=== PATIENT | female | born 1950 | race Caucasian/White ===

== ENCOUNTER 2020-09-15 07:58 | Outpatient (NON) | payer OTHER, SELFPAY ==
[2020-09-15 20:40] LABS: SARS-CoV-2 RNA PCR Negative
== END 2020-09-15 07:59 ==
PROVIDERS: PCP Student in an Organized Health Care Education/Training Program; Visit Provider Student in an Organized Health Care Education/Training Program
DX: R05 Cough (principal); R06.2 Wheezing; Z20.828 Contact with and (suspected) exposure to other viral communicable diseases
CPT/HCPCS: 87635; C9803; U0003

== ENCOUNTER 2020-09-20 06:49 | Emergency (ER) | payer OTHER, SELFPAY ==
[2020-09-20] VITALS (40 sets, daily range): BP systolic 128–215; BP diastolic 66–127; PULSE 71–95; RESP 12–25; TEMP 35.7–36.7; O2SAT 95–100
--- NOTE | ~2020-09-20 | XR_ITS ---
EXAMINATION: XR chest 2V DATE: 09/20/2020 07:37 INDICATION: Chest pain and nausea TECHNIQUE: Frontal and lateral views of the chest are obtained COMPARISON: 05/16/2017 FINDINGS: The lungs are free of acute opacities. There is no pleural effusion or pneumothorax. The he art size is normal. There is mild thoracic spondylosis. Median sternotomy wires and mediastinal surgi francesca clips are seen, likely from prior coronary artery bypass grafting. Cholecystectomy clips are note d in the right upper quadrant. IMPRESSION: 1. No acute cardiopulmonary abnormality. Reviewed, dictated and finalized at location A. ARCH RN SPEC
--- NOTE | 2020-09-20 07:09 | ECG_ITS ---
Measurements Intervals [place] Rate: 80 P: 83 [place]: 161 QRS: -9 QRSD: 86 T: 91 QT: 381 QTc: 441 Interpretive Statements SINUS RHYTHM POSSIBLE LEFT ATRIAL ENLARGEMENT CANNOT RULE OUT SEPTAL INFARCT, AGE INDETERMINATE BORDERLINE ST-T WAVE ABNORMALITY- ANT/HIGH LAT LEADS BASELINE ARTIFACT- I, II, AVR, AVL, V4-V6 ABNORMAL ECG Electronically Signed On 09-20-2020 8:36:34 NICK SETTER by Tommy Felder D.O.
--- NOTE | 2020-09-20 07:13 | ED.CHESTPAIN ---
HPI - Chest Pain General Chief Complaint: Chest Pain <Doris Maria MD - Last Filed: 09/20/20 18:29> Stated Complaint: dr sent me here, thinks i am having a heart attack <Doris Maria MD - Last Filed: 09/20/20 18:29> Time Seen by Provider: 09/20/20 07:06 <Doris Maria MD - Last Filed: 09/20/20 18:29> Source: patient and family <Doris Maria MD - Last Filed: 09/20/20 18:29> Mode of arrival: ambulatory <Doris Maria MD - Last Filed: 09/20/20 18:29> Limitations: no limitations <Doris Maria MD - Last Filed: 09/20/20 18:29> History of Present Illness HPI narrative: Patient is a 70-year-old female with a history of hypertension, coronary artery disease, triple-vessel CABG who presents for evaluation of chest pain. Patient states chest pain began 1 hour prior to arrival. Described as a pressure as well as acid indigestion over the central chest and upper abdomen. Patient denies any radiation to the shoulders, neck or jaw. She reports associated nausea and mild diaphoresis. No associated shortness of breath. Patient states symptoms are mild currently. She did take a daily full dose aspirin this morning, denies taking any of her other blood pressure medications. She otherwise takes carvedilol and losartan. She follows with Dr. Burleson at [facility] who prompted her to come to the nearest emergency department. Patient has been compliant with her other medications. <Doris Maria MD - Last Filed: 09/20/20 18:29> Related Data Home Medications: Home Medications Medication Instructions Recorded Confirmed Ca cmb [id number] tablet PO 09/20/20 [Vitamin D-3 with Aloe] aspirin [Aspirin For Children] 81 mg PO DAILY 09/20/20 atorvastatin 09/20/20 carvedilol 09/20/20 furosemide 09/20/20 losartan 09/20/20 omeprazole 09/20/20 potassium chloride meq PO 09/20/20 thiamine HCl (vitamin B1) 100 mg PO DAILY 09/20/20 vilazodone [Viibryd] mg 09/20/20 <Doris Maria MD - Last Filed: 09/20/20 18:29> Allergies/Adverse Reactions: Allergies Allergy/AdvReac Type Severity Reaction Status Date / Time codeine Allergy Unknown Itching Verified 09/20/20 07:18 propoxyphene Allergy Unknown Itching Verified 09/20/20 07:18 Sulfa (Sulfonamide Allergy Unknown Itching Verified 09/20/20 07:18 Antibiotics) tramadol Allergy Itching Verified 09/20/20 07:18 <Doris Maria MD - Last Filed: 09/20/20 18:29> Review of Systems Review of Systems: Narrative: CONSTITUTIONAL: Denies fever, chills, or sweats. EYES: Denies visual changes, redness, or discharge. ENT: Denies rhinorrhea, congestion, sore throat, or otalgia. CARDIOVASCULAR: Reports central chest pain without palpitations or edema RESPIRATORY: Denies cough or dyspnea. GASTROINTESTINAL: Denies abdominal pain, reports nausea without vomiting GENITOURINARY: Denies dysuria or hematuria. SKIN: Denies rash or itching. MUSCULOSKELETAL: Denies back pain, joint pain, or myalgia. NEUROLOGIC: Denies headache, numbness, or weakness. <Doris Maria MD - Last Filed: 09/20/20 18:29> [facility] Past Medical History Medical History: Medical History (Updated 09/21/20 @ 14:32 by Ying Sullivan MD) Coronary artery disease Hyperlipidemia Hypertension <Doris Maria MD - Last Filed: 09/20/20 18:29> Surgical History Surgical History: Surgical History (Updated 09/20/20 @ 08:00 by Doris Maria MD) S/P CABG x 3 <Doris Maria MD - Last Filed: 09/20/20 18:29> Social History Social History: Social History (Updated 09/20/20 @ 08:00 by Doris Maria MD) Smoking status: Never smoker Alcohol intake: never Substance use: never Living arrangements: with family Gender identity (if verbalized by the patient): Female Sexual Orientation (if Verbalized by the Patient): Straight or Heterosexual <Doris Maria MD - Last Filed: 09/20/20 18:
[2020-09-20 07:30] LABS: Basophils Percent Auto 0.4 % (0.2-1.2); Eosinophils Absolute Auto 0.1 K/mm3 (0-0.3); Eosinophils Percent Auto 1.2 % (0-4.4); Hematocrit 39.8 % (37.0-47.0); Hemoglobin 13.6 g/dL (12.0-15.0); Immature Granulocyte Absolute 0.07 K/mm3 (0.00-0.031); Immature Granulocyte Percent A 0.7 % (0-0.5); Lymphocytes Absolute Auto 2.48 K/mm3 (0.9-3.2); Lymphocytes Percent Auto 26.1 % (18.3-44.2); Mean Corpuscular HGB Conc 34.2 g/dl (32-36); Mean Corpuscular Hemoglobin 28.3 pg (26-34); Mean Corpuscular Volume 82.9 fl (80-100); Mean Platelet Volume 9.1 fl (7.4-10.4); Monocytes Absolute Auto 0.9 K/mm3 (0.1-0.6); Monocytes Percent Auto 9.3 % (2.6-8.5); Neutrophils Absolute Auto 5.9 K/mm3 (1.3-6.7); Neutrophils Percent Auto 62.3 % (45.5-73.1); Platelet Count Result 229 k/mm3 (150-375); Red Cell Distribution Width 13.2 % (11.5-14.5); White Blood Count 9.5 K/mm3 (4.5-10.0)
[2020-09-20 07:42] LABS: Anion Gap 6 mmol/L (8-16); Blood Urea Nitrogen 27 mg/dL (7-17); Calcium 9.4 mg/dL (8.4-10.2); Carbon Dioxide 31 mmol/L (22-30); Chloride 102 mmol/L (98-107); Estimated CRCL calculation 45 ml/min; Estimated Glomerular Filt Rate > 60; Glucose 145 mg/dL (65-105); Potassium 3.5 mmol/L (3.4-5.0); Sodium 139 mmol/L (137-145)
[2020-09-20 07:43] LABS: Prothrombin Time 13.6 Seconds (11.1-14.7)
[2020-09-20 07:44] LABS: Partial Thromboplastin Time 24.3 SECONDS (22.3-36.8)
[2020-09-20 07:51] LABS: Troponin I < 0.012 ng/mL (0.000-0.034)
[2020-09-20] MEDS: ONDANSETRON INJ 4 MG/2 ML VIAL IV PUSH (09:09)
[2020-09-20] MEDS: MORPHINE SULFATE (*CRX) 4 MG/ML INJ IV PUSH (09:09)
[2020-09-20] MEDS: SODIUM CHLORIDE 0.9% IV 500 ML 999 ML IV CONT (09:10)
--- NOTE | 2020-09-20 10:55 | ECG_ITS ---
Measurements Intervals [place] Rate: 66 P: 70 MD: 160 QRS: -11 QRSD: 88 T: 68 QT: 409 QTc: 431 Interpretive Statements SINUS RHYTHM VENTRICULAR PREMATURE COMPLEX INCOMPLETE RIGHT BUNDLE BRANCH BLOCK DELAYED PRECORDIAL R/S TRANSITION BORDERLINE ST-T WAVE ABNORMALITY- ANT/HIGH LAT LEADS BORDERLINE ECG Electronically Signed On 09-20-2020 12:39:46 WEB DEVELOPMENT MANAGER by Tommy Felder D.O.
[2020-09-20 11:07] LABS: Troponin I < 0.012 ng/mL (0.000-0.034)
[2020-09-20 15:42] LABS: Troponin I < 0.012 ng/mL (0.000-0.034)
--- NOTE | 2020-09-20 19:52 | PC.NURSE ---
Waiting for bed assignment at [facility]
[2020-09-21] VITALS (25 sets, daily range): BP systolic 138–175; BP diastolic 73–75; PULSE 69–91; RESP 12–22; TEMP 36.6; O2SAT 96–100
--- NOTE | 2020-09-21 14:24 | PC.NURSE ---
Dr Sullivan speaking with population health coach at [facility] about pt and possible disposition.
== END 2020-09-21 15:00 | disposition home or self-care (01) ==
PROVIDERS: Emergency Medicine; Emergency Provider General Practice; PCP Student in an Organized Health Care Education/Training Program
DX: I16.9 Hypertensive crisis, unspecified (principal); R07.9 Chest pain, unspecified; I10 Essential (primary) hypertension; I25.10 Atherosclerotic heart disease of native coronary artery without angina pectoris; Z95.1 Presence of aortocoronary bypass graft; E78.5 Hyperlipidemia, unspecified; R94.31 Abnormal electrocardiogram [ECG] [EKG]; I49.3 Ventricular premature depolarization; I45.10 Unspecified right bundle-branch block
CPT/HCPCS: 36415; 71046; 80048; 84484; 85025; 85610; 85730; 93005; 96361; 96374; 96375; 99284; J2270; J2405; J7040

== ENCOUNTER 2021-01-12 11:16 | Outpatient (CLI) | payer OTHER, MEDICARE, SELFPAY | END 2021-01-12 11:17 | disposition home or self-care (01) | LOC: ANHCOVIDVC 11:16 | PROVIDERS: PCP Student in an Organized Health Care Education/Training Program | DX: Z23 Encounter for immunization (principal) | CPT/HCPCS: 0001A; 91300 ==

== ENCOUNTER 2021-02-02 11:13 | Outpatient (CLI) | payer OTHER, MEDICARE, SELFPAY | END 2021-02-02 11:14 | disposition home or self-care (01) | LOC: ANHCOVIDVC 11:13 | PROVIDERS: PCP Student in an Organized Health Care Education/Training Program | DX: Z23 Encounter for immunization (principal) | CPT/HCPCS: 0002A; 91300 ==

== ENCOUNTER 2021-04-21 13:04 | Outpatient (CLI) | payer OTHER, SELFPAY ==
--- NOTE | ~2021-04-21 | US_ITS ---
EXAMINATION: US venous doppler LE RT EXAM DATE: 04/21/2021 13:29 INDICATION: Right leg pain. TECHNIQUE: Multiple grayscale, color flow and Doppler images of the right lower extremity deep venous system were obtained and reviewed. There is no prior study for comparison. FINDINGS: The right common femoral, femoral and profunda veins demonstrate normal color flow, respira tory variation, augmentation and compressibility. Compressibility, color flow confirmed within the r ight popliteal, posterior tibial, peroneal, and greater saphenous veins. IMPRESSION: 1. No right lower extremity deep venous thrombosis. Reviewed, dictated and finalized at location B.
== END 2021-04-21 13:05 | disposition home or self-care (01) ==
PROVIDERS: PCP Student in an Organized Health Care Education/Training Program; Visit Provider Student in an Organized Health Care Education/Training Program
DX: R60.0 Localized edema (principal); M79.604 Pain in right leg
CPT/HCPCS: 93971

== ENCOUNTER 2021-06-01 07:21 | Outpatient (CLI) | payer OTHER, SELFPAY ==
--- NOTE | ~2021-06-01 | DEXA_ITS ---
Bone Density Report Name: Cassi Ramsey Age: 71 Sex: Female Ethnicity: White Date of : 1950 Indication: postmenopausal; height loss; hysterectomy; Referring Provider: Artie, Nelson Study: Bone densitometry was performed. Exam Date: June 01, 2021 Accession number: [id number] Bone Density: Region BMD T-score Z-score Classification AP Spine (L1, L2, L3) 0.843 -1.6 0.5 Osteopenia Femoral Neck (Left) 0.653 -1.8 0.1 Osteopenia Total Hip (Left) 0.789 -1.3 0.3 Osteopenia Total Hip Bilateral Avg 0.797 -1.2 0.4 Osteopenia Femoral Neck (Right) 0.673 -1.6 0.3 Osteopenia Total Hip (Right) 0.804 -1.1 0.4 Osteopenia World Health Organization criteria for BMD impression classify patients as: Normal (T-score at or above -1.0), Osteopenia (T-score between -1.0 and -2.5), or Osteoporosis (T-score at or below -2.5). 10-year Fracture Risk(1): Major Osteoporotic Fracture 11% Hip Fracture 1.9% Reported Risk Factors: [place] (), Neck BMD=0.653, BMI=24.7 (1) FRAX(R) Version 3.08. Fracture probability calculated for an untreated patient. Fracture probability may be lower if the patient has received treatment. Clinical Information Provided by Patient: Has used the following medications: Vitamin D, Calcium Has the following medical conditions: Hysterectomy Patient maximum height was 63 Menopause Age: 52 No regular weight bearing exercise Drinks caffeinated beverages Onset of menses at age 13 Number of children 2 Impression: The patient has low bone mass, based on the Left Femoral Neck T-score. The patient has an estimated ten-year risk of hip fracture of 1.9% and an estimated ten-year risk of major fracture of 11%, based on the WHO FRAX algorithm. Discussion: BONE DENSITY IS LOW AT ONE OR MORE SKELETAL SITES. This patient's lowest T-score is low at one or more skeletal sites. It meets the World Health Organization's (WHO) criteria for ?low bone mass? (T-score between -1.0 and -2.5). The patient's 10-year risk of fracture as calculated by FRAX is less than the threshold where pharmacological therapy is recommended by the National Osteoporosis Foundation (NOF). However, all treatment decisions require clinical judgment and consideration of individual patient factors, including patient preferences, comorbidities, previous drug use, risk factors not captured in the FRAX model (e.g., frailty, falls, vitamin D deficiency, increased bone turnover, interval significant decline in bone density) and possible under or overestimation of fracture risk by FRAX. The patient should follow a healthful lifestyle (good nutrition with adequate calcium and vitamin D, and appropriate weight-bearing exercise). Follow-Up: Consider repeating this study in 2 to 3 years to reassess this patient's status, or sooner if there is
--- NOTE | ~2021-06-01 | MM_ITS ---
EXAMINATION: MM screening zoraida BI w raina HISTORY: Screening mammogram TECHNIQUE: Craniocaudal and mediolateral oblique 3-D tomosynthesis images were obtained and synthetic 2-D images were generated. CAD analysis was submitted and interpreted. COMPARISON: 09/05/2014, 09/20/2012 bilateral digital screening mammogram examinations BREAST PARENCHYMAL COMPOSITION: The breasts are heterogeneously dense, which may obscure small masses . FINDINGS: There is no evidence of suspicious mass, calcification, or architectural distortion to sugg est malignancy in either breast. There has been no suspicious interval change. IMPRESSION: 1. No mammographic evidence of malignancy. 2. Recommend routine screening mammography in one year. BI-RADS Category 1: Negative Reviewed, dictated and finalized at location A.
== END 2021-06-01 07:22 | disposition home or self-care (01) ==
LOC: ANHIMG 07:22
PROVIDERS: PCP Student in an Organized Health Care Education/Training Program; Visit Provider Student in an Organized Health Care Education/Training Program
DX: Z12.31 Encounter for screening mammogram for malignant neoplasm of breast (principal); Z78.0 Asymptomatic menopausal state; M85.89 Other specified disorders of bone density and structure, multiple sites
CPT/HCPCS: 77063; 77067; 77080

== ENCOUNTER 2021-08-10 11:48 | Emergency (ER) | payer OTHER, SELFPAY ==
[2021-08-10 11:56] VITALS: BP 136/80; PULSE 77; RESP 18; TEMP 36.2; O2SAT 100
--- NOTE | 2021-08-10 12:39 | ED.EAR ---
HPI - Ear Problem General Chief complaint: Ear Stated complaint: Ear Pain Time Seen by Provider: 08/10/21 12:12 Source: patient and RN notes reviewed Mode of arrival: ambulatory Limitations: no limitations History of Present Illness HPI Narrative: Patient presents today with a 5-day history of feeling like there is fluid behind her eardrums, causing some dizziness at home. Associated symptoms include postnasal drainage. Denies any other additional symptoms. She has been taking some [id number] generic allergy medication without relief. She is a non-smoker. States her doctor could not get her in for the next several days and wanted to come in for evaluation. Related Data Home Medications Medication Instructions Recorded Confirmed carvedilol 12.5 mg DAILY 09/20/20 08/10/21 furosemide 20 mg PO DAILY 09/20/20 08/10/21 potassium chloride 10 meq PO DAILY 09/20/20 08/10/21 Allergies Allergy/AdvReac Type Severity Reaction Status Date / Time Penicillins Allergy Intermediate Rash Verified 08/10/21 12:14 codeine Allergy Unknown Itching Verified 08/10/21 12:14 propoxyphene Allergy Unknown Itching Verified 08/10/21 12:14 Sulfa (Sulfonamide Allergy Unknown Itching Verified 08/10/21 12:14 Antibiotics) tramadol Allergy Itching Verified 08/10/21 12:14 Review of Systems Review of Systems: CONSTITUTIONAL: Denies body aches, fever, chills, or sweats. EYES: Denies visual changes, redness, or discharge. ENT: Denies rhinorrhea, congestion, sore throat, or otalgia.+ Fluid in her ears CARDIOVASCULAR: Denies chest pain, palpitations, or edema. RESPIRATORY: Denies cough or dyspnea. GASTROINTESTINAL: Denies abdominal pain, nausea, vomiting, or diarrhea. GENITOURINARY: Denies dysuria or hematuria. SKIN: Denies rash, itching, or wounds. MUSCULOSKELETAL: Denies back pain, joint pain, or myalgia. NEUROLOGIC: Denies headache, numbness, tingling, or weakness. PSYCH: Denies depression or anxiety. [facility] Past Medical History Medical History Coronary artery disease Hyperlipidemia Hypertension Surgical History Surgical History S/P CABG x 3 Social History Social History Smoking status: Never smoker Alcohol intake: never Substance use: never Gender identity (if verbalized by the patient): Female Sexual Orientation (if Verbalized by the Patient): Straight or Heterosexual Comments At time of signature, I have reviewed and agree with nursing past medical, surgical, social and family history unless otherwise noted. Please see nursing chart for further information. There is no relevant family history pertinent to the presenting complaint Exam Narrative: GENERAL: Well-appearing, well-nourished, and in no acute distress. HEAD: Normocephalic, atraumatic. EYES: EOMI. No redness or drainage. Conjunctivae normal. ENT: Mucous membranes pink and moist. Nares clear. No rhinorrhea. Bilateral mild middle ear effusions, without signs of bacterial infection. Throat normal. Uvula midline. NECK: Normal AROM. Supple. No lymphadenopathy. CHEST: No respiratory distress. EXTREMITIES: Normal range of motion. No edema. SKIN: Warm, dry, no rash. Capillary refill normal. Normal skin turgor. NEURO: No focal deficits. Alert and oriented x3. Gait steady. PSYCH: Normal affect. No signs of depression or anxiety. Course Vital Signs Vital signs: Vital Signs Temperature 97.1 F L 08/10/21 11:56 Pulse Rate 77 08/10/21 11:56 Respiratory Rate 18 08/10/21 11:56 Blood Pressure 136/80 08/10/21 11:56 Pulse Oximetry 100 08/10/21 11:56 Temperature 97.1 F L 08/10/21 11:56 Pulse Rate 77 08/10/21 11:56 Respiratory Rate 18 08/10/21 11:56 Blood Pressure 136/80 08/10/21 11:56 Pulse Oximetry 100 08/10/21 11:56 Reviewed. Pt has been instr
== END 2021-08-10 12:53 | disposition home or self-care (01) ==
PROVIDERS: Emergency Provider Nurse Practitioner; PCP Student in an Organized Health Care Education/Training Program
DX: H65.03 Acute serous otitis media, bilateral (principal); I25.10 Atherosclerotic heart disease of native coronary artery without angina pectoris; E78.5 Hyperlipidemia, unspecified; I10 Essential (primary) hypertension; Z95.1 Presence of aortocoronary bypass graft
CPT/HCPCS: 99211; G0463

== ENCOUNTER 2022-07-06 11:34 | Outpatient (CLI) | payer OTHER, SELFPAY ==
[2022-07-06 12:03] LABS: Hemoglobin 12.5 g/dL (12.0-15.0); Mean Corpuscular HGB Conc 34.7 g/dl (32-36); Mean Corpuscular Hemoglobin 30.9 pg (26-34); Mean Corpuscular Volume 89.1 fl (80-100); Mean Platelet Volume 9.6 fl (7.4-10.4); Platelet Count Result 220 k/mm3 (150-375); Red Blood Count 4.04 M/mm3 (4.2-5.4); White Blood Count 8.1 K/mm3 (4.5-10.0)
[2022-07-06 12:13] LABS: Alanine Aminotransferase 13 U/L (6-35); Albumin Level 4.3 g/dL (3.5-5.1); Alkaline Phosphatase 42 U/L (38-126); Anion Gap 4 mmol/L (8-16); Aspartate Amino Transferase 23 U/L (14-36); Bilirubin,Total 0.6 mg/dL (0.2-1.3); Blood Urea Nitrogen 20 mg/dL (7-17); Calcium 8.8 mg/dL (8.4-10.2); Carbon Dioxide 29 mmol/L (22-30); Chloride 103 mmol/L (98-107); Estimated Glomerular Filt Rate 55; Glucose 122 mg/dL (65-110); Sodium 136 mmol/L (137-145)
== END 2022-07-06 11:35 | disposition home or self-care (01) ==
PROVIDERS: PCP Student in an Organized Health Care Education/Training Program; Visit Provider Nurse Practitioner
DX: R10.32 Left lower quadrant pain (principal)
CPT/HCPCS: 36415; 80053; 85027

== ENCOUNTER 2022-07-09 14:18 | Outpatient (CLI) | payer OTHER, SELFPAY ==
--- NOTE | ~2022-07-09 | CT_ITS ---
EXAMINATION: CT abdomen pelvis w con DATE: 07/09/2022 15:09 INDICATION: Left lower quadrant abdominal pain. TECHNIQUE: Computed tomography (CT) of the abdomen and pelvis was performed with 100 mL Omnipaque-350 intravenous contrast. Automated exposure control and iterative reconstruction technique were employe d. The dose-length product was 288.86 mGy-cm. COMPARISON: 04/18/2016 FINDINGS: Lung bases are clear. Heart size is normal. No pericardial or pleural effusion. Atherosclerotic coron fuad artery calcification. Small sliding-type hiatal hernia. Cholecystectomy clips the gallbladder fos sa. Liver, spleen, pancreas, bilateral adrenal glands and kidneys are normal. Bladder is normal. The uterus is not identified and has likely been surgically resected. There is moderate colonic diverticu losis with a sigmoid predominance without adjacent inflammatory change to suggest diverticulitis. The re is mild inflammatory stranding along the anterior margin of the junction of the descending and sig moid colon surrounding ovoid region of fat consistent with epiploic appendagitis. Scattered atheroscl erotic plaque along the abdominal aorta. There is at least moderate, >50%, but potentially severe, >7 0% stenosis at the origin of the celiac axis and right renal artery. No significant stenosis of the s uperior mesenteric artery and contrast is also seen within the inferior mesenteric artery. No free in traperitoneal gas or fluid. No pathologically enlarged abdominal or pelvic lymphadenopathy. Moderate lower lumbar spondylosis. IMPRESSION: 1. Epiploic appendagitis at the junction of the descending and sigmoid colon. 2. Small sliding-type hiatal hernia. 3. Moderate diverticulosis. 4. At least moderate and potentially severe stenosis at the origins of the celiac axis and right bridger l artery. Reviewed, dictated and finalized at location A. IMPRESSION: 1. Epiploic appendagitis at the junction of the descending and sigmoid colon. 2. Small sliding-type hiatal hernia. 3. Moderate diverticulosis. 4. At least moderate and potentially severe stenosis at the origins of the joreg ac axis and right renal artery.
== END 2022-07-09 14:19 | disposition home or self-care (01) ==
LOC: ANHIMG 14:22
PROVIDERS: PCP Student in an Organized Health Care Education/Training Program; Visit Provider Nurse Practitioner
DX: R10.32 Left lower quadrant pain (principal); K63.89 Other specified diseases of intestine; K44.9 Diaphragmatic hernia without obstruction or gangrene; K57.90 Diverticulosis of intestine, part unspecified, without perforation or abscess without bleeding; I77.4 Celiac artery compression syndrome; I70.1 Atherosclerosis of renal artery
CPT/HCPCS: 74177; Q9967

== ENCOUNTER 2023-04-15 09:46 | Outpatient (CLI) | payer OTHER, SELFPAY ==
--- NOTE | ~2023-04-15 | XR_ITS ---
EXAMINATION: XR abdomen/kub 1V DATE: 04/15/2023 10:09 INDICATION: Right lower quadrant abdominal tenderness. TECHNIQUE: A supine view of the abdomen on 2 radiographs was obtained. COMPARISON: CT abdomen and pelvis 07/09/2022 FINDINGS: There are no dilated loops of bowel. There is a moderate volume of stool in the colon. Ther e are phleboliths in the pelvis and right ovarian vein. Surgical clips in the right upper quadrant ar e likely from cholecystectomy. IMPRESSION: 1. Normal bowel gas pattern. Reviewed, dictated and finalized at location A.
[2023-04-15 10:57] LABS: Hemoglobin 12.9 g/dL (12.0-15.0); Mean Corpuscular HGB Conc 34.9 g/dl (32-36); Mean Corpuscular Hemoglobin 30.9 pg (26-34); Mean Corpuscular Volume 88.5 fl (80-100); Mean Platelet Volume 9.3 fl (7.4-10.4); Platelet Count Result 238 k/mm3 (150-375); Red Blood Count 4.18 M/mm3 (4.2-5.4); Red Cell Distribution Width 12.6 % (11.5-14.5); White Blood Count 6.4 K/mm3 (4.5-10.0)
[2023-04-15 11:19] LABS: Alanine Aminotransferase 18 U/L (6-35); Albumin Level 4.2 g/dL (3.5-5.1); Alkaline Phosphatase 37 U/L (38-126); Anion Gap 6 mmol/L (8-16); Aspartate Amino Transferase 25 U/L (14-36); Bilirubin,Total 0.5 mg/dL (0.2-1.3); Blood Urea Nitrogen 16 mg/dL (7-17); CRP 0.7 mg/dL (<1.0); Calcium 8.8 mg/dL (8.4-10.2); Carbon Dioxide 32 mmol/L (22-30); Chloride 103 mmol/L (98-107); Estimated Glomerular Filt Rate > 60; Glucose 137 mg/dL (65-110); Lipase 98 U/L (23-300); Potassium 3.7 mmol/L (3.4-5.0); Sodium 141 mmol/L (137-145)
[2023-04-15 11:53] LABS: Erythrocyte Sedimentation Rate 20 mm/hr (0-20)
[2023-04-16 16:33] LABS: Toxigenic C. Diff NEGATIVE (NEGATIVE)
[2023-04-21 17:16] LABS: H pylori Ag Stool Not Detected (Not Detected)
[2023-04-26 20:52] LABS: Calprotectin, Stool 65 mcg/g
== END 2023-04-15 09:47 | disposition home or self-care (01) ==
PROVIDERS: PCP Student in an Organized Health Care Education/Training Program; Visit Provider Nurse Practitioner
DX: K21.9 Gastro-esophageal reflux disease without esophagitis (principal); K50.00 Crohn's disease of small intestine without complications; R10.32 Left lower quadrant pain; R10.813 Right lower quadrant abdominal tenderness; R11.2 Nausea with vomiting, unspecified; R14.0 Abdominal distension (gaseous)
CPT/HCPCS: 36415; 74018; 80053; 83690; 83993; 85027; 85652; 86140; 87045; 87269; 87338; 87427; 87493

== ENCOUNTER 2023-04-26 08:22 | Outpatient (CLI) | payer OTHER, SELFPAY ==
--- NOTE | ~2023-04-26 | CT_ITS ---
EXAMINATION: CTA abdomen pelvis DATE: 04/27/2023 10:15 CDT INDICATION: Terminal ileitis. Significant vascular disease. TECHNIQUE: Computed tomographic angiography (CTA) of the abdomen and pelvis was performed without and with 100 mL Omnipaque-350 intravenous contrast. The dose-length product was 290.59 mGy-cm. Maximum i ntensity projection 3D-reconstructions of the aorta and other arteries were constructed by the techno logist on a separate workstation. COMPARISON: CT dated 07/09/2022. FINDINGS: There is moderate stenosis at the origin of the celiac axis no significant stenosis of the SMA. There is moderate stenosis of the right renal artery at the origin. No significant stenosis of t he left renal artery. The MICHEL is widely patent. There is atherosclerosis of the aorta without evidenc e for aneurysm. There is a small hiatal hernia. No significant pleural or pericardial effusion. There is dependent atelectasis. Fatty infiltration of the liver. Status post cholecystectomy. The spleen, pancreas, adrenal glands and kidneys are unremarkable. No hydronephrosis. Colonic diverticulosis with out evidence for acute diverticulitis. Nonobstructive bowel pattern. The appendix is not positively v isualized. There is no pericecal inflammatory change to suggest appendicitis. No lymphadenopathy. Mo derate lumbar spondylosis. IMPRESSION: 1. Diffuse atherosclerosis with moderate stenosis at the origin of the celiac axis and right renal ar christelle. No aneurysm or dissection. Reviewed, dictated and finalized at location [] IMPRESSION: 1. Diffuse atherosclerosis with moderate stenosis at the origin of the celiac a xis and right renal artery. No aneurysm or dissection.
== END 2023-04-26 08:23 | disposition home or self-care (01) ==
PROVIDERS: PCP Student in an Organized Health Care Education/Training Program; Visit Provider Nurse Practitioner
DX: K50.00 Crohn's disease of small intestine without complications (principal); I77.4 Celiac artery compression syndrome; I70.1 Atherosclerosis of renal artery; R10.813 Right lower quadrant abdominal tenderness; R11.2 Nausea with vomiting, unspecified; R14.0 Abdominal distension (gaseous)
CPT/HCPCS: 74174; Q9967

== ENCOUNTER 2023-05-05 00:16 | Day surgery (SDC) | payer OTHER, SELFPAY ==
[2023-04-28 13:56] VITALS: BMI 25.7
--- NOTE | 2023-05-04 16:21 | PM.HPGS ---
History of Present Illness History of Present Illness Consent: Risks, benefits, and alternatives have been discussed and questions answered. Patient agrees to proceed with procedure. Chief complaint: GERD,Epigastric pain, Nausea, vomiting, crohn's Narrative: Cassi Ramsey is a 72 year old female Was referred for investigation of several symptoms. She has epigastric pain which is somewhat better after starting Prevacid twice a day and Carafate. She also has loose stools having 6-7 bowel movements per day. She had had pain in the left lower quadrant last year that resolved with Cipro and Flagyl. A CT scan done recently shows nonspecific ileitis her last EGD was 8 years ago. A colonoscopy was done at that time with a polyp removed. her weight is stable when he went to the emergency room on April 10 she was having severe pain in the right upper quadrant. At times she also has pain in the left lower quadrant. this pain is not affected by bowel movements. She has had no fever Review of Systems Review of Systems: All systems reviewed & are unremarkable except as noted in HPI and below PMFSH Past Medical History Medical History Abdominal distension Anticoagulant long-term use Appetite loss Chronic diarrhea Coronary artery disease Diverticulosis Epigastric pain Family hx of colon cancer GERD (gastroesophageal reflux disease) Hiatal hernia History of Helicobacter pylori infection Hyperlipidemia Hypertension LLQ abdominal pain Nausea and vomiting RLQ abdominal tenderness Terminal ileitis of small intestine TIA (transient ischemic attack) Umbilical hernia Vascular abnormality Surgical History Surgical History H/O heart artery stent H/O: hysterectomy Hx of cholecystectomy S/P CABG x 3 Social History Social History Smoking status: Never smoker Alcohol intake: never Substance use: never Living arrangements: with family Gender identity (if verbalized by the patient): Female Sexual Orientation (if Verbalized by the Patient): Straight or Heterosexual Spiritual care concerns: No Meds Home Medications and Allergies Home Medications Medication Instructions Recorded Confirmed Type carvedilol 12.5 mg tablet 12.5 mg PO BID 09/20/20 05/05/23 History furosemide 20 mg tablet 20 mg PO DAILY 09/20/20 04/28/23 History potassium chloride 10 mEq 10 meq PO DAILY 09/20/20 04/28/23 History tablet,extended release aspirin 81 mg tablet,delayed 81 mg PO DAILY 07/06/22 04/28/23 History release (Adult Aspirin Regimen) clopidogrel 75 mg tablet 75 mg PO DAILY 07/06/22 04/28/23 History cetirizine 10 mg tablet 10 mg PO DAILY 04/28/23 04/28/23 History ferrous sulfate 325 mg (65 mg 325 mg PO DAILY 04/28/23 04/28/23 History iron) tablet lansoprazole 30 mg capsule,delayed 30 mg PO BID 04/28/23 04/28/23 History release losartan 100 mg tablet 50 mg PO DAILY 04/28/23 04/28/23 History mecobalamin (vitamin B12) 500 mcg 500 mcg PO DAILY 04/28/23 04/28/23 History chewable tablet vilazodone 20 mg tablet 20 mg PO DAILY 04/28/23 04/28/23 History Allergies Allergy/AdvReac Type Severity Reaction Status Date / Time Penicillins Allergy Severe Itching Verified 05/05/23 10:56 Sulfa (Sulfonamide Allergy Severe Itching Verified 05/05/23 10:56 Antibiotics) tramadol Allergy Intermediate Nausea Verified 05/05/23 10:56 codeine AdvReac Intermediate Nausea Verified 05/05/23 10:56 propoxyphene AdvReac Intermediate Nausea Verified 05/05/23 10:56 Exam Const: General: alert Orientation/consciousness: patient oriented x3 Resp: Auscultation: clear to auscultation bilaterally Cardio: Rhythm: regular rhythm GI: GI Palp: Yes Soft to palpation and No Tenderness to palpation present (GI) Neuro: General: patient oriented x3 Assessment and Plan Assessment
[2023-05-05 10:57] VITALS: BP 144/108; PULSE 72; RESP 18; TEMP 36.2; O2SAT 99
[2023-05-05] MEDS: LACTATED RINGERS 1,000 ML 150 ML IV CONT (11:16)
--- NOTE | 2023-05-05 12:32 | WPDANESEPPF ---
Anes - Initial Pre Proc Eval Procedure: Operation Date: 05/05/23 12:30 Proposed Procedures p Esophagogastroduodenoscopy & Colonoscopy - Deangelo Morejon MD Date/Time: 05/05/23 12:32 Surgeon: Deangelo Morejon MD Pre Op Diagnosis: GERD,Epigastric pain, Nausea, vomiting, crohn's Patient Data Age: 72 Gender: F Height: 1.59 m Weight: 64.9 kg Last Vital Signs Temp 97.2 F L 05/05/23 10:57 Pulse 72 05/05/23 10:57 Resp 18 05/05/23 10:57 BP 144/108 H 05/05/23 10:57 Pulse Ox 99 05/05/23 10:57 O2 Del Method Room Air 05/05/23 10:57 Allergies Allergy/AdvReac Type Severity Reaction Status Date / Time Penicillins Allergy Severe Itching Verified 05/05/23 10:56 Sulfa (Sulfonamide Allergy Severe Itching Verified 05/05/23 10:56 Antibiotics) tramadol Allergy Intermediate Nausea Verified 05/05/23 10:56 codeine AdvReac Intermediate Nausea Verified 05/05/23 10:56 propoxyphene AdvReac Intermediate Nausea Verified 05/05/23 10:56 Home Medications Medication Instructions Recorded Confirmed Type carvedilol 12.5 mg tablet 12.5 mg PO BID 09/20/20 05/05/23 History furosemide 20 mg tablet 20 mg PO DAILY 09/20/20 04/28/23 History potassium chloride 10 mEq 10 meq PO DAILY 09/20/20 04/28/23 History tablet,extended release aspirin 81 mg tablet,delayed 81 mg PO DAILY 07/06/22 04/28/23 History release (Adult Aspirin Regimen) clopidogrel 75 mg tablet 75 mg PO DAILY 07/06/22 04/28/23 History cetirizine 10 mg tablet 10 mg PO DAILY 04/28/23 04/28/23 History ferrous sulfate 325 mg (65 mg 325 mg PO DAILY 04/28/23 04/28/23 History iron) tablet lansoprazole 30 mg capsule,delayed 30 mg PO BID 04/28/23 04/28/23 History release losartan 100 mg tablet 50 mg PO DAILY 04/28/23 04/28/23 History mecobalamin (vitamin B12) 500 mcg 500 mcg PO DAILY 04/28/23 04/28/23 History chewable tablet vilazodone 20 mg tablet 20 mg PO DAILY 04/28/23 04/28/23 History Patient hx anesthesia problems: none Family hx anesthesia problems: none Results Review: All pre-operative results and documents have been reviewed as part of the pre-operative evaluation. [facility] Past Medical History Medical History Abdominal distension Anticoagulant long-term use Appetite loss Chronic diarrhea Coronary artery disease Diverticulosis Epigastric pain Family hx of colon cancer GERD (gastroesophageal reflux disease) Hiatal hernia History of Helicobacter pylori infection Hyperlipidemia Hypertension LLQ abdominal pain Nausea and vomiting RLQ abdominal tenderness Terminal ileitis of small intestine TIA (transient ischemic attack) Umbilical hernia Vascular abnormality Surgical History Surgical History H/O heart artery stent H/O: hysterectomy Hx of cholecystectomy S/P CABG x 3 Social History Social History Smoking status: Never smoker Alcohol intake: never Substance use: never Living arrangements: with family Gender identity (if verbalized by the patient): Female Sexual Orientation (if Verbalized by the Patient): Straight or Heterosexual Spiritual care concerns: No Anes - Eval Final PreProcedure Day of Procedure 05/05/23 12:32 Patient weight: normal Heart: regular rate and rhythm Lungs: clear to auscultation Airway: Mallampati scale class II Neurological: alert and oriented Last oral intake: >/= 8 hours ASA classification: III Emergent: no Anesthetic plan: proceed Anesthesia type and monitoring: general GIVS and standard monitoring Results Review: All pre-operative results and documents have been reviewed as part of the pre-operative evaluation. Informed Consent: The patient's anesthetic plan and its attendant risks and benefits were discussed with the patient/family/POA. Questions were solicited and answers provided to the satisfaction of the patie
--- NOTE | 2023-05-05 12:54 | SUR.OPER ---
EGD began at 1239 and ended at 1244. Colonoscopy began at 1251.
[2023-05-05 13:07] VITALS: BP 101/45; PULSE 70; RESP 20; O2SAT 98
[2023-05-05 13:17] VITALS: BP 118/62; PULSE 67; RESP 14; O2SAT 100
[2023-05-05 13:27] VITALS: BP 139/65; PULSE 65; RESP 17; O2SAT 98
== END 2023-05-05 13:35 | disposition home or self-care (01) ==
PROVIDERS: PCP Student in an Organized Health Care Education/Training Program; Visit Provider Internal Medicine Gastroenterology
PROC: 0DJ08ZZ Inspection of Upper Intestinal Tract, Via Natural or Artificial Opening Endoscopic (ICD-10-PCS; CPT 43235; principal; 2023-05-05 12:30)
DX: Z12.11 Encounter for screening for malignant neoplasm of colon (principal); R19.7 Diarrhea, unspecified; K57.30 Diverticulosis of large intestine without perforation or abscess without bleeding; K21.00 Gastro-esophageal reflux disease with esophagitis, without bleeding; K22.2 Esophageal obstruction; K44.9 Diaphragmatic hernia without obstruction or gangrene; Z86.010 Personal history of colon polyps; I10 Essential (primary) hypertension; E78.5 Hyperlipidemia, unspecified; I25.10 Atherosclerotic heart disease of native coronary artery without angina pectoris; Z80.0 Family history of malignant neoplasm of digestive organs; Z86.73 Personal history of transient ischemic attack (TIA), and cerebral infarction without residual deficits; Z95.1 Presence of aortocoronary bypass graft; Z95.5 Presence of coronary angioplasty implant and graft; Z79.02 Long term (current) use of antithrombotics/antiplatelets; Z79.82 Long term (current) use of aspirin
CPT/HCPCS: 45380; 43239; 87081; 88305; J2704; J7120

== ENCOUNTER 2023-10-19 16:16 | Emergency (ER) | payer OTHER, SELFPAY ==
--- NOTE | ~2023-10-19 | CT_ITS ---
EXAMINATION: CT abdomen pelvis wo con DATE: 10/19/2023 19:33 INDICATION: raymundo flank pain, worse on R, UTI, hx kidney stones TECHNIQUE: Computed tomography (CT) of the abdomen and pelvis was performed without intravenous contr ast. Automated exposure control and iterative reconstruction technique were employed. The dose-length product was 190.50 mGy-cm. COMPARISON: 04/26/2023. FINDINGS: Lower thorax: Moderate coronary artery calcifications. Moderate hiatal hernia. Liver: Normal. Biliary/Gallbladder: Gallbladder is absent. No bile duct dilation. Pancreas: No mass or duct dilation. Spleen: Normal. Adrenals:No mass. Kidneys: No suspicious mass, obstructing stone, or hydronephrosis. GI tract: No small or large bowel dilation. Appendix not confidently visualized. Diverticulosis witho ut diverticulitis. Mesentery/Peritoneum: No ascites, mass, or free air. Retroperitoneum: No mass. Atherosclerotic abdominal aortic and/or arterial calcifications. Stable sma ll infrarenal saccular aortic aneurysm. Pelvis: Normal urinary bladder. Absent uterus. Stable bone and fat density 1.5 cm right lower abdomin al/upper pelvic mass, likely dermoid. Soft Tissues: Soft tissues and body wall unremarkable. Bones: No acute osseous finding. IMPRESSION: No acute abdominopelvic process detected. Reviewed, dictated and finalized at location K. FIT AUTHORIZER
[2023-10-19 16:28] VITALS: BP 187/88; PULSE 90; RESP 16; TEMP 36.6; O2SAT 100
[2023-10-19 19:00] LABS: Basophils Absolute Auto 0.1 K/mm3 (0.0-0.1); Basophils Percent Auto 0.7 % (0.2-1.2); Eosinophils Absolute Auto 0.2 K/mm3 (0-0.3); Eosinophils Percent Auto 2.6 % (0-4.4); Hematocrit 38.4 % (37.0-47.0); Hemoglobin 13.3 g/dL (12.0-15.0); Immature Granulocyte Absolute 0.02 K/mm3 (0.00-0.031); Immature Granulocyte Percent A 0.3 % (0-0.5); Lymphocytes Absolute Auto 2.35 K/mm3 (0.9-3.2); Lymphocytes Percent Auto 34.4 % (18.3-44.2); Mean Corpuscular HGB Conc 34.6 g/dl (32-36); Mean Corpuscular Hemoglobin 30.4 pg (26-34); Mean Corpuscular Volume 87.9 fl (80-100); Mean Platelet Volume 9.2 fl (7.4-10.4); Monocytes Absolute Auto 0.5 K/mm3 (0.1-0.6); Monocytes Percent Auto 7.8 % (2.6-8.5); Neutrophils Absolute Auto 3.7 K/mm3 (1.3-6.7); Neutrophils Percent Auto 54.2 % (45.5-73.1); Platelet Count Result 204 k/mm3 (150-375); Red Blood Count 4.37 M/mm3 (4.2-5.4); Red Cell Distribution Width 11.9 % (11.5-14.5); White Blood Count 6.8 K/mm3 (4.5-10.0)
[2023-10-19 19:04] LABS: Appearance Urine Clear (Clear); Bacteria Urine None Seen /hpf; Bilirubin Urine Negative (Negative); Blood Urine Trace (Negative); Color Urine Yellow (Yellow); Glucose Urine UA Negative (Negative); Ketones Urine Negative (Negative); Leukocyte Esterase Ur 2+ LEU/UL (Negative); Nitrate Urine Negative (Negative); Non Pathogenic Casts 0-2; Protein Urine Negative (Negative); RBC Urine 0-2 /hpf (0-2); Specific Grav Ur 1.011 (1.001-1.035); Squamous Epithelial Cell Urine Few /hpf (Few); Urobilinogen Urine 0.2 mg/dL (<2.0)
[2023-10-19 19:07] LABS: Add Urine Microscopic? YES
[2023-10-19 19:11] LABS: Alanine Aminotransferase 16 U/L (6-35); Albumin Level 4.1 g/dL (3.5-5.1); Alkaline Phosphatase 49 U/L (38-126); Anion Gap 7 mmol/L (8-16); Aspartate Amino Transferase 29 U/L (14-36); Bilirubin,Total 0.5 mg/dL (0.2-1.3); Blood Urea Nitrogen 18 mg/dL (7-17); Calcium 8.9 mg/dL (8.4-10.2); Carbon Dioxide 29 mmol/L (22-30); Chloride 103 mmol/L (98-107); Estimated CRCL calculation 49 ml/min; Estimated Glomerular Filt Rate > 60; Glucose 130 mg/dL (65-110); Potassium 3.9 mmol/L (3.4-5.0); Sodium 139 mmol/L (137-145)
[2023-10-19] MEDS: MORPHINE SULFATE (*CRX) 4 MG/ML INJ IV PUSH (19:45)
[2023-10-19] MEDS: SODIUM CHLORIDE 0.9% IV 1,000 ML 999 ML IV CONT (19:46)
[2023-10-19] MEDS: ONDANSETRON INJ 4 MG/2 ML VIAL IV PUSH (19:46)
[2023-10-19 19:47] VITALS: BP 180/76; PULSE 65; RESP 18; O2SAT 100
[2023-10-19 20:01] VITALS: BP 175/67; PULSE 68; RESP 17; O2SAT 99
--- NOTE | 2023-10-19 20:08 | ED.BACK ---
HPI - Back Pain/Injury General Chief Complaint: Back Pain/Injury Stated Complaint: flank pain bilateral Time Seen by Provider: 10/19/23 18:30 Source: patient Mode of arrival: ambulatory Limitations: no limitations History of Present Illness HPI Narrative: Patient is a 73-year-old female who presents to the ED with report of bilateral flank pain. Patient reports the pain began yesterday around 4:00 p.m. after taking a walk. Denies strenuous activity. She states pain has persisted into today, fairly constant. She has not tried anything for the pain. Denies pain radiating to abdomen. She reports history of kidney stones and kidney infections and states pain feels somewhat similar to this. She does report cloudiness to urine, malodor to urine, denies significant dysuria or hematuria. Denies nausea, vomiting, fevers. Denies chest pain or shortness breath. Related Data Home Medications Medication Instructions Recorded Confirmed carvedilol 12.5 mg tablet 12.5 mg PO BID 09/20/20 05/05/23 furosemide 20 mg tablet 20 mg PO DAILY 09/20/20 04/28/23 potassium chloride 10 mEq 10 meq PO DAILY 09/20/20 04/28/23 tablet,extended release aspirin 81 mg tablet,delayed 81 mg PO DAILY 07/06/22 04/28/23 release (Adult Aspirin Regimen) clopidogrel 75 mg tablet 75 mg PO DAILY 07/06/22 04/28/23 cetirizine 10 mg tablet 10 mg PO DAILY 04/28/23 04/28/23 ferrous sulfate 325 mg (65 mg 325 mg PO DAILY 04/28/23 04/28/23 iron) tablet losartan 100 mg tablet 50 mg PO DAILY 04/28/23 04/28/23 mecobalamin (vitamin B12) 500 mcg 500 mcg PO DAILY 04/28/23 04/28/23 chewable tablet vilazodone 20 mg tablet 20 mg PO DAILY 04/28/23 04/28/23 Allergies Allergy/AdvReac Type Severity Reaction Status Date / Time Penicillins Allergy Severe Itching Verified 05/05/23 10:56 Sulfa (Sulfonamide Allergy Severe Itching Verified 05/05/23 10:56 Antibiotics) tramadol Allergy Intermediate Nausea Verified 05/05/23 10:56 codeine AdvReac Intermediate Nausea Verified 05/05/23 10:56 propoxyphene AdvReac Intermediate Nausea Verified 05/05/23 10:56 Review of Systems Review of Systems: CONSTITUTIONAL: Denies fever, chills, or sweats. CARDIOVASCULAR: Denies chest pain. RESPIRATORY: Denies dyspnea. GASTROINTESTINAL: Denies abdominal pain, nausea, vomiting, or diarrhea. GENITOURINARY: See HPI. MUSCULOSKELETAL: See HPI. NEUROLOGIC: Denies headache, dizziness, numbness, or weakness. All systems reviewed & are unremarkable except as noted in HPI and below PMFSH Past Medical History Medical History Abdominal distension Anticoagulant long-term use Appetite loss Chronic diarrhea Coronary artery disease Diverticulosis Epigastric pain Family hx of colon cancer GERD (gastroesophageal reflux disease) Hiatal hernia History of Helicobacter pylori infection Hyperlipidemia Hypertension LLQ abdominal pain Nausea and vomiting RLQ abdominal tenderness Terminal ileitis of small intestine TIA (transient ischemic attack) Umbilical hernia Vascular abnormality Surgical History Surgical History H/O heart artery stent H/O: hysterectomy Hx of cholecystectomy S/P CABG x 3 Social History Social History Smoking status: Never smoker Alcohol intake: never Substance use: never Living arrangements: with family Gender identity (if verbalized by the patient): Female Sexual Orientation (if Verbalized by the Patient): Straight or Heterosexual Spiritual care concerns: No Exam Narrative: GENERAL: Elderly, well-nourished, non-toxic, in no acute distress. HEAD: Normocephalic, atraumatic. RESPIRATORY: Airway patent, respirations nonlabored. Clear to auscultation bilaterally, no rales, rhonchi, wheezing. CARDIOVASCULAR: Regular rate and rhythm without murmurs, rubs, or gallops. ABDOMINAL: Soft
[2023-10-19 20:16] VITALS: BP 169/70; PULSE 75; RESP 16; O2SAT 100
[2023-10-19 20:31] VITALS: BP 181/89; PULSE 71; RESP 18; O2SAT 100
== END 2023-10-19 21:00 | disposition home or self-care (01) ==
PROVIDERS: Emergency Provider Physician Assistant; PCP Student in an Organized Health Care Education/Training Program
DX: N39.0 Urinary tract infection, site not specified (principal); I25.10 Atherosclerotic heart disease of native coronary artery without angina pectoris; K21.9 Gastro-esophageal reflux disease without esophagitis; K44.9 Diaphragmatic hernia without obstruction or gangrene; E78.5 Hyperlipidemia, unspecified; I10 Essential (primary) hypertension; Z95.5 Presence of coronary angioplasty implant and graft; Z95.1 Presence of aortocoronary bypass graft; Z86.73 Personal history of transient ischemic attack (TIA), and cerebral infarction without residual deficits; Z90.710 Acquired absence of both cervix and uterus; Z90.49 Acquired absence of other specified parts of digestive tract; Z79.82 Long term (current) use of aspirin
CPT/HCPCS: 36415; 74176; 80053; 81001; 85025; 87086; 87088; 96361; 96374; 96375; 99284; J2270; J2405; J7030

== ENCOUNTER 2024-12-18 15:53 | Outpatient (CLI) | payer OTHER, SELFPAY ==
--- NOTE | ~2024-12-18 | XR_ITS ---
HISTORY: rt foot pain COMPARISON: None TECHNIQUE: 3 views of the right foot were performed FINDINGS: No acute fracture or dislocation is appreciated. No significant degenerative disease is noted. The base of the fifth metatarsal is intact. Moderate calcaneal spur is noted. No significant soft tissue swelling is present. IMPRESSION: Moderate calcaneal spur without acute fracture or dislocation Reviewed, dictated and finalized at location A. [facility]
--- OUTSIDE RECORDS SUMMARY | 2024-12-18 16:23 | XMS_ITS | CONTINUITY OF CARE DOCUMENT ---
Author Name rocco valiente Address Unknown Organization [facility] Address [address] [place] [address] Phone [phone] Care Team Providers Care Automatic Spinning Lathe Operator Name Role Phone Demetrius MORA, Matilde Unavailable [phone] DALLIN MORA, RUDY Unavailable [phone] INSURANCE PROVIDERS Payer name Policy type / Coverage type [place] red libertarian [place] MEDICAID (2) Medicaid [id number]
--- OUTSIDE RECORDS SUMMARY | 2024-12-18 16:23 | XMS_ITS | Encounter Summary ---
Author Organization [facility] Address [address] [place] [address] Care Team Providers Care Mock Up Maker Name Role Phone Unavailable Primary Care Provider Unavailabl e Encounter Details Date Type Department Care Team (Late st Contact Info) Description 06/21/2001 Outpatient Historical [facility] [address] [id number] Yury Smith Social History Tobacco Use Types Packs/Day Years Used Date Smoking Tobacco: Never Assessed Comments Unknown Sex and Gender Information Value Date Recorded Sex Assigned at Not on file 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
--- OUTSIDE RECORDS SUMMARY | 2024-12-18 16:23 | XMS_ITS | Referral Summary ---
Author Organization [facility] Address [address] [place] [address] Care Team Providers Care Gelatin Maker Utility Name Role Phone Nelson Alva DO Primary Care Provide r Sebastián Patterson MD Unavailable [phone] Encounters Date Type Department Care Team Description 12/18/2024 Telephone [facility] Patient Access [address] [place] [address] Nelson Alva DO from Last 3 Months Allergies Active Allergy Reactions Criticality Noted Date Comments Amlodipine Itching Low 08/18/2022 Codeine Itching Low 09/20/2020 Erythromycin Nausea & Vomiting Low 10/29/2020 Isosorbide Dinitrate Itching Low 08/29/2020 Levothyroxine Itching Medium 10/22/2015 Other reaction(s): Skin Reactions Metoprolol Itching Low 10/13/2017 Nitroglycerin Other (See comments) Low 09/23/2020 bottom out Penicillins Vomiting Low 07/04/2016 Propoxyphene Vomiting Low 07/04/2016 Sulfa (Sulfonamide Antibiotics) Itching Medium 10/22/2015 Tramadol Itching Low 09/23/2020 Medications furosemide (LASIX) 20 mg tablet Take 1 tablet (20 mg total) by mouth daily Active aspirin 81 mg tablet Take 1 tablet (81 mg total) by mouth daily Currently on hold due to surgery 08/23/22 Active niacin (NIASPAN) 500 mg tablet Take 1 tablet (500 mg total) by mouth daily with breakfast Active vilazodone (VIIBRYD) 20 mg tabletIndicatio ns:major depressive disorder Take 1 tablet (20 mg total) by mouth daily Active thiamine (VITAMIN B-1) 100 mg tablet Take 1 tablet (100 mg total) by mouth daily Active losartan (COZAAR) 100 mg tablet Take 0.5 tablets (50 mg total) by mouth daily /2 9 Active carvedilol (COREG) 12.5 mg tablet Take 1 tablet (12.5 mg total) by mouth 2 (two) times a day with meals 9 Active ascorbic acid (VITAMIN C) 500 mg tablet,chewable Take 1 tablet/chew tab (500 mg total) by mouth daily Active cholecalciferol (VITAMIN D-3) 5,000 unit capsule Take 1 capsule (5,000 Units total) by mouth daily Active ferrous sulfate 325 mg (65 mg of elemental iron) tablet Take 1 tablet (325 mg total) by mouth daily Active potassium chloride ER 10 mEq CR tablet Take 1 tablet/capsule (10 mEq total) by mouth daily 2 Active lansoprazole (PREVACID) 30 mg capsule Take 1 capsule (30 mg total) by mouth daily Active FISH OIL-DHA-EPA ORAL Take 1 tablet by mouth daily Active docusate sodium (DOK) 100 mg tabletIndicatio ns:constipation Take 1 tablet (100 mg total) by mouth daily Pt unsure of name, OTC stool softener Active cetirizine 10 mg capsule Take 1 tablet by mouth daily Active Active Problems Problem Noted Date Diagnosed Date Closed fracture of nasal bones 06/18/2024 Assessment & Plan (06/18/2024 2:46 PM CDT): I do not find his significant deformity. She may have had a hairline fracture. I do not feel that she needs any intervention and she was reassured by that. I did think that she should probably discontinue the Vicks spray however. Chronic eczematous otitis externa of both ears 0 06/18/2024 Assessment & Plan (06/18/2024 2:46 PM CDT): Her ears look pretty normal. She does have some mild eczema and I talked with her about that. She could try using [id number] hydrocortisone cream twice a day as needed for this. She understands. At this point she will follow up with me as needed. Hypertrophy of nasal turbinates 07/23/2022 Overview (07/23/2022): Added automatically from request for surgery [id number] Chronic maxillary sinusitis 07/23/2022 Overview (07/23/2022): Added automatically from request for surgery [id number] Nasal obstruction 06/28/2022 Assessment & Plan (06/28/2022 4:16 PM CDT): Likely due to sinusitis. Deviated septum also probably causing some of this. Further evaluate with sinus CT scan. Deviated nasal septum 06/28/2022 Chronic pansinusitis 06/28/2022 Assessment & Plan (08/31/2022 7:39 PM CDT): She is healing up well. The maxillary sinuses remain open. Her nasal airway looks good. At this point she can rinse her nose as needed with saline. She can also blow her nose and resume normal activity. No need to follow-up unless she has problems. She understands. She has no questions. Assessment & Plan (08/26/2022 8:40 PM CDT): She is healing well without significant bleeding. Nasal airway is good. I did suction a lot of debris from the middle meatus on either side as well as the nasal cavity. She noted that she could breathe very well. I recommended using saline spray once or twice a day. I would like to have her follow up in about 1 week. Assessment & Plan (06/28/2022 4:18 PM CDT): She has had a persistent cough along with sinus symptoms. Her last antibiotic was 3 weeks ago. He really did not help in either of other prior courses. I am going to treat presumptively with another course of steroids and antibiotics. Re-evaluate afterwards. I am recommending further evaluation with sinus CT scan. She would like to go ahead and pursue that. Greater trochanteric bursitis of left hip 2018 Assessment & Plan (04/27/2019 12:56 PM CDT): We discussed the risks, benefits and alternatives. The steroid shot that we gave her May 08, 2018 lasted almost a year. Cannot do nonsteroidal anti-inflammatories because of history of cardiac disease. The steroid injection is given. The we discussed foam rolling exercises and formal physical therapy. Follow up as needed. Hx of CABG 10/24/2017 Hyperlipidemia 10/24/2017 Hypertension 10/24/2017 Low back pain 10/24/2017 Overview (04/26/2019): controlled Gastroesophageal reflux disease without esophagi tis 10/06/2017 Overview (04/26/2019): controlled Coronary artery disease of n ative artery of [place] heart with stable angina pectoris 05/30/2017 Assessment & Plan (04/27/2019 12:56 PM CDT): Therefore unable to use nonsteroidal anti-inflammatories. Essential hypertension, benign 05/30/2017 Pure hypercholesterolemia 05/30/2017 Immunizations Name Administration Dates Next Due Pfizer SARS-CoV-2 Monovalent Vaccination (12+ Yrs) PURPLE 02/02/2021,01/12/2021 Social History Tobacco Use Types Packs/Day Years Used Date Smoking Tobacco: Never Smokeless Tobacco: Never Tobacco Cessation:Counseling Given: Not Answered Alcohol Use Standard Drinks/Week Comments No 0 (1 standard drink = 0.6 oz pur e alcohol) AUDIT-C Answer Date Recorded Q1: How often do you have a drink containing alc ohol? Never 08/23/2022 Average Number of Drinks Not on file 022 Q3: How often do you have si x or more drinks on one occasion? 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 Gender Identity Not on file Sexual Orientation Not on file Occupation Industry Job Start Date Job End Date retired Not on file Not on file Not on file Last Filed Vital Signs Vital Sign Reading Time Taken Comments Blood Pressure 155/72 08/23/2022 1:55 PM CDT Pulse 99 08/23/2022 1:55 PM CDT Temperature 36.2 C (97.2 F) 08/23/2022 1:25 PM CDT Respiratory Rate 20 06/15/2024 10:05 AM CDT Oxygen Saturation 93% 08/23/2022 1:55 PM CDT Inhaled Oxygen Concentration - - Weight 61.7 kg (136 lb) 06/15/2024 10:05 AM CDT Height 158.8 cm (5' 2.5 ) 06/15/2024 10:05 AM CD T Body Mass Index 24.48 06/15/2024 10:05 AM CDT Plan of Treatment Not on file Medical Devices Implanted Type Area Chairman Emeritus Device Identifier Shelf Expiration Date Model / Serial / Lot Stent Stent [employer] [facility] Care Teams Gelatin Maker Utility Relationship Specialty Start Date End Date Nelson Alva DO PCP - General Family Medicine 04/26/19 Sebastián [place] [address] Consulting Physician Otolaryngology 08/23/22
--- OUTSIDE RECORDS SUMMARY | 2024-12-18 16:23 | XMS_ITS | Encounter Summary ---
Author Organization [facility] Care Team Providers Care Hides Inspector Name Role Phone Roscoe Maharaj MD Primary Care Provider [phone] Nelson Alva DO Primary Care Provide r Sebastián Patterson MD Unavailable [phone] Encounter Details Date Type Department Care Team (Latest Contact Info) Description 07/13/2018 Orders Only [facility] ProviderGuillermo MD [address] [place], [place] [id number] Social History Tobacco Use Types Packs/Day Years Used Date Smoking Tobacco: Never Smokeless Tobacco: Never Alcohol Use Standard Drinks/Week Comments No 0 (1 standard drink = 0.6 oz pur e alcohol) Comments Unknown Sex and Gender Information Value Date Recorded Sex Assigned at Not on file 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 Historical Provider [facility] ZAHE[facility]SEY Final Result documented in this encounter Visit Diagnoses Not on filedocumented in this encounter Care Teams Hides Inspector Relationship Specialty Start Date End Date Roscoe Maharaj MD [address] [place] [address] PCP - General Family Medicine 05/25/17 04/25/19 Nelson Alva DO [address] [place] [address] PCP - General Family Medicine 04/26/19 Sebastián [place] [place] [address] Consulting Physician Otolaryngology 08/23/22 documented as of this encounter
--- OUTSIDE RECORDS SUMMARY | 2024-12-18 16:23 | XMS_ITS | Continuity of Care Document ---
Author Organization [facility] Address [address] [place] [address] [place] [address] Phone Care Team Providers Care Embroidery Operator Name Role Phone Naveen Jonas MD Unavailable Unavailable Procedures Procedure Date Eye Exam & Treatment Advance Directives Directive Yes / No Effective Date File Name No Information Encounters Encounter Description Practice Location Reason(s) For Visit Diagnoses Date Provider Providers Copied on Encounter [facility], [address] [place], [place], [id number], [place] tel:[phone] [facility] [place] No Information [phone] Pritesh Hodge. [address], [place], [place], [id number], [place]. tel:[phone] Family History Family Member Type Diagnosis Age At Onset No Information Payers Payer name Insurance type Covered libertarian ID Authoriza tion(s) No Information Social History Type Description Quantity Date Captured Comments Sex Female Smoking Status No Information Chief Complaint And Reason For Visit No Information Reason For Referral Reason For Referral No Information History Of Present Illness Encounter Date Complaint History Of Prese nt Illness No Information Functional Status Date Functional Assessmen t No Information Instructions Date Instruction Additional Infor mation No Information Assessments Type Assessment Date No Information Patient Care Teams Name Effective Dates (start - stop) Status Members No Information
--- OUTSIDE RECORDS SUMMARY | 2024-12-18 16:23 | XMS_ITS | Continuity of Care Document ---
Author Organization [facility] Address [address] [place] [address] Phone Care Team Providers Care Bioinformatics Software Engineer Name Role Phone Roark Maryuri Unavailable Unavailable Advance Directives Directive Yes / No Effective Date File Name No Information Encounters Encounter Description Practice Location Reason(s) For Visit Diagnoses Date Provider Providers Copied on Encounter [facility], [address], [place], [place], [id number], [place] tel:[phone] Internal Medicine No Information Marybel Wahl. [address] [place], [place], [id number], [place]. tel:[phone] Family History Family Member Type Diagnosis Age At Onset No Information Payers Payer name Insurance type Covered alliance party ID Authoriza tion(s) No Information Social History [...]
--- OUTSIDE RECORDS SUMMARY | 2024-12-18 16:23 | XMS_ITS | Clinical Summary ---
Author Organization [facility] D Address [address] [place] [id number] Care Team Providers Care Pallet Stone Inserter Name Role Phone Nelson Alva Primary Care Provide r Sebastián Patterson MD Unavailable [phone] Allergies Active Allergy Reactions Criticality Noted Date [...] tablets (50 mg total) by mouth daily 1/2 9 Active carvedilol (COREG) 12.5 mg tablet [...] her about that. She could try using [id number] hydrocortisone cream twice a day as needed for this. She understands. At this point she will follow up with me as needed. Hypertrophy of nasal turbinates 07/23/2022 Overview (07/23/2022): Added automatically from request for surgery [id number] Chronic maxillary sinusitis 07/23/2022 Overview (07/23/2022): Added automatically from request for surgery [id number] Nasal obstruction 06/28/2022 Assessment & Plan (06/28/2022 [...] artery disease of n ative artery of [place] heart with stable angina pectoris 05/30/2017 Assessment & Plan (04/27/2019 12:56 PM CDT): Therefore unable to use nonsteroidal anti-inflammatories. Essential hypertension, benign 05/30/2017 Pure hypercholesterolemia 05/30/2017 Encounters Date Type Department Care Team Description 12/18/2024 Telephone [facility] Patient Access [address] [facility] [address] [place] [phone] Nelson Alva DO from Last 3 Months Immunizations Name Administration Dates Next Due Pfizer SARS-CoV-2 Monovalent Vaccination (12+ Yrs) PURPLE 02/02/2021,01/12/2021 Surgical History Surgery Date Site/Laterality Comments MEDIAN STERNOTOMY NECK SURGERY 11/07/1997 - 11/06/1998 disc surgery TONSILLECTOMY ADENOIDECTOMY GALLBLADDER SURGERY HYSTERECTOMY 11/07/2001 - 11/06/2002 CORONARY ARTERY BYPASS GRAFT 11/07/2015 - 11/06/2016 triple APPENDECTOMY CARDIAC CATHETERIZATION 11/07/2018 - 11/06/2019 stent x1 SINUS SURGERY bilateral maxiallary antrostomies 08/23/22 NASAL SEPTOPLASTY W/ TURBINOPLASTY 08/23/2022 NASAL STEPHANIE BULLOSA RESECTION 08/23/2022 Bilateral Medical History Medical History Date Comments Hypertension Hypercholesteremia CAD (coronary artery disease) Kidney stone Stroke (HCC) x8 since age 36, last was 12/2021. only residual is a droop to left eye Anemia oral iron Depression Allergic rhinitis GERD (gastroesophageal reflux disease) Sinusitis Tinnitus Dizziness Nasal drainage Nasal congestion Fracture of nasal bones h/o PONV (postoperative nausea and vomiting) after neck surgery ONLY Motion sickness backseat of car History of COVID-19 08/04/2022 + with home test, no hospitalization, no residual, took home test 11 days after and tested negative Hearing loss 2012 right ear d/t fa ll, needs hearing aid Teeth missing Family History Medical History Relation Name Comments Alcohol abuse Father Cancer Father Pancreatic cancer Father Diabetes Maternal Grandmother Heart attack Mother Heart disease Mother Hyperlipidemia Mother Stroke Mother Cancer Other Gout Other Heart disease Other Hypertension Other Kidney disease Other Relation Name Status Comments Father Maternal Grandmother Mother Other sibling, prosta te and breast cancer Social History Tobacco Use Types Packs/Day Years [...] on file 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 Gender Identity Not on file Sexual Orientation Not on file Occupation Industry Job Start Date Job End Date retired Not on file Not on file Not on file Obstetrics History Last Filed Vital Signs Vital Sign Reading [...] 06/15/2024 10:05 AM CDT Plan of Treatment Health Maintenance Due Date Last Done Comments Breast Cancer Screening-Mammogram 1950 Colon Cancer Screening-Colonoscopy 1950 Depression Screening 1950 Hepatitis C Screening 1950 Osteoporosis Screening-Bone Density Scan 1950 Hepatitis B Screening 1968 Zoster Vaccine (1 of 2) 2000 Well Visit 65+ 2015 Pneumococcal vaccine 65+ (2 of 2 - PCV) 09/14/2015 09/14/2014 Fall Risk Assessment 08/23/2023 08/23/2022 Covid-19 Vaccine (5 - 2023-2 5 season) 2024 05/11/2022, 08/29/2021, 02/02/2021, Additional history exists Influenza Vaccine (#1) 2024 , 10/21/2022, 08/19/2021, Additional history exists DTaP/Tdap/Td Vaccine (2 - Td or Tdap) 05/29/2030 05/29/2020 Medical Devices Implanted Type Area Hse Advisor Device Identifier Shelf Expiration Date Model / Serial / Lot Stent Stent [employer] [facility] Care Teams Pallet Stone Inserter Relationship Specialty Start Date End Date Nelson Alva DO PCP - General Family Medicine 04/26/19 Sebastián Patterson MD [address] [address] Consulting Physician Otolaryngology 08/23/22
--- OUTSIDE RECORDS SUMMARY | 2024-12-18 16:23 | XMS_ITS | Encounter Summary ---
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 Gender Identity Not on file Sexual Orientation Not on file Occupation Industry Job Start Date Job End Date retired Not on file Not on file Not on file documented as of this encounter Miscellaneous Notes * Telephone Encounter - Kathleen Farley - 12/18/2024 10:31 AM CST error NE GUIDE documented in this encounter Plan of Treatment Not on file documented as of this encounter Visit Diagnoses Not on filedocumented in this encounter Care Teams Slab Conditioner Supervisor Relationship Specialty Start Date End Date Nelson Alva DO PCP - General Family Medicine 04/26/19 Sebastián Patterson MD [address] [place] [address] Consulting Physician Otolaryngology 08/23/22 documented as of this encounter
--- OUTSIDE RECORDS SUMMARY | 2024-12-18 16:23 | XMS_ITS | Encounter Summary ---
Author Organization [facility] Address [address] [place] [address] Care Team Providers Care Instructional Design Technologist Name Role Phone Unavailable Primary Care Provider Unavailabl e Encounter Details Date Type Department Care Team (Late st Contact Info) Description 12/05/2001 Outpatient Historical [facility] Brian [address] [facility] 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
--- OUTSIDE RECORDS SUMMARY | 2024-12-18 16:23 | XMS_ITS | Encounter Summary ---
Author Organization [facility] Facility Care Team Providers Care Nanny/Household Manager Name Role Phone Roscoe Maharaj MD Primary Care Provider [phone] Nelson Alva DO Primary Care Provide r Sebastián Patterson MD Unavailable [phone] Encounter Details Date Type Department Care Team (Latest Contact Info) Description 08/07/2018 Orders Only [facility] ProviderGuillermo MD [address] [place], [place] [id number] Social History Tobacco Use Types Packs/Day Years Used Date Smoking Tobacco: Never Smokeless Tobacco: Never Alcohol Use Standard Drinks/Week Comments No 0 (1 standard drink = 0.6 oz pur e alcohol) Comments Unknown Sex and Gender Information Value Date Recorded Sex Assigned at Not on file 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 us Historical Provider Final Res ult documented in this encounter Visit Diagnoses Not on filedocumented in this encounter Care Teams Nanny/Household Manager Relationship Specialty Start Date End Date Roscoe Maharaj MD [address] [place] [address] PCP - General Family Medicine 05/25/17 04/25/19 Nelson Alva DO [address] [place] [address] PCP - General Family Medicine 04/26/19 Sebastián [place] [address] Consulting Physician Otolaryngology 08/23/22 documented as of this encounter
--- OUTSIDE RECORDS SUMMARY | 2024-12-18 16:23 | XMS_ITS | Clinical Summary ---
Author Organization [facility] Address [address] [place] [address] Dr. 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
--- OUTSIDE RECORDS SUMMARY | 2024-12-18 16:23 | XMS_ITS | Encounter Summary ---
Author Organization [facility] Address [address] [place] [address] Care Team Providers Care Electronic Imaging System Operator Name Role Phone Unavailable Primary Care Provider Unavailabl e Encounter Details Date Type Department Care Team (Late st Contact Info) Description 10/04/2001 Outpatient Historical [facility] [address] [facility] [address] [phone] Yury Smith Social History Tobacco Use Types Packs/Day Years Used Date Smoking Tobacco: Never Assessed Comments Unknown Sex and Gender Information Value Date Recorded Sex Assigned at Not on file 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
== END 2024-12-18 15:54 | disposition home or self-care (01) ==
PROVIDERS: PCP Student in an Organized Health Care Education/Training Program
DX: M77.31 Calcaneal spur, right foot (principal)
CPT/HCPCS: 73630

== ENCOUNTER 2025-01-17 16:45 | Emergency (ER) | payer OTHER, SELFPAY ==
--- NOTE | ~2025-01-17 | CT_ITS ---
History: Headache with weakness and paresthesias in the left upper extremity PROCEDURE: CT head without contrast. COMPARISON: 05/15/2013 TECHNIQUE: Axial imaging of the head performed from the skull base to the vertex without IV contrast. Sagittal a nd coronal reformations obtained. DLP: 605 mGy-cm FINDINGS: The ventricles are normal in size, shape and position. There is no mass, mass effect or midline shift. Interval development of basal ganglia calcifications. There is no abnormal extra-axial fluid collection or intracranial hemorrhage. Visualized paranasal sinuses are clear. The mastoid air cells are well aerated. No acute displaced fractures within the overlying cranium. Impression: No acute intracranial hemorrhage or suspicious mass effect. Reviewed, dictated and finalized at location A. Impression: No acute intracranial hemorrhage or suspicious mass effect.
--- NOTE | ~2025-01-17 | XR_ITS ---
CHEST RADIOGRAPH, PA AND LATERAL CLINICAL HISTORY: AMS . COMPARISON: 09/20/2020 TECHNIQUE: PA and lateral views of the chest. FINDINGS Sternal wires and mediastinal clips are identified, the wires are midline and intact. The remainder of the cardiomediastinal silhouette is otherwise unremarkable. Multiple calcified granu blair detected bilaterally, unchanged from prior. The lungs are otherwise clear. IMPRESSION: No focal infiltrate or effusion. Reviewed, dictated and finalized at location A.
[2025-01-17 16:50] VITALS: BP 145/98; PULSE 113; RESP 18; TEMP 36.6; O2SAT 97
--- NOTE | 2025-01-17 16:58 | ECG_ITS ---
Test Date: 2025-01-17 20:03:43 Measurements Intervals [place] Rate: 109 P: 72 MD: 149 QRS: -24 QRSD: 101 T: 61 QT: 352 QTc: 475 Interpretive Statements SINUS TACHYCARDIA BORDERLINE LEFT AXIS DEVIATION [QRS AXIS < -20] No previous ECG available for comparison Electronically Signed On 01-18-2025 16:50:29 CDT by Emelyn Jain M.D.
--- NOTE | 2025-01-17 16:59 | ED_ITS ---
HPI - Nausea/Vomiting/Diarrhea General Chief complaint: Altered Mental Status <Mlia Swanson PA-C - Last Filed: 01/17/25 17:02> Stated complaint: Vomiting, not eating for 3 weeks <Mila Swanson PA-C - Last Filed: 01/17/25 17:02> Time Seen by Provider: 01/17/25 18:59 <Mila Swanson PA-C - Last Filed: 01/17/25 17:02> Focused HPI: 74-year-old female history of hypertension, hyperlipidemia, CAD, TIA presents with at bedside for 3 weeks of nausea, vomiting and confusion. Patient states every time she tries to eat or drink something she vomits for the past 3 weeks. She tells me that her [id number] brought her to the emergency department, however during our conversation her walked into the triage Snyder and states that he was the 1 who brought her into the emergency department. He does state the patient has been more confused recently. When asked what year it is she said 2013. The patient's states that the patient has been lying around for the past several weeks and has not been taking any of her medications or current for herself. He denies history of dementia. The patient is reporting cough and congestion. She denies chest pain shortness of breath, abdominal pain, diarrhea dysuria or hematuria. Of note patient had which appears to be bilateral blepharoplasty performed on Tuesday a [facility]. GENERAL: Well-appearing, well-nourished, and in no acute distress. HEAD: Normocephalic, atraumatic. ENT: Well-healed surgical incisions to bilateral eyelids with no surrounding erythema or warmth CHEST: Crackles in right lower lung walker, no respiratory distress HEART: Regular rate and rhythm.? NEURO: ?Alert and oriented x2-knows name, location but states the year is 2013 Patient screened in triage and initial orders placed.? ?Additional care and disposition to be based upon?diagnostic testing and treatment. <Mila Swanson PA-C - Last Filed: 01/17/25 17:02> Related Data Home medications: Home Medications ?Medication ?Instructions ?Recorded ?Confirmed ?Last Taken ?Type carvedilol 12.5 mg tablet 12.5 mg PO BID 1105/05/23 05/05/23 08:00 History furosemide 20 mg tablet 20 mg PO DAILY 09/20/20 04/28/23 05/04/23 History potassium chloride 10 mEq 10 meq PO DAILY 09/20/20 04/28/23 05/04/23 History tablet,extended release aspirin 81 mg tablet,delayed 81 mg PO DAILY 07/06/22 04/28/23 05/04/23 History release (Adult Aspirin Regimen) clopidogrel 75 mg tablet 75 mg PO DAILY 07/06/22 04/28/23 Unknown History cetirizine 10 mg tablet 10 mg PO DAILY 04/28/23 04/28/23 05/04/23 History ferrous sulfate 325 mg (65 mg 325 mg PO DAILY 04/28/23 04/28/23 05/04/23 History iron) tablet losartan 100 mg tablet 50 mg PO DAILY 04/28/23 04/28/23 05/04/23 History mecobalamin (vitamin B12) 500 mcg 500 mcg PO DAILY 04/28/23 04/28/23 05/04/23 History chewable tablet vilazodone 20 mg tablet 20 mg PO DAILY 04/28/23 04/28/23 05/04/23 History <Mila Swanson PA-C - Last Filed: 01/17/25 17:02> Allergies/Adverse reactions: Allergies Allergy/AdvReac Type Severity Reaction Status Date / Time Penicillins Allergy Severe Itching Verified 01/17/25 16:47 Sulfa (Sulfonamide Allergy Severe Itching Verified 01/17/25 16:47 Antibiotics) tramadol Allergy Intermediate Nausea Verified 01/17/25 16:47 codeine AdvReac Intermediate Nausea Verified 01/17/25 16:47 propoxyphene AdvReac Intermediate Nausea Verified 01/17/25 16:47 <Mila Swanson PA-C - Last Filed: 01/17/25 17:02> [facility] Past Medical History Medical History: Medical History Abdominal distension Anticoagulant long-term use Appetite loss Chronic diarrhea Coronary artery disease Diverticulosis Epigastric pain Family hx of colon cancer GERD (gastroesophageal reflux disease) Hiatal hernia History of Helicobacter pylori infection Hyperlipidemia Hypertension LLQ abdominal pain Nausea and vomiting RLQ abdominal tenderness Terminal ileitis of small intestine TIA (transient ischemic attack) Umbilical hernia Vascular abnormality <Mila Swanson PA-C - Last Filed: 01/17/25 17:02> Surgical History Surgical History: Surgical History H/O heart artery stent H/O: hysterectomy Hx of cholecystectomy S/P CABG x 3 <Mila Swanson PA-C - Last Filed: 01/17/25 17:02> Social History Social History: Social History Smoking status: Never smoker Alcohol intake: never Substance use: never Living arrangements: with family Gender identity (if verbalized by the patient): Female Sexual Orientation (if Verbalized by the Patient): Straight or Heterosexual Spiritual care concerns: No <Mila Swanson PA-C - Last Filed: 01/17/25 17:02> Exam 2 Narrative: APPEARANCE: No apparent distress. A&O x3 Head: atraumatic. EYES: EOMI, NOSE: Atraumatic NECK: Trachea midline RESPIRATORY: No increased rate of breathing CTAB CARDIOVASCULAR: RRR, no peripheral edema ABDOMINAL: Non-distended soft nontender no guarding rebound no CVA tenderness MUSCULOSKELETAl: No obvious deformities NEURO: Alert. Moving 4/4 extremities SKIN:: Warm, dry. Normal color PSYCHIATRIC: Normal affect <Neel Rasheed MD - Last Filed: 01/17/25 22:51> Course Vital Signs Vital signs: Vital Signs Temperature 97.8 F 01/17/25 16:50 Pulse Rate 113 H 01/17/25 16:50 Respiratory Rate 18 01/17/25 16:50 Blood Pressure 145/98 H 01/17/25 16:50 Pulse Oximetry 97 01/17/25 16:50 Oxygen Delivery Room Air 01/17/25 16:50 Temperature 97.8 F 01/17/25 16:50 Pulse Rate 113 H 01/17/25 16:50 Respiratory Rate 18 01/17/25 16:50 Blood Pressure 145/98 H 01/17/25 16:50 Pulse Oximetry 97 01/17/25 16:50 Oxygen Delivery Room Air 01/17/25 16:50 <Mila Swanson PA-C - Last Filed: 01/17/25 17:02> Vital Signs Temperature 97.8 F 01/17/25 16:50 Pulse Rate 113 H 01/17/25 16:50 Respiratory Rate 18 01/17/25 16:50 Blood Pressure 145/98 H 01/17/25 16:50 Pulse Oximetry 97 01/17/25 16:50 Oxygen Delivery Room Air 01/17/25 16:50 Temperature 97.8 F 01/17/25 16:50 Pulse Rate 113 H 01/17/25 16:50 Respiratory Rate 18 01/17/25 16:50 Blood Pressure 145/98 H 01/17/25 16:50 Pulse Oximetry 97 01/17/25 16:50 Oxygen Delivery Room Air 01/17/25 16:50 <Neel Rasheed MD - Last Filed: 01/17/25 22:51> MDM - Nausea/Vomiting/Diarrhea MDM Narrative Medical decision making narrative: -Course: 74-year-old female presenting nausea and vomiting and generally feeling unwell. Workup significant for urinary tract infection. Patient given a dose of IV ceftriaxone in the emergency department. tachycardic on arrival and was given IV fluids and Zofran. Vital signs improved. She has been drinking water without vomiting. Discussed admission versus discharge with the patient. She does not want be admitted hospital. She is comfortable going home on oral antibiotics and return if her condition is to worsen. Patient discharged w/ return precautions. -DDX includes but is not limited to: Sepsis, UTI pneumonia dehydration intracranial hemorrhage, delirium, dementia <Neel Rasheed MD - Last Filed: 01/17/25 22:51> Lab Data Result diagrams: 01/17/25 20:21 01/17/25 20:21 <Mila Swanson PA-C - Last Filed: 01/17/25 17:02> Labs: Lab Results 01/17/25 01/17/25 Range/Units 19:09 20:21 WBC 10.5 H (4.5-10.0) K/mm3 RBC 4.88 (4.2-5.4) M/mm3 Hgb 15.3 H (12.0-15.0) g/dL Hct 42.3 (37.0-47.0) % MCV 86.7 (80-100) fl MCH 31.4 (26-34) pg MCHC 36.2 H (32-36) g/dl RDW 11.8 (11.5-14.5) % Plt Count 261 (150-375) k/mm3 MPV 9.4 (7.4-10.4) fl Immature Gran % (Auto) 0.6 H (0-0.5) % Neut % (Auto) 74.3 H (45.5-73.1) % Lymph % (Auto) 16.6 L (18.3-44.2) % [place] % (Auto) 7.8 (2.6-8.5) % Eos % (Auto) 0.4 (0-4.4) % Baso % (Auto) 0.3 (0.2-1.2) % Lymph # (Auto) 1.74 (0.9-3.2) K/mm3 [place] # (Auto) 0.8 H (0.1-0.6) K/mm3 Eos # (Auto) 0.0 (0-0.3) K/mm3 Baso # (Auto) 0.0 (0.0-0.1) K/mm3 Abs Immat Gran (auto) 0.06 H (0.00-0.031) K/mm3 Absolute Neuts (auto) 7.8 H (1.3-6.7) K/mm3 Absolute Nucleated RBC 0.000 (0.0-0.012) K/mm3 Nucleated RBC % 0.0 (0.0-0.2) % PT 13.5 (11.1-14.7) Seconds INR 1.0 APTT 24.2 (22.3-36.8) Seconds Sodium 139 (137-145) mmol/L Potassium 3.5 (3.4-5.0) mmol/L Chloride 98 (98-107) mmol/L Carbon Dioxide 28 (22-30) mmol/L Anion Gap 13 H (4-12) mmol/L BUN 32 H D (7-17) mg/dL Creatinine 0.85 (0.7-1.0) mg/dL Estim Creat Clear Calc 40 ml/min Estimated GFR > 60 (59 - ) Glucose 147 H (65-110) mg/dL Calcium 10.0 (8.4-10.2) mg/dL Total Bilirubin 0.7 (0.2-1.3) mg/dL AST 28 (14-36) U/L ALT 32 (6-35) U/L Alkaline Phosphatase 73 (38-126) U/L Total Creatine Kinase 40 (30-135) U/L Total Protein 8.0 (6.3-8.2) g/dL Albumin 4.4 (3.5-5.1) g/dL TSH 3.560 (0.465-4.680) uIU/mL Urine Color Dark yellow (Yellow) Urine Appearance Turbid H (Clear) Urine pH 5.0 (5.0-9.0) Ur Specific [place] 1.029 (1.001-1.035) Urine Protein 2+ H (Negative) mg/dL Urine Glucose (UA) 1+ H (Negative) mg/dL Urine Ketones Trace H (Negative) mg/dL Ur Blood (Man) Trace (Negative) Urine Nitrate Negative (Negative) Urine Bilirubin Negative (Negative) Urine Urobilinogen 1.0 (<2.0) mg/dL Add Ur Microanalysis Reviewed Leukocyte Esterase Rfl 2+ H (Negative) TADEO/UL Urine RBC 0-2 (0-2) /hpf Urine WBC >100 H (0-3) /hpf Ur Squamous Epith Cells Many H (Few) /hpf Urine Bacteria 4+ H /hpf Urine Casts 3-5 Hyaline Casts Present (None) /lpf Urine Mucus Present /lpf Urine Opiates Screen Negative (Negative) Urine Methadone Screen Negative (Negative) Ur Barbiturates Screen Negative (Negative) Ur Phencyclidine Scrn Negative (Negative) Ur Amphetamine Screen Negative (Negative) U Benzodiazepines Scrn Negative (Negative) Urine Cocaine Screen Negative (Negative) U Cannabinoids Screen Negative (Negative) Influenza A (RT-PCR) Negative (Negative) Influenza B (RT-PCR) Negative (Negative) RSV (RT-PCR) Negative (Negative) SARS-CoV-2 RNA (RT-PCR) Negative (Negative) <Mila Swanson PA-C - Last Filed: 01/17/25 17:02> Lab Results 01/17/25 01/17/25 Range/Units 19:09 20:21 WBC 10.5 H (4.5-10.0) K/mm3 RBC 4.88 (4.2-5.4) M/mm3 Hgb 15.3 H (12.0-15.0) g/dL Hct 42.3 (37.0-47.0) % MCV 86.7 (80-100) fl MCH 31.4 (26-34) pg MCHC 36.2 H (32-36) g/dl RDW 11.8 (11.5-14.5) % Plt Count 261 (150-375) k/mm3 MPV 9.4 (7.4-10.4) fl Immature Gran % (Auto) 0.6 H (0-0.5) % Neut % (Auto) 74.3 H (45.5-73.1) % Lymph % (Auto) 16.6 L (18.3-44.2) % [place] % (Auto) 7.8 (2.6-8.5) % Eos % (Auto) 0.4 (0-4.4) % Baso % (Auto) 0.3 (0.2-1.2) % Lymph # (Auto) 1.74 (0.9-3.2) K/mm3 [place] # (Auto) 0.8 H (0.1-0.6) K/mm3 Eos # (Auto) 0.0 (0-0.3) K/mm3 Baso # (Auto) 0.0 (0.0-0.1) K/mm3 Abs Immat Gran (auto) 0.06 H (0.00-0.031) K/mm3 Absolute Neuts (auto) 7.8 H (1.3-6.7) K/mm3 Absolute Nucleated RBC 0.000 (0.0-0.012) K/mm3 Nucleated RBC % 0.0 (0.0-0.2) % PT 13.5 (11.1-14.7) Seconds INR 1.0 APTT 24.2 (22.3-36.8) Seconds Sodium 139 (137-145) mmol/L Potassium 3.5 (3.4-5.0) mmol/L Chloride 98 (98-107) mmol/L Carbon Dioxide 28 (22-30) mmol/L Anion Gap 13 H (4-12) mmol/L BUN 32 H D (7-17) mg/dL Creatinine 0.85 (0.7-1.0) mg/dL Estim Creat Clear Calc 40 ml/min Estimated GFR > 60 (59 - ) Glucose 147 H (65-110) mg/dL Calcium 10.0 (8.4-10.2) mg/dL Total Bilirubin 0.7 (0.2-1.3) mg/dL AST 28 (14-36) U/L ALT 32 (6-35) U/L Alkaline Phosphatase 73 (38-126) U/L Total Creatine Kinase 40 (30-135) U/L Total Protein 8.0 (6.3-8.2) g/dL Albumin 4.4 (3.5-5.1) g/dL TSH 3.560 (0.465-4.680) uIU/mL Urine Color Dark yellow (Yellow) Urine Appearance Turbid H (Clear) Urine pH 5.0 (5.0-9.0) Ur Specific [place] 1.029 (1.001-1.035) Urine Protein 2+ H (Negative) mg/dL Urine Glucose (UA) 1+ H (Negative) mg/dL Urine Ketones Trace H (Negative) mg/dL Ur Blood (Man) Trace (Negative) Urine Nitrate Negative (Negative) Urine Bilirubin Negative (Negative) Urine Urobilinogen 1.0 (<2.0) mg/dL Add Ur Microanalysis Reviewed Leukocyte Esterase Rfl 2+ H (Negative) TADEO/UL Urine RBC 0-2 (0-2) /hpf Urine WBC >100 H (0-3) /hpf Ur Squamous Epith Cells Many H (Few) /hpf Urine Bacteria 4+ H /hpf Urine Casts 3-5 Hyaline Casts Present (None) /lpf Urine Mucus Present /lpf Urine Opiates Screen Negative (Negative) Urine Methadone Screen Negative (Negative) Ur Barbiturates Screen Negative (Negative) Ur Phencyclidine Scrn Negative (Negative) Ur Amphetamine Screen Negative (Negative) U Benzodiazepines Scrn Negative (Negative) Urine Cocaine Screen Negative (Negative) U Cannabinoids Screen Negative (Negative) Influenza A (RT-PCR) Negative (Negative) Influenza B (RT-PCR) Negative (Negative) RSV (RT-PCR) Negative (Negative) SARS-CoV-2 RNA (RT-PCR) Negative (Negative) <Neel Rasheed MD - Last Filed: 01/17/25 22:51> Discharge Plan Discharge Clinical Impression: Acute UTI, Nausea & vomiting <CASEY Perdomo Filed: 01/17/25 17:02> Patient Disposition: Home, Self-Care <CASEY Perdomo Last Filed: 01/17/25 17:02> Condition: Stable <CASEY Perodmo Last Filed: 01/17/25 17:02> Instructions: Antibiotic Form, Urinary Tract Infection in Women (DC) <CASEY Perdomo Last Filed: 01/17/25 17:02> Additional Instructions: You were seen in the emergency department for not feeling well. You have a urinary tract infection. Please complete a course of cefdinir. Take zofran for nausea. Return if you develop fevers, flank pain or if your condition is getting worse. <CASEY Perdomo Last Filed: 01/17/25 17:02> Patient Language: [place] <CASEY Perdomo Filed: 01/17/25 17:02> Prescriptions: New cefdinir 300 mg capsule 300 mg PO Q12H Qty: 14 0RF ondansetron 4 mg tablet,disintegrating 4 mg PO Q8H PRN (Reason: nausea and vomiting) Qty: 30 0RF No Action clopidogrel 75 mg tablet 75 mg PO DAILY Patient Comments: PT STATES SHE HAS BEEN HOLDING DUE TO HAVING PROCEDURES SINCE 2022 aspirin [Adult Aspirin Regimen] 81 mg tablet,delayed release (DR/EC) 81 mg PO DAILY cetirizine 10 mg Tablet 10 mg PO DAILY ferrous sulfate 325 mg (65 mg iron) Tablet 325 mg PO DAILY Patient Comments: HOLDING FOR PROCEDURE losartan 100 mg tablet 50 mg PO DAILY vilazodone 20 mg tablet 20 mg PO DAILY mecobalamin (vitamin B12) 500 mcg Tablet,Chewable 500 mcg PO DAILY ciprofloxacin HCl 500 mg tablet 500 mg PO Q12H 7 Days Qty: 14 0RF carvedilol 12.5 mg tablet 12.5 mg PO BID potassium chloride 10 mEq tablet extended release 10 meq PO DAILY furosemide 20 mg tablet 20 mg PO DAILY lansoprazole 30 mg capsule,delayed release(DR/EC) 30 mg PO DAILY 90 Days Qty: 90 3RF <CASEY Perdomo Filed: 01/17/25 17:02> Follow-up/Referrals: Artie,DO Nelson [Primary Care Provider] - <Mila Swanson PA-C - Last Filed: 01/17/25 17:02>
--- OUTSIDE RECORDS SUMMARY | 2025-01-17 17:37 | XMS_ITS | Encounter Summary ---
Author Organization [facility] Address [address] [place] [id number] Care Team Providers Care Emergency Operator Name Role Phone Isrrael Burleson MD Unavailable [phone] Nelson Alva DO Primary Care Provider + Emerald King RN Unavailable [phone] Encounter Details Date Type Department Care Team (Late st Contact Info) Description 09/13/2024 [facility] Message Enc [facility] Family Medicine [address], [address] [place] [address] Marah, [facility] Provider Breast Cancer Screening Social History Tobacco Use Types Packs/Day Years Used Date Smoking Tobacco: Never Passive Smoke Exposure: Never Smokeless Tobacco: Never Comments:Never smoker Alcohol Use Standard Drinks/Week Comments No 0 (1 standard drink = 0.6 oz pur e alcohol) PHQ-2 Answer Date Recorded Patient Health Questionnaire-2 Score 0 05/21/2024 Comments No Sex and Gender Information Value Date Recorded Sex Assigned at Female 10/25/2024 10:07 AM BLOCK PILER Legal Sex Female 2:31 AM CDT Gender Identity Female 01/05/2022 11:28 AM BLOCK PILER Sexual Orientation Straight 01/05/2022 11 :28 AM BLOCK PILER Occupation Industry Job Start Date Job End Date Not on file Not on file Not on file Not on file documented as of this encounter Functional Status * RETIRED Are you deaf or do you have serious difficulty hearing Answer Date of Assessment Author Status No 12/18/2021 4:43 PM BLOCK PILER Activ e * RETIRED Are you blind or do you have serious difficulty seeing, even when wearing glasses? Answer Date of Assessment Author Status No 12/18/2021 4:43 PM BLOCK PILER Activ e * Do you have serious difficulty walking or climbing stairs? Answer Date of Assessment Author Status No 12/18/2021 4:43 PM Silvia Tate RN Active * Do you have difficulty dressing or bathing? Answer Date of Assessment Author Status No 12/18/2021 4:43 PM Silvia Ttae RN Active * Because of a physical, mental, or emotional condition, do you have difficulty doing errands alone such as visiting a doctor's office or shopping? Answer Date of Assessment Author Status No 12/18/2021 4:43 PM Silvia Tate RN Active documented as of this encounter Mental Status * Because of a physical, mental, or emotional condition, do you have serious difficulty concentrating, remembering, or making decisions? Answer Entry Date Author Status No 12/18/2021 4:43 PM Silvia Tate RN Active documented in this encounter Plan of Treatment Upcoming Encounters Date Type Department Care Team (Latest Contact Info) Description 5 2:00 PM CDT Appointment [place] [address] Oleksandr Vera, [address] [place] [phone] 5 10:27 AM CDT Hospital Encounter [facility] [place] [address] Oleksandr Vera, [address] [place] [address] [phone] 5 10:27 AM CDT - 5 1:30 PM CDT [place] [address] Oleksandr Vera, DO [address] [place] [address], [place] [id number] ROBOTIC XI ASSISTED LAPAROSCOPIC HIATAL HERNIA REPAIR WITH TOUPET FUNDOPLICATION, POSSIBLE MESH, POSSIBLE OPEN, WITH ESOPHAGOGASTRODUODENOSCOPY 5 1:00 PM CDT Office Visit [facility] [place] [facility], [address] [place], [place] [id number] Carol Tinsley FNP [address] [facility] [address] [place], [place] [address] Scheduled Procedures Name Priority Associated Diagnoses Date/Ti nj ROBOTIC XI HERNIA HIATAL HIATAL HERNIA K44.9 01/28/2025 10:27 AM CDT documented as of this encounter Goals Goal Patient Goal Type Associated Problems Recent Progress Patient-Stated? Author Reduce Sodium Intake Diet No change(2021 8:23 AM BLOCK PILER) No Emerald King, BRAVO Establish Plan for Symptom Monitoring General On track( 12:06 PM BLOCK PILER) No Emerald King RN Consistently take medications as Prescribed General On track( 8:23 AM BLOCK PILER) No Emerald King, BRAVO Note: 12/24 on track with exception of iron tablet 01/01-still needs iron documented as of this encounter Visit Diagnoses Not on filedocumented in this encounter Additional Health Concerns Assessment Noted Time PHQ-9 Depression Total Score: 0 05/21/20 24 1:18 PM CDT documented as of this encounter Care Teams Emergency Operator Relationship Specialty Start Date End Date Nelson Alva DO [address] [place] [id number] PCP - General FAMILY PRACTICE 02/05/19 01/03/25 Isrrael Burleson MD Three [facility]. [address] [place], [place] [address] [employer] CARDIOVASCULAR DISEASE 04/07/16 Emerald King, RN [address] [facility] [address] [place] [address] Fitness Specialist (Ambulatory) REGISTERED NURSE 12/15/21 documented as of this encounter
--- OUTSIDE RECORDS SUMMARY | 2025-01-17 17:37 | XMS_ITS ---
Care Plan - [facility] Created on: January 17, 2025 ROSALIE THOMASON : 1950 Sex: Female Author Organization [facility] Address [address] [place] [address] Phone Care Team Providers Care Director Insurance Name Role Phone Unavailable Unavailable Unavailable
--- OUTSIDE RECORDS SUMMARY | 2025-01-17 17:37 | XMS_ITS | Clinical Summary ---
Author Organization [facility] Address [address] [place] [address] Care Team Providers Care Talend Developer Name Role Phone Isrrael Burleson MD Unavailable [phone] Emerald King RN Unavailable [phone] Allergies Active Allergy Reactions Criticality Noted Date Comments Amlodipine Itching Low 08/18/2022 Codeine Itching 09/20/2020 Doxycycline Vomiting 01/07/2023 Erythromycin Nausea and Vomiting 10/29/2020 Isosorbide Nitrate Itching 08/29/2020 Levothyroxine Itching Medium 10/22/2015 Other reaction(s): Skin Reactions Metoprolol Itching 10/13/2017 Nitroglycerin Other (see comment) 09/23/2020 bottom out Penicillins Rash,Vomiting Low 07/04/2016 Propoxyphene Itching,Vomiting 11/17/2012 Note: Imported from external source. Ranolazine Itching 08/11/2022 Evolocumab Other (see comment) 01/05/2022 CVA Dextromethorphan-Guaifen esin Itching 09/11/2020 Statins Myalgias 12/23/2021 Sulfa Antibiotics Itching,Hives Medium 04/05/2014 Other reaction(s): Skin Reactions Tramadol Itching 09/23/2020 Medications Aspirin (ASPIR-81 OR) Take 81 mg by mouth daily. 10/16/20 14 Active ferrous sulfate, 65 mg elemental, 325 (65 FE) MG tablet Take 1 tablet (325 mg total) by mouth daily with breakfast. Active cetirizine (ZYRTEC) 10 MG tablet Take 1 tablet (10 mg total) by mouth daily. Active Thiamine HCl (VITAMIN B-1) 250 MG Tab Active carvedilol (COREG) 12.5 MG tablet Take 1 tablet (12.5 mg total) by mouth 2 (two) times daily. 180 tablet 1 10/24/20 24 Active furosemide (LASIX) 20 MG tablet Take 1 tablet (20 mg total) by mouth every morning. 90 tablet 1 10/24/20 24 Active losartan (COZAAR) 50 MG tablet Take 1 tablet (50 mg total) by mouth daily. 90 tablet 1 10/24/20 24 Active potassium chloride CR (K-TAB) 10 MEQ Tab CR tablet Take 1 tablet (10 mEq total) by mouth daily. 90 tablet 1 10/24/20 24 Active omeprazole (PRILOSEC) 40 MG capsule Take 1 capsule (40 mg total) by mouth daily. 90 capsule 1 10/24/20 24 Active metFORMIN ER (GLUCOPHAGE-XR) 500 MG 24 hr tabletIndicatio ns:Type 2 diabetes mellitus with other circulatory complication, without long-term current use of insulin ([facility]) TAKE 1 TABLET BY MOUTH EVERY DAY WITH BREAKFAST 90 tablet 10/25/20 24 Active fluticasone propionate (FLONASE) 50 MCG/ACT nasal spray 1 spray by Each Nostril route daily as needed for Rhinitis. Active predniSONE (DELTASONE) 20 MG tabletIndicatio ns:Acute gout involving toe of right foot, unspecified cause Take 3 tablets for three days, then take 2 tablets for three days, then take 1 tablet for three days 18 tablet 12/24/19 25 Active vilazodone (VIIBRYD) 20 MG tabletIndicatio ns:Recurrent major depressive disorder, in partial remission TAKE 1 TABLET (20 MG TOTAL) BY MOUTH DAILY WITH BREAKFAST. NEEDS APPOINTMENT FOR FUTURE REFILLS. 90 tablet 01/08/20 25 Active vilazodone (VIIBRYD) 20 MG tabletIndicatio ns:Recurrent major depressive disorder, in partial remission TAKE 1 TABLET (20 MG TOTAL) BY MOUTH DAILY WITH BREAKFAST. NEEDS APPOINTMENT FOR FUTURE REFILLS. 90 tablet 10/08/20 24 025 Discontinued cefdinir (OMNICEF) 300 MG Cap capsuleIndicati ons:Acute non-recurrent maxillary sinusitis Take 1 capsule (300 mg total) by mouth 2 (two) times daily. 20 capsule 12/11/19 25 025 Discontinued benzonatate (TESSALON) 100 MG capsuleIndicati ons:Acute cough Take 1-2 capsules (100-200 mg total) by mouth 3 (three) times daily as needed for Cough. 40 capsule 01/03/20 25 025 Hospital, Clinic, or Other Facility Administered Medication Ordered Dose Route Frequency Start Date End Date Status BUpivacaine 0.5 % (MARCAINE) 0.5 % injection 4 mLIndications:Trochanteric bursitis, right hip 4 mL IX Once 12/31/2024 12/31/2024 Ended triamcinolone acetonide (KENALOG-40) injection 80 mgIndications:Trochanteric bursitis, right hip 80 mg IX Once 12/31/2024 12/31/2024 Ended Active Problems Problem Noted Date Diagnosed Date Trochanteric bursitis, right hip 12/31/2024 Chronic eczematous otitis externa of both ears 0 06/18/2024 Aortic atherosclerosis 09/01/2023 Hypertrophy of nasal turbinates 07/23/2022 Overview (08/11/2022): Added automatically from request for surgery [id number] Deviated nasal septum 06/28/2022 Greater trochanteric bursitis of left hip 2018 Overview (05/16/2020): Last Assessment & Plan: We discussed the risks, benefits and alternatives. The steroid shot that we gave her May 08, 2018 lasted almost a year. Cannot do nonsteroidal anti-inflammatories because of history of cardiac disease. The steroid injection is given. The we discussed foam rolling exercises and formal physical therapy. Follow up as needed. Greater trochanteric bursitis of left hip 2018 Overview (04/21/2021): Last Assessment & Plan: We discussed the risks, benefits and alternatives. The steroid shot that we gave her May 08, 2018 lasted almost a year. Cannot do nonsteroidal anti-inflammatories because of history of cardiac disease. The steroid injection is given. The we discussed foam rolling exercises and formal physical therapy. Follow up as needed. Chronic back pain 02/06/2019 Bilateral carotid artery stenosis 11/14/2018 Type 2 diabetes mellitus wit h hyperglycemia, without long-term current use of insulin ([facility]) 11/06/2018 Assessment & Plan (11/06/2018 10:33 AM FARM MANAGER): Unknown chronicity, new diagnosis Patient has had consistently high glucose on CMPs HgbA1c was ordered, resulted as 6.7 - will not start new medications in this acute setting - patient notified and stated she would want to try lifestyle modifications first - will need follow-up Gastroesophageal reflux disease without esophagi tis 10/06/2017 Overview (05/16/2020): Overview: controlled BMI 27.0-27.9,adult 06/15/2017 Iron deficiency anemia 12/15/2016 S/P CABG x 3 07/07/2016 Inflamed seborrheic keratosis 10/23/2015 Neoplasm of uncertain behavior of skin 5 Other melanin hyperpigmentation 10/23/2015 Actinic keratosis 10/23/2015 Xerosis cutis 10/23/2015 Hypothyroidism 10/01/2015 Heart block 11/12/2014 Overview (09/01/2023): Note: 40% CVA (cerebrovascular accident) ([facility]) 09/17/2014 Moderate episode of recurrent major depressive d isorder 04/05/2014 Hyperlipidemia associated wi th type 2 diabetes mellitus ([facility]) Hypertension associated with type 2 diabetes mellitus ([facility]) Assessment & Plan (11/06/2018 10:26 AM FARM MANAGER): HTN: BP of 133/76 mmHg @ 1150 on 11/05/18 - Continue Home medications (isosorbid, Lasix 20 mg, Losartan and Coreg) - Increased Losartan to 50 mg daily on 11/04 - Add Amlodipine 5 mg, as she has been on this in the past (10 mg) Atherosclerotic heart diseas e of [place] coronary artery without angina pectoris Resolved Problems Problem Noted Date Diagnosed Date Resolved Date Closed fracture of nasal bones 06/18/2024 10/25/2024 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 Hypertensive crisis 10/03/2020 11/27/19 25 Hypokalemia 11/04/2018 12/25/2024 Overview (11/04/2018): Assessment & Plan (11/06/2018 10:27 AM FARM MANAGER): Hypokalemia: resolved, 4.1 this am after KCl 60 mg PO - Consider increasing home dose from 10 mg daily to 20 mg daily on discharge Influenza vaccine needed 09/25/201509/2020 Changing skin lesion 03/14/2015 025 Chronic sinusitis 03/14/2015 12/25/2024 Encounters Date Type Department Care Team Description 01/03/2025 Telephone [facility] [address] Carol Tinsley, TORQUE TESTER Concerns 01/02/2025 Telephone [facility] Family & Internal [address] [phone] Nelson Alva, DO Referral 01/02/2025 Telephone [facility] [address] [phone] Nelson Alva, DO Medication Request 12/31/2024 1:40 PM FARM MANAGER [facility] [address] [place] [address] Dinh Pop NP Hip Pain (Right Hip Pain) 12/31/2024 Scan [facility] My Car INFO SRVCS Scanned, Doc Med Group 12/31/2024 Travel 12/28/2024 Orders Only [facility] [address] [place] [address] Dinh Pop NP 12/26/2024 Telephone [facility] Internal [address] [phone] Nelson Alva, DO Referral 12/24/2024 3:40 PM FARM MANAGER Office Visit [facility] Internal [address] [phone] Nelson Alva, DO ER F/U (Right foot pain. The patient went to urgent care [place]. She states she had XR at [facility]. The patient states she was dx with bone spur, heel spur, gout. ) 12/24/2024 Scan [facility] INFO SRVCS Scanned, Doc Med Group 12/24/2024 Travel 12/24/2024 Telephone [facility] [address] [address] Isrrael Burleson MD Surgical Clearance 12/18/2024 Scan [facility] INFO SRVCS Scanned, Doc Med Group Image (SCAN) 12/18/[address] [phone] Nelson Alva, DO Referral 12/17/2024 Scan [facility] INFO SRVCS Scanned, Doc Med Group 12/17/[address] [phone] Nelson Alva, DO Referral 12/13/2024 Telephone [facility] [address] [address] Isrrael Burleson MD Surgical Clearance 12/12/2024 Scan [facility] INFO SRVCS Scanned, Doc Med Group 12/11/[address] [phone] Nelson Alva, DO Advice 12/04/2024 Telephone [facility] Internal [address] [phone] Nelson Alva, DO Referral 11/27/2024 7:00 AM FARM MANAGER Telemedicine [facility] & Internal [address] [phone] Nelson Alva, DO URI (Bilateral ear pain and pressure, Cough, and green congestion x4 days. Covid test was negative ) 11/27/2024 Travel 11/26/[address] [phone] Nelson Alva, DO Advice 11/08/2024 Scan HEALTH INFO SRVCS Scanned, Doc Med Group 10/25/2024 10:20 AM FARM MANAGER Office Visit [address] [phone] Nelson Alva, DO Diabetes (3 month follow up. ) 10/24/2024 2:15 PM FARM MANAGER Office Visit [facility] [address] Carol Tinsley, TORQUE TESTER Coronary Artery Disease (8 month); Hypertension; Lipids; Cva 10/24/2024 Travel from Last 3 Months Immunizations Name Administration Dates Next Due Fluzone High Dose (IIV, triv alent, 0.5mL) 10/25/2024 Fluzone High Dose - >Age 65 (Prefilled Syringe) 08/19/2021,08/06/2020 Influenza (Generic) 09/16/2017,09/14/2014 Influenza Adult (Generic) 08/06/2023,,08/07/2018,2015,09/25/2015 PFIZER COVID-19 (BIRD CAP), MRNA, LNP-S, PF, 30 MCG/0.3 ML LUCRETIA-SUCROSE, IM 05/11/2022 PFIZER COVID-19 (ORIGINAL FORMULATION, PURPLE CAP) mRNA, LNP-S, PF, 30 MCG/0.3 ML DOSE 08/29/2021,02/02/2021,01/12/2021 PFIZER COVID-19 BIVALENT (12 +) mRNA, LNP-S, PF, 30 MCG/0.3 ML DOSE 02/26/2023 Pneumococcal (Pneumovax 23) 09/14/2014 Tdap (Historical Only-select from magnify glass) 05/29/2020 Family History Medical History Relation Comments Kidney Stones Brother 1 Stroke Brother 1 stomach problems Brother 1 Alcohol Abuse Brother 2 Cancer Brother 2 Prostate Dementia Brother 2 Prostate Cancer Brother 2 tia Brother 2 Alcohol Abuse Father Colon Cancer Father Depression Father Diabetes Maternal Grandfather [place] Maternal Grandfather Diabetes Maternal Grandmother [place] Maternal Grandmother Hypertension Mother WA Mother Rheumatic Fever Mother tia Mother Alcohol Abuse Paternal Grandfather Depression Paternal Grandfather Stroke Paternal Grandfather tia Paternal Grandfather Diabetes Paternal Grandmother Alcohol Abuse Sister 1 Breast Cancer Sister 1 Glaucoma Sister 1 Breast Cancer Sister 2 Diabetes Sister 2 Kidney Stones Sister 2 tia Sister 2 Depression Sister 3 Anemia Sister 4 tia Sister 4 Relation Status Comments Brother 1 Brother 2 Father (Age 66) Maternal Grandfather (Age 60) Maternal Grandmother Mother (Age 72) Paternal Grandfather (Age 71) Paternal Grandmother Sister 1 Sister 2 Sister 3 Sister 4 Social History Tobacco Use Types Packs/Day Years Used Date Smoking Tobacco: Never Passive Smoke Exposure: Never Smokeless Tobacco: Never Tobacco Cessation:Counseling Given: No Comments:Never smoker Alcohol Use Standard Drinks/Week Comments No 0 (1 standard drink = 0.6 oz pur e alcohol) PHQ-2 Answer Date Recorded Patient Health Questionnaire-2 Score 0 11/27/2024 Comments No Sex and Gender Information Value Date Recorded Sex Assigned at Female 10/25/2024 10:07 AM FARM MANAGER Legal Sex Female 2:31 AM CDT Gender Identity Female 01/05/2022 11:28 AM FARM MANAGER Sexual Orientation Straight 01/05/2022 11 :28 AM FARM MANAGER Occupation Industry Job Start Date Job End Date Not on file Not on file Not on file Not on file Last Filed Vital Signs Vital Sign Reading Time Taken Comments Blood Pressure 137/71 12/31/2024 1:29 PM FARM MANAGER Pulse 77 12/31/2024 1:29 PM FARM MANAGER Temperature 37.2 C (98.9 F) 12/31/2024 1:29 PM FARM MANAGER Respiratory Rate 16 12/24/2024 3:54 PM FARM MANAGER Oxygen Saturation 97% 12/31/2024 1:29 PM FARM MANAGER Inhaled Oxygen Concentration - - Weight 67 kg (147 lb 12.8 oz) 12/31/2024 1:29 PM FARM MANAGER Height 158.8 cm (5' 2.5 ) 12/31/2024 1:29 PM FARM MANAGER Body Mass Index 26.6 12/31/2024 1:29 PM FARM MANAGER Plan of Treatment Upcoming Encounters Date Type Department Care Team (Latest Contact Info) Description 5 2:[address] [facility] [place] [address] Oleksandr Vera, DO [address] [place] [address] [place] [phone] 5 10:27 AM CDT Hospital Encounter [facility] [place] [address] Oleksandr Vera, DO [address] [place] [address] [place] [address] 5 10:27 AM CDT - 5 1:[address] [place] [address] Oleksandr Vera, DO [address] [place] [address] [place] [address] ROBOTIC XI ASSISTED LAPAROSCOPIC HIATAL HERNIA REPAIR WITH TOUPET FUNDOPLICATION, POSSIBLE MESH, POSSIBLE OPEN, WITH ESOPHAGOGASTRODUODENOSCOPY 5 1:00 PM CDT Office Visit [facility] [place] [facility] [address] [place] [address] Carol Tinsley FNP 3 [facility] [address] [place] [address] Scheduled Procedures Name Priority Associated Diagnoses Date/Ti me ROBOTIC XI HERNIA HIATAL HIATAL HERNIA K44.9 01/28/2025 10:27 AM CDT Health Maintenance Due Date Last Done Comments Diabetes: Retinopathy Eye Exam 1968 Annual Medicare Wellness Visit 2015 Mammogram Screening 06/01/2022 06/01/2021, 09/20/2012, 08/19/2010, Additional history exists COVID-19 Vaccine ( season) 2024 08/06/2023, 02/26/2023, 05/11/2022, Additional history exists Hemoglobin A1C 04/25/2025 10/25/2024, 05/07, 09/01/2023, Additional history exists Kidney Health Evaluation 05/21/2025 05/21/2024 Lipid Panel 05/21/2025 05/21/2024, 02/05, 05/11/2022, Additional history exists Zoster Vaccines (1 of 2) 05/21/2025 Pos tponed from 2000 (Patient Refused) RSV Immunization or 60+ Years (1 - Risk 60-74 years 1-dose series) 10/25/2025 Postponed fro m 2010 (Going to Outside Clinic) Colorectal Cancer Screening Colonoscopy (10 Years) 05/05/2028 05/05/2023, DTaP, Tdap and Td Vaccines (2 - Td or Tdap) 05/29/2030 05/29/2020 Pneumococcal Vaccine: 65+ Years (2 of 2 - PCV) 05/21/2034 09/14/2014 Postponed from 09/14/2015 (Allergy) Hepatitis C Completed 12/15/2016, 12/15/2016 Dexa Scan (General) Completed 06/01/2021, 6 Influenza Adult Completed 10/25/2024, 07/10, 10/21/2022, Additional history exists PHQ-2 (Physician [place]) Completed 11/27/2024 Meningococcal B Vaccine Aged Out No l onger eligible based on patient's age to complete this topic Meningococcal Vaccine Aged Out No anna igor eligible based on patient's age to complete this topic RSV Immunizations Under 20 Months Aged Out No longer eligible based on patient's age to complete this topic Goals Goal Patient Goal Type Associated Problems Recent Progress Patient-Stated? Author Reduce Sodium Intake Diet No change(2021 8:23 AM FARM MANAGER) No Emerald King RN Establish Plan for Symptom Monitoring General On track( 12:06 PM FARM MANAGER) No Emerald King RN Consistently take medications as Prescribed General On track( 8:23 AM FARM MANAGER) No Emerald King RN Note: 12/24 on track with exception of iron tablet 01/01-still needs iron Procedures Procedure Name Priority Date/Time Associated Diagnosis Comments XR HIP RT 2V Routine 12/31/2024 1:30 PM FARM MANAGER Chronic right hip pain IMAGE GENERIC 12/18/2024 COLLECT.CAPILLARY (FNGR,HEEL,EAR) Routine 10/25/2024 9:44 AM FARM MANAGER Type 2 diabetes mellitus with other circulatory complication, without long-term current use of insulin HEMOGLOBIN, GLYCOSYLATED Routine 10/25/2024 Type 2 diabetes mellitus with other circulatory complication, without long-term current use of insulin ([facility]CC) LIPID PANEL Routine 05/21/2024 4:23 PM CDT Type 2 diabetes mellitus with other circulatory complication, without long-term current use of insulin Hyperlipidemia associated with type 2 diabetes mellitus Hypertension associated with type 2 diabetes mellitus COLONOSCOPY GENERIC (SCAN ORDER) 05/05/2023 BONE DENSITY GENERIC (SCAN ORDER) 06/01/2021 MAMMOGRAM GENERIC (SCAN ORDER) 06/01/2021 HEPATITIS C ANTIBODY Routine 12/15/2016 11:07 AM FARM MANAGER from Last 3 Months or Most Recently Relevant to Health Maintenance Results * XR HIP RT 2V (12/31/2024 1:30 PM FARM MANAGER) Anatomical Region Laterality Modality Hip Radiographic Jahaira ging 12/31/2024 2:17 PM FARM MANAGER Impressions 12/31/2024 2:19 PM FARM MANAGER IMPRESSION: No acute bony abnormality. Ordered By: DINH POP Interpreted By: Rob Hoang MD, 12/31/2024 2:17 PM Narrative 12/31/2024 2:19 PM FARM MANAGER Exam description: Right hip-2 views Exam time: 1329 hours Comparison: No previous available. Exam History: Hip pain. No known injury. Findings: AP and lateral views of the hip obtained. No fractures or other acute bony abnormalities. Hip joint space well maintained with no significant arthritic changes. No destructive bony changes. Enthesopathic changes noted arising off the anterior superior iliac spine. Procedure Note Rob Hoang MD - 12/31/2024 Exam description: Right hip-2 views Exam time: 1329 hours Comparison: No previous available. Exam History: Hip pain. No known injury. Findings: AP and lateral views of the hip obtained. No fractures or other acute bonyabnormalities. Hip joint space well maintained with no significantarthritic changes. No destructive bony changes. Enthesopathic changesnoted arising off the anterior superior iliac spine. IMPRESSION: No acute bony abnormality. Ordered By: DINH POP Interpreted By: Rob Hoang MD, 12/31/2024 2:17 PM Dinh Pop MALT HOUSE KILN OPERATOR GENERAL IMAGING Final Re sult * IMAGE GENERIC (12/18/2024) Anatomical Region Laterality Modality Other 12/18/2024 us Doc Med Group Scanned SCANNING Final Resu lt * HEMOGLOBIN, GLYCOSYLATED (10/25/2024) HGB A1C 7.4 % [facility] 10/25/2024 Nelson Alva DO LABORATORY Final Re sult [place] [address] [place] [address], * (ABNORMAL) LIPID PANEL (05/21/2024 4:23 PM CDT) CHOLESTEROL 171 <200 MG/DL 05/21/2024 8:57 PM CDT [facility] TRIGLYCERIDES 189(H) <150 MG/DL 05/21/2024 8:57 PM CDT [facility] HDL 41 >40 MG/DL 05/21/2024 8:57 PM CDT [facility] LDL-C 92 <100 MG/DL 05/21/2024 8:57 PM CDT [facility] VLDL CALCULATION 38(H) 5 - 28 MG/DL 05/21/2024 8:57 PM CDT [facility] CHOL/HDL RATIO 4.2(H) 0.0 - 4.0 05/21/2024 8:57 PM CDT [facility] LDL/HDL 2.2(H) 0.41 - 2.13 05/21/2024 8:57 PM CDT [facility] NON HDL CHOLESTEROL 130 <140 MG/DL 05/21/2024 8:57 PM CDT [facility] 05/21/2024 4:23 PM CDT Nelson Alva DO LABORATORY Final Re sult [facility] [employer] [address] [place] [address], [place] [phone] * COLONOSCOPY GENERIC (05/05/2023) 05/05/2023 us Doc Med Group Scanned SCANNING Final Resu lt * BONE DENSITY GENERIC (06/01/2021) Anatomical Region Laterality Modality Other 06/01/2021 Narrative 06/01/2021 Ordered by an unspecified provider. us Documents Scanned SCANNING Final Result * MAMMOGRAM GENERIC (06/01/2021) Anatomical Region Laterality Modality Other 06/01/2021 Narrative 06/01/2021 Ordered by an unspecified provider. us Documents Scanned SCANNING Final Result * HEPATITIS C ANTIBODY (12/15/2016 11:07 AM FARM MANAGER) HEPATITIS C AB NON-REACTI VE NON-REACTI VE 12/16/2016 6:50 PM FARM MANAGER [facility] Comment: TEST[place] [id number] SERUM OR PLASMA SPECIMEN / Unknown 12/15/2016 11:07 AM FARM MANAGER 12/15/2016 9:47 PM FARM MANAGER us Generic Conversion Md [facility] Final R esult [facility] [address] [place] [id number], from Last 3 Months or Most Recently Relevant to Health Maintenance Insurance [employer]ENCE ESSENCE Member Subscriber Plan / Payer (Ef fective 2021-Present) Name:Cassi Ramsey Relation to Subscriber:Self Name:Cassi Ramsey Payer ID:Not on file Type:Not on file Address: [address] Advance Directives Documents on File Type Date Recorded Patient Clarifying Plant Operator Expl anation Advance Directives and Living Will 11/06/2018 8:39 AM POA 06/29/16 Advance Directives and Living Will 06/27/2016 POWER OF VP PROJECT * Full Code (Latest Code Status on File) Date Activated Date Inactivated Comments 12/21/2021 2:18 PM 12/23/2021 6:29 PM * Full Code Date Activated Date Inactivated Comments 12/21/2021 8:23 AM 12/21/2021 2:18 PM * Full Code Date Activated Date Inactivated Comments 12/14/2021 6:46 PM 12/15/2021 5:33 PM * Full Code Date Activated Date Inactivated Comments 12/26/2018 3:18 PM 12/26/2018 8:39 PM * Full Code Date Activated Date Inactivated Comments 11/28/2018 2:53 PM 11/28/2018 8:35 PM Care Teams Talend Developer Relationship Specialty Start Date End Date Isrrael Burleson MD Three [facility]. [address] [address] [employer] Straightener CARDIOVASCULAR DISEASE 04/07/16 Emerald King, RN [address] [facility] [address] [place] [address] Utility Gelatin Maker (Ambulatory) REGISTERED NURSE 2/8/22
--- OUTSIDE RECORDS SUMMARY | 2025-01-17 17:37 | XMS_ITS | Encounter Summary ---
Author Organization [facility] Facility Care Team Providers Care Administrative Representative Name Role Phone Roscoe Maharaj MD Primary Care Provider [phone] Nelson Alva DO Primary Care Provide r Sebastián Patterson MD Unavailable [phone] Encounter Details Date Type Department Care Team (Latest Contact Info) Description 07/13/2018 Orders Only [facility] CLINCONV ProviderGuillermo MD [address] [place], [place] [id number] Social History Tobacco Use Types Packs/Day Years Used Date Smoking Tobacco: Never Smokeless Tobacco: Never Alcohol Use Standard Drinks/Week Comments No 0 (1 standard drink = 0.6 oz pur e alcohol) Comments Unknown Sex and Gender Information Value Date Recorded Sex Assigned at Not on file Legal Sex Female 4:50 PM RAW STOCK MACHINE LOADER Gender Identity Not on file Sexual Orientation Not on file documented as of this encounter Plan of Treatment Not on file documented as of this encounter Procedures Procedure Name Priority Date/Time Associated Diagnosis Comments CARDIOLOGY REPORT 11/28/2018 12: 00 AM RAW STOCK MACHINE LOADER documented in this encounter Results * CARDIOLOGY REPORT (11/28/2018 12:00 AM RAW STOCK MACHINE LOADER) Anatomical Region Laterality Modality Other Narrative 11/28/2018 12:00 AM RAW STOCK MACHINE LOADER Ordered by an unspecified provider. Historical Provider [facility] ZAHEER MASSEY Final Result documented in this encounter Visit Diagnoses Not on filedocumented in this encounter Care Teams Administrative Representative Relationship Specialty Start Date End Date Roscoe Maharaj MD [address] [place] [address] PCP - General Family Medicine 05/25/17 04/25/19 Nelson Alva DO [address] [place] [address] PCP - General Family Medicine 04/26/19 Sebastián Patterson [place] [address] Consulting Physician Otolaryngology 08/23/22 documented as of this encounter
--- OUTSIDE RECORDS SUMMARY | 2025-01-17 17:37 | XMS_ITS | Clinical Summary ---
Author Organization [facility] Address [address] [place] [address] Phone Care Team Providers Care Briquette Molder Name Role Phone Unavailable Unavailable Unavailable Reason for Visit and Chief Complaint [Patient Encounter] Problems Includes: Problems addressed during this encounter and other active Problems All Visits Onset Date Resolved Date Provider Condition S tatus Persistent Insomnia 01/08/2015 Activ e Last Documented On 3 5:47PM ; [facility] Heart Block 11/12/2014 Active Last Documented On 03/05/2023 5:47PM ; [facility] Note: 40% Major Depression, Recurrent 12/21/2012 Active Last Documented On 3 5:44PM ; [facility] Generalized Anxiety Disorder 11/17/2012 Active Last Documented On 3 5:43PM ; [facility] Gerd 11/17/2012 Active Last Documented On 3 5:43PM ; [facility] Hypertension Systemic 11/17/2012 Act jack Last Documented On 3 5:43PM ; [facility] Hypokalemia 11/17/2012 Active Last Documented On 3 5:43PM ; [facility] Intervertebral Disc Degeneration 11/17/2012 Active Last Documented On 3 5:43PM ; [facility] Plan of Treatment No Plan of Treatment Recorded Assessments Includes: Assessments from this encounter No Assessments Recorded Medical Equipment - Implanted Devices Includes: Current Devices No Medical Equipment Recorded Medications Includes: Medications discussed during this encounter and other current Medications Current Medications (continue as prescribed) Viibryd 20 MG OR TABS 02/03/2016 Provider: MATI RM MD Diagnosis: Major depressive disorder, recurrent, unspecified food - 1 tablet every mornin g with food -- per pharmacist pt already pd $65 on 02/02/16 and was given 30 tablets for 30 days so no samples can be given at this time Last Documented On 03/05/2023 5:34PM By Liz Rm MD ; [facility] Levothyroxine Sodium 50 MCG OR TABS 10/09/2015 Provi jennifer: Diagnosis: Take 1 tablet by mouth every day Last Documented On 03/05/2023 5:34PM By YOAV MCCARTNEY LPN ; [facility] Lasix 20 MG OR TABS 01/08/2015 Provider: Diagnosis: Dr. Burleson -- Landscaping Crew Leader in [place] Last Documented On 03/05/2023 5:34PM By Liz Rm MD ; [facility] Potassium Chloride ER 20 MEQ OR TBCR 01/08/2015 Prov ider: Diagnosis: Last Documented On 03/05/2023 5:34PM By Liz Rm MD ; [facility] Aspirin 81 MG OR TABS 12/25/2012 Provider: Diagnosis: Last Documented On 03/05/2023 5:34PM By GRACE ESPINO ; [facility] TH Vitamin B1 100 MG OR TABS 12/25/2012 Provider: Diagnosis: Last Documented On 03/05/2023 5:34PM By GRACE ESPINO ; [facility] Carvedilol 25 MG OR TABS 12/25/2012 Provider: Diagnosis: Last Documented On 03/05/2023 5:34PM By GRACE ESPINO ; [facility] Medications Administered Includes: Administered Medications from this encounter No Administered Medications Recorded Vital Signs Includes: Vital Signs from this encounter Vital Name 06/20/2013 01:24P Blood Pressure Sitting (mmHg) 126/62 BP Cuff Size Regular Pulse Rate-Sitting (bpm) 66 Height (in) 62.5 Weight (lb) 133 Body Mass Index (kg/m2) 23.9 Body Surface Area (m2) 1.6 Last Documented: On 03/05/2023 6:08PM ; [facility] Results Includes: Results discussed during this encounter No Results Recorded For Specified Dates History of Present Illness Includes: History of Present Illness from this encounter No History of Present Illness Recorded Social History No Social History Recorded - Smoking Status Unknown Medical History Includes: Medical History addressed during this encounter No Medical History Recorded Family History Includes: Family History addressed during this encounter No Family History Recorded Review of Systems Includes: Review of Systems from this encounter No Review of Systems Recorded Mental Status Includes: Mental Status from this encounter No Mental Status Recorded Functional Status Includes: Functional Status from this encounter No Functional Status Recorded Physical Exam Includes: Physical Exam from this encounter No Physical Exam Recorded Allergies Includes: Active Allergies Substance Type Reaction Onset Date Resolved Date Statu s Julian Allergy 11/17/2012 Active Last Documented On 03/05/2023 5:40PM ; [facility] Note: Imported from external source. Encounters Encounter Provider Location Date Check-In Time Check-Out Time Diagnosis [Patient Encounter] 06/20/2013 12:00AM 11:59PM Clinical Notes Includes: Clinical Notes from this encounter No Clinical Notes Recorded
--- OUTSIDE RECORDS SUMMARY | 2025-01-17 17:37 | XMS_ITS | Referral Summary ---
Author Organization [facility] D Address [address] [place] [address] Care Team Providers Care Pulley Worker Name Role Phone Nelson Alva DO Primary Care Provide r Sebastián Patterson MD Unavailable [phone] Encounters Date Type Department Care Team Description 01/08/2025 11:00 AM NURSE AIDE EVALUATOR Office Visit [facility] Otolaryngology [address] [place] [address] Maci Carreon NP Chronic pansinusitis (Primary Dx); Pressure sensation in both ears; Nasal congestion; Acute cough 12/18/2024 Telephone [facility] Patient Access [address] [place] [address] Nelson Alva DO from Last 3 Months [...] with breakfast Active vilazodone (VIIBRYD) 20 mg tabletIndicati ons:major depressive disorder Take 1 tablet (20 mg [...] Active ascorbic acid (VITAMIN C) 500 mg tablet,chewabl e Take 1 tablet/chew tab (500 mg total) by mouth daily Active cholecalcifero l (VITAMIN D-3) 5,000 unit capsule Take 1 [...] (30 mg total) by mouth daily Active docusate sodium (DOK) 100 mg tabletIndicati ons:constipati on Take 1 tablet (100 mg total) by mouth daily Pt unsure of name, OTC stool softener Active cetirizine 10 mg capsule Take 1 tablet by mouth daily Active fluticasone propionate (FLONASE) 50 mcg/actuation nasal spray Administer 1 spray into affected nostril(s) daily as needed Active cefuroxime (CEFTIN) 500 mg tabletIndicati ons:Upper Respiratory/HE ENT Infection Take 1 tablet (500 mg total) by mouth 2 (two) times a day for 10 days 20 tablet 5 01/19/20 25 Active FISH OIL-DHA-EPA ORAL Take 1 tablet by mouth daily 01/09/20 25 Discontinu ed(Therapy completed) benzonatate (TESSALON) 100 mg capsule Take 1-2 capsules (100-200 mg total) by mouth 3 (three) times a day as needed 5 01/09/20 25 Discontinu ed(Reorder ) benzonatate (TESSALON) 100 mg capsuleIndicat ions:Acute cough Take 1-2 capsules (100-200 mg total) by mouth 3 (three) times a day as needed for cough for up to 7 days 20 capsule 5 01/16/20 25 Active Problems Problem Noted Date Diagnosed Date [...] her about that. She could try using uxti-fvy-nffbzik hydrocortisone cream twice a day as needed for this. She understands. At this point she will follow up with me as needed. Hypertrophy of nasal turbinates 07/23/2022 Overview (07/23/2022): Added automatically from request for surgery [id number] Chronic maxillary sinusitis 07/23/2022 Overview (07/23/2022): Added automatically from request for surgery [id number] Nasal obstruction 06/28/2022 Assessment & Plan (06/28/2022 [...] artery disease of n ative artery of [place] heart with stable angina pectoris 05/30/2017 Assessment & Plan (04/27/2019 12:56 PM CDT): Therefore unable to use nonsteroidal anti-inflammatories. Essential hypertension, benign 05/30/2017 Pure hypercholesterolemia 05/30/2017 Immunizations Immunization Administration Dates Next Due Pfizer SARS-CoV-2 Monovalent [...] on file Legal Sex Female 4:50 PM NURSE AIDE EVALUATOR Gender Identity Not on file Sexual Orientation Not on file Occupation Industry Job Start Date Job End Date retired Not on file Not on file Not on file Last Filed Vital Signs Vital Sign Reading Time Taken Comments Blood Pressure 155/72 08/23/2022 1:55 PM CDT Pulse 99 08/23/2022 1:55 PM CDT Temperature 36.2 C (97.2 F) 01/08/2025 10:41 AM NURSE AIDE EVALUATOR Respiratory Rate 20 06/15/2024 10:05 AM CDT Oxygen Saturation 93% 08/23/2022 1:55 PM CDT Inhaled Oxygen Concentration - - Weight 61.2 kg (135 lb) 01/08/2025 10:41 AM NURSE AIDE EVALUATOR Height 157.5 cm (5' 2 ) 01/08/2025 10:41 AM NURSE AIDE EVALUATOR Body Mass Index 24.69 01/08/2025 10:41 AM NURSE AIDE EVALUATOR Plan of Treatment Not on file Medical Devices Implanted Type Area Heliarc Welder Device Identifier Shelf Expiration Date Model / Serial / Lot Stent Stent [employer] Insurance [facility] Member Subscriber Plan / Payer (Ef fective 2016-Present) Name:Cassi Ramsey Relation to Subscriber:Self Name:Cassi Ramsey Payer ID:[id number] (NAIC) Type:MEDICARE RISK OTHER Address: [address] [place] [id number] [facility]ARE HEALTHCARE Care Teams Pulley Worker Relationship Specialty Start Date End Date Nelson Alva DO PCP - General Family Medicine 04/26/19 Sebastián Patterson [place] [address] Consulting Physician Otolaryngology 08/23/22
--- OUTSIDE RECORDS SUMMARY | 2025-01-17 17:37 | XMS_ITS | Clinical Summary ---
Author Organization [facility] D Address [address] [place] [address] Care Team Providers Care Contact Worker Lithography Name Role Phone Nelson Alva Primary Care Provide r Sebastián Patterson MD Unavailable [phone] Allergies Active Allergy Reactions Criticality Noted Date [...] her about that. She could try using hzwb-jzo-hiolyze hydrocortisone cream twice a day as needed for this. She understands. At this point she will follow up with me as needed. Hypertrophy of nasal turbinates 07/23/2022 Overview (07/23/2022): Added automatically from request for surgery [id number] Chronic maxillary sinusitis 07/23/2022 Overview (07/23/2022): Added automatically from request for surgery [id number] Nasal obstruction 06/28/2022 Assessment & Plan (06/28/2022 [...] artery disease of n ative artery of [place] heart with stable angina pectoris 05/30/2017 Assessment & Plan (04/27/2019 12:56 PM CDT): Therefore unable to use nonsteroidal anti-inflammatories. Essential hypertension, benign 05/30/2017 Pure hypercholesterolemia 05/30/2017 Encounters Date Type Department Care Team Description 01/08/2025 11:00 AM ANIMAL TRAINER SUPERVISOR Office Visit [facility] Otolaryngology [address] [place] [address] [facility]Mci Carreon, NITA Chronic pansinusitis (Primary Dx); Pressure sensation in both ears; Nasal congestion; Acute cough 12/18/2024 Telephone [facility] Patient Access [address] [place] [address] Nelson Alva DO from Last 3 Months Immunizations Immunization Administration Dates Next Due Pfizer [...] on file Legal Sex Female 4:50 PM ANIMAL TRAINER SUPERVISOR Gender Identity Not on file Sexual Orientation Not on file Occupation Industry Job Start Date Job End Date retired Not on file Not on file Not on file Obstetrics History Last Filed Vital Signs Vital Sign Reading Time Taken Comments Blood Pressure 155/72 08/23/2022 1:55 PM CDT Pulse 99 08/23/2022 1:55 PM CDT Temperature 36.2 C (97.2 F) 01/08/2025 10:41 AM ANIMAL TRAINER SUPERVISOR Respiratory Rate 20 06/15/2024 10:05 AM CDT Oxygen Saturation 93% 08/23/2022 1:55 PM CDT Inhaled Oxygen Concentration - - Weight 61.2 kg (135 lb) 01/08/2025 10:41 AM ANIMAL TRAINER SUPERVISOR Height 157.5 cm (5' 2 ) 01/08/2025 10:41 AM ANIMAL TRAINER SUPERVISOR Body Mass Index 24.69 01/08/2025 10:41 AM ANIMAL TRAINER SUPERVISOR Plan of Treatment Health Maintenance Due Date [...] 2024 05/11/2022, 08/29/2021, 02/02/2021, Additional history exists DTaP/Tdap/Td Vaccine (2 - Td or Tdap) 05/29/2030 05/29/2020 Influenza Vaccine Completed 10/25/2024, , 10/21/2022, Additional history exists Medical Devices Implanted Type Area Harvest Worker Device Identifier Shelf Expiration Date Model / Serial / Lot Stent Stent [employer] Insurance [facility] HEALTHCARE [facility] HEALTHCARE [address] [place] [address] HEALTHCARE Care Teams Contact Worker Lithography Relationship Specialty Start Date End Date Nelson Alva DO PCP - General Family Medicine 04/26/19 Sebastián Patterson [place] [address] Consulting Physician Otolaryngology 08/23/22
--- OUTSIDE RECORDS SUMMARY | 2025-01-17 17:37 | XMS_ITS | Encounter Summary ---
Author Organization [facility] Address [facility] [place] [address] Care Team Providers Care Acetone Recovery Worker Name Role Phone Isrrael Burleson MD Unavailable [phone] Nelson Alva DO Primary Care Provider + Emerald King RN Unavailable [phone] Encounter Details Date Type Department Care Team (Late st Contact Info) Description 06/04/2024 CurrencyFair Message Enc [facility] Priority Care - [address] [place] [address] [facility] Provider Diabetic Eye Exam Social History Tobacco Use Types Packs/Day Years Used Date Smoking Tobacco: Never Passive Smoke Exposure: Never Smokeless Tobacco: Never Comments:Never smoker Alcohol Use Standard Drinks/Week Comments No 0 (1 standard drink = 0.6 oz pur e alcohol) PHQ-2 Answer Date Recorded Patient Health Questionnaire-2 Score 0 05/21/2024 Comments No Sex and Gender Information Value Date Recorded Sex Assigned at Female 10/25/2024 10:07 AM MANAGER MARKET INTELLIGENCE Legal Sex Female 2:31 AM CDT Gender Identity Female 01/05/2022 11:28 AM MANAGER MARKET INTELLIGENCE Sexual Orientation Straight 01/05/2022 11 :28 AM MANAGER MARKET INTELLIGENCE Occupation Industry Job Start Date Job End Date Not on file Not on file Not on file Not on file documented as of this encounter Functional Status * RETIRED Are you deaf or do you have serious difficulty hearing Answer Date of Assessment Author Status No 12/18/2021 4:43 PM MANAGER MARKET INTELLIGENCE Activ e * RETIRED Are you blind or do you have serious difficulty seeing, even when wearing glasses? Answer Date of Assessment Author Status No 12/18/2021 4:43 PM MANAGER MARKET INTELLIGENCE Activ e * Do you have serious difficulty walking or climbing stairs? Answer Date of Assessment Author Status No 12/18/2021 4:43 PM Silvia Tate RN Active * Do you have difficulty dressing or bathing? Answer Date of Assessment Author Status No 12/18/2021 4:43 PM Silvia Tate RN Active * Because of a physical, [...] Info) Description 5 2:00 PM CDT Appointment [facility] [place] [address] Oleksandr Vera, DO [address] [place] [phone] 5 10:27 AM CDT Hospital Encounter [facility] [place] [address] Oleksandr Vera, DO [address] [place] [phone] 10:27 AM CDT - 5 1:30 PM CDT [place] [address] Oleksandr Vera, DO [address] [place] [id number] ROBOTIC XI ASSISTED LAPAROSCOPIC HIATAL HERNIA REPAIR WITH TOUPET FUNDOPLICATION, POSSIBLE MESH, POSSIBLE OPEN, WITH ESOPHAGOGASTRODUODENOSCOPY 5 1:00 PM CDT Office Visit [facility] [address] [facility], [address] [place], [place] [address] Carol Tinsley FNP [address] [facility] [address] [place], [place] [address] Scheduled Procedures Name Priority Associated Diagnoses Date/Ti oh ROBOTIC XI HERNIA HIATAL HIATAL HERNIA K44.9 01/28/2025 10:27 AM CDT documented as of this encounter Goals Goal Patient Goal Type Associated Problems Recent Progress Patient-Stated? Author Reduce Sodium Intake Diet No change(2021 8:23 AM MANAGER MARKET INTELLIGENCE) No Emerald King, BRAVO Establish Plan for Symptom Monitoring General On track( 12:06 PM MANAGER MARKET INTELLIGENCE) No Emerald King RN Consistently take medications as Prescribed General On track( 8:23 AM MANAGER MARKET INTELLIGENCE) No Emerald King, BRAVO Note: 12/24 on track with exception of iron tablet 01/01-still needs iron documented as of this encounter Visit Diagnoses Not on filedocumented in this encounter Additional Health Concerns Assessment Noted Time PHQ-9 Depression Total Score: 0 05/21/20 24 1:18 PM CDT documented as of this encounter Care Teams Acetone Recovery Worker Relationship Specialty Start Date End Date Nelson Alva DO [address] [place] [address] PCP - General FAMILY PRACTICE 02/05/19 01/03/25 Isrrael Burleson MD [address] [facility]. [address] [place], [place] [address] Davian Creative Consultant CARDIOVASCULAR DISEASE 04/07/16 Emerald King, RN [address] [facility] [address] [place] [address] Binder Sorter (Ambulatory) REGISTERED NURSE 12/15/21 documented as of this encounter
--- OUTSIDE RECORDS SUMMARY | 2025-01-17 17:37 | XMS_ITS | Continuity of Care Document ---
Author Organization [facility] Address [address] [place] [address] Phone Care Team Providers Care Fur Mixer Name Role Phone [place] Maryuri Unavailable Unavailable Advance Directives Directive Yes / No Effective Date File Name No Information Encounters Encounter Description Practice Location Reason(s) For Visit Diagnoses Date Provider Providers Copied on Encounter [facility], [address], [place], [place], [id number], [place] tel:[phone] [facility] Internal Medicine No Information Marybel Wahl. [address] [place], [place], [id number], [place]. tel:[phone] Family History Family Member Type Diagnosis Age At Onset No Information Payers Payer name Insurance type Covered constitution party ID Authoriza tion(s) No Information Social [...]
--- OUTSIDE RECORDS SUMMARY | 2025-01-17 17:37 | XMS_ITS | Encounter Summary ---
Author Organization [facility] Care Team Providers Care Critical Care Technician Name Role Phone Roscoe Maharaj MD Primary Care Provider [phone] Nelson Alva DO Primary Care Provide r Sebastián Patterson MD Unavailable [phone] Encounter Details Date Type Department Care Team (Latest Contact Info) Description 08/07/2018 Orders Only [facility] CLINCONV ProviderGuillermo MD [address] [place], [place] [id number] Social History Tobacco Use Types Packs/Day Years Used Date Smoking Tobacco: Never Smokeless Tobacco: Never Alcohol Use Standard Drinks/Week Comments No 0 (1 standard drink = 0.6 oz pur e alcohol) Comments Unknown Sex and Gender Information Value Date Recorded Sex Assigned at Not on file Legal Sex Female 4:50 PM SEPARATIONS SCIENTIST Gender Identity Not on file Sexual Orientation [...] on filedocumented in this encounter Care Teams Critical Care Technician Relationship Specialty Start Date End Date Roscoe Maharaj MD [address] [place] [address] PCP - General Family Medicine 05/25/17 04/25/19 Nelson Alva DO [address] [place] [address] PCP - General Family Medicine 04/26/19 Sebastián [place] [address] Consulting Physician Otolaryngology 08/23/22 documented as of this encounter
--- OUTSIDE RECORDS SUMMARY | 2025-01-17 17:37 | XMS_ITS | Encounter Summary ---
Author Organization [facility] Healthcare Address [address] [place] [address] Care Team Providers Care Supervisor Backfilling Name Role Phone Nelson Alva DO Primary Care Provide r Sebastián Patterson MD Unavailable [phone] Encounter Details Date Type Department Care Team (Late st Contact Info) Description 12/18/2024 Telephone [facility] Patient Access [address] [facility] [address] [place] [address] Nelson Alva DO [address] [place] [address] Social History Tobacco Use Types [...] on file Legal Sex Female 4:50 PM VISITING HOUSEKEEPER Gender Identity Not on file Sexual Orientation Not on file Occupation Industry Job Start Date Job End Date retired Not on file Not on file Not on file documented as of this encounter Miscellaneous Notes * Telephone Encounter - Kathleen Farley - 12/18/2024 10:31 AM CST error TING HOUSEKEEPER documented in this encounter Plan of Treatment Not on file documented as of this encounter Visit Diagnoses Not on filedocumented in this encounter Care Teams Supervisor Backfilling Relationship Specialty Start Date End Date Nelson Alva DO PCP - General Family Medicine 04/26/19 Sebastián Patterson MD [address] [place] [address] Consulting Physician Otolaryngology 08/23/22 documented as of this encounter
--- OUTSIDE RECORDS SUMMARY | 2025-01-17 17:38 | XMS_ITS | Encounter Summary ---
Author Organization [facility] Address [address] [place] [address] Care Team Providers Care Cement Production Plant Operator Name Role Phone Isrrael Burleson MD Unavailable [phone] Sally Srivastava MD Primary Care Provider [phone] Nelson Alva DO Primary Care Provider + Pricilla Dao MD Primary Care Provider [phone] Emerald King RN Unavailable [phone] Encounter Details Date Type Department Care Team (Late st Contact Info) Description 11/23/2018 Prep for Procedure [facility] at [facility], [facility] [address] [place] [address] Sergo Márquez MD [facility]. [facility] [address] [place] [address] Social History Tobacco Use Types Packs/Day Years Used Date Smoking Tobacco: Never Smokeless Tobacco: Never Alcohol Use Standard Drinks/Week Comments No 0 (1 standard drink = 0.6 oz pur e alcohol) Comments No Sex and Gender Information Value Date Recorded Sex Assigned at Female 10/25/2024 10:07 AM PODIATRIC MEDICINE PROFESSOR Legal Sex Female 2:31 AM CDT Gender Identity Female 01/05/2022 11:28 AM PODIATRIC MEDICINE PROFESSOR Sexual Orientation Straight 01/05/2022 11 :28 AM PODIATRIC MEDICINE PROFESSOR Occupation Industry Job Start Date Job End Date Not on file Not on file Not on file Not on file documented as of this encounter Functional Status * RETIRED Are you deaf or do you have serious difficulty hearing Answer Date of Assessment Author Status No 11/06/2018 1:30 PM PODIATRIC MEDICINE PROFESSOR Activ e * RETIRED Are you blind or do you have serious difficulty seeing, even when wearing glasses? Answer Date of Assessment Author Status No 11/06/2018 1:30 PM PODIATRIC MEDICINE PROFESSOR Activ e * Do you have serious difficulty walking or climbing stairs? Answer Date of Assessment Author Status No 11/06/2018 1:30 PM PODIATRIC MEDICINE PROFESSOR Amina Martel R N Active * Do you have difficulty dressing or bathing? Answer Date of Assessment Author Status No 11/06/2018 1:30 PM PODIATRIC MEDICINE PROFESSOR Amina Martel R N Active * Because of a physical, mental, or emotional condition, do you have difficulty doing errands alone such as visiting a doctor's office or shopping? Answer Date of Assessment Author Status No 11/06/2018 1:30 PM Amina Humphries R N Active documented as of this encounter Mental Status * Because of a physical, mental, or emotional condition, do you have serious difficulty concentrating, remembering, or making decisions? Answer Entry Date Author Status No 11/06/2018 1:30 PM Amina Humphries R N Active documented in this encounter Plan of Treatment Upcoming Encounters Date Type Department Care Team (Latest Contact Info) Description 5 2:[address] [place] [address] Oleksandr Vera, [address] [place] [phone] 5 10:27 AM CDT Hospital Encounter [facility] [address] Oleksandr Vera, DO [address] [place] [address] 5 10:27 AM CDT - 5 1:30 PM CDT Surgery [place] [address] Oleksandr Vera, [address] [facility] [address] [place] [address] ROBOTIC XI ASSISTED LAPAROSCOPIC HIATAL HERNIA REPAIR WITH TOUPET FUNDOPLICATION, POSSIBLE MESH, POSSIBLE OPEN, WITH ESOPHAGOGASTRODUODENOSCOPY 1:00 PM CDT Office Visit [facility] [place] THREE [facility], [place] [address] [place] [address] Carol Tinsley FNP 3 [facility] [address] [place] [address] Scheduled Procedures Name Priority Associated Diagnoses Date/Ti wi ROBOTIC XI HERNIA HIATAL HIATAL HERNIA K44.9 01/28/2025 10:27 AM CDT documented as of this encounter Visit Diagnoses Not on filedocumented in this encounter Additional Health Concerns Infection Onset Date Last Indicated Resolved Time COVID-19 Rule Out 09/22/2020 09/15/2020 09/22/2020 11:29 AM PODIATRIC MEDICINE PROFESSOR COVID-19 Rule Out 09/23/2020 09/23/2020 11/22/2020 12:33 AM PODIATRIC MEDICINE PROFESSOR COVID-19 Rule Out 06/01/2022 06/01/2022 06/02/2022 2:07 PM CDT COVID-19 Rule Out 12/28/2022 12/28/2022 12/29/2022 1:28 PM PODIATRIC MEDICINE PROFESSOR COVID-19 Rule Out 02/16/2023 02/16/2023 02/16/2023 11:21 AM CDT COVID-19 Rule Out 02/16/2023 02/16/2023 02/17/2023 1:03 PM CDT COVID-19 Rule Out 09/13/2023 09/13/2023 09/13/2023 1:56 PM PODIATRIC MEDICINE PROFESSOR COVID-19 Rule Out 09/13/2023 09/13/2023 09/14/2023 3:52 PM PODIATRIC MEDICINE PROFESSOR documented as of this encounter Care Teams Cement Production Plant Operator Relationship Specialty Start Date End Date Sally Srivastava MD [facility] Internal Medicine [address] [place] [id number] PCP - General INTERNAL MEDICINE 11/04/18 01/04/19 Nelson Alva DO [address] [place] [address] PCP - General FAMILY PRACTICE 02/05/19 01/03/25 Pricilla Dao MD [address] [place] [address] PCP - General FAMILY PRACTICE 01/05/19 02/04/19 Isrrael Burleson MD [facility]. [facility] [address] [place] [address] [place] [employer] Laminator CARDIOVASCULAR DISEASE 04/07/16 Emerald King, RN [address] [facility] [address] [place] [address] Supervisor Feed Mill (Ambulatory) REGISTERED NURSE 12/15/21 documented as of this encounter
--- OUTSIDE RECORDS SUMMARY | 2025-01-17 17:38 | XMS_ITS | Encounter Summary ---
Author Organization [facility] Address [address] [place] [address] Care Team Providers Care Supervisor Shipfitters Name Role Phone Isrrael Burleson MD Unavailable [phone] Nelson Alva DO Primary Care Provider + Emerald King RN Unavailable [phone] Encounter Details Date Type Department Care Team (Late st Contact Info) Description 03/11/2023 Prep for Procedure [facility], [facility] [address] [place], [place] [id number] Rodríguez Bob MD Three [facility]. [facility] [address] [place] [address] Social History Tobacco Use Types Packs/Day Years Used Date Smoking Tobacco: Never Passive Smoke Exposure: Never Smokeless Tobacco: Never Alcohol Use Standard Drinks/Week Comments No 0 (1 standard drink = 0.6 oz pur e alcohol) PHQ-2 Answer Date Recorded Patient Health Questionnaire-2 Score 0 12/28/2022 Comments No Sex and Gender Information Value Date Recorded Sex Assigned at Female 10/25/2024 10:07 AM SOLE SPLITTER Legal Sex Female 2:31 AM CDT Gender Identity Female 01/05/2022 11:28 AM SOLE SPLITTER Sexual Orientation Straight 01/05/2022 11 :28 AM SOLE SPLITTER Occupation Industry Job Start Date Job End Date Not on file Not on file Not on file Not on file COVID-19 Exposure Response Date Recorded In the last 10 days, have yo u been in contact with someone who was confirmed or suspected to have Coronavirus/COVID-19? No / Unsure 03/10/2023 11:03 AM CDT documented as of this encounter Functional Status * RETIRED Are you deaf or do you have serious difficulty hearing Answer Date of Assessment Author Status No 12/18/2021 4:43 PM SOLE SPLITTER Activ e * RETIRED Are you blind or do you have serious difficulty seeing, even when wearing glasses? Answer Date of Assessment Author Status No 12/18/2021 4:43 PM SOLE SPLITTER Activ e * Do you have serious [...] Info) Description 5 2:00 PM CDT Appointment [facility] [address] Oleksandr Vera, DO [address] [place] [address] [id number] 5 10:27 AM CDT Hospital Encounter [facility] [place] [address] Oleksandr Vera, DO [address] [place] [address] [phone] 10:27 AM CDT - 1:30 PM CDT Surgery [facility] [place] [address] Oleksandr Vera, DO [address] [facility] [address] [place] [address] ROBOTIC XI ASSISTED LAPAROSCOPIC HIATAL HERNIA REPAIR WITH TOUPET FUNDOPLICATION, POSSIBLE MESH, POSSIBLE OPEN, WITH ESOPHAGOGASTRODUODENOSCOPY 5 1:00 PM CDT Office Visit [facility] [place] [address] [facility], [place] [address] [place], [place] [address] Carol Tinlsey, SAILOR [address] [facility] [address] [place], [place] [address] Scheduled Procedures Name Priority Associated Diagnoses Date/Ti nj ROBOTIC XI HERNIA HIATAL HIATAL HERNIA K44.9 01/28/2025 10:27 AM CDT documented as of this encounter Goals Goal Patient Goal Type Associated Problems Recent Progress Patient-Stated? Author Reduce Sodium Intake Diet No change(2021 8:23 AM SOLE SPLITTER) No Emerald King RN Establish Plan for Symptom Monitoring General On track( 12:06 PM SOLE SPLITTER) No Emerald King RN Consistently take medications as Prescribed General On track( 8:23 AM SOLE SPLITTER) No Emerald King, BRAVO Note: 12/24 on track with exception of iron tablet 01/01-still needs iron documented as of this encounter Visit Diagnoses Not on filedocumented in this encounter Additional Health Concerns Infection Onset Date Last Indicated Resolved Time COVID-19 Rule Out 09/13/2023 09/13/2023 09/13/2023 1:56 PM SOLE SPLITTER COVID-19 Rule Out 09/13/2023 09/13/2023 09/14/2023 3:52 PM SOLE SPLITTER Assessment Noted Time PHQ-9 Depression Total Score: 0 12/28/19 23 4:16 PM SOLE SPLITTER documented as of this encounter Care Teams Supervisor Shipfitters Relationship Specialty Start Date End Date Nelson Avla DO [address] [place] [address] PCP - General FAMILY PRACTICE 02/05/19 01/03/25 Isrrael Burleson MD [facility]. [address] [address] [place] Vice President Of Consulting Services CARDIOVASCULAR DISEASE 04/07/16 Emerald King, RN [address] [facility] [address] [place] [address] Cloth Mercerizer Operator (Ambulatory) REGISTERED NURSE 12/15/21 documented as of this encounter
--- OUTSIDE RECORDS SUMMARY | 2025-01-17 17:38 | XMS_ITS | Clinical Summary ---
Author Organization [facility] Address [address] [place] [address] Phone Care Team Providers Care Reliner Name Role Phone Unavailable Unavailable Unavailable Reason for Visit and Chief Complaint [Patient Encounter] Problems Includes: Problems addressed during this encounter and other active Problems All Visits Onset Date Resolved Date Provider Condition S tatus Persistent Insomnia 01/08/2015 Activ e Last Documented On 3 5:47PM ; [facility] Heart Block 11/12/2014 Active Last Documented On 03/05/2023 5:47PM ; [facility] Note: 40% Major Depression, Recurrent 12/21/2012 Active Last Documented On 3 5:44PM ; [facility] Generalized Anxiety Disorder 11/17/2012 Active Last Documented On 3 5:43PM ; [facility] Gerd 11/17/2012 Active Last Documented On 3 5:43PM ; [facility] Hypertension Systemic 11/17/2012 Act jack Last Documented On 3 5:43PM ; [facility] Hypokalemia 11/17/2012 Active Last Documented On 3 5:43PM ; [facility] Intervertebral Disc Degeneration 11/17/2012 Active Last Documented On 3 5:43PM ; [facility] Plan of Treatment No Plan of [...] 03/05/2023 5:34PM By Liz Rm MD ; [facility] Levothyroxine Sodium 50 MCG OR TABS 10/09/2015 Provi jennifer: Diagnosis: Take 1 tablet by mouth every day Last Documented On 03/05/2023 5:34PM By YOAV MCCARTNEY LPN ; [facility] Lasix 20 MG OR TABS 01/08/2015 Provider: Diagnosis: Dr. Burleson -- Distance Education Director in [place] Last Documented On 03/05/2023 5:34PM By Liz Rm MD ; [facility] Potassium Chloride ER 20 MEQ OR TBCR 01/08/2015 Prov ider: Diagnosis: Last Documented On 03/05/2023 5:34PM By Liz Rm MD ; [facility] Aspirin 81 MG OR TABS 12/25/2012 Provider: Diagnosis: Last Documented On 03/05/2023 5:34PM By GRACE ESPINO ; [facility] TH Vitamin B1 100 MG OR TABS 12/25/2012 Provider: Diagnosis: Last Documented On 03/05/2023 5:34PM By GRACE ESPINO ; [facility] Carvedilol 25 MG OR TABS 12/25/2012 Provider: Diagnosis: Last Documented On 03/05/2023 5:34PM By GRACE ESPINO ; [facility] Medications Administered Includes: Administered Medications from this encounter No Administered Medications Recorded Vital Signs Includes: Vital Signs from this encounter Vital Name 10/09/2015 02:47P Blood Pressure Sitting (mmHg) 130/84 BP Cuff Size Regular Pulse Rate-Sitting (bpm) 80 Pulse Rhythm Regular Height (in) 62.5 Weight (lb) 144 Body Mass Index (kg/m2) 25.9 Body Surface Area (m2) 1.7 Last Documented: On 03/05/2023 6:08PM ; [facility] Results Includes: Results discussed during this encounter [...] Reaction Onset Date Resolved Date Statu s Ashley Allergy 11/17/2012 Active Last Documented On 03/05/2023 5:40PM ; [facility] Note: Imported from external source. Encounters Encounter Provider Location Date Check-In Time Check-Out Time Diagnosis [Patient Encounter] 10/09/2015 12:00AM 11:59PM Clinical Notes Includes: Clinical Notes from this encounter No Clinical Notes Recorded
--- OUTSIDE RECORDS SUMMARY | 2025-01-17 17:38 | XMS_ITS | CONTINUITY OF CARE DOCUMENT ---
Author Name rocco valiente Address Unknown Organization [facility] Address [address] [facility] [address] [place] [address] Phone [phone] Care Team Providers Care Cloth Checker Name Role Phone Demetrius MORA, Matilde Unavailable [phone] DALLIN MORA, RUDY Unavailable [phone] INSURANCE PROVIDERS Payer name Policy type / Coverage type [place] MED[place] (2) Medicaid [id number]
--- OUTSIDE RECORDS SUMMARY | 2025-01-17 17:38 | XMS_ITS | Encounter Summary ---
Author Organization [facility] Address [address] [place] [address] Care Team Providers Care Log Buncher Name Role Phone Isrrael Burleson MD Unavailable [phone] Sally Srivastava MD Primary Care Provider [phone] Nelson Alva DO Primary Care Provider + Pricilla Dao MD Primary Care Provider [phone] Emerald King RN Unavailable [phone] Encounter Details Date Type Department Care Team (Late st Contact Info) Description 12/25/2018 Hospital Orders Only [facility] at [facility], [facility] [address] [place] [address] Sergo Márquez MD [facility]. [facility] [address] [place] [address] Social History Tobacco Use Types Packs/Day Years Used Date Smoking Tobacco: Never Smokeless Tobacco: Never Alcohol Use Standard Drinks/Week Comments No 0 (1 standard drink = 0.6 oz pur e alcohol) Comments No Sex and Gender Information Value Date Recorded Sex Assigned at Female 10/25/2024 10:07 AM SEPARATOR OPERATOR Legal Sex Female 2:31 AM CDT Gender Identity Female 01/05/2022 11:28 AM SEPARATOR OPERATOR Sexual Orientation Straight 01/05/2022 11 :28 AM SEPARATOR OPERATOR Occupation Industry Job Start Date Job End Date Not on file Not on file Not on file Not on file documented as of this encounter Functional Status * RETIRED Are you deaf or do you have serious difficulty hearing Answer Date of Assessment Author Status No 11/06/2018 1:30 PM SEPARATOR OPERATOR Activ e * RETIRED Are you blind or do you have serious difficulty seeing, even when wearing glasses? Answer Date of Assessment Author Status No 11/06/2018 1:30 PM SEPARATOR OPERATOR Activ e * Do you have serious difficulty walking or climbing stairs? Answer Date of Assessment Author Status No 11/06/2018 1:30 PM SEPARATOR OPERATOR Amina Martel R N Active * Do you have difficulty dressing or bathing? Answer Date of Assessment Author Status No 11/06/2018 1:30 PM SEPARATOR OPERATOR Amina Martel R N Active * Because [...] PM CDT Appointment [facility] [place] [address] Oleksandr Vera, [address] [place] [address] 5 10:27 AM CDT Hospital Encounter [facility] [place] [address] Oleksandr Vera, DO [address] [place] [address] 5 10:27 AM CDT - 5 1:30 PM CDT Surgery [place] [address] Oleksandr Vera, [address] [facility] [address] [place] [address] ROBOTIC XI ASSISTED LAPAROSCOPIC HIATAL HERNIA REPAIR WITH TOUPET FUNDOPLICATION, POSSIBLE MESH, POSSIBLE OPEN, WITH ESOPHAGOGASTRODUODENOSCOPY 1:00 PM CDT Office Visit [facility] [place] THREE [facility], [place] [address] [place] [address] Carol Tinsley FNP 3 [facility] [address] [place] [address] Scheduled Procedures Name Priority Associated Diagnoses Date/Ti wa ROBOTIC XI HERNIA HIATAL HIATAL HERNIA K44.9 01/28/2025 10:27 AM CDT documented as of this encounter Visit Diagnoses Not on filedocumented in this encounter Additional Health Concerns Infection Onset Date Last Indicated Resolved Time COVID-19 Rule Out 09/22/2020 09/15/2020 09/22/2020 11:29 AM SEPARATOR OPERATOR COVID-19 Rule Out 09/23/2020 09/23/2020 11/22/2020 12:33 AM SEPARATOR OPERATOR COVID-19 Rule Out 06/01/2022 06/01/2022 06/02/2022 2:07 PM CDT COVID-19 Rule Out 12/28/2022 12/28/2022 12/29/2022 1:28 PM SEPARATOR OPERATOR COVID-19 Rule Out 02/16/2023 02/16/2023 02/16/2023 11:21 AM CDT COVID-19 Rule Out 02/16/2023 02/16/2023 02/17/2023 1:03 PM CDT COVID-19 Rule Out 09/13/2023 09/13/2023 09/13/2023 1:56 PM SEPARATOR OPERATOR COVID-19 Rule Out 09/13/2023 09/13/2023 09/14/2023 3:52 PM SEPARATOR OPERATOR documented as of this encounter Care Teams Log Buncher Relationship Specialty Start Date End Date Sally Srivastava MD [facility] Internal Medicine [address] [place] [phone] PCP - General INTERNAL MEDICINE 11/04/18 01/04/19 Nelson Alva DO [address] [place] [address] PCP - General FAMILY PRACTICE 02/05/19 01/03/25 Pricilla Dao MD [address] [place] [address] PCP - General FAMILY PRACTICE 01/05/19 02/04/19 Isrrael Burleson MD [facility]. [facility] [address] [place] [address] [place] Tableau Lead CARDIOVASCULAR DISEASE 04/07/16 Emerald King, RN [address] [facility] [address] [place] [address] Composite Science Teacher (Ambulatory) REGISTERED NURSE 12/15/21 documented as of this encounter
--- OUTSIDE RECORDS SUMMARY | 2025-01-17 17:38 | XMS_ITS | Encounter Summary ---
Author Organization [facility] Address [address] [place] [address] Care Team Providers Care Histopathology Technician Name Role Phone Isrrael Burleson MD Unavailable [phone] Nelson Alva DO Primary Care Provider + Emerald King RN Unavailable Reason for Visit * Reason Onset Date Comments Surgical Clearance 12/24/2024 Encounter Details Date Type Department Care Team (Late st Contact Info) Description 12/24/2024 [facility]phone [facility] [address] [address] [facility]. [address] [address] Surgical Clearance Social History Tobacco Use Types Packs/Day Years Used Date Smoking Tobacco: Never Passive Smoke Exposure: Never Smokeless Tobacco: Never Comments:Never smoker Alcohol Use Standard Drinks/Week Comments No 0 (1 standard drink = 0.6 oz pur e alcohol) PHQ-2 Answer Date Recorded Patient Health Questionnaire-2 Score 0 11/27/2024 Comments No Sex and Gender Information Value Date Recorded Sex Assigned at Female 10/25/2024 10:07 AM SUPERVISOR WARPING DEPARTMENT Legal Sex Female 2:31 AM CDT Gender Identity Female 01/05/2022 11:28 AM SUPERVISOR [employer]ARPING [employer]PARTMENT Sexual Orientation Straight 01/05/2022 11 :28 AM SUPERVISOR WARPING DEPARTMENT Occupation Industry Job Start Date Job End Date Not on file Not on file Not on file Not on file documented as of this encounter Functional Status * RETIRED Are you deaf or do you have serious difficulty hearing Answer Date of Assessment Author Status No 12/18/2021 4:43 PM SUPERVISOR WARPING DEPARTMENT Activ e * RETIRED Are you blind or do you have serious difficulty seeing, even when wearing glasses? Answer Date of Assessment Author Status No 12/18/2021 4:43 PM SUPERVISOR WARPING DEPARTMENT Activ e * Do you have serious difficulty walking or climbing stairs? Answer Date of Assessment Author Status No 12/18/2021 4:43 PM Silvia Tate RN Active * Do you have difficulty dressing or bathing? Answer Date of Assessment Author Status No 12/18/2021 4:43 PM Siliva Tate RN Active * Because of a [...] Tate RN Active documented in this encounter Progress Notes * JOSE RAFAEL Beck - 01/16/2025 2:33 PM CDT CALL TO PT, NO ANSWER- MESSAGE LEFT TO CALL THE OFFICE BON REGARDING CLEARANCE. CALL TO SPOUSE- PHONE DIDN'T RING, N/A CALL TO LUL[facility] RICKS/ BISHNU TO MAKE AWARE * Zelda Kruger RN - 12/28/2024 8:08 AM CST Multiple attempts have been made to reach the patient. No further attempts will be made. Zelda CORDON [employer]ING DEPARTMENT * MARGIE Brewer - 12/24/2024 10:08 PM CST Please confirm no new chest pain, pressure, SOB and can met 4 METs of activity. If doing well, she would be of acceptable risk holding ASA for 6-7 days prior. [employer]ISOR W[employer]ING DEPARTMENT * Ivana Emmanuel - 12/24/2024 8:23 AM CST Received fax from [facility] requesting cardiac clearance prior to Robotic Assisted Lap Hiatal Hernia Repair w/ Toupet Fundoplication, poss mesh poss open w/ EGD on 01/28/25 at [facility] with Dr Oleksandr Vera Message to P D DRIVER to advise Fax to [phone] [employer]PARTMENT documented in this encounter Plan of Treatment Upcoming Encounters Date Type Department Care Team (Latest Contact Info) Description 2:00 PM CDT Appointment [facility] [address] Oleksandr Vera, DO [address] [place] [address] 10:27 AM CDT Hospital Encounter [facility] [place] [address] Oleksandr Vera, DO [address] [place] [address] [place] [id number] 5 10:27 AM CDT - 1:30 PM CDT Surgery [facility] [place] [address] Oleksandr Vera, DO [address] [place] [address] [place] [address] ROBOTIC XI ASSISTED LAPAROSCOPIC HIATAL HERNIA REPAIR WITH TOUPET FUNDOPLICATION, POSSIBLE MESH, POSSIBLE OPEN, WITH ESOPHAGOGASTRODUODENOSCOPY 5 1:00 PM CDT Office Visit [facility] [place] [facility], [facility] [address] [place] [address] Carol Tinsley FNP 3 [facility] [address] [place], [place] [address] Scheduled Procedures Name Priority Associated Diagnoses Date/Ti wv ROBOTIC XI HERNIA HIATAL HIATAL HERNIA K44.9 01/28/2025 10:27 AM CDT documented as of this encounter Goals Goal Patient Goal Type Associated Problems Recent Progress Patient-Stated? Author Reduce Sodium Intake Diet No change(2021 8:23 AM SUPERVISOR WARPING DEPARTMENT) No Emerald King RN Establish Plan for Symptom Monitoring General On track( 12:06 PM SUPERVISOR WARPING [employer]PARTMENT) No Emerald King RN Consistently take medications as Prescribed General On track( 8:23 AM SUPERVISOR WARPING DEPARTMENT) No Emerald King, BRAVO Note: 12/24 on track with exception of iron tablet 01/01-still needs iron documented as of this encounter Visit Diagnoses Not on filedocumented in this encounter Additional Health Concerns Assessment Noted Time PHQ-9 Depression Total Score: 0 05/21/20 24 1:18 PM CDT documented as of this encounter Care Teams Histopathology Technician Relationship Specialty Start Date End Date Nelson Alva DO [address] [place] [address] PCP - General FAMILY PRACTICE 02/05/19 01/03/25 Isrrael Burleson MD Three [facility]. [facility] [address] [place] [address] [place] [employer] CARDIOVASCULAR DISEASE 04/07/16 Emerald King, RN [address] [address] Information Technology Teacher (Ambulatory) REGISTERED NURSE 12/15/21 documented as of this encounter
--- OUTSIDE RECORDS SUMMARY | 2025-01-17 17:38 | XMS_ITS | Encounter Summary ---
Author Organization [facility] Address [address] [place] [address] Care Team Providers Care Rippler Name Role Phone Roscoe Maharaj MD Primary Care Provider Isrrael Wiggins MD Unavailable [phone] Sergo Márquez MD Unavailable [phone] Sally Srivastava MD Primary Care Provider [phone] Nelson Alva DO Primary Care Provider + Pricilla Dao MD Primary Care Provider [phone] Emerald King RN Unavailable [phone] Encounter Details Date Type Department Care Team (Late st Contact Info) Description 08/30/2016 Abstract [facility] AT [address] [address] Brenda Adler MA Social History Tobacco Use Types Packs/Day Years Used Date Smoking Tobacco: Never Smokeless Tobacco: Never Alcohol Use Standard Drinks/Week Comments No 0 (1 standard drink = 0.6 oz pur e alcohol) Comments Unknown Sex and Gender Information Value Date Recorded Sex Assigned at Female 10/25/2024 10:07 AM INSURANCE UNDERWRITING ASSISTANT Legal Sex Female 2:31 AM CDT Gender Identity Female 01/05/2022 11:28 AM INSURANCE UNDERWRITING ASSISTANT Sexual Orientation Straight 01/05/2022 11 :28 AM INSURANCE UNDERWRITING ASSISTANT Occupation Industry Job Start Date Job End Date Not on file Not on file Not on file Not on file documented as of this encounter Progress Notes * EF Franco-MARVA - 11/12/2016 1:02 PM CST PG pt send letter continue current meds RANCE UNDERWRITING ASSISTANT documented in this encounter Plan of Treatment Upcoming Encounters Date Type Department Care Team (Latest Contact Info) Description 5 2:[address] [facility] [place] [address] Oleksandr Vera, DO [address] [place] [address] [place] [address] 5 10:27 AM CDT Hospital Encounter [facility] [place] [address] Oleksandr Vera, DO [address] [place] [address] [place] [phone] 5 10:27 AM CDT - 5 1:[address] [facility] [address] Oleksandr Vera, DO [address] [place] [address] [place] [id number] ROBOTIC XI ASSISTED LAPAROSCOPIC HIATAL HERNIA REPAIR WITH TOUPET FUNDOPLICATION, POSSIBLE MESH, POSSIBLE OPEN, WITH ESOPHAGOGASTRODUODENOSCOPY 5 1:00 PM CDT Office Visit [facility] [place] [facility], [facility] [address] [place], [place] [address] Carol Tinsley FNP 3 [facility] [address] [place], [place] [address] Scheduled Procedures Name Priority Associated Diagnoses Date/Ti me ROBOTIC XI HERNIA HIATAL HIATAL HERNIA K44.9 01/28/2025 10:27 AM CDT documented as of this encounter Procedures Procedure Name Priority Date/Time Associated Diagnosis Comments CBC (OUTSIDE LAB) Routine 04/20/2018 BASIC METABOLIC PANEL Routine 04/20/2018 LIPID PANEL Routine 04/20/2018 CK (CPK) Routine 04/20/2018 ALT/SGPT Routine 04/20/2018 BASIC METABOLIC PANEL Routine 05/19/2017 CBC (OUTSIDE LAB) Routine 05/18/2017 LIPID PANEL Routine 05/16/2017 CBC (OUTSIDE LAB) Routine 12/15/2016 COMPREHENSIVE METABOLIC PANEL Routine 11/11/2016 LIPID PANEL Routine 11/11/2016 THYROID STIM HORMONE TSH Routine 11/11/2016 CBC (OUTSIDE LAB) Routine 07/07/2016 COMPREHENSIVE METABOLIC PANEL Routine 07/07/2016 documented in this encounter Results * CBC (OUTSIDE LAB) (04/20/2018) WBC 5.1 HGB 12.2 HCT 37.1 PLT 234 04/20/2018 [facility] Abstract LAB-OUTSIDE/ABSTRACTED Final Result * ALT/SGPT (04/20/2018) ALT 14 04/20/2018 [facility] Abstract LABORATORY Final Result * CK (CPK) (04/20/2018) CPK 80 04/20/2018 [facility] LABORATORY Final Result * BASIC METABOLIC PANEL (04/20/2018) SODIUM S/P/B 144 POTASSIUM S/P/B 3.5 CO2 26 CHLORIDE S/P/B 108 GLUCOSE 103 mg/dL CALCIUM S/P/B 9.2 BUN 20 CREATININE S/P/B 1.0 0.5 - 1.0 EGFR AFR. AMER. 68 <=90 EGFR NON-AFR. AMER. 58 <=90 04/20/2018 [facility] LABORATORY Final Result * LIPID PANEL (04/20/2018) CHOLESTEROL 147 HDL 38 TRIGLYCERIDES 144 NON HDL CHOLESTEROL 109 LDL (CALCULATED) 85 04/20/2018 [facility] LABORATORY Final Result * BASIC METABOLIC PANEL (05/19/2017) SODIUM S/P/B 138 POTASSIUM S/P/B 4.6 CO2 19 CHLORIDE S/P/B 104 GLUCOSE 100 CALCIUM S/P/B 8.8 BUN 18 CREATININE S/P/B 0.78 0.5 - 1.0 EGFR AFR. AMER. >60 <=90 EGFR NON-AFR. AMER. >60 <=90 05/19/2017 [facility] LABORATORY Final Result * CBC (OUTSIDE LAB) (05/18/2017) WBC 7.3 HGB 12.6 HCT 36 PLT 184 05/18/2017 us [facility] Abstract LAB-OUTSIDE/ABSTRACTED Final Result * LIPID PANEL (05/16/2017) Pathologist [facility] CHOLESTEROL 142 HDL 41 TRIGLYCERIDES 145 NON HDL CHOLESTEROL 101 LDL (CALCULATED) 72 05/16/2017 [facility] LABORATORY Final Result * CBC (OUTSIDE LAB) (12/15/2016) [facility] WBC 4.7 HGB 12.7 HCT 36.3 PLT 227 12/15/2016 us [facility] Abstract LAB-OUTSIDE/ABSTRACTED Edite d Result - Final * LIPID PANEL (11/11/2016) [facility] CHOLESTEROL 185 HDL 50 TRIGLYCERIDES 304 NON HDL CHOLESTEROL 135 LDL (CALCULATED) 74 11/11/2016 [facility] LABORATORY Edited Resul t - Final * THYROID STIM HORMONE, TSH (11/11/2016) Pathologist [facility] TSH 5.01 11/11/2016 us Doc [facility] LABORATORY Final Result * COMPREHENSIVE METABOLIC PANEL (11/11/2016) [facility] SODIUM S/P/B 143 POTASSIUM S/P/B 3.9 CO2 28 CHLORIDE S/P/B 101 GLUCOSE 118 CALCIUM S/P/B 9.5 BUN 16 CREATININE S/P/B 0.88 0.5 - 1.0 EGFR AFR. AMER. >60 <=90 EGFR NON-AFR. AMER. >60 <=90 ALKALINE PHOSPHATASE S/P/B 68 ALT 42 AST 36 BILIRUBIN TOTAL S/P/B 0.5 ALBUMIN S/P/B 4.3 3.5 - 5.0 TOTAL PROTEIN S/P/B 7.0 GLOBULIN 2.7 11/11/2016 us Doc [facility] LABORATORY Final Result * COMPREHENSIVE METABOLIC PANEL (07/07/2016) SODIUM S/P/B 139 POTASSIUM S/P/B 4.4 CO2 28 CHLORIDE S/P/B 97 GLUCOSE 126 CALCIUM S/P/B 9.5 BUN 15 CREATININE S/P/B 0.83 EGFR AFR. AMER. >60 EGFR NON-AFR. AMER. >60 ALKALINE PHOSPHATASE S/P/B 102 ALT 33 AST 23 BILIRUBIN TOTAL S/P/B 0.6 ALBUMIN S/P/B 3.9 3.5 - 5.0 TOTAL PROTEIN S/P/B 6.5 GLOBULIN 2.6 07/07/2016 us Doc [facility] LABORATORY Final Result * CBC (OUTSIDE LAB) (07/07/2016) Pathologist [facility] WBC 13.2 HGB 13.0 HCT 40 PLT 387 07/07/2016 us Doc [facility] Abstract LAB-OUTSIDE/ABSTRACTED Edite d Result - Final documented in this encounter Visit Diagnoses Not on filedocumented in this encounter Additional Health Concerns Infection Onset Date Last Indicated Resolved Time COVID-19 Rule Out 09/22/2020 09/15/2020 09/22/2020 11:29 AM INSURANCE UNDERWRITING ASSISTANT COVID-19 Rule Out 09/23/2020 09/23/2020 11/22/2020 12:33 AM INSURANCE UNDERWRITING ASSISTANT COVID-19 Rule Out 06/01/2022 06/01/2022 06/02/2022 2:07 PM CDT COVID-19 Rule Out 12/28/2022 12/28/2022 12/29/2022 1:28 PM INSURANCE UNDERWRITING ASSISTANT COVID-19 Rule Out 02/16/2023 02/16/2023 02/16/2023 11:21 AM CDT COVID-19 Rule Out 02/16/2023 02/16/2023 02/17/2023 1:03 PM CDT COVID-19 Rule Out 09/13/2023 09/13/2023 09/13/2023 1:56 PM INSURANCE UNDERWRITING ASSISTANT COVID-19 Rule Out 09/13/2023 09/13/2023 09/14/2023 3:52 PM INSURANCE UNDERWRITING ASSISTANT documented as of this encounter Care Teams Rippler Relationship Specialty Start Date End Date Roscoe Maharaj MD PCP - General FAMILY PRACTICE 04/14/16 09/06/17 Sally Srivastava MD [facility] Internal Medicine [address] [place] [address] PCP - General INTERNAL MEDICINE 11/04/18 01/04/19 Nelson Alva DO [address] [place] [address] PCP - General FAMILY PRACTICE 02/05/19 01/03/25 Pricilla Dao MD [address] [place] [address] PCP - General FAMILY PRACTICE 01/05/19 02/04/19 Isrrael Burleson MD [address] [address] [place] [address] [place] [facility] Associate CARDIOVASCULAR DISEASE 04/07/16 Sergo Márquez MD [address] [place] [address] [place] [facility] CARDIOVASCULAR DISEASE 11/24/16 11/25/16 Emerald King, RN [address] [facility] [address] [place] [phone] Pharmaceutical Engineer (Ambulatory) REGISTERED NURSE 12/15/21 documented as of this encounter
--- OUTSIDE RECORDS SUMMARY | 2025-01-17 17:38 | XMS_ITS | Clinical Summary ---
Author Organization [facility] Address [address] [place] [address] Phone Care Team Providers Care Buttonhole Machine Operator Name Role Phone NIHARIKA MORA, WISAM Lujan [phone] Reason for Visit and Chief Complaint The Chief Complaint is: follow up for depression Problems Includes: Problems addressed during this encounter and other active Problems Current Visit Onset Date Resolved Date Provider Conditio n Status Persistent Insomnia 01/08/2015 WISAM REECE MD Active Last Documented On 5 3:41PM ; [facility] Heart Block 11/12/2014 WISAM RM MD A ctive Last Documented On 5 3:05PM ; [facility] Note: 40% Major Depression, Recurrent 12/21/2012 WISAM RM MD Active Last Documented On 3 2:42PM ; [facility] Generalized Anxiety Disorder 11/17/2012 WISAM RM MD Active Last Documented On 3 3:17PM ; [facility] Past Visits Onset Date Resolved Date Provider Condition Status Gerd 11/17/2012 WISAM RM MD Ac tive Last Documented On 3 3:18PM ; [facility] Hypertension Systemic 11/17/2012 WISAM EDWARD MD Active Last Documented On 3 3:18PM ; [facility] Hypokalemia 11/17/2012 WISAM RM MD A ctive Last Documented On 3 3:18PM ; [facility] Intervertebral Disc Degeneration 11/17/2012 MET RAYO RM MD Active Last Documented On 3 3:19PM ; [facility] Plan of Treatment Education and Decision Aids were provided during visit for: Patient education about medi cation --- I educated patient on medication(s) and diagnosis. I reviewed the risks, benefits and side effects of patient's medications Last Documented On 5 7:51AM ; [facility] Discussed calming techniques such as breathing exercises/meditation and other relaxation techniques Last Documented On 5 2:40PM ; [facility] Counseling for nutrition/camilo ght management provided Last Documented On 5 7:51AM ; [facility] Assessments Includes: Assessments from this encounter Findings - Major depression, recurrent - Last Documented On 01/09/2015 7:52AM ; [facility] - Last Documented On 01/09/2015 7:52AM ; [facility] - Generalized anxiety disorder - Last Documented On 01/09/2015 7:52AM ; [facility] Instructions Includes: Instructions from this encounter Education and Decision Aids were provided during visit for: Patient education about medi cation --- I educated patient on medication(s) and diagnosis. I reviewed the risks, benefits and side effects of patient's medications Last Documented On 5 7:51AM ; [facility] Discussed calming techniques such as breathing exercises/meditation and other relaxation techniques Last Documented On 5 2:40PM ; [facility] Counseling for nutrition/camilo ght management provided Last Documented On 5 7:51AM ; [facility] Medical Equipment - Implanted Devices Includes: Current Devices No Medical Equipment Recorded Medications Includes: Medications discussed during this encounter and other current Medications Discontinued / Stopped on this date on 12/25/2012 Indapamide 2.5 MG OR TABS Provider: Diagnosis: Last Documented On 01/08/2015 3:00PM By Liz Rm MD ; [facility] New / Renewed during this visit WISAM RM MD on 01/08/2015 Viibryd 20 MG OR TABS Provider: MATI RM MD 120 day supply: 120 tablet, 0 refills Diagnosis: MAJOR DEPRESSION DISORDER/RECURRENT ---given samples for 7 months Pharmacy: [facility] ([facility] - [address] [facility], [phone] - Last Documented On 10/09/2015 3:17PM By Liz Rm MD ; [facility] Silenor 3 MG OR TABS Provider: WISAM RM MD 16 day supply: 16 tablet, 0 refills Diagnosis: PERSISTENT INSOMNIA given 16 tablets samples Pharmacy: [facility] ([facility] - [address] [facility], [phone] - Last Documented On 01/08/2015 3:48PM By Liz Rm MD ; [facility] Current Medications (continue as prescribed) Viibryd 20 MG Tablet 02/03/2016 Provider: WIASM RM MD Diagnosis: Major depressive disorder, recurrent, unspecified food - 1 tablet every mornin g with food -- per pharmacist pt already pd $65 on 02/02/16 and was given 30 tablets for 30 days so no samples can be given at this time Last Documented On 02/03/2016 8:07AM By Liz Rm MD ; [facility] Levothyroxine Sodium 50 MCG Tablet 10/09/2015 Provid er: Diagnosis: Take 1 tablet by mouth every day Last Documented On 5 2:42PM By YOAV MCCARTNEY LPN ; [facility] Lasix 20 MG OR TABS 01/08/2015 Provider: Diagnosis: Dr. Burleson -- [employer] in [place] Last Documented On 01/08/2015 3:01PM By Liz Rm MD ; [facility] Potassium Chloride ER 20 MEQ OR TBCR 01/08/2015 Prov ider: Diagnosis: Last Documented On 01/08/2015 3:02PM By Liz Rm MD ; [facility] Aspirin 81 MG OR TABS 12/25/2012 Provider: Diagnosis: Last Documented On 3 1:11PM By GRACE ESPINO ; [facility] TH Vitamin B1 100 MG OR TABS 12/25/2012 Provider: Diagnosis: Last Documented On 3 1:10PM By GRACE ESPINO ; [facility] Carvedilol 25 MG OR TABS 12/25/2012 Provider: Diagnosis: Last Documented On 3 1:10PM By GRACE ESPINO ; [facility] Medications Administered Includes: Administered Medications from this encounter No Administered Medications Recorded Vital Signs Includes: Vital Signs from this encounter Vital Name 01/08/2015 02:59P Blood Pressure Sitting R 134/78 BP Cuff Size Regular Pulse Rate-Sitting (bpm) 80 Pulse Rhythm Regular Height (in) 62.5 Weight (lb) 134 Body Mass Index (kg/m2) 24.1 Body Surface Area (m2) 1.6 Last Documented: On 01/08/2015 3:00PM ; [facility] Results Includes: Results discussed during this encounter No Results Recorded For Specified Dates History of Present Illness Includes: History of Present Illness from this encounter AD THOMASON is a 64 year old female. - Past medical history reviewed. Pt is maintaining on Viibryd and said that it has been helping significantly with her mood. She has not been feeling depressed. She has been more motivated and has been using the treadmill. She has been reading a lot and doing wor search puzzles. She said last 09/18/14, she had some chest discomfort and went to [place] [facility] and was found to have low potassium. She also had Stress test which showed some ischemia and Cardiac Cath was done and showed 40 % blockade under Dr. Burleson community education coordinator. She was given meds and did not need any stents at this time. She used to walk outside but when weather gets better she will try to walk. She has not been stressed and is able to cope from day to day. At times, she uses Advil PM and I explained that is combination of NSAIDS and Benadryl and was told to just take prn. She said that she is sensitive to some meds like Ambien which gave her oversedation the next day and I told her that OTC benadryl can do that as well. Sh will be tried on Silenor to see if this will help her and was told to take as needed only - 4 tabs samples given to try. MENTAL STATUS EXAM: Sensorium - alert, oriented to name, place, and time Attitude - cooperative Gait - ambulatory Sleep - good -- but occ has trouble sleeping-- takes an advil PM 2 x a week prn Interest/Energy/Motivation - good Guilt/Worthlessness - absent Concentration/Memory - good Appetite - good, on 04/29/14 pt weighed 135 lbs and current weight is 134 lbs so she lost 1 lb Suicidal Thoughts - absent Homicidal Thoughts - absent Delusions - absent Hallucinations - absent Appearance - casually groomed Motor Behavior - calm Eye Contact - intermittent Speech - fluent Mood - not depressed Affect - stable Thought Process - coherent Social History Description Last Updated She was at 15. ~She has two daughters. ~She was born and raised in [place]. ~She was closer to her mother, but both parents are now . ~Her sister committed suicide ~No history of physical or sexual abuse. ~She currently lives with her . ~She has her GED. 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 ~No past or pending legal history. ~[place]ai background, Mandaeism 01/08/2015 Last Documented On 5 7:52AM ; [facility] Not using alcohol 11/17/2012 Last Documented On 5 2:39PM ; [facility] Not using drugs (Illicit) 11/17/2012 Last Documented On 5 2:39PM ; [facility] Smoking status : Never smoked 11/17/2012 Last Documented On 5 2:39PM ; [facility] Procedures and Surgical History Includes: Procedures from this encounter Procedures Code Diagnosis Performing Provider Service L ocation Service Date 1) I explained the rationale for the medication choices and discussed the possible risks, benefits, side effects and alternative treatment options (including no treatment) with the patient. ~ ~2) The patient verbalized understanding and agreed to the treatment plan/medications. ~ ~3) I recommended a healthy balanced diet and exercise as tolerated and approved by their primary care. ~ ~4) I recommended that the patient cut back on caffeine and/or avoid caffeine. ~ ~5) I recommended that the patient avoid nicotine, alcohol, and illicit substances since these can be detrimental to one's health and that these cannot be combined with psychotropic medications. ~ ~6) The patient agreed for safety agreeing to call 911/crisis line or this office (during clinical hours) if suicidal/homicidal ideation or other serious concerns arise. ~ ~7) The patient also agreed to adhere to the treatment plan and raise concerns with it as soon as they come about Last Documented On 5 2:40PM ; [facility] handouts given /educational brochures given with regards to medication. Pt was given samples and PI for Silenor Last Documented On 5 7:51AM ; [facility] Counseling on new medication : I discussed the risks, benefits and side effects of Silenor. Patient verbalized understanding and agreed to treatment Last Documented On 5 7:51AM ; [facility] Clinical summary provided to patient Last Documented On 5 7:51AM ; [facility] Surgical History Last Updated History of Prior Surgery: ~T AH ~Neck surgery ~Cholecystectomy 2001 ~Cardiac catherization-- Dr. Burleson in [place] ~ 01/08/2015 Last Documented On 5 7:52AM ; [facility] Medical History Includes: Medical History addressed during this encounter Description Last Updated History of intervertebral di sc degeneration ~[facility] 09/18/14 for low potassium ~[place] -- 201201/08/2015 Last Documented On 5 7:52AM ; [facility] [place] [facility]Dr. Morejon-Database Software Technician 01/08/2015 Last Documented On 5 7:52AM ; [facility] History of GERD 04/29/2014 Last Documented On 5 2:39PM ; [facility] History of hypertension 04/29/2014 Last Documented On 5 2:39PM ; [facility] History of hypokalemia 04/29/2014 Last Documented On 5 2:39PM ; [facility] Family History Includes: Family History addressed during this encounter Description Last Updated Paternal history of alcoholism -- father 01/08/2015 Last Documented On 5 7:52AM ; [facility] Father is an alcoholic 01/08/2015 Last Documented On 5 7:52AM ; [facility] Sororal history of depression -- sister 01/08/2015 Last Documented On 5 7:52AM ; [facility] Review of Systems Includes: Review of Systems from this encounter Systemic: No fever, no chills, no night sweats, and no recent weight change. Head: Headache and sinus pain. Otolaryngeal: Nasal discharge. No hoarseness. Sore throat. Cardiovascular: No chest pain or discomfort, no palpitations, and the heart rate was not fast. Pulmonary: No dyspnea and no cough. Gastrointestinal: Heartburn. No nausea, no vomiting, and no abdominal pain. Endocrine: No excessive sweating. Neurological: Dizziness when she takes her medication. Skin: No pruritus. No skin lesions. Mental Status Includes: Mental Status from this encounter Description Major depression, recurrent Functional Status Includes: Functional Status from this encounter No Functional Status Recorded Physical Exam Includes: Physical Exam from this encounter Allergies Includes: Active Allergies Substance Type Reaction Onset Date Resolved Date Statu s Darvon Allergy 11/17/2012 Active Last Documented On 03/05/2023 5:40PM ; [facility] Note: Imported from external source. Encounters Encounter Provider Location Date Check-In Time Check-Out Time Diagnosis GENERAL OFFICE VISIT WISAM RM MD [facility] 01/09/20 15 2:30PM 3:25PM Major Depression, Recurrent,Gen eralized Anxiety Disorder,Pers istent Insomnia Insurance Includes: Active Insurance Policies No Insurance Coverage Recorded Guarantor Relationship Effective Dates Guarantor Ph one ROSALIE THOMASON Self [id number] Clinical Notes Includes: Clinical Notes from this encounter No Clinical Notes Recorded
--- OUTSIDE RECORDS SUMMARY | 2025-01-17 17:38 | XMS_ITS | Encounter Summary ---
Author Organization [facility] Address [address] [place] [id number] Care Team Providers Care Crawler Dragline Operator Name Role Phone Isrrael Burleson MD Unavailable [phone] Nelson Alva DO Primary Care Provider + Emerald King RN Unavailable [phone] Encounter Details Date Type Department Care Team (Late st Contact Info) Description 11/17/2021 [facility] [address] Brenda Adler MA Social History Tobacco Use Types Packs/Day Years Used Date Smoking Tobacco: Never Smokeless Tobacco: Never Alcohol Use Standard Drinks/Week Comments No 0 (1 standard drink = 0.6 oz pur e alcohol) PHQ-2 Answer Date Recorded PHQ-2 Score - If the patient scores above 3, please move on to questions 3-9 0 06/05/2021 Comments No Sex and Gender Information Value Date Recorded Sex Assigned at Female 10/25/2024 10:07 AM BALLISTIC EXPERT Legal Sex Female 2:31 AM CDT Gender Identity Female 01/05/2022 11:28 AM BALLISTIC EXPERT Sexual Orientation Straight 01/05/2022 11 :28 AM BALLISTIC EXPERT Occupation Industry Job Start Date Job End Date Not on file Not on file Not on file Not on file documented as of this encounter Functional Status * RETIRED Are you deaf or do you have serious difficulty hearing Answer Date of Assessment Author Status No 11/06/2018 1:30 PM BALLISTIC EXPERT Activ e * RETIRED Are you blind or do you have serious difficulty seeing, even when wearing glasses? Answer Date of Assessment Author Status No 11/06/2018 1:30 PM BALLISTIC EXPERT Activ e * Do you have serious difficulty walking or climbing stairs? Answer Date of Assessment Author Status No 11/06/2018 1:30 PM BALLISTIC EXPERT Amina Martel R N Active * Do you have difficulty dressing or bathing? Answer Date of Assessment Author Status No 11/06/2018 1:30 PM BALLISTIC EXPERT Amina Martel R N Active * Because of a physical, mental, or emotional condition, do you have difficulty doing errands alone such as visiting a doctor's office or shopping? Answer Date of Assessment Author Status No 11/06/2018 1:30 PM BALLISTIC EXPERT Amina Martel R N Active documented as of this encounter Mental Status * Because of a physical, mental, or emotional condition, do you have serious difficulty concentrating, remembering, or making decisions? Answer Entry Date Author Status No 11/06/2018 1:30 PM BALLISTIC EXPERT Amian Martel R N Active documented in this encounter Plan of Treatment Upcoming Encounters Date Type Department Care Team (Latest Contact Info) Description 5 2:[address] [facility] [place] [address] Oleksandr Vera, DO [address] [place] [id number] 5 10:27 AM CDT Hospital Encounter [facility] [place] [address] Oleksandr Vera, DO [address] [place] [id number] 5 10:27 AM CDT - 5 1:30 PM CDT Surgery [place] [facility] [place] [address] Oleksandr Vera, DO [address] [place] [address] ROBOTIC XI ASSISTED LAPAROSCOPIC HIATAL HERNIA REPAIR WITH TOUPET FUNDOPLICATION, POSSIBLE MESH, POSSIBLE OPEN, WITH ESOPHAGOGASTRODUODENOSCOPY 5 1:00 PM CDT Office Visit [facility]- [facility] [place] [place] [address] Tino Tinsleya Angela, CST [facility] [address], [place] [id number] Scheduled Procedures Name Priority Associated Diagnoses Date/Ti pa ROBOTIC XI HERNIA HIATAL HIATAL HERNIA K44.9 01/28/2025 10:27 AM CDT documented as of this encounter Procedures Procedure Name Priority Date/Time Associated Diagnosis Comments CBC (OUTSIDE LAB) Routine 02/22/2023 COMPREHENSIVE METABOLIC PANEL Routine 02/22/2023 LIPID PANEL Routine 02/22/2023 IRON BINDING TEST Routine 02/22/2023 IRON Routine 02/22/2023 CK (CPK) Routine 02/22/2023 CBC (OUTSIDE LAB) Routine 11/16/2021 COMPREHENSIVE METABOLIC PANEL Routine 11/16/2021 LIPID PANEL Routine 11/16/2021 CK (CPK) Routine 11/16/2021 documented in this encounter Results * LIPID PANEL (02/22/2023) CHOLESTEROL 187 HDL 42 TRIGLYCERIDES 218 NON HDL CHOLESTEROL 145 LDL (CALCULATED) 111 02/22/2023 us Default History Genericprovider LABORATORY Final Result * COMPREHENSIVE METABOLIC PANEL (02/22/2023) SODIUM S/P/B 140 POTASSIUM S/P/B 3.9 CO2 30 CHLORIDE S/P/B 103 GLUCOSE 142 mg/dL CALCIUM S/P/B 9.1 BUN 18 CREATININE S/P/B 0.99 0.5 - 1.0 EGFR NON-AFR. AMER. 61 <=90 ALKALINE PHOSPHATASE S/P/B 37 ALT 15 AST 17 BILIRUBIN TOTAL S/P/B 0.5 ALBUMIN S/P/B 4.0 3.5 - 5.0 TOTAL PROTEIN S/P/B 6.5 GLOBULIN 2.5 02/22/2023 us Default History Genericprovider LABORATORY Final Result * CK (CPK) (02/22/2023) CPK 274 02/22/2023 us Default History Genericprovider LABORATORY Final Result * CBC (OUTSIDE LAB) (02/22/2023) WBC 5.5 HGB 13.0 HCT 37.8 PLT 208 02/22/2023 us Default History Genericprovider LAB-OUTSIDE/ABST RACTED Final Result * IRON (02/22/2023) IRON 139 02/22/2023 us Default History Genericprovider LABORATORY Final Result * IRON BINDING TEST (02/22/2023) IRON BINDING CAPACITY 345 02/22/2023 us Default History Genericprovider LABORATORY Final Result * CBC (OUTSIDE LAB) (11/16/2021) WBC 6.2 HGB 12.9 HCT 36.7 PLT 232 11/16/2021 us Doc [facility] Abstract LAB-OUTSIDE/ABSTRACTED Final Result * CK (CPK) (11/16/2021) CPK 120 11/16/2021 us Doc [facility] Abstract LABORATORY Final Result * COMPREHENSIVE METABOLIC PANEL (11/16/2021) SODIUM S/P/B 142 POTASSIUM S/P/B 4.4 CO2 31 CHLORIDE S/P/B 105 GLUCOSE 113 mg/dL CALCIUM S/P/B 9.2 BUN 19 CREATININE S/P/B 0.81 0.5 - 1.0 EGFR AFR. AMER. 85 <=90 EGFR NON-AFR. AMER. 73 <=90 ALKALINE PHOSPHATASE S/P/B 41 ALT 120 AST 51 BILIRUBIN TOTAL S/P/B 0.5 ALBUMIN S/P/B 4.1 3.5 - 5.0 TOTAL PROTEIN S/P/B 6.4 GLOBULIN 2.3 11/16/2021 us Doc [facility] Abstract LABORATORY Final Result * LIPID PANEL (11/16/2021) CHOLESTEROL 208 HDL 44 TRIGLYCERIDES 214 NON HDL CHOLESTEROL 164 LDL (CALCULATED) 128 11/16/2021 us Doc [facility] Abstract LABORATORY Final Result documented in this encounter Visit Diagnoses Not on filedocumented in this encounter Additional Health Concerns Infection Onset Date Last Indicated Resolved Time COVID-19 Rule Out 06/01/2022 06/01/2022 06/02/2022 2:07 PM CDT COVID-19 Rule Out 12/28/2022 12/28/2022 12/29/2022 1:28 PM BALLISTIC EXPERT COVID-19 Rule Out 02/16/2023 02/16/2023 02/16/2023 11:21 AM CDT COVID-19 Rule Out 02/16/2023 02/16/2023 02/17/2023 1:03 PM CDT COVID-19 Rule Out 09/13/2023 09/13/2023 09/13/2023 1:56 PM BALLISTIC EXPERT COVID-19 Rule Out 09/13/2023 09/13/2023 09/14/2023 3:52 PM BALLISTIC EXPERT Assessment Noted Time PHQ-9 Depression Total Score: 0 06/05/20 21 8:02 AM CDT documented as of this encounter Care Teams Crawler Dragline Operator Relationship Specialty Start Date End Date Nelson Alva DO [address] [place] [id number] PCP - General FAMILY PRACTICE 02/05/19 01/03/25 Isrrael Burleson MD [facility]. [address] [address] [place]uckey Shaping Machine Tender CARDIOVASCULAR DISEASE 04/07/16 Emerald King, RN [address] [facility] [address] [place] [id number] Electronic Tech (Ambulatory) REGISTERED NURSE 12/15/21 documented as of this encounter
--- OUTSIDE RECORDS SUMMARY | 2025-01-17 17:38 | XMS_ITS | Clinical Summary ---
Author Organization [facility] Address [address] [place] [address] Phone Care Team Providers Care Cook Sauce Name Role Phone Unavailable Unavailable Unavailable Reason for Visit and Chief Complaint [Patient Encounter] Problems Includes: Problems addressed during this encounter and other active Problems All Visits Onset Date Resolved Date Provider Condition S tatus Persistent Insomnia 01/08/2015 Activ e Last Documented On 3 5:47PM ; [facility] Heart Block 11/12/2014 Active Last Documented On 03/05/2023 5:47PM ; [facility] Note: 40% Major Depression, Recurrent 12/21/2012 Active Last Documented On 3 5:44PM ; [facility] Generalized Anxiety Disorder 11/17/2012 Active Last Documented On 3 5:43PM ; [facility] Gerd 11/17/2012 Active Last Documented On 3 5:43PM ; [facility] Hypertension Systemic 11/17/2012 Act jack Last Documented On 3 5:43PM ; [facility] Hypokalemia 11/17/2012 Active Last Documented On 3 5:43PM ; [facility] Intervertebral Disc Degeneration 11/17/2012 Active Last Documented On 3 5:43PM ; [facility] Plan of Treatment No Plan of Treatment Recorded Assessments Includes: Assessments from this encounter No Assessments Recorded Medical Equipment - Implanted Devices Includes: Current Devices No Medical Equipment Recorded Medications Includes: Medications discussed during this encounter and other current Medications Discontinued / Stopped on this date on 11/17/2012 Viibryd 20 MG OR TABS Provider: Diagnosis: Last Documented On 03/05/2023 5:34PM By GRACE ESPINO ; [facility] Current Medications (continue as prescribed) Viibryd 20 [...] 03/05/2023 5:34PM By Liz Rm MD ; [facility] Levothyroxine Sodium 50 MCG OR TABS 10/09/2015 Provi jennifer: Diagnosis: Take 1 tablet by mouth every day Last Documented On 03/05/2023 5:34PM By YOAV MCCARTNEY LPN ; [facility] Lasix 20 MG OR TABS 01/08/2015 Provider: Diagnosis: Dr. Burleson -- Director Call Center Sales in [place] Last Documented On 03/05/2023 5:34PM By Liz Rm MD ; [facility] Potassium Chloride ER 20 MEQ OR TBCR 01/08/2015 Prov ider: Diagnosis: Last Documented On 03/05/2023 5:34PM By Liz Rm MD ; [facility] Aspirin 81 MG OR TABS 12/25/2012 Provider: Diagnosis: Last Documented On 03/05/2023 5:34PM By GRACE ESPINO ; [facility] TH Vitamin B1 100 MG OR TABS 12/25/2012 Provider: Diagnosis: Last Documented On 03/05/2023 5:34PM By GRACE ESPINO ; [facility] Carvedilol 25 MG OR TABS 12/25/2012 Provider: Diagnosis: Last Documented On 03/05/2023 5:34PM By GRACE ESPINO ; [facility] Medications Administered Includes: Administered Medications from this encounter No Administered Medications Recorded Vital Signs Includes: Vital Signs from this encounter Vital Name 12/25/2012 01:15P Blood Pressure Sitting (mmHg) 112/63 BP Cuff Size Large Pulse Rate-Sitting (bpm) 67 Respiration Rate (breaths/min) 18 Height (in) 62.5 Weight (lb) 144 Body Mass Index (kg/m2) 25.9 Body Surface Area (m2) 1.7 Last Documented: On 03/05/2023 6:08PM ; [facility] Results Includes: Results discussed during this encounter [...] Active Last Documented On 03/05/2023 5:40PM ; [facility] Note: Imported from external source. Encounters Encounter Provider Location Date Check-In Time Check-Out Time Diagnosis [Patient Encounter] 12/25/2012 12:00AM 11:59PM Clinical Notes Includes: Clinical Notes from this encounter No Clinical Notes Recorded
--- OUTSIDE RECORDS SUMMARY | 2025-01-17 17:38 | XMS_ITS | Clinical Summary ---
Author Organization [facility] Address [address] [place] [address] Phone Care Team Providers Care Multimedia Engineer Name Role Phone Unavailable Unavailable Unavailable Reason for Visit and Chief Complaint [Patient Encounter] Problems Includes: Problems addressed during this encounter and other active Problems All Visits Onset Date Resolved Date Provider Condition S tatus Persistent Insomnia 01/08/2015 Activ e Last Documented On 3 5:47PM ; [facility] Heart Block 11/12/2014 Active Last Documented On 03/05/2023 5:47PM ; [facility] Note: 40% Major Depression, Recurrent 12/21/2012 Active Last Documented On 3 5:44PM ; [facility] Generalized Anxiety Disorder 11/17/2012 Active Last Documented On 3 5:43PM ; [facility] Gerd 11/17/2012 Active Last Documented On 3 5:43PM ; [facility] Hypertension Systemic 11/17/2012 Act jack Last Documented On 3 5:43PM ; [facility] Hypokalemia 11/17/2012 Active Last Documented On 3 5:43PM ; [facility] Intervertebral Disc Degeneration 11/17/2012 Active Last Documented On 3 5:43PM ; [facility] Plan of Treatment No Plan of Treatment [...] On 03/05/2023 5:34PM By GRACE ESPINO ; [facility] Current Medications (continue as prescribed) Viibryd 20 [...] 03/05/2023 5:34PM By Liz Rm MD ; [facility] Levothyroxine Sodium 50 MCG OR TABS 10/09/2015 Provi jennifer: Diagnosis: Take 1 tablet by mouth every day Last Documented On 03/05/2023 5:34PM By YOAV MCCARTNEY LPN ; [facility] Lasix 20 MG OR TABS 01/08/2015 Provider: Diagnosis: Dr. Burleson -- Family Law Paralegal in [place] Last Documented On 03/05/2023 5:34PM By Liz Rm MD ; [facility] Potassium Chloride ER 20 MEQ OR TBCR 01/08/2015 Prov ider: Diagnosis: Last Documented On 03/05/2023 5:34PM By Liz Rm MD ; [facility] Aspirin 81 MG OR TABS 12/25/2012 Provider: Diagnosis: Last Documented On 03/05/2023 5:34PM By GRACE ESPINO ; [facility] TH Vitamin B1 100 MG OR TABS 12/25/2012 Provider: Diagnosis: Last Documented On 03/05/2023 5:34PM By GRACE ESPINO ; [facility] Carvedilol 25 MG OR TABS 12/25/2012 Provider: Diagnosis: Last Documented On 03/05/2023 5:34PM By GRACE ESPINO ; [facility] Medications Administered Includes: Administered Medications from this encounter No Administered Medications Recorded Vital Signs Includes: Vital Signs from this encounter Vital Name 01/08/2015 02:59P Blood Pressure Sitting (mmHg) 134/78 BP Cuff Size Regular Pulse Rate-Sitting (bpm) 80 Pulse Rhythm Regular Height (in) 62.5 Weight (lb) 134 Body Mass Index (kg/m2) 24.1 Body Surface Area (m2) 1.6 Last Documented: On 03/05/2023 6:08PM ; [facility] Results Includes: Results discussed during this [...] Active Last Documented On 03/05/2023 5:40PM ; [facility] Note: Imported from external source. Encounters Encounter Provider Location Date Check-In Time Check-Out Time Diagnosis [Patient Encounter] 01/08/2015 12:00AM 11:59PM Clinical Notes Includes: Clinical Notes from this encounter No Clinical Notes Recorded
--- OUTSIDE RECORDS SUMMARY | 2025-01-17 17:38 | XMS_ITS | Clinical Summary ---
Author Organization [facility] Address [address] [place] [address] Phone Care Team Providers Care Cocoa Room Operator Name Role Phone NIHARIKA MORA, WISAM Lujan [phone] Reason for Visit and Chief Complaint The Chief Complaint is: follow up for depression Problems Includes: Problems addressed during this encounter and other active Problems Current Visit Onset Date Resolved Date Provider Prakash wiseman Status Persistent Insomnia 01/08/2015 WISAM REECE MD Active Last Documented On 5 3:41PM ; [facility] Major Depression, Recurrent 12/21/2012 WISAM RM MD Active Last Documented On 3 2:42PM ; [facility] Generalized Anxiety Disorder 11/17/2012 WISAM RM MD Active Last Documented On 3 3:17PM ; [facility] Past Visits Onset Date Resolved Date Provider Condition Status Heart Block 11/12/2014 WISAM COULTER MD Active Last Documented On 01/08/2015 3:05PM ; [facility] Note: 40% Gerd 11/17/2012 WISAM COULTER MD Active Last Documented On 3 3:18PM ; [facility] Hypertension Systemic 11/17/2012 WISAM EDWARD MD Active Last Documented On 3 3:18PM ; [facility] Hypokalemia 11/17/2012 WISAM RM MD A ctive Last Documented On 3 3:18PM ; [facility] Intervertebral Disc Degeneration 11/17/2012 MET RAYO RM MD Active Last Documented On 3 3:19PM ; [facility] Plan of Treatment Education and Decision Aids were provided during visit for: Patient education about medi cation --- I educated patient on medication(s) and diagnosis. I reviewed the risks, benefits and side effects of patient's medications Last Documented On 5 2:29PM ; [facility] Discussed calming techniques such as breathing exercises/meditation and other relaxation techniques Last Documented On 5 2:29PM ; [facility] Counseling for nutrition/camilo ght management provided Last Documented On 5 7:49PM ; [facility] Assessments Includes: Assessments from this encounter Findings - Major depression, recurrent - Last Documented On 10/09/2015 7:51PM ; [facility] - Persistent insomnia - Last Documented On 10/09/2015 7:51PM ; [facility] - Generalized anxiety disorder - Last Documented On 10/09/2015 7:51PM ; [facility] Instructions Includes: Instructions from this encounter Education and Decision Aids were provided during visit for: Patient education about medi cation --- I educated patient on medication(s) and diagnosis. I reviewed the risks, benefits and side effects of patient's medications Last Documented On 5 2:29PM ; [facility] Discussed calming techniques such as breathing exercises/meditation and other relaxation techniques Last Documented On 5 2:29PM ; [facility] Counseling for nutrition/camilo ght management provided Last Documented On 5 7:49PM ; [facility] Medical Equipment - Implanted Devices Includes: Current Devices No Medical Equipment Recorded Medications Includes: Medications discussed during this encounter and other current Medications New / Renewed during this visit WISAM RM MD on 10/09/2015 Viibryd 20 MG Tablet Provider: WISAM RM MD 30 day supply: 30 tablet, 4 refills Diagnosis: Major depressive disorder, recurrent, unspecified food - 1 tablet every mornin g with food Pharmacy: [address], [address] - Last Documented On 02/03/2016 8:07AM By Liz Rm MD ; [facility] Current Medications (continue as prescribed) Viibryd 20 MG Tablet 02/03/2016 Provider: WISAM RM MD Diagnosis: Major depressive disorder, recurrent, unspecified food - 1 tablet every mornin g with food -- per pharmacist pt already pd $65 on 02/02/16 and was given 30 tablets for 30 days so no samples can be given at this time Last Documented On 02/03/2016 8:07AM By Liz Rm MD ; [facility] Levothyroxine Sodium 50 MCG Tablet 10/09/2015 Provid er: Diagnosis: Take 1 tablet by mouth every day Last Documented On 5 2:42PM By YOAV MCCARTNEY LPN ; [facility] Lasix 20 MG OR TABS 01/08/2015 Provider: Diagnosis: Dr. Burleson -- Ase Certified Technician in [place] Last Documented On 01/08/2015 3:01PM By Liz Rm MD ; [facility] Potassium Chloride ER 20 MEQ OR TBCR 01/08/2015 Prov ider: Diagnosis: Last Documented On 01/08/2015 3:02PM By Liz Rm MD ; [facility] Aspirin 81 MG OR TABS 12/25/2012 Provider: Diagnosis: Last Documented On 3 1:11PM By GRACE ESPINO ; [facility] TH Vitamin B1 100 MG OR TABS 12/25/2012 Provider: Diagnosis: Last Documented On 3 1:10PM By GRAEC ESPINO ; [facility] Carvedilol 25 MG OR TABS 12/25/2012 Provider: Diagnosis: Last Documented On 3 1:10PM By GRACE ESPINO ; [facility] Past Medications on file Silenor 3 MG OR TABS 01/08/2015 - 01/24/2015 Provider: WISAM RM MD Diagnosis: PERSISTENT INSOM KENNETH given 16 tablets samples Last Documented On 01/08/2015 3:48PM By Liz Rm MD ; [facility] Medications Administered Includes: Administered Medications from this encounter No Administered Medications Recorded Vital Signs Includes: Vital Signs from this encounter Vital Name 10/09/2015 02:47P Blood Pressure Sitting R 130/84 BP Cuff Size Regular Pulse Rate-Sitting (bpm) 80 Pulse Rhythm Regular Height (in) 62.5 Weight (lb) 144 Body Mass Index (kg/m2) 25.9 Body Surface Area (m2) 1.7 Last Documented: On 10/09/2015 2:47PM ; [facility] Results Includes: Results discussed during this encounter No Results Recorded For Specified Dates History of Present Illness Includes: History of Present Illness from this encounter AD THOMASON is a 65 year old female. - Past medical history reviewed. Pt talked at length about family issues. She was from her and now she is back with her and their relationship seemed so much better now. However, she feels that she cannot trust him because he may have said negative things to their daughter and so now they are not in speaking terms. He also has the money that belongs to her hidden in his account. She talked about all the struggles that she had with various family members and I just let her realize that there are things that are beyond her control. She said that she tries not to focus too much on worrying about various issues. Viibryd is still helping her mood in general. It is levelling her out. She has not had any major anxiety/panic attacks. MENTAL STATUS EXAM: Sensorium - alert, oriented to name, place, and time Attitude - cooperative Gait - ambulatory Sleep - good Interest/Energy/Motivation - good Guilt/Worthlessness - absent Concentration/Memory - good Appetite - good, on 01/08/15 pt weighed 134 lbs and current weight is 144 lbs so she gained 10 lbs Suicidal Thoughts - absent Homicidal Thoughts - absent Delusions - absent Hallucinations - absent Appearance - casually groomed Motor Behavior - calm Eye Contact - intermittent Speech - fluent Mood - not depressed Affect - at times worries about family members Thought Process - coherent Social History Description Last Updated She was at 15.She haro s two daughters.She was born and raised in [place].She was closer to her mother, but both parents are now . Her sister committed suicide. 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 Her hindu background is anglican 10/09/2015 Last Documented On 5 7:51PM ; [facility] Work history She is retired 10/09/2015 Last Documented On 5 7:51PM ; [facility] Marital history 10/09/2015 Last Documented On 5 7:51PM ; [facility] Not using alcohol 11/17/2012 Last Documented On 5 2:28PM ; [facility] Not using drugs (Illicit) 11/17/2012 Last Documented On 5 2:28PM ; [facility] Smoking status : Never smoked 11/17/2012 Last Documented On 5 2:28PM ; [facility] Procedures and Surgical History Includes: Procedures from this encounter Procedures Code Diagnosis Performing Provider Service L ocation Service Date I explained the rationale for the medication choices and discussed the possible risks, benefits, side effects and alternative treatment options (including no treatment) with the patient. ~ I recommended a healthy balanced diet and exercise as tolerated and approved by their primary care physician. ~I recommended that the patient cut back on caffeine and/or avoid caffeine. ~I recommended that the patient avoid nicotine, alcohol, and illicit substances since these can be detrimental to one's health and that these can not be combined with psychotropic medications. ~The patient agreed for safety agreeing to call 911 and /or go to the nearest emergency room or call me if suicidal/homicidal ideation or other serious concerns arise. ~The patient also agreed to adhere to the treatment plan and raise concerns with it as soon as they come about. ~The patient was instructed to call me should there be any questions or concerns. ~The patient verbalized understanding and agreed to treatment plan Last Documented On 5 2:29PM ; [facility] Clinical summary provided to patient Last Documented On 5 7:49PM ; [facility] Surgical History Last Updated History of Prior Surgery: ~T AH ~Neck surgery ~Cholecystectomy 2001 ~Cardiac catherization-- Dr. Burleson in [place] ~ 01/08/2015 Last Documented On 5 2:28PM ; [facility] Medical History Includes: Medical History addressed during this encounter Description Last Updated History of A-V block 10/09/2015 Last Documented On 5 7:51PM ; [facility] History of hypothyroidism 10/09/2015 Last Documented On 5 7:51PM ; [facility] History of intervertebral di sc degeneration ~[facility] 09/18/14 for low potassium ~[place] -- 201210/09/2015 Last Documented On 5 7:51PM ; [facility] Primary Care Provider: Dr. Pierre Maharaj -- [place] ~Dr. Morejon-Pillowcase Folder 01/08/2015 Last Documented On 5 2:28PM ; [facility] History of GERD 04/29/2014 Last Documented On 5 2:28PM ; [facility] History of hypertension 04/29/2014 Last Documented On 5 3:08PM ; [facility] History of hypokalemia 04/29/2014 Last Documented On 5 3:08PM ; [facility] Family History Includes: Family History addressed during this encounter Description Last Updated Paternal history of alcoholism -- father 01/08/2015 Last Documented On 5 2:28PM ; [facility] Sororal history of depression -- sister 01/08/2015 Last Documented On 5 2:28PM ; [facility] Review of Systems Includes: Review of Systems from this encounter Systemic: No fever, no chills, and no recent weight change. Head: Headache. Otolaryngeal: No nasal discharge, no hoarseness, and no sore throat. Cardiovascular: Chest pain or discomfort -- occasional, she has a heart blockage. Pulmonary: Dyspnea -- with exertion and cough -- occasional. Gastrointestinal: No heartburn. Nausea, vomiting, and diarrhea. Musculoskeletal: No muscle aches. Neurological: Dizziness. Skin: No rash. Mental Status Includes: Mental Status from this encounter Description Major depression, recurrent Functional Status Includes: Functional Status from this encounter No Functional Status Recorded Physical Exam Includes: Physical Exam from this encounter Allergies Includes: Active Allergies Substance Type Reaction Onset Date Resolved Date Statu s Darvon Allergy 11/17/2012 Active Last Documented On 03/05/2023 5:40PM ; [facility] Note: Imported from external source. Encounters Encounter Provider Location Date Check-In Time Check-Out Time Diagnosis GENERAL OFFICE VISIT WISAM RM MD [facility] 10/09/20 15 2:29PM 3:22PM Major Depression, Recurrent,Gen eralized Anxiety Disorder,Pers istent Insomnia Insurance Includes: Active Insurance Policies No Insurance Coverage Recorded Guarantor Relationship Effective Dates Guarantor Ph one ROSALIE THOMASON Self [id number] Clinical Notes Includes: Clinical Notes from this encounter No Clinical Notes Recorded
--- OUTSIDE RECORDS SUMMARY | 2025-01-17 17:38 | XMS_ITS | Clinical Summary ---
Author Organization [facility] Address [address] [place] [address] Dr. 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
--- OUTSIDE RECORDS SUMMARY | 2025-01-17 17:38 | XMS_ITS | Encounter Summary ---
Author Organization [facility] Address [address] [place] [address] Care Team Providers Care Patient Registration Representative Name Role Phone Unavailable Primary Care Provider Unavailabl e Encounter Details Date Type Department Care Team (Late st Contact Info) Description 06/21/2001 Outpatient Historical [facility] [phone] [phone] Yury Smith Social History Tobacco Use Types Packs/Day Years Used Date Smoking Tobacco: Never Assessed Comments Unknown Sex and Gender Information Value Date Recorded Sex Assigned at Not on file 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
--- OUTSIDE RECORDS SUMMARY | 2025-01-17 17:38 | XMS_ITS | Continuity of Care Document ---
Author Organization [facility] Address [address] [place] [address] [place] [address] Phone Care Team Providers Care Montessori Paraprofessional Name Role Phone Naveen Jonas MD Unavailable Unavailable Procedures Procedure Date Eye Exam & Treatment Advance Directives Directive Yes / No Effective Date File Name No Information Encounters Encounter Description Practice Location Reason(s) For Visit Diagnoses Date Provider Providers Copied on Encounter [facility], [address] [place], [place], [id number], [place] tel:[phone] [facility] [place] No Information [phone] Pritesh Hodge. [address] [facility], [address], [place], [place], [id number], [place]. tel:[phone] Family History Family Member Type Diagnosis Age At Onset No Information Payers Payer name Insurance type Covered democrat ID Authoriza tion(s) No Information Social History [...]
--- OUTSIDE RECORDS SUMMARY | 2025-01-17 17:38 | XMS_ITS | Encounter Summary ---
Author Organization [facility] Address [address] [place] [address] Care Team Providers Care Weed Inspector Name Role Phone Unavailable Primary Care Provider Unavailabl e Encounter Details Date Type Department Care Team (Late st Contact Info) Description 12/05/2001 Outpatient Historical [facility] Brian 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
--- OUTSIDE RECORDS SUMMARY | 2025-01-17 17:38 | XMS_ITS | Encounter Summary ---
Author Organization [facility] Address [address] [place] [address] Care Team Providers Care Construction Stonemason Name Role Phone Unavailable Primary Care Provider Unavailabl e Encounter Details Date Type Department Care Team (Late st Contact Info) Description 10/04/2001 Outpatient Historical [facility] Health [facility] [address] [id number] Yury Smith Social History Tobacco Use Types Packs/Day Years Used Date Smoking Tobacco: Never Assessed Comments Unknown Sex and Gender Information Value Date Recorded Sex Assigned at Not on file Legal Sex Female 3:36 AM [employer]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
--- OUTSIDE RECORDS SUMMARY | 2025-01-17 17:38 | XMS_ITS | Clinical Summary ---
Author Organization [facility] Address [address] [place] [address] Phone Care Team Providers Care Corn Popper Name Role Phone NIHARIKA MORA, WISAM Lujan [phone] Reason for Visit and Chief Complaint The Chief Complaint is: follow up for depression Problems Includes: Problems addressed during this encounter and other active Problems Current Visit Onset Date Resolved Date Provider Conditio n Status Major Depression, Recurrent 12/21/2012 WISAM RM MD Active Last Documented On 3 2:42PM ; [facility] Generalized Anxiety Disorder 11/17/2012 WISAM RM MD Active Last Documented On 3 3:17PM ; [facility] Past Visits Onset Date Resolved Date Provider Condition Status Persistent Insomnia 01/08/2015 WISAM REECE MD Active Last Documented On 5 3:41PM ; [facility] Heart Block 11/12/2014 WISAM RM MD A ctive Last Documented On 5 3:05PM ; [facility] Note: 40% Gerd 11/17/2012 WISAM RM MD Ac tive Last Documented On 3 3:18PM ; [facility] Hypertension Systemic 11/17/2012 WISAM EDWARD MD Active Last Documented On 3 3:18PM ; [facility] Hypokalemia 11/17/2012 WISAM RM MD A ctive Last Documented On 3 3:18PM ; [facility] Intervertebral Disc Degeneration 11/17/2012 MET RAYO RM MD Active Last Documented On 3 3:19PM ; [facility] Plan of Treatment Education and Decision Aids were provided during visit for: Patient education about medi cation --- I educated patient on medication(s) and diagnosis. I reviewed the risks, benefits and side effects of patient's medications Last Documented On 4 12:07AM ; [facility] Discussed calming techniques such as breathing exercises/meditation and other relaxation techniques Last Documented On 4 3:32PM ; [facility] Assessments Includes: Assessments from this encounter Findings - Major depression, recurrent - Last Documented On 05/01/2014 12:10AM ; [facility] - Generalized anxiety disorder - Last Documented On 05/01/2014 12:10AM ; [facility] Instructions Includes: Instructions from this encounter Education and Decision Aids were provided during visit for: Patient education about medi cation --- I educated patient on medication(s) and diagnosis. I reviewed the risks, benefits and side effects of patient's medications Last Documented On 4 12:07AM ; [facility] Discussed calming techniques such as breathing exercises/meditation and other relaxation techniques Last Documented On 4 3:32PM ; [facility] Medical Equipment - Implanted Devices Includes: Current Devices No Medical Equipment Recorded Medications Includes: Medications discussed during this encounter and other current Medications New / Renewed during this visit WISAM RM MD on 04/29/2014 Viibryd 20 MG OR TABS Provider: MATI RM MD 120 day supply: 120, 0 refills Diagnosis: MAJOR DEPRESSION DISORDER/RECURRENT ---given samples for 7 months Pharmacy: [facility] ([facility] - [address], [id number] - Last Documented On 01/08/2015 3:48PM By Liz Rm MD ; [facility] Current Medications (continue as prescribed) Viibryd 20 [...] 02/03/2016 8:07AM By Liz Rm MD ; [facility] Levothyroxine Sodium 50 MCG Tablet 10/09/2015 Provid er: Diagnosis: Take 1 tablet by mouth every day Last Documented On 5 2:42PM By YOAV MCCARTNEY LPN ; [facility] Lasix 20 MG OR TABS 01/08/2015 Provider: Diagnosis: Dr. Burleson -- Senior Military Analyst in [place] Last Documented On 01/08/2015 3:01PM By Liz mR MD ; [facility] Potassium Chloride ER 20 MEQ OR TBCR 01/08/2015 Prov ider: Diagnosis: Last Documented On 01/08/2015 3:02PM By Liz Rm MD ; [facility] Aspirin 81 MG OR TABS 12/25/2012 Provider: Diagnosis: Last Documented On 3 1:11PM By GRACE ESPINO ; [facility] TH Vitamin B1 100 MG OR TABS 12/25/2012 Provider: Diagnosis: Last Documented On 3 1:10PM By GRACE ESPINO ; [facility] Carvedilol 25 MG OR TABS 12/25/2012 Provider: Diagnosis: Last Documented On 3 1:10PM By GRACE ESPINO ; [facility] Past Medications on file Silenor 3 MG OR TABS 01/08/2015 - 01/24/2015 Provider: WISAM RM MD Diagnosis: PERSISTENT INSOM KENNETH given 16 tablets samples Last Documented On 01/08/2015 3:48PM By Liz Rm MD ; [facility] Medications Administered Includes: Administered Medications from this encounter No Administered Medications Recorded Vital Signs Includes: Vital Signs from this encounter Vital Name 04/29/2014 03:45P Blood Pressure Sitting R 108/62 BP Cuff Size Regular Pulse Rate-Sitting (bpm) 64 Height (in) 62.5 Weight (lb) 135 Body Mass Index (kg/m2) 24.3 Body Surface Area (m2) 1.6 Last Documented: On 04/29/2014 3:45PM ; [facility] Results Includes: Results discussed during this encounter No Results Recorded For Specified Dates History of Present Illness Includes: History of Present Illness from this encounter AD THOMASON is a 63 year old female. - Past medical history reviewed. Pt fell March 2013 and she hurt her back and pt was given Tramadol 50 mg once a day as needed and was also given a sleeping pill . Pt has trouble working on the garden now but can still walk some. She did therapy for a while and she is now off of it. Pt sees Dr. Nunn -- Pain t--Orthopedist. Pt and are now back together and are slowly working on their issues so she is doing okay. Pt and sees a metal sander for counseling. Viibryd seems to help.with mood. she has not been as depressed not anxious. No side effects on Viibryd. MENTAL STATUS EXAM: Sensorium - alert, oriented to name, place, and time Attitude - cooperative Gait - ambulatory Sleep - good Interest/Energy/Motivation - limited physically Guilt/Worthlessness - absent Concentration/Memory - good Appetite - good, on 06-20-13 pt weighed 133 lbs and current weight is 135 lbs so she gained 2 lbs Suicidal Thoughts - absent Homicidal Thoughts - absent Delusions - absent Hallucinations - absent Appearance - casually groomed Motor Behavior - calm Eye Contact - intermittent Speech - fluent Mood - not depressed Affect - stable Thought Process - coherent Social History No Social History Recorded - Smoking Status Unknown Procedures and Surgical History Includes: Procedures from this encounter Procedures Code Diagnosis Performing Provider Service L ocation Service Date Clinical summary provided to patient Last Documented On 4 12:07AM ; [facility] Surgical History Last Updated History of Prior Surgery: ~FUNMILAYO ~Neck eugenio chau ~Cholecystectomy 2001 ~ 01/08/2015 Last Documented On 4 12:08AM ; [facility] Medical History Includes: Medical History addressed during this encounter Description Last Updated Primary Care Provider: ~Kamryn Morejon-[place] Shop Supervisor 04/29/2014 Last Documented On 4 12:10AM ; [facility] History of GERD 04/29/2014 Last Documented On 4 12:10AM ; [facility] History of hypertension 04/29/2014 Last Documented On 4 12:10AM ; [facility] History of hypokalemia 04/29/2014 Last Documented On 4 12:10AM ; [facility] History of intervertebral disc degenerat ion 04/29/2014 Last Documented On 4 12:10AM ; [facility] Family History Includes: Family History addressed during this encounter No Family History Recorded Review of Systems Includes: Review of Systems from this encounter Systemic: Not feeling poorly (malaise). No fever, no chills, and no night sweats. Head: No headache. Otolaryngeal: No nasal discharge. Cardiovascular: No chest pain or discomfort, no palpitations, and the heart rate was not fast. Pulmonary: No cough. Gastrointestinal: No heartburn. No nausea, no vomiting, and no diarrhea. Endocrine: No excessive sweating. Musculoskeletal: No muscle aches, no localized joint pain, and no localized joint stiffness. Neurological: No dizziness and no vertigo. Skin: No pruritus. Mental Status Includes: Mental Status from this encounter Description Major depression, recurrent Functional Status Includes: Functional Status from this encounter No Functional Status Recorded Physical Exam Includes: Physical Exam from this encounter Allergies Includes: Active Allergies Substance Type Reaction Onset Date Resolved Date Statu s Darvon Allergy 11/17/2012 Active Last Documented On 03/05/2023 5:40PM ; [facility] Note: Imported from external source. Encounters Encounter Provider Location Date Check-In Time Check-Out Time Diagnosis GENERAL OFFICE VISIT WISAM MR MD [facility] 04/29/20 14 3:31PM 4:41PM Generalized Anxiety Disorder,Major Depression, Recurrent Insurance Includes: Active Insurance Policies No Insurance Coverage Recorded Guarantor Relationship Effective Dates Guarantor Ph one ROSALIE THOMASON Self [id number] Clinical Notes Includes: Clinical Notes from this encounter No Clinical Notes Recorded
--- OUTSIDE RECORDS SUMMARY | 2025-01-17 17:38 | XMS_ITS | Clinical Summary ---
Author Organization [facility] Address [address] [place] [address] Phone Care Team Providers Care Pastry Mixer Name Role Phone NIHARIKA MORA, WISAM HART [facility] [phone] Reason for Visit and Chief Complaint NO SHOW Problems Includes: Problems addressed during this encounter and other active Problems All Visits Onset Date Resolved Date Provider Condition S tatus Persistent Insomnia 01/08/2015 WISAM REECE MD Active Last Documented On 5 3:41PM ; [facility] Heart Block 11/12/2014 WISAM RM MD A ctive Last Documented On 5 3:05PM ; [facility] Note: 40% Major Depression, Recurrent 12/21/2012 WISAM RM MD Active Last Documented On 3 2:42PM ; [facility] Generalized Anxiety Disorder 11/17/2012 WISAM RM MD Active Last Documented On 3 3:17PM ; [facility] Gerd 11/17/2012 WISAM RM MD Ac tive Last Documented On 3 3:18PM ; [facility] Hypertension Systemic 11/17/2012 WISAM EDWARD MD Active Last Documented On 3 3:18PM ; [facility] Hypokalemia 11/17/2012 WISAM RM MD A ctive Last Documented On 3 3:18PM ; [facility] Intervertebral Disc Degeneration 11/17/2012 MET RAYO RM MD Active Last Documented On 3 3:19PM ; [facility] Plan of Treatment No Plan of Treatment [...] 02/03/2016 8:07AM By Liz Rm MD ; [facility] Levothyroxine Sodium 50 MCG Tablet 10/09/2015 Provid er: Diagnosis: Take 1 tablet by mouth every day Last Documented On 5 2:42PM By YOAV MCCARTNEY LPN ; [facility] Lasix 20 MG OR TABS 01/08/2015 Provider: Diagnosis: Dr. Burleson -- Wire Rope Sales Representative in [place] Last Documented On 01/08/2015 3:01PM By Liz Rm MD ; [facility] Potassium Chloride ER 20 MEQ OR TBCR 01/08/2015 Prov ider: Diagnosis: Last Documented On 01/08/2015 3:02PM By Liz Rm MD ; [facility] Aspirin 81 MG OR TABS 12/25/2012 Provider: Diagnosis: Last Documented On 3 1:11PM By GRACE ESPINO ; [facility] TH Vitamin B1 100 MG OR TABS 12/25/2012 Provider: Diagnosis: Last Documented On 3 1:10PM By GRACE ESPINO ; [facility] Carvedilol 25 MG OR TABS 12/25/2012 Provider: Diagnosis: Last Documented On 3 1:10PM By GRACE ESPINO ; [facility] Medications Administered Includes: Administered Medications from this encounter No Administered Medications Recorded Results Includes: Results discussed during this encounter [...] Active Last Documented On 03/05/2023 5:40PM ; [facility] Note: Imported from external source. Encounters Encounter Provider Location Date Check-In Time Check-Out Time Diagnosis NO SHOW WISAM RM MD [facility] 11/14/2014 1:30PM 11:59PM Insurance Includes: Active Insurance Policies No Insurance Coverage Recorded Guarantor Relationship Effective Dates Guarantor Ph one ROSALIE THOMASON Self [id number] Clinical Notes Includes: Clinical Notes from this encounter No Clinical Notes Recorded
--- OUTSIDE RECORDS SUMMARY | 2025-01-17 17:38 | XMS_ITS | Clinical Summary ---
Author Organization [facility] Address [address] [place] [address] Phone Care Team Providers Care Utilization Supervisor Name Role Phone Unavailable Unavailable Unavailable Reason for Visit and Chief Complaint [Patient Encounter] Problems Includes: Problems addressed during this encounter and other active Problems All Visits Onset Date Resolved Date Provider Condition S tatus Persistent Insomnia 01/08/2015 Activ e Last Documented On 3 5:47PM ; [facility] Heart Block 11/12/2014 Active Last Documented On 03/05/2023 5:47PM ; [facility] Note: 40% Major Depression, Recurrent 12/21/2012 Active Last Documented On 3 5:44PM ; [facility] Generalized Anxiety Disorder 11/17/2012 Active Last Documented On 3 5:43PM ; [facility] Gerd 11/17/2012 Active Last Documented On 3 5:43PM ; [facility] Hypertension Systemic 11/17/2012 Act jack Last Documented On 3 5:43PM ; [facility] Hypokalemia 11/17/2012 Active Last Documented On 3 5:43PM ; [facility] Intervertebral Disc Degeneration 11/17/2012 Active Last Documented On 3 5:43PM ; [facility] Plan of Treatment No Plan [...] 03/05/2023 5:34PM By Liz Rm MD ; [facility] Levothyroxine Sodium 50 MCG OR TABS 10/09/2015 Provi jennifer: Diagnosis: Take 1 tablet by mouth every day Last Documented On 03/05/2023 5:34PM By YOAV MCCARTNEY LPN ; [facility] Lasix 20 MG OR TABS 01/08/2015 Provider: Diagnosis: Dr. Burleson -- Dial Lathe Operator in [place] Last Documented On 03/05/2023 5:34PM By Liz Rm MD ; [facility] Potassium Chloride ER 20 MEQ OR TBCR 01/08/2015 Prov ider: Diagnosis: Last Documented On 03/05/2023 5:34PM By Liz Rm MD ; [facility] Aspirin 81 MG OR TABS 12/25/2012 Provider: Diagnosis: Last Documented On 03/05/2023 5:34PM By GRACE ESPINO ; [facility] TH Vitamin B1 100 MG OR TABS 12/25/2012 Provider: Diagnosis: Last Documented On 03/05/2023 5:34PM By GRACE ESPINO ; [facility] Carvedilol 25 MG OR TABS 12/25/2012 Provider: Diagnosis: Last Documented On 03/05/2023 5:34PM By GRACE ESPINO ; [facility] Medications Administered Includes: Administered Medications from this encounter No Administered Medications Recorded Vital Signs Includes: Vital Signs from this encounter Vital Name 04/29/2014 03:45P Blood Pressure Sitting (mmHg) 108/62 BP Cuff Size Regular Pulse Rate-Sitting (bpm) 64 Height (in) 62.5 Weight (lb) 135 Body Mass Index (kg/m2) 24.3 Body Surface Area (m2) 1.6 Last Documented: On 03/05/2023 6:08PM ; [facility] Results Includes: Results discussed during [...] Active Last Documented On 03/05/2023 5:40PM ; [facility] Note: Imported from external source. Encounters Encounter Provider Location Date Check-In Time Check-Out Time Diagnosis [Patient Encounter] 04/29/2014 12:00AM 11:59PM Clinical Notes Includes: Clinical Notes from this encounter No Clinical Notes Recorded
--- OUTSIDE RECORDS SUMMARY | 2025-01-17 17:38 | XMS_ITS ---
Author Organization [facility] Address [address] [place] [address] Phone Care Team Providers Care Assurance Officer Name Role Phone NIHARIKA MORA, WISAM HART Unavailable [phone] Problems Includes: Active, inactive, and resolved Problems All Visits Onset Date Resolved Date Provider Condition S tatus Persistent Insomnia 01/08/2015 WISAM REECE MD Active Last Documented On 5 3:41PM ; [facility] Heart Block 11/12/2014 WISAM RM MD A ctive Last Documented On 5 3:05PM ; [facility] Note: 40% Major Depression, Recurrent 12/21/2012 WISAM RM MD Active Last Documented On 3 2:42PM ; [facility] Generalized Anxiety Disorder 11/17/2012 WISAM RM MD Active Last Documented On 3 3:17PM ; [facility] Gerd 11/17/2012 WISAM RM MD Ac tive Last Documented On 3 3:18PM ; [facility] Hypertension Systemic 11/17/2012 WISAM EDWARD MD Active Last Documented On 3 3:18PM ; [facility] Hypokalemia 11/17/2012 WISAM RM MD A ctive Last Documented On 3 3:18PM ; [facility] Intervertebral Disc Degeneration 11/17/2012 MET RAYO RM MD Active Last Documented On 3 3:19PM ; [facility] Plan of Treatment Education and Decision Aids were provided during visit for: Patient education about medi cation --- I educated patient on medication(s) and diagnosis. I reviewed the risks, benefits and side effects of patient's medications Last Documented On 5 2:29PM ; [facility] Discussed calming techniques such as breathing exercises/meditation and other relaxation techniques Last Documented On 5 2:29PM ; [facility] Counseling for nutrition/camilo ght management provided Last Documented On 5 7:49PM ; [facility] Patient education about medi cation --- I educated patient on medication(s) and diagnosis. I reviewed the risks, benefits and side effects of patient's medications Last Documented On 5 7:51AM ; [facility] Discussed calming techniques such as breathing exercises/meditation and other relaxation techniques Last Documented On 5 2:40PM ; [facility] Counseling for nutrition/camilo ght management provided Last Documented On 5 7:51AM ; [facility] Patient education about medi cation --- I educated patient on medication(s) and diagnosis. I reviewed the risks, benefits and side effects of patient's medications Last Documented On 4 12:07AM ; [facility] Discussed calming techniques such as breathing exercises/meditation and other relaxation techniques Last Documented On 4 3:32PM ; [facility] Patient education about medi cation --- I educated patient on medication(s) and diagnosis Last Documented On 3 9:09PM ; [facility] Discussed calming techniques such as breathing exercises/meditation and other relaxation techniques Last Documented On 3 1:10PM ; [facility] Discussed calming techniques such as yoga meditation to help relieve some anxiety symptoms Last Documented On 3 1:49PM ; [facility] Discussed calming techniques such as breathing exercises and other relaxation techniques Last Documented On 3 1:49PM ; [facility] Assessments Includes: Assessments for all patient encounters Findings Encounter Date Generalized anxiety disorder GENERAL OFF ICE VISIT with WISAM RM MD 10/09/2015 Last Documented On 5 7:51PM ; [facility] Major depression, recurrent GENERAL OFFI CE VISIT with WISAM RM MD 10/09/2015 Last Documented On 5 7:51PM ; [facility] Persistent insomnia GENERAL OFFICE VISIT with ME MARCUS RM MD 10/09/2015 Last Documented On 5 7:51PM ; [facility] Generalized anxiety disorder GENERAL OFF ICE VISIT with WISAM RM MD 01/08/2015 Last Documented On 5 7:52AM ; [facility] Major depression, recurrent GENERAL OFFI CE VISIT with WISAM RM MD 01/08/2015 Last Documented On 5 7:52AM ; [facility] Persistent insomnia GENERAL OFFICE VISIT with ME MARCUS RM MD 01/08/2015 Last Documented On 5 7:52AM ; [facility] Generalized anxiety disorder GENERAL OFF ICE VISIT with WISAM RM MD 04/29/2014 Last Documented On 4 12:10AM ; [facility] Major depression, recurrent GENERAL OFFI CE VISIT with WISAM RM MD 04/29/2014 Last Documented On 4 12:10AM ; [facility] Generalized anxiety disorder GENERAL OFF ICE VISIT with WISAM RM MD 06/20/2013 Last Documented On 3 9:09PM ; [facility] Major depression, recurrent GENERAL OFFI CE VISIT with WISAM RM MD 06/20/2013 Last Documented On 3 9:09PM ; [facility] Generalized anxiety disorder GENERAL OFF ICE VISIT with WISAM RM MD 12/25/2012 Last Documented On 3 8:54PM ; [facility] Major depression, recurrent GENERAL OFFI CE VISIT with WISAM RM MD 12/25/2012 Last Documented On 3 8:54PM ; [facility] Instructions Includes: Instructions for all patient encounters Education and Decision Aids were provided during visit for: Patient education about medi cation --- I educated patient on medication(s) and diagnosis. I reviewed the risks, benefits and side effects of patient's medications Last Documented On 5 2:29PM ; [facility] Discussed calming techniques such as breathing exercises/meditation and other relaxation techniques Last Documented On 5 2:29PM ; [facility] Counseling for nutrition/camilo ght management provided Last Documented On 5 7:49PM ; [facility] Patient education about medi cation --- I educated patient on medication(s) and diagnosis. I reviewed the risks, benefits and side effects of patient's medications Last Documented On 5 7:51AM ; [facility] Discussed calming techniques such as breathing exercises/meditation and other relaxation techniques Last Documented On 5 2:40PM ; [facility] Counseling for nutrition/camilo ght management provided Last Documented On 5 7:51AM ; [facility] Patient education about medi cation --- I educated patient on medication(s) and diagnosis. I reviewed the risks, benefits and side effects of patient's medications Last Documented On 4 12:07AM ; [facility] Discussed calming techniques such as breathing exercises/meditation and other relaxation techniques Last Documented On 4 3:32PM ; [facility] Patient education about medi cation --- I educated patient on medication(s) and diagnosis Last Documented On 3 9:09PM ; [facility] Discussed calming techniques such as breathing exercises/meditation and other relaxation techniques Last Documented On 3 1:10PM ; [facility] Discussed calming techniques such as yoga meditation to help relieve some anxiety symptoms Last Documented On 3 1:49PM ; [facility] Discussed calming techniques such as breathing exercises and other relaxation techniques Last Documented On 3 1:49PM ; [facility] Medical Equipment - Implanted Devices Includes: Current and historical Devices No Medical Equipment Recorded Medications Includes: Current and historical Medications Current Medications (continue as prescribed) Viibryd [...] 02/03/2016 8:07AM By Liz Rm MD ; [facility] Levothyroxine Sodium 50 MCG Tablet 10/09/2015 Provid er: Diagnosis: Take 1 tablet by mouth every day Last Documented On 5 2:42PM By YOAV MCCARTNEY LPN ; [facility] Lasix 20 MG OR TABS 01/08/2015 Provider: Diagnosis: Dr. Burleson -- House Worker [facility] in [place] Last Documented On 01/08/2015 3:01PM By Liz Rm MD ; [facility] Potassium Chloride ER 20 MEQ OR TBCR 01/08/2015 Prov ider: Diagnosis: Last Documented On 01/08/2015 3:02PM By Liz Rm MD ; [facility] Aspirin 81 MG OR TABS 12/25/2012 Provider: Diagnosis: Last Documented On 3 1:11PM By GRACE ESPINO ; [facility] TH Vitamin B1 100 MG OR TABS 12/25/2012 Provider: Diagnosis: Last Documented On 3 1:10PM By GRACE ESPINO ; [facility] Carvedilol 25 MG OR TABS 12/25/2012 Provider: Diagnosis: Last Documented On 3 1:10PM By GRACE ESPINO ; [facility] Past Medications on file Viibryd 20 MG Tablet 10/09/2015 - 02/03/2016 Provider: WISAM RM MD Diagnosis: Major depressive disorder, recurrent, unspecified food - 1 tablet every morning with food Last Documented On 02/03/2016 8:07AM By Liz Rm MD ; [facility] Viibryd 20 MG OR TABS 01/08/2015 - 10/09/2015 Provider: WISAM REECE MD Diagnosis: MAJOR DEPRESSION DISORDER/RECURRENT ---given samples for 7 months Last Documented On 10/09/2015 3:17PM By Liz Rm MD ; [facility] Silenor 3 MG OR TABS 01/08/2015 - 01/24/2015 Provider: WISAM RM MD Diagnosis: PERSISTENT INSOM KENNETH given 16 tablets samples Last Documented On 01/08/2015 3:48PM By Liz Rm MD ; [facility] Viibryd 20 MG OR TABS 04/29/2014 - 01/08/2015 Provider: WISAM REECE MD Diagnosis: MAJOR DEPRESSION DISORDER/RECURRENT ---given samples for 7 months Last Documented On 01/08/2015 3:48PM By Liz Rm MD ; [facility] Viibryd 20 MG OR TABS 07/07/2013 - 04/29/2014 Provider: WISAM REECE MD Diagnosis: MAJOR DEPRESSION DISORDER/RECURRENT ---given samples for 4 months Last Documented On 04/29/2014 4:39PM By Liz Rm MD ; [facility] Viibryd 20 MG OR TABS 12/25/2012 - 06/20/2013 Provider: WISAM REECE MD Diagnosis: MAJOR DEPRESSION DISORDER/RECURRENT 1 in the morning with Food---given samples Last Documented On 07/07/2013 8:49PM By Liz Rm MD ; [facility] Indapamide 2.5 MG OR TABS 12/25/2012 - 01/08/2015 Prov ider: Diagnosis: Last Documented On 01/08/2015 3:00PM By Liz Rm MD ; [facility] Viibryd 20 MG OR TABS 11/17/2012 - 12/25/2012 Provider : Diagnosis: 1 in the morning Last Documented On 12/25/2012 2:10PM By Liz Rm MD ; [facility] Medications Administered Includes: Administered Medications in patient's chart No Administered Medications Recorded Results Includes: Results from 01/18/2024 through 01/17/2025 No Results Recorded For Specified Dates History of Present Illness History of Present Illness not supported for this document type No History of Present Illness Recorded Social History Description Last Updated She was at 15.She haro s two daughters.She was born and raised in [place].She was closer to her mother, but both parents are now . Her sister committed suicide. 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 Her anabaptist background is gnosticist 10/09/2015 Last Documented On 5 7:51PM ; [facility] Work history She is retired 10/09/2015 Last Documented On 5 7:51PM ; [facility] Marital history 10/09/2015 Last Documented On 5 7:51PM ; [facility] Not using alcohol 11/17/2012 Last Documented On 3 3:26PM ; [facility] Not using drugs (Illicit) 11/17/2012 Last Documented On 3 3:26PM ; [facility] Smoking status : Never smoked 11/17/2012 Last Documented On 3 3:26PM ; [facility] Procedures and Surgical History Surgical History Last Updated History of Prior Surgery: ~T AH ~Neck surgery ~Cholecystectomy 2001 ~Cardiac catherization-- Dr. Burleson in [place] ~ 01/08/2015 Last Documented On 5 7:52AM ; [facility] Medical History Includes: Medical History in patient's chart Description Last Updated History of A-V block 10/09/2015 Last Documented On 5 7:51PM ; [facility] History of hypothyroidism 10/09/2015 Last Documented On 5 7:51PM ; [facility] History of intervertebral di sc degeneration ~[facility] 09/18/14 for low potassium ~[place] -- 201210/09/2015 Last Documented On 5 7:51PM ; [facility] Primary Care Provider: Dr. Pierre Maharaj -- [place] ~Dr. Morejon-Certified Medical Dosimetrist 01/08/2015 Last Documented On 5 7:52AM ; [facility] History of GERD 04/29/2014 Last Documented On 4 12:10AM ; [facility] History of hypertension 04/29/2014 Last Documented On 4 12:10AM ; [facility] History of hypokalemia 04/29/2014 Last Documented On 4 12:10AM ; [facility] ~Hypertension ~GERD ~Hypokalemia ~Cervic al disc disease 12/25/2012 Last Documented On 3 8:54PM ; [facility] Family History Includes: Family History in patient's chart Description Last Updated Paternal history of alcoholism -- father 01/08/2015 Last Documented On 5 7:52AM ; [facility] Medical [facility] Sororal history of depression -- sister 01/08/2015 Last Documented On 5 7:52AM ; [facility] Review of Systems Review of Systems not supported for this document type No Review of Systems Recorded Mental Status Description Major depression, recurrent Functional Status No Functional Status Recorded Physical Exam Physical Exam not supported for this document type No Physical Exam Recorded Allergies Includes: Active, inactive, and resolved Allergies Substance Type Reaction Onset Date Resolved Date Statu s Darvon Allergy 11/17/2012 Active Last Documented On 03/05/2023 5:40PM ; [facility] Note: Imported from external source. Insurance Includes: Active Insurance Policies No Insurance Coverage Recorded Guarantor Relationship Effective Dates Guarantor Ph one ROSALIE THOMASON [id number] Clinical Notes Includes: Signed Clinical Notes starting from 11/26/2022 No Clinical Notes Recorded
--- OUTSIDE RECORDS SUMMARY | 2025-01-17 17:38 | XMS_ITS | Encounter Summary ---
Author Organization [facility] Address [address] [place] [id number] Care Team Providers Care Staff Command And Control Officer Name Role Phone Isrrael Burleson MD Unavailable [phone] Sally Srivastava MD Primary Care Provider [phone] Nelson Alva DO Primary Care Provider + Pricilla Dao MD Primary Care Provider [phone] Emerald King RN Unavailable [phone] Encounter Details Date Type Department Care Team (Late st Contact Info) Description 12/04/2018 Abstract [facility] at [address] [address] Brenda Adler MA Social History Tobacco Use Types Packs/Day Years Used Date Smoking Tobacco: Never Smokeless Tobacco: Never Alcohol Use Standard Drinks/Week Comments No 0 (1 standard drink = 0.6 oz pur e alcohol) Comments No Sex and Gender Information Value Date Recorded Sex Assigned at Female 10/25/2024 10:07 AM PRESS BRAKE OPERATOR Legal Sex Female 2:31 AM CDT Gender Identity Female 01/05/2022 11:28 AM PRESS BRAKE OPERATOR Sexual Orientation Straight 01/05/2022 11 :28 AM PRESS BRAKE OPERATOR Occupation Industry Job Start Date Job End Date Not on file Not on file Not on file Not on file documented as of this encounter Functional Status * RETIRED Are you deaf or do you have serious difficulty hearing Answer Date of Assessment Author Status No 11/06/2018 1:30 PM PRESS BRAKE OPERATOR Activ e * RETIRED Are you blind or do you have serious difficulty seeing, even when wearing glasses? Answer Date of Assessment Author Status No 11/06/2018 1:30 PM PRESS BRAKE OPERATOR Activ e * Do you have serious difficulty walking or climbing stairs? Answer Date of Assessment Author Status No 11/06/2018 1:30 PM PRESS BRAKE OPERATOR Amina Martel R N Active * Do you have difficulty dressing or bathing? Answer Date of Assessment Author Status No 11/06/2018 1:30 PM PRESS BRAKE OPERATOR Amina Martel R N Active * Because of a physical, mental, or emotional condition, do you have difficulty doing errands alone such as visiting a doctor's office or shopping? Answer Date of Assessment Author Status No 11/06/2018 1:30 PM PRESS BRAKE OPERATOR Amina Martel R N Active documented as of this encounter Mental Status * Because of a physical, mental, or emotional condition, do you have serious difficulty concentrating, remembering, or making decisions? Answer Entry Date Author Status No 11/06/2018 1:30 PM PRESS BRAKE OPERATOR Amina Martel R N Active documented in this encounter Plan of Treatment Upcoming Encounters Date Type Department Care Team (Latest Contact Info) Description 5 2:[address] [facility] [place] [address] Oleksandr Vera, DO [address] [place] [phone] 5 10:27 AM CDT Hospital Encounter [facility] [place] [address] Oleksandr Vera, DO [address] [place] [phone] 5 10:27 AM CDT - 5 1:[address] [facility] [place] [address] Oleksandr Vera, DO [address] [place] [address] [id number] ROBOTIC XI ASSISTED LAPAROSCOPIC HIATAL HERNIA REPAIR WITH TOUPET FUNDOPLICATION, POSSIBLE MESH, POSSIBLE OPEN, WITH ESOPHAGOGASTRODUODENOSCOPY 5 1:00 PM CDT Office Visit [facility] [address] [place] [address] Carol Tinsley, MARGIE [address] [facility] [address] [place] [address] Scheduled Procedures Name Priority Associated Diagnoses Date/Ti me ROBOTIC XI HERNIA HIATAL HIATAL HERNIA K44.9 01/28/2025 10:27 AM CDT documented as of this encounter Procedures Procedure Name Priority Date/Time Associated Diagnosis Comments CBC (OUTSIDE LAB) Routine 02/22/2023 BUN (OUTSIDE LAB) Routine 12/29/2018 HEMATOCRIT Routine 12/29/2018 CREATININE Routine 12/29/2018 BUN (OUTSIDE LAB) Routine 12/01/2018 HEMATOCRIT Routine 12/01/2018 CREATININE Routine 12/01/2018 documented in this encounter Results * CBC (OUTSIDE LAB) (02/22/2023) WBC 5.5 HGB 13.0 HCT 37.8 PLT 208 02/22/2023 us Default History Genericprovider LAB-OUTSIDE/ABST RACTED Final Result * HEMATOCRIT (12/29/2018) HCT 31.3 12/29/2018 us Doc [facility] Abstract LABORATORY Final Result * CREATININE (12/29/2018) Pathologist [facility] CREATININE S/P/B 0.84 0.5 - 1.0 EGFR NON-AFR. AMER. 71 <=90 EGFR AFR. AMER. 83 <=90 12/29/2018 us Doc [facility] Abstract LABORATORY Final Result * BUN (OUTSIDE LAB) (12/29/2018) Pathologist [facility] BUN 9 12/29/2018 us Doc [facility] Abstract LAB-OUTSIDE/ABSTRACTED Edite d Result - Final * HEMATOCRIT (12/01/2018) Pathologist [facility] HCT 33.8 12/01/2018 us Doc [facility] Abstract LABORATORY Final Result * (ABNORMAL) CREATININE (12/01/2018) Pathologist [facility] CREATININE S/P/B 1.04(A) 0.5 - 1.0 EGFR NON-AFR. AMER. 64 <=90 EGFR AFR. AMER. 55 <=90 12/01/2018 us Doc [facility] Abstract LABORATORY Final Result * BUN (OUTSIDE LAB) (12/01/2018) Pathologist [facility] BUN 18 12/01/2018 us Doc [facility] Abstract LAB-OUTSIDE/ABSTRACTED Final Result documented in this encounter Visit Diagnoses Not on filedocumented in this encounter Additional Health Concerns Infection Onset Date Last Indicated Resolved Time COVID-19 Rule Out 09/22/2020 09/15/2020 09/22/2020 11:29 AM PRESS BRAKE OPERATOR COVID-19 Rule Out 09/23/2020 09/23/2020 11/22/2020 12:33 AM PRESS BRAKE OPERATOR COVID-19 Rule Out 06/01/2022 06/01/2022 06/02/2022 2:07 PM CDT COVID-19 Rule Out 12/28/2022 12/28/2022 12/29/2022 1:28 PM PRESS BRAKE OPERATOR COVID-19 Rule Out 02/16/2023 02/16/2023 02/16/2023 11:21 AM CDT COVID-19 Rule Out 02/16/2023 02/16/2023 02/17/2023 1:03 PM CDT COVID-19 Rule Out 09/13/2023 09/13/2023 09/13/2023 1:56 PM PRESS BRAKE OPERATOR COVID-19 Rule Out 09/13/2023 09/13/2023 09/14/2023 3:52 PM PRESS BRAKE OPERATOR documented as of this encounter Care Teams Staff Command And Control Officer Relationship Specialty Start Date End Date Sally Srivastava MD [facility] Internal Medicine [address] [phone] PCP - General INTERNAL MEDICINE 11/04/18 01/04/19 Nelson Alva DO [address] [place] [id number] PCP - General FAMILY PRACTICE 02/05/19 01/03/25 Pricilla Dao MD [address] [place] [phone] PCP - General FAMILY PRACTICE 01/05/19 02/04/19 Isrrael Burleson MD [facility]. [address] [place] [address] Christine Aeronautical Research Engineer CARDIOVASCULAR DISEASE 04/07/16 Emerald King, RN [address] [facility] [address] [place] [phone] Workforce Consultant (Ambulatory) REGISTERED NURSE 12/15/21 documented as of this encounter
--- OUTSIDE RECORDS SUMMARY | 2025-01-17 17:38 | XMS_ITS ---
Author Organization [facility] Address [address] [place] [address] Phone Care Team Providers Care Restorative Art Embalmer Name Role Phone Unavailable Unavailable Unavailable Problems Includes: Active, inactive, and resolved Problems All Visits Onset Date Resolved Date Provider Condition S tatus Persistent Insomnia 01/08/2015 Activ e Last Documented On 3 5:47PM ; [facility] Heart Block 11/12/2014 Active Last Documented On 03/05/2023 5:47PM ; [facility] Note: 40% Major Depression, Recurrent 12/21/2012 Active Last Documented On 3 5:44PM ; [facility] Generalized Anxiety Disorder 11/17/2012 Active Last Documented On 3 5:43PM ; [facility] Gerd 11/17/2012 Active Last Documented On 3 5:43PM ; [facility] Hypertension Systemic 11/17/2012 Act jack Last Documented On 3 5:43PM ; [facility] Hypokalemia 11/17/2012 Active Last Documented On 3 5:43PM ; [facility] Intervertebral Disc Degeneration 11/17/2012 Active Last Documented On 3 5:43PM ; [facility] Plan of Treatment No Plan of Treatment Recorded Assessments Includes: Assessments for all patient encounters No Assessments Recorded Medical Equipment - Implanted [...] 03/05/2023 5:34PM By Liz Rm MD ; [facility] Levothyroxine Sodium 50 MCG OR TABS 10/09/2015 Provi jennifer: Diagnosis: Take 1 tablet by mouth every day Last Documented On 03/05/2023 5:34PM By YOAV MCCARTNEY LPN ; [facility] Lasix 20 MG OR TABS 01/08/2015 Provider: Diagnosis: Dr. Burleson -- Music Minister in [place] Last Documented On 03/05/2023 5:34PM By Liz Rm MD ; [facility] Potassium Chloride ER 20 MEQ OR TBCR 01/08/2015 Prov ider: Diagnosis: Last Documented On 03/05/2023 5:34PM By Liz Rm MD ; [facility] Aspirin 81 MG OR TABS 12/25/2012 Provider: Diagnosis: Last Documented On 03/05/2023 5:34PM By GRACE ESPINO ; [facility] TH Vitamin B1 100 MG OR TABS 12/25/2012 Provider: Diagnosis: Last Documented On 03/05/2023 5:34PM By GRACE ESPINO ; [facility] Carvedilol 25 MG OR TABS 12/25/2012 Provider: Diagnosis: Last Documented On 03/05/2023 5:34PM By GRACE ESPINO ; [facility] Past Medications on file Viibryd 20 MG OR TABS 10/09/2015 - 02/03/2016 Provider: WISAM REECE MD Diagnosis: Major depressive disorder, recurrent, unspecified food - 1 tablet every morning with food Last Documented On 03/05/2023 5:34PM By Liz Rm MD ; [facility] Silenor 3 MG OR TABS 01/08/2015 - 01/24/2015 Provider: WISAM RM MD Diagnosis: PERSISTENT INSOM KENNETH given 16 tablets samples Last Documented On 03/05/2023 5:34PM By Liz Rm MD ; [facility] Viibryd 20 MG OR TABS 01/08/2015 - 10/09/2015 Provider: WISAM REECE MD Diagnosis: MAJOR DEPRESSION DISORDER/RECURRENT ---given samples for 7 months Last Documented On 03/05/2023 5:34PM By Liz Rm MD ; [facility] Viibryd 20 MG OR TABS 04/29/2014 - 01/08/2015 Provider: WISAM REECE MD Diagnosis: MAJOR DEPRESSION DISORDER/RECURRENT ---given samples for 7 months Last Documented On 03/05/2023 5:34PM By Liz Rm MD ; [facility] Viibryd 20 MG OR TABS 07/07/2013 - 04/29/2014 Provider: WISAM REECE MD Diagnosis: MAJOR DEPRESSION DISORDER/RECURRENT ---given samples for 4 months Last Documented On 03/05/2023 5:34PM By Liz Rm MD ; [facility] Indapamide 2.5 MG OR TABS 12/25/2012 - 01/08/2015 Prov ider: Diagnosis: Last Documented On 03/05/2023 5:34PM By GRACE ESPINO ; [facility] Viibryd 20 MG OR TABS 12/25/2012 - 06/20/2013 Provider: WISAM REECE MD Diagnosis: MAJOR DEPRESSION DISORDER/RECURRENT 1 in the morning with Food---given samples Last Documented On 03/05/2023 5:34PM By Liz Rm MD ; [facility] Viibryd 20 MG OR TABS 11/17/2012 - 12/25/2012 Provider : Diagnosis: 1 in the morning Last Documented On 03/05/2023 5:34PM By GRACE ESPINO ; [facility] Medications Administered Includes: Administered Medications in patient's chart No Administered Medications Recorded Results Includes: Results from 01/18/2024 through 01/17/2025 No Results Recorded For Specified Dates History of Present Illness History of Present Illness not supported for this document type No History of Present Illness Recorded Social History No Social History Recorded - Smoking Status Unknown Medical History Includes: Medical History in patient's chart No Medical History Recorded Family History Includes: Family History in patient's chart No Family History Recorded Review of Systems Review of Systems not supported for this document type No Review of Systems Recorded Mental Status No Mental Status Recorded Functional Status No Functional Status Recorded Physical Exam Physical Exam not supported for this document type No Physical Exam Recorded Allergies Includes: Active, inactive, and resolved Allergies Substance Type Reaction Onset Date Resolved Date Statu s Darvon Allergy 11/17/2012 Active Last Documented On 03/05/2023 5:40PM ; [facility] Note: Imported from external source. Clinical Notes Includes: Signed Clinical Notes starting from 11/26/2022 No Clinical Notes Recorded
--- OUTSIDE RECORDS SUMMARY | 2025-01-17 17:38 | XMS_ITS ---
Care Plan - [facility] Medical [facility] Created on: January 17, 2025 ROSALIE THOMASON : 1950 Sex: Female Author Organization [facility] Medical [facility] Address [address] [place] [phone] Phone Care Team Providers Care Sales Correspondence Clerk Name Role Phone NIHARIKA MORA, WISAM HART [facility] [phone]
--- OUTSIDE RECORDS SUMMARY | 2025-01-17 17:38 | XMS_ITS | Clinical Summary ---
Author Organization [facility] Address [address] [place] [address] Phone Care Team Providers Care Technical Spec Name Role Phone NIHARIKA MORA, WISAM Lujan [phone] Reason for Visit and Chief Complaint The Chief Complaint is: follow up for depression Problems Includes: Problems addressed during this encounter and other active Problems Current Visit Onset Date Resolved Date Provider Conditio n Status Major Depression, Recurrent 12/21/2012 WISAM RM MD Active Last Documented On 3 2:42PM ; [facility] Generalized Anxiety Disorder 11/17/2012 WISAM RM MD Active Last Documented On 3 3:17PM ; [facility] Past Visits Onset Date Resolved Date Provider Condition Status Persistent Insomnia 01/08/2015 WISAM REECE MD Active Last Documented On 5 3:41PM ; [facility] Heart Block 11/12/2014 WISAM RM MD A ctive Last Documented On 5 3:05PM ; [facility] Note: 40% Gerd 11/17/2012 WISAM RM MD Ac tive Last Documented On 3 3:18PM ; [facility] Hypertension Systemic 11/17/2012 WISAM EDWARD MD Active Last Documented On 3 3:18PM ; [facility] Hypokalemia 11/17/2012 WISAM RM MD A ctive Last Documented On 3 3:18PM ; [facility] Intervertebral Disc Degeneration 11/17/2012 MET RAYO RM MD Active Last Documented On 3 3:19PM ; [facility] Plan of Treatment - MAJOR DEPRESSION, RECURRENT - Last Documented On 07/07/2013 9:09PM ; [facility] Viibryd 20 MG TABS, 1 tablet every morning with food, 120 days, 0 refills, ---given samples for 4 months - Last Documented On 07/07/2013 9:09PM ; [facility] ? OTHERFollow-up 4 mos - Last Documented On 07/07/2013 9:09PM ; [facility] Education and Decision Aids were provided during visit for: Patient education about medi cation --- I educated patient on medication(s) and diagnosis Last Documented On 3 9:09PM ; [facility] Discussed calming techniques such as breathing exercises/meditation and other relaxation techniques Last Documented On 3 1:10PM ; [facility] Assessments Includes: Assessments from this encounter Findings - Major depression, recurrent - Last Documented On 07/07/2013 9:09PM ; [facility] - Generalized anxiety disorder - Last Documented On 07/07/2013 9:09PM ; [facility] Instructions Includes: Instructions from this encounter Education and Decision Aids were provided during visit for: Patient education about medi cation --- I educated patient on medication(s) and diagnosis Last Documented On 3 9:09PM ; [facility] Discussed calming techniques such as breathing exercises/meditation and other relaxation techniques Last Documented On 3 1:10PM ; [facility] Medical Equipment - Implanted Devices Includes: [...] 02/03/2016 8:07AM By Liz Rm MD ; [facility] Levothyroxine Sodium 50 MCG Tablet 10/09/2015 Provid er: Diagnosis: Take 1 tablet by mouth every day Last Documented On 5 2:42PM By YOAV MCCARTNEY LPN ; [facility] Lasix 20 MG OR TABS 01/08/2015 Provider: Diagnosis: Dr. Burleson -- Prison Librarian in [place] Last Documented On 01/08/2015 3:01PM By Liz Rm MD ; [facility] Potassium Chloride ER 20 MEQ OR TBCR 01/08/2015 Prov ider: Diagnosis: Last Documented On 01/08/2015 3:02PM By Liz Rm MD ; [facility] Aspirin 81 MG OR TABS 12/25/2012 Provider: Diagnosis: Last Documented On 3 1:11PM By GRACE ESPINO ; [facility] TH Vitamin B1 100 MG OR TABS 12/25/2012 Provider: Diagnosis: Last Documented On 3 1:10PM By GRACE ESPINO ; [facility] Carvedilol 25 MG OR TABS 12/25/2012 Provider: Diagnosis: Last Documented On 3 1:10PM By GRACE ESPINO ; [facility] Past Medications on file Silenor 3 MG OR TABS 01/08/2015 - 01/24/2015 Provider: WISAM RM MD Diagnosis: PERSISTENT INSOM KENNETH given 16 tablets samples Last Documented On 01/08/2015 3:48PM By Liz Rm MD ; [facility] Medications Administered Includes: Administered Medications from this encounter No Administered Medications Recorded Vital Signs Includes: Vital Signs from this encounter Vital Name 06/20/2013 01:24P Blood Pressure Sitting R 126/62 BP Cuff Size Regular Pulse Rate-Sitting (bpm) 66 Height (in) 62.5 Weight (lb) 133 Body Mass Index (kg/m2) 23.9 Body Surface Area (m2) 1.6 Last Documented: On 06/20/2013 1:24PM ; [facility] Results Includes: Results discussed during this encounter No Results Recorded For Specified Dates History of Present Illness Includes: History of Present Illness from this encounter AD THOMASON is a 63 year old female. - Past medical history reviewed. Pt said that Viibryd 20 mg in am seems to be helping with her mood. Pt fell last April 2013 while she was doing her walking as exercise but unfortunately she sustained collapsed neck, bulging disc in her lumbar spine and is needing surgery possibly 07/02/13. Pt cannot take Vicodin due to side effects. She said she just prays to God that she will be okay. Last 05/15/13, pt had her third stroke due to stress from her estranged . She is finally getting a divorce and wants to move on with her life. Her doctor said that she has to get a divorce otherwise, she will get another stroke. She said that when she was younger, her cheated on her and she could not leave then because of her 2 young kids, but she is moving on with her life. She wants to move to [place] where her sister lives and like to stay in that small town. Pt wanted to continue seeing me for now and is willing to travel from [place] to [place] to see me until she can find another female psychiatrist in [place]. Pt was given 90 tablets of Viibryd samples from her pt assist program and another 16 weeks samples of Viibryd given until seen. She is requesting to be seen in March 2013. She promised she will call me if problems arise or if she has an emergency, she needed to go to the nearest ER or call 911. Pt verbalized understanding. Her temporary address in [place] will [address] [place] [address]. Sleep - good Interest - fair Guilt/Worthlessness - absent Energy/Motivation - good Concentration - good Appetite - good, on 12-25-12 pt weighed 144 lbs and current weight is 133 lbs so she lost 11 lbs Suicidal Thoughts - absent Homicidal Thoughts - absent Delusions - absent Hallucinations - absent Appearance - good Motor Behavior - calm Eye Contact - intermittent Speech - fluent Mood - not depressed, she said the Viibryd is giving her the energy/motivation to do things and is helping to maintain her mood Affect - stable Thought Process - coherent Social History Description Last Updated She was at 15. ~She has two daughters. ~She was born and raised in [place]. ~She was closer to her mother, but both parents are now . ~No history of physical or sexual abuse. ~She currently lives with her . ~She has her GED. 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 ~No past or pending legal history. ~[employer] background, [employer] 10/09/2015 Last Documented On 3 1:09PM ; [facility] Not using alcohol 11/17/2012 Last Documented On 3 1:09PM ; [facility] Not using drugs (Illicit) 11/17/2012 Last Documented On 3 1:09PM ; [facility] Smoking status : Never smoked 11/17/2012 Last Documented On 3 1:09PM ; [facility] Procedures and Surgical History Includes: Procedures from this encounter Procedures Code Diagnosis Performing Provider Service L ocation Service Date 1) I explained the rationale for the medication choices and discussed the possible risks, benefits, side effects and alternative treatment options (including no treatment) with th patient. ~ ~2) The patient verbalized understanding and agreed to the treatment plan/medications. ~ ~3) I recommended a healthy diet and exercise as tolerated and approved by their primary care. ~ ~4) I recommended that the patient cut back on caffeine and/or avoid caffeine in possible. ~ ~5) I recommended that the patient avoid nicotine, alcohol, and illicit substances with psychotropic medication use. ~ ~6) The patient agreed for safety agreeing to call 911/crisis line or this office (during clinical hours) if suicidal/homicidal ideation or other serious concerns arise. ~ ~7) The patient also agreed to adhere to the treatment plan and raise concerns with it as soon as they come about Last Documented On 3 1:10PM ; [facility] Clinical summary provided to patient Last Documented On 3 9:09PM ; [facility] Surgical History Last Updated History of Prior Surgery: ~FUNMILAYO ~Neck eugenio chau ~Cholecystectomy 2001 ~ 01/08/2015 Last Documented On 3 1:09PM ; [facility] Medical History Includes: Medical History addressed during this encounter Description Last Updated Primary Care Provider: Dr. Hendrix ~Dr. Morejon-Front Desk Administrator 01/08/2015 Last Documented On 3 1:09PM ; [facility] ~Hypertension ~GERD ~Hypokalemia ~Cervic al disc disease 12/25/2012 Last Documented On 3 1:09PM ; [facility] Family History Includes: Family History addressed during this encounter Description Last Updated Sister committed suicide ~Father is an a lcoholic 01/08/2015 Last Documented On 3 1:09PM ; [facility] Review of Systems Includes: Review of Systems from this encounter Systemic: No fever and no chills. Head: Headache -sinus. Otolaryngeal: Nasal discharge -sinus. No hoarseness and no sore throat. Cardiovascular: No chest pain or discomfort, no palpitations, and the heart rate was not fast. Pulmonary: Cough. Gastrointestinal: No heartburn, no nausea, no vomiting, and no diarrhea. Musculoskeletal: Muscle aches -top and lower back. No localized joint pain and no localized joint stiffness. Neurological: Dizziness and vertigo -occasionally due to sinus issues. Skin: No pruritus. Mental Status Includes: Mental Status from this encounter Description Major depression, recurrent Functional Status Includes: Functional Status from this encounter No Functional Status Recorded Physical Exam Includes: Physical Exam from this encounter Allergies Includes: Active Allergies Substance Type Reaction Onset Date Resolved Date Statu s Darvon Allergy 11/17/2012 Active Last Documented On 03/05/2023 5:40PM ; [facility] Note: Imported from external source. Encounters Encounter Provider Location Date Check-In Time Check-Out Time Diagnosis GENERAL OFFICE VISIT WISAM RM MD [facility] 06/20/20 13 1:13PM 2:03PM Generalized Anxiety Disorder,Major Depression, Recurrent Insurance Includes: Active Insurance Policies No Insurance Coverage Recorded Guarantor Relationship Effective Dates Guarantor Ph one ROSALIE THOMASON Ryan [id number] Clinical Notes Includes: Clinical Notes from this encounter No Clinical Notes Recorded
[2025-01-17 19:23] LABS: Add Urine Microscopic? YES; Appearance Urine Turbid (Clear); Bacteria Urine 4+ /hpf; Bilirubin Urine Negative (Negative); Blood Urine Trace (Negative); Color Urine Dark Yellow (Yellow); Glucose Urine UA 1+ mg/dL (Negative); Hyaline Casts Urine Present /lpf; Ketones Urine Trace mg/dL (Negative); Leukocyte Esterase Ur 2+ LEU/UL (Negative); Mucus Urine Present /lpf; Need Manual Microscopic Reviewed; Nitrate Urine Negative (Negative); Protein Urine 2+ mg/dL (Negative); RBC Urine 0-2 /hpf (0-2); Specific Grav Ur 1.029 (1.001-1.035); Squamous Epithelial Cell Urine Many /hpf (Few); WBC Urine >100 /hpf (0-3)
--- OUTSIDE RECORDS SUMMARY | 2025-01-17 19:30 | XMS_ITS | Continuity of Care Document ---
Author Organization [facility] Address [address] [place] [address] [place] [address] Phone Care Team Providers Care Client Professional Name Role Phone Naveen Jonas MD Unavailable Unavailable Procedures Procedure Date Eye Exam & Treatment Advance Directives Directive Yes / No Effective Date File Name No Information Encounters Encounter Description Practice Location Reason(s) For Visit Diagnoses Date Provider Providers Copied on Encounter [facility], [address] [place], [place], [id number], [place] tel:[phone] [facility] No Information [address] Pritesh Hodge. [address] [facility], [address], [place], [place], [id number], [place]. tel:[phone] Family History Family Member Type Diagnosis Age [...]
--- OUTSIDE RECORDS SUMMARY | 2025-01-17 19:30 | XMS_ITS | Encounter Summary ---
Author Organization [facility] Address [address] [place] [address] Care Team Providers Care Dredge Deckhand Name Role Phone Isrrael Burleson MD Unavailable [phone] Nelson Alva DO Primary Care Provider + Emerald King RN Unavailable [phone] Encounter Details Date Type Department Care Team (Late st Contact Info) Description 09/13/[address] [employer] [address] [facility] Family Medicine [address], [address] [place] [address] Marah, [facility] Provider Breast Cancer Screening Social History Tobacco [...] Sex Assigned at Female 10/25/2024 10:07 AM LAMINATOR [employer]FORMS Legal Sex Female 2:31 AM CDT Gender Identity Female 01/05/2022 11:28 AM [employer] Sexual Orientation Straight 01/05/2022 11 :28 AM LAMINATOR [employer]MS Occupation Industry Job Start Date Job End Date Not on file Not on file Not on file Not on file documented as of this encounter Functional Status * RETIRED Are you deaf or do you have serious difficulty hearing Answer Date of Assessment Author Status No 12/18/2021 4:43 PM LAMINATOR [employer]FORMS Activ e * RETIRED Are you blind or do you have serious difficulty seeing, even when wearing glasses? Answer Date of Assessment Author Status No 12/18/2021 4:43 PM LAMINATOR PREFORMS Activ e * Do you have serious [...] Info) Description 5 2:00 PM CDT Appointment [facility] [address] Oleksandr Vera, [address] [place] [id number] 5 10:27 AM CDT Hospital Encounter [facility] [place] [address] Oleksandr Vera, [address] [place] [id number] 5 10:27 AM CDT - 5 1:30 PM CDT Surgery [place] [address] Oleksandr Vera, DO [address] [place] [address], [place] [id number] ROBOTIC XI ASSISTED LAPAROSCOPIC HIATAL HERNIA REPAIR WITH TOUPET FUNDOPLICATION, POSSIBLE MESH, POSSIBLE OPEN, WITH ESOPHAGOGASTRODUODENOSCOPY 5 1:00 PM CDT Office Visit [facility] [address] [facility], [address] [place], [place] [address] Carol Tinsley FNP 3 [facility] [address] [place], [place] [id number] Scheduled Procedures Name Priority Associated Diagnoses Date/Ti fl ROBOTIC XI HERNIA HIATAL HIATAL HERNIA K44.9 01/28/2025 10:27 AM CDT documented as of this encounter Goals Goal Patient Goal Type Associated Problems Recent Progress Patient-Stated? Author Reduce Sodium Intake Diet No change(2021 8:23 AM LAMINATOR PREFORMS) No Emerald King, BRAVO Establish Plan for Symptom Monitoring General On track( 12:06 PM LAMINATOR PREFORMS) No Emerald King RN Consistently take medications as Prescribed General On track( 8:23 AM LAMINATOR PREFORMS) No Emerald King, BRAVO Note: 12/24 on track with exception of iron tablet 01/01-still needs iron documented as of this encounter Visit Diagnoses Not on filedocumented in this encounter Additional Health Concerns Assessment Noted Time PHQ-9 Depression Total Score: 0 05/21/20 24 1:18 PM CDT documented as of this encounter Care Teams Dredge Deckhand Relationship Specialty Start Date End Date Nelson Alva DO [address] [place] [id number] PCP - General FAMILY PRACTICE 02/05/19 01/03/25 Isrrael Burleson MD Three [facility]. [address] [place], [place] [address] Davian Host/Hostess CARDIOVASCULAR DISEASE 04/07/16 Emerald King, RN [address] [facility] [address] [place] [address] Continuous Dryout Operator Helper (Ambulatory) REGISTERED NURSE 12/15/21 documented as of this encounter
--- OUTSIDE RECORDS SUMMARY | 2025-01-17 19:30 | XMS_ITS | Encounter Summary ---
Author Organization [facility] Address [facility] [place] [address] Care Team Providers Care Lead Manufacturing Engineer Name Role Phone Isrrael Burleson MD Unavailable [phone] Nelson Alva DO Primary Care Provider + Emerald King RN Unavailable [phone] Encounter Details Date Type Department Care Team (Late st Contact Info) Description 06/04/2024 [employer] Message Enc [facility] Priority Care - [address] [place] [address] [facility] Provider Diabetic Eye Exam Social History Tobacco [...] Sex Assigned at Female 10/25/2024 10:07 AM SCHOOL LUNCH MANAGER Legal Sex Female 2:31 AM CDT Gender Identity Female 01/05/2022 11:28 AM SCHOOL LUNCH MANAGER Sexual Orientation Straight 01/05/2022 11 :28 AM SCHOOL LUNCH MANAGER Occupation Industry Job Start Date Job End Date Not on file Not on file Not on file Not on file documented as of this encounter Functional Status * RETIRED Are you deaf or do you have serious difficulty hearing Answer Date of Assessment Author Status No 12/18/2021 4:43 PM SCHOOL LUNCH MANAGER Activ e * RETIRED Are you blind or do you have serious difficulty seeing, even when wearing glasses? Answer Date of Assessment Author Status No 12/18/2021 4:43 PM SCHOOL LUNCH MANAGER Activ e * Do you have serious [...] Info) Description 5 2:00 PM CDT Appointment [place] [address] Oleksandr Vera, DO [address] [place] [id number] 5 10:27 AM CDT Hospital Encounter [facility] [place] [address] Oleksandr Vera, DO [address] [place] [address] [id number] 5 10:27 AM CDT - 5 1:30 PM CDT Surgery [place] [address] Oleksandr Vera, DO [address] [place] [address] [id number] ROBOTIC XI ASSISTED LAPAROSCOPIC HIATAL HERNIA REPAIR WITH TOUPET FUNDOPLICATION, POSSIBLE MESH, POSSIBLE OPEN, WITH ESOPHAGOGASTRODUODENOSCOPY 5 1:00 PM CDT Office Visit [facility] [place] [facility], [address] [place], [place] [id number] Carol Tinsley FNP 3 [facility] [address] [place], [place] [address] Scheduled Procedures Name Priority Associated Diagnoses Date/Ti fl ROBOTIC XI HERNIA HIATAL HIATAL HERNIA K44.9 01/28/2025 10:27 AM CDT documented as of this encounter Goals Goal Patient Goal Type Associated Problems Recent Progress Patient-Stated? Author Reduce Sodium Intake Diet No change(2021 8:23 AM SCHOOL LUNCH MANAGER) No Emerald King, BRAVO Establish Plan for Symptom Monitoring General On track( 12:06 PM SCHOOL LUNCH MANAGER) No Emerald King RN Consistently take medications as Prescribed General On track( 8:23 AM SCHOOL LUNCH MANAGER) No Emerald King, BRAVO Note: 12/24 on track with exception of iron tablet 01/01-still needs iron documented as of this encounter Visit Diagnoses Not on filedocumented in this encounter Additional Health Concerns Assessment Noted Time PHQ-9 Depression Total Score: 0 05/21/20 24 1:18 PM CDT documented as of this encounter Care Teams Lead Manufacturing Engineer Relationship Specialty Start Date End Date Nelson Alva DO [address] [place] [address] PCP - General FAMILY PRACTICE 02/05/19 01/03/25 Isrrael Burleson MD Three [facility]. [address] [place], [place] [address] [employer]ian Magnetic Tape Typewriter Operator CARDIOVASCULAR DISEASE 04/07/16 Emerald King, RN [address] [facility] [address] [place] [address] Claims Account Specialist (Ambulatory) REGISTERED NURSE 12/15/21 documented as of this encounter
--- OUTSIDE RECORDS SUMMARY | 2025-01-17 19:30 | XMS_ITS | Encounter Summary ---
Author Organization [facility] Address [address] [place] [address] Care Team Providers Care Manager Insurance Name Role Phone Nelson Alva DO Primary Care Provide r Sebastián Patterson MD Unavailable [phone] Encounter Details Date Type Department Care Team (Late st Contact Info) Description 12/18/2024 Telephone [facility] Patient Access [address] [facility] [address] [place] [address] Nelson Alva DO [address] [place] [address] Social History Tobacco Use Types [...] on file Legal Sex Female 4:50 PM BAR WELDER Gender Identity Not on file Sexual Orientation Not on file Occupation Industry Job Start Date Job End Date retired Not on file Not on file Not on file documented as of this encounter Miscellaneous Notes * Telephone Encounter - Kathleen Farley - 12/18/2024 10:31 AM CST error WELDER documented in this encounter Plan of Treatment Not on file documented as of this encounter Visit Diagnoses Not on filedocumented in this encounter Care Teams Manager Insurance Relationship Specialty Start Date End Date Nelson Alva DO PCP - General Family Medicine 04/26/19 Sebastián Patterson MD [address] [place] [address] Consulting Physician Otolaryngology 08/23/22 documented as of this encounter
--- OUTSIDE RECORDS SUMMARY | 2025-01-17 19:30 | XMS_ITS | Referral Summary ---
Author Organization [facility] Address [address] [place] [address] Care Team Providers Care Insole And Outsole Preparer Name Role Phone Nelson Alva DO Primary Care Provide r Sebastián Patterson MD Unavailable [phone] Encounters Date Type Department Care Team Description 01/08/2025 11:00 AM WASHTUB WORKER HELPER Office Visit [facility] Otolaryngology [address] [place] [address] Maci Carreon NP Chronic pansinusitis (Primary Dx); Pressure sensation in both ears; Nasal congestion; Acute cough 12/18/2024 Telephone [facility] Patient Access [address] [facility] [address] [place] [address] Nelson Alva DO from Last 3 Months [...] her about that. She could try using hkwy-oik-qgabeif hydrocortisone cream twice a day as needed for this. She understands. At this point she will follow up with me as needed. Hypertrophy of nasal turbinates 07/23/2022 Overview (07/23/2022): Added automatically from request for surgery [id number] Chronic maxillary sinusitis 07/23/2022 Overview (07/23/2022): Added automatically from request for surgery [id number] Nasal obstruction 06/28/2022 Assessment & Plan (06/28/2022 [...] artery disease of n ative artery of [place] heart with stable angina pectoris 05/30/2017 Assessment [...] on file Legal Sex Female 4:50 PM WASHTUB WORKER HELPER Gender Identity Not on file Sexual Orientation Not on file Occupation Industry Job Start Date Job End Date retired Not on file Not on file Not on file Last Filed Vital Signs Vital Sign Reading Time Taken Comments Blood Pressure 155/72 08/23/2022 1:55 PM CDT Pulse 99 08/23/2022 1:55 PM CDT Temperature 36.2 C (97.2 F) 01/08/2025 10:41 AM WASHTUB WORKER HELPER Respiratory Rate 20 06/15/2024 10:05 AM CDT Oxygen Saturation 93% 08/23/2022 1:55 PM CDT Inhaled Oxygen Concentration - - Weight 61.2 kg (135 lb) 01/08/2025 10:41 AM WASHTUB WORKER HELPER Height 157.5 cm (5' 2 ) 01/08/2025 10:41 AM WASHTUB WORKER HELPER Body Mass Index 24.69 01/08/2025 10:41 AM WASHTUB WORKER HELPER Plan of Treatment Not on file Medical Devices Implanted Type Area Deicer Kit Assembler Device Identifier Shelf Expiration Date Model / Serial / Lot Stent Stent [employer] Insurance [facility] Member Subscriber Plan / Payer (Ef fective 2016-Present) Name:Cassi Ramsey Relation to Subscriber:Self Name:Cassi Ramsey Payer ID:[id number] (NAIC) Type:MEDICARE RISK OTHER Address: [address] [place] [id number] [employer]ALTHCARE HEALTHCARE Care Teams Insole And Outsole Preparer Relationship Specialty Start Date End Date Nelson Alva DO PCP - General Family Medicine 04/26/19 Sebastián Patterson [place] [address] [address] Consulting Physician Otolaryngology 08/23/22
--- OUTSIDE RECORDS SUMMARY | 2025-01-17 19:31 | XMS_ITS | Clinical Summary ---
Author Organization [facility] Address [address] [place] [address] Phone Care Team Providers Care Wax Bleacher Name Role Phone NIHARIKA MORA, WISAM Lujan [phone] Reason for Visit and Chief Complaint The Chief Complaint is: follow up for depression Problems Includes: Problems addressed during this encounter and other active Problems Current Visit Onset Date Resolved Date Provider Prakash wiseman Status Persistent Insomnia 01/08/2015 WISAM REECE MD Active Last Documented On 5 3:41PM ; [facility] Major Depression, Recurrent 12/21/2012 WISAM RM MD Active Last Documented On 3 2:42PM ; [facility] Generalized Anxiety Disorder 11/17/2012 WISAM RM MD Active Last Documented On 3 3:17PM ; [facility] Past Visits Onset Date Resolved Date Provider Condition Status Heart Block 11/12/2014 WISAM COULTER MD Active Last Documented On 01/08/2015 3:05PM ; [facility] Note: 40% Gerd 11/17/2012 WISAM COULTER MD Active Last Documented On 3 3:18PM ; [facility] Hypertension Systemic 11/17/2012 WISAM EDWARD MD Active Last Documented On 3 3:18PM ; [facility] Hypokalemia 11/17/2012 WISAM RM MD A ctive Last Documented On 3 3:18PM ; [facility] Intervertebral Disc Degeneration 11/17/2012 MET RAYO RM MD Active Last Documented On 3 3:19PM ; [facility] Plan of Treatment Education and Decision Aids were provided during visit for: Patient education about medi cation --- I educated patient on medication(s) and diagnosis. I reviewed the risks, benefits and side effects of patient's medications Last Documented On 5 2:29PM ; [facility] Discussed calming techniques such as breathing exercises/meditation and other relaxation techniques Last Documented On 5 2:29PM ; [facility] Counseling for nutrition/camilo ght management provided Last Documented On 5 7:49PM ; [facility] Assessments Includes: Assessments from this encounter Findings - Major depression, recurrent - Last Documented On 10/09/2015 7:51PM ; [facility] - Persistent insomnia - Last Documented On 10/09/2015 7:51PM ; [facility] - Generalized anxiety disorder - Last Documented On 10/09/2015 7:51PM ; [facility] Instructions Includes: Instructions from this encounter Education and Decision Aids were provided during visit for: Patient education about medi cation --- I educated patient on medication(s) and diagnosis. I reviewed the risks, benefits and side effects of patient's medications Last Documented On 5 2:29PM ; [facility] Discussed calming techniques such as breathing exercises/meditation and other relaxation techniques Last Documented On 5 2:29PM ; [facility] Counseling for nutrition/camilo ght management provided Last Documented On 5 7:49PM ; [facility] Medical Equipment - Implanted Devices Includes: Current [...] tablet every mornin g with food Pharmacy: [address], [address] - Last Documented On 02/03/2016 8:07AM By Liz Rm MD ; [facility] Current Medications (continue as prescribed) Viibryd 20 [...] 02/03/2016 8:07AM By Liz Rm MD ; [facility] Levothyroxine Sodium 50 MCG Tablet 10/09/2015 Provid er: Diagnosis: Take 1 tablet by mouth every day Last Documented On 5 2:42PM By YOAV MCCARTNEY LPN ; [facility] Lasix 20 MG OR TABS 01/08/2015 Provider: Diagnosis: Dr. Burleson -- Durability Engineer in [place] Last Documented On 01/08/2015 3:01PM By Liz Rm MD ; [facility] Potassium Chloride ER 20 MEQ OR TBCR 01/08/2015 Prov ider: Diagnosis: Last Documented On 01/08/2015 3:02PM By Liz Rm MD ; [facility] Aspirin 81 MG OR TABS 12/25/2012 Provider: Diagnosis: Last Documented On 3 1:11PM By GRACE ESPINO ; [facility] TH Vitamin B1 100 MG OR TABS 12/25/2012 Provider: Diagnosis: Last Documented On 3 1:10PM By GRACE ESPINO ; [facility] Carvedilol 25 MG OR TABS 12/25/2012 Provider: Diagnosis: Last Documented On 3 1:10PM By GRACE ESPINO ; [facility] Past Medications on file Silenor 3 MG OR TABS 01/08/2015 - 01/24/2015 Provider: WISAM RM MD Diagnosis: PERSISTENT INSOM KENNETH given 16 tablets samples Last Documented On 01/08/2015 3:48PM By Liz Rm MD ; [facility] Medications Administered Includes: Administered Medications from this encounter No Administered Medications Recorded Vital Signs Includes: Vital Signs from this encounter Vital Name 10/09/2015 02:47P Blood Pressure Sitting R 130/84 BP Cuff Size Regular Pulse Rate-Sitting (bpm) 80 Pulse Rhythm Regular Height (in) 62.5 Weight (lb) 144 Body Mass Index (kg/m2) 25.9 Body Surface Area (m2) 1.7 Last Documented: On 10/09/2015 2:47PM ; [facility] Results Includes: Results discussed during this encounter [...] her GED.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 Her gnosticist background is amish 10/09/2015 Last Documented On 5 7:51PM ; [facility] Work history She is retired 10/09/2015 Last Documented On 5 7:51PM ; [facility] Marital history 10/09/2015 Last Documented On 5 7:51PM ; [facility] Not using alcohol 11/17/2012 Last Documented On 5 2:28PM ; [facility] Not using drugs (Illicit) 11/17/2012 Last Documented On 5 2:28PM ; [facility] Smoking status : Never smoked 11/17/2012 Last Documented On 5 2:28PM ; [facility] Procedures and Surgical History Includes: Procedures from [...] plan Last Documented On 5 2:29PM ; [facility] Clinical summary provided to patient Last Documented On 5 7:49PM ; [facility] Surgical History Last Updated History of Prior Surgery: ~T AH ~Neck surgery ~Cholecystectomy 2001 ~Cardiac catherization-- Dr. Burleson in [place] ~ 01/08/2015 Last Documented On 5 2:28PM ; [facility] Medical History Includes: Medical History addressed during this encounter Description Last Updated History of A-V block 10/09/2015 Last Documented On 5 7:51PM ; [facility] History of hypothyroidism 10/09/2015 Last Documented On 5 7:51PM ; [facility] History of intervertebral di sc degeneration ~[facility] [place] 09/18/14 for low potassium ~[place] -- 201210/09/2015 Last Documented On 5 7:51PM ; [facility] Primary Care Provider: Dr. Pierre Maharaj -- [place] ~Dr. Morejon-Drying Oven Tender 01/08/2015 Last Documented On 5 2:28PM ; [facility] History of GERD 04/29/2014 Last Documented On 5 2:28PM ; [facility] History of hypertension 04/29/2014 Last Documented On 5 3:08PM ; [facility] History of hypokalemia 04/29/2014 Last Documented On 5 3:08PM ; [facility] Family History Includes: Family History addressed during this encounter Description Last Updated Paternal history of alcoholism -- father 01/08/2015 Last Documented On 5 2:28PM ; [facility] Sororal history of depression -- sister 01/08/2015 Last Documented On 5 2:28PM ; [facility] Review of Systems Includes: Review of Systems [...] Active Last Documented On 03/05/2023 5:40PM ; [facility] Note: Imported from external source. Encounters Encounter Provider Location Date Check-In Time Check-Out Time Diagnosis GENERAL OFFICE VISIT WISAM RM MD [facility] 10/09/20 15 2:29PM 3:22PM Major Depression, Recurrent,Gen eralized Anxiety Disorder,Pers istent Insomnia Insurance Includes: Active Insurance Policies No Insurance Coverage Recorded Guarantor Relationship Effective Dates Guarantor Ph one ROSALIE THOMASON Self [id number] Clinical Notes Includes: Clinical Notes from this encounter No Clinical Notes Recorded
--- OUTSIDE RECORDS SUMMARY | 2025-01-17 19:31 | XMS_ITS | Encounter Summary ---
Author Organization [facility] Care Team Providers Care Zoo Caretaker Name Role Phone Roscoe Maharaj MD Primary Care Provider [phone] Nelson Alva DO Primary Care Provide r Sebastián Patterson MD Unavailable [phone] Encounter Details Date Type Department Care Team (Latest Contact Info) Description 07/13/2018 Orders Only [facility] ProviderGuillermo MD [address] [place], [place] [id number] Social History Tobacco Use Types Packs/Day Years Used Date Smoking Tobacco: Never Smokeless Tobacco: Never Alcohol Use Standard Drinks/Week Comments No 0 (1 standard drink = 0.6 oz pur e alcohol) Comments Unknown Sex and Gender Information Value Date Recorded Sex Assigned at Not on file Legal Sex Female 4:50 PM DEALER ACCOUNT MANAGER Gender Identity Not on file Sexual Orientation Not on file documented as of this encounter Plan of Treatment Not on file documented as of this encounter Procedures Procedure Name Priority Date/Time Associated Diagnosis Comments CARDIOLOGY REPORT 11/28/2018 12: 00 AM DEALER ACCOUNT MANAGER documented in this encounter Results * CARDIOLOGY REPORT (11/28/2018 12:00 AM DEALER ACCOUNT MANAGER) Anatomical Region Laterality Modality Other Narrative 11/28/2018 12:00 AM DEALER ACCOUNT MANAGER Ordered by an unspecified provider. Historical Provider [facility] Final Result documented in this encounter Visit Diagnoses Not on filedocumented in this encounter Care Teams Zoo Caretaker Relationship Specialty Start Date End Date Roscoe Maharaj MD [address] [place] [address] PCP - General Family Medicine 05/25/17 04/25/19 Nelson Alva DO [address] [place] [address] PCP - General Family Medicine 04/26/19 Sebastián Patterson [place] [address] Consulting Physician Otolaryngology 08/23/22 documented as of this encounter
--- OUTSIDE RECORDS SUMMARY | 2025-01-17 19:31 | XMS_ITS | Clinical Summary ---
Author Organization [facility] Address [address] [place] [address] Dr. Bassn: Epic Prelude ADT ABDIEL MALAVE [address] Care Team Providers Care Principal System Software Engineer Name Role Phone Unavailable Primary Care Provider Unavailabl e Social History Tobacco Use Types Packs/Day Years Used Date Smoking Tobacco: Never Assessed Comments Unknown Sex and Gender Information Value Date Recorded Sex Assigned at Not on file Legal Sex Female 3:36 AM CORD CUTTER Gender Identity Not on file Sexual Orientation [...]
--- OUTSIDE RECORDS SUMMARY | 2025-01-17 19:31 | XMS_ITS | Clinical Summary ---
Author Organization [facility] Address [address] [place] [address] Care Team Providers Care Squirt Machine Operator Name Role Phone Isrrael Burleson MD Unavailable Emerald King RN Unavailable [phone] Allergies Active Allergy Reactions Criticality Noted Date [...] complication, without long-term current use of insulin ([facility]) TAKE 1 TABLET BY MOUTH EVERY DAY [...] (08/11/2022): Added automatically from request for surgery [id number] Deviated nasal septum 06/28/2022 Greater trochanteric bursitis [...] hyperglycemia, without long-term current use of insulin ([facility]) 11/06/2018 Assessment & Plan (11/06/2018 10:33 AM STUDENT EDUCATION SPECIALIST): Unknown chronicity, new diagnosis Patient has had [...] Overview (09/01/2023): Note: 40% CVA (cerebrovascular accident) ([facility]) 09/17/2014 Moderate episode of recurrent major depressive d isorder 04/05/2014 Hyperlipidemia associated wi th type 2 diabetes mellitus ([facility]) Hypertension associated with type 2 diabetes mellitus ([facility]) Assessment & Plan (11/06/2018 10:26 AM STUDENT EDUCATION SPECIALIST): HTN: BP of 133/76 mmHg @ 1150 on 11/05/18 - Continue Home medications (isosorbid, Lasix 20 mg, Losartan and Coreg) - Increased Losartan to 50 mg daily on 11/04 - Add Amlodipine 5 mg, as she has been on this in the past (10 mg) Atherosclerotic heart diseas e of [place] coronary artery without angina pectoris Resolved Problems Problem Noted Date Diagnosed Date Resolved Date Closed fracture of nasal bones 06/18/2024 10/25/2024 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 Hypertensive crisis 10/03/2020 11/27/19 25 Hypokalemia 11/04/2018 12/25/2024 Overview (11/04/2018): Assessment & Plan (11/06/2018 10:27 AM STUDENT EDUCATION SPECIALIST): Hypokalemia: resolved, 4.1 this am after KCl 60 mg PO - Consider increasing home dose from 10 mg daily to 20 mg daily on discharge Influenza vaccine needed 09/25/201509/2020 Changing skin lesion 03/14/2015 025 Chronic sinusitis 03/14/2015 12/25/2024 Encounters Date Type Department Care Team Description 01/03/2025 Telephone [facility] [address] Carol Tinsley, MAINSPRING TORQUE TESTER Concerns 01/02/2025 Telephone [facility] [address] [address] Nelson Alva, DO Referral 01/02/2025 Telephone [facility] [address] [address] Nelson Alva, DO Medication Request 12/31/2024 1:40 PM STUDENT EDUCATION SPECIALIST [facility] [address] [place] [address] Dinh Pop NP Hip Pain (Right Hip Pain) 12/31/2024 Scan [employer] INFO SRVCS Scanned, [facility] 12/31/2024 Travel 12/28/2024 Orders Only [facility] [address] [place] [address] Dinh Pop NP 12/26/2024 Telephone [facility] [address] [phone] Nelson Alva, DO Referral 12/24/2024 3:40 PM STUDENT EDUCATION SPECIALIST Office Visit [facility] [address] [phone] Nelson Alva, DO ER F/U (Right foot pain. The patient went to urgent care in [place]. She states she had XR at [facility]. The patient states she was dx with bone spur, heel spur, gout. ) 12/24/2024 Scan [facility] INFO SRVCS Scanned, [facility] 12/24/2024 Travel 12/24/2024 Telephone [facility] [address] [address] Isrrael Burleson MD Surgical Clearance 12/18/2024 Scan [facility] INFO SRVCS Scanned, [facility] Image (SCAN) 12/18/[address] [address] Nelson Alva, DO Referral 12/17/2024 Scan [facility] INFO SRVCS Scanned, [facility] 12/17/[address] [address] Nelson Alva, DO Referral 12/13/2024 Telephone [facility] [address] [address] Isrrael Burleson MD Surgical Clearance 12/12/2024 Scan [facility] INFO SRVCS Scanned, [facility] 12/11/[address] [phone] Nelson Alva, DO Advice 12/04/2024 Telephone [facility] Internal [address] [address] Nelson Alva, DO Referral 11/27/2024 7:00 AM STUDENT EDUCATION SPECIALIST Telemedicine [facility] [address] [phone] Nelson Alva, DO URI (Bilateral ear pain and pressure, Cough, and green congestion x4 days. Covid test was negative ) 11/27/2024 Travel 11/26/[address] [phone] Nelson Alva, DO Advice 11/08/2024 Scan HEALTH INFO SRVCS Scanned, [facility] 10/25/2024 10:20 AM STUDENT EDUCATION SPECIALIST Office Visit [address] [phone] Nelson Alva, DO Diabetes (3 month follow up. ) 10/24/2024 2:15 PM STUDENT EDUCATION SPECIALIST Office Visit [facility] [address] Carol Tinsley, [employer] TESTER Coronary Artery Disease (8 month); [...] Cancer Father Depression Father Diabetes Maternal Grandfather RI Maternal Grandfather Diabetes Maternal Grandmother RI Maternal Grandmother Hypertension Mother RI Mother Rheumatic Fever Mother tia Mother Alcohol [...] Sex Assigned at Female 10/25/2024 10:07 AM STUDENT EDUCATION SPECIALIST Legal Sex Female 2:31 AM CDT Gender Identity Female 01/05/2022 11:28 AM STUDENT EDUCATION SPECIALIST Sexual Orientation Straight 01/05/2022 11 :28 AM STUDENT EDUCATION SPECIALIST Occupation Industry Job Start Date Job End Date Not on file Not on file Not on file Not on file Last Filed Vital Signs Vital Sign Reading Time Taken Comments Blood Pressure 137/71 12/31/2024 1:29 PM STUDENT EDUCATION SPECIALIST Pulse 77 12/31/2024 1:29 PM STUDENT EDUCATION SPECIALIST Temperature 37.2 C (98.9 F) 12/31/2024 1:29 PM STUDENT EDUCATION SPECIALIST Respiratory Rate 16 12/24/2024 3:54 PM STUDENT EDUCATION SPECIALIST Oxygen Saturation 97% 12/31/2024 1:29 PM STUDENT EDUCATION SPECIALIST Inhaled Oxygen Concentration - - Weight 67 kg (147 lb 12.8 oz) 12/31/2024 1:29 PM STUDENT EDUCATION SPECIALIST Height 158.8 cm (5' 2.5 ) 12/31/2024 1:29 PM STUDENT EDUCATION SPECIALIST Body Mass Index 26.6 12/31/2024 1:29 PM STUDENT EDUCATION SPECIALIST Plan of Treatment Upcoming Encounters Date Type Department Care Team (Latest Contact Info) Description 5 2:[address] [facility] [place] [address] Oleksandr Vera, DO [address] [place] [address] [place] [phone] 5 10:27 AM CDT Hospital Encounter [facility] [address] Oleksandr Vera, DO [address] [place] [address] [place] [phone] 5 10:27 AM CDT - 5 1:[address] [place] [address] Oleksandr Vera, DO [address] [place] [address] [place] [address] ROBOTIC XI ASSISTED LAPAROSCOPIC HIATAL HERNIA REPAIR WITH TOUPET FUNDOPLICATION, POSSIBLE MESH, POSSIBLE OPEN, WITH ESOPHAGOGASTRODUODENOSCOPY 5 1:00 PM CDT Office Visit [facility] [place] [facility] [address] [place] [address] Carol Tinsley FNP 3 [facility] [address] [place] [address] Scheduled Procedures Name Priority Associated Diagnoses Date/Ti [...] 07/10, 10/21/2022, Additional history exists PHQ-2 (Physician Marshall) Completed 11/27/2024 Meningococcal B Vaccine Aged Out [...] Sodium Intake Diet No change(2021 8:23 AM STUDENT EDUCATION SPECIALIST) No Emerald King RN Establish Plan for Symptom Monitoring General On track( 12:06 PM STUDENT EDUCATION SPECIALIST) No Emerald King RN Consistently take medications as Prescribed General On track( 8:23 AM STUDENT EDUCATION SPECIALIST) No Emerald King RN Note: 12/24 on track with exception of iron tablet 01/01-still needs iron Procedures Procedure Name Priority Date/Time Associated Diagnosis Comments XR HIP RT 2V Routine 12/31/2024 1:30 PM STUDENT EDUCATION SPECIALIST Chronic right hip pain IMAGE GENERIC 12/18/2024 COLLECT.CAPILLARY (FNGR,HEEL,EAR) Routine 10/25/2024 9:44 AM STUDENT EDUCATION SPECIALIST Type 2 diabetes mellitus with other circulatory complication, without long-term current use of insulin HEMOGLOBIN, GLYCOSYLATED Routine 10/25/2024 Type 2 diabetes mellitus with other circulatory complication, without long-term current use of insulin ([facility]CC) LIPID PANEL Routine 05/21/2024 4:23 PM CDT Type 2 diabetes mellitus with other circulatory complication, without long-term current use of insulin Hyperlipidemia associated with type 2 diabetes mellitus Hypertension associated with type 2 diabetes mellitus COLONOSCOPY GENERIC (SCAN ORDER) 05/05/2023 BONE DENSITY GENERIC (SCAN ORDER) 06/01/2021 MAMMOGRAM GENERIC (SCAN ORDER) 06/01/2021 HEPATITIS C ANTIBODY Routine 12/15/2016 11:07 AM STUDENT EDUCATION SPECIALIST from Last 3 Months or Most Recently Relevant to Health Maintenance Results * XR HIP RT 2V (12/31/2024 1:30 PM STUDENT EDUCATION SPECIALIST) Anatomical Region Laterality Modality Hip Radiographic Jahaira ging 12/31/2024 2:17 PM STUDENT EDUCATION SPECIALIST Impressions 12/31/2024 2:19 PM STUDENT EDUCATION SPECIALIST IMPRESSION: No acute bony abnormality. Ordered By: DINH POP Interpreted By: Rob Hoang MD, 12/31/2024 2:17 PM Narrative 12/31/2024 2:19 PM STUDENT EDUCATION SPECIALIST Exam description: Right hip-2 views Exam time: [...] Hoang MD, 12/31/2024 2:17 PM Dinh Pop PHARMACY SERVICES REPRESENTATIVE GENERAL IMAGING Final Re sult * IMAGE GENERIC (12/18/2024) Anatomical Region Laterality Modality Other 12/18/2024 us Doc [facility] Scanned SCANNING Final Resu lt * HEMOGLOBIN, GLYCOSYLATED (10/25/2024) HGB A1C 7.4 % [facility] 10/25/2024 Nelson Alva DO LABORATORY Final Re sult [place] [id number] [place] [address], * (ABNORMAL) LIPID PANEL (05/21/2024 4:23 PM CDT) CHOLESTEROL 171 <200 MG/DL 05/21/2024 8:57 PM CDT [facility] TRIGLYCERIDES 189(H) <150 MG/DL 05/21/2024 8:57 PM CDT [facility] HDL 41 >40 MG/DL 05/21/2024 8:57 PM CDT [facility] LDL-C 92 <100 MG/DL 05/21/2024 8:57 PM CDT [facility] VLDL CALCULATION 38(H) 5 - 28 MG/DL 05/21/2024 8:57 PM CDT [facility] CHOL/HDL RATIO 4.2(H) 0.0 - 4.0 05/21/2024 8:57 PM CDT [facility] LDL/HDL 2.2(H) 0.41 - 2.13 05/21/2024 8:57 PM CDT [facility] NON HDL CHOLESTEROL 130 <140 MG/DL 05/21/2024 8:57 PM CDT [facility] 05/21/2024 4:23 PM CDT Nelson Alva DO LABORATORY Final Re sult [facility] [place] [address] [place] [address], [place] [phone] * COLONOSCOPY GENERIC (05/05/2023) 05/05/2023 us Doc [...] * HEPATITIS C ANTIBODY (12/15/2016 11:07 AM STUDENT EDUCATION SPECIALIST) HEPATITIS C AB NON-REACTI VE NON-REACTI VE 12/16/2016 6:50 PM STUDENT EDUCATION SPECIALIST [facility] Comment: [place] [address] SERUM OR PLASMA SPECIMEN / Unknown 12/15/2016 11:07 AM STUDENT EDUCATION SPECIALIST 12/15/2016 9:47 PM STUDENT EDUCATION SPECIALIST us Generic Conversion Md [facility] Final R esult [facility] [address] [place] [address], from Last 3 Months or Most Recently Relevant to Health Maintenance Insurance ESSENCE ESSENCE Member Subscriber Plan / Payer (Ef fective 2021-Present) Name:Cassi Ramsey Relation to Subscriber:Self Name:Cassi Ramsey Payer ID:Not on file Type:Not on file Address: [address] Advance Directives Documents on File Type Date Recorded Patient Hand Mold Maker Expl anation Advance Directives and Living Will 11/06/2018 8:39 AM POA 06/29/16 Advance Directives and Living Will 06/27/2016 POWER OF TRUCK ASSEMBLER * Full Code (Latest Code Status on [...] 2:53 PM 11/28/2018 8:35 PM Care Teams Squirt Machine Operator Relationship Specialty Start Date End Date Isrrael Burleson MD [facility]. [address] [address] Davian Customer Data Technician CARDIOVASCULAR DISEASE 04/07/16 Emerald King, RN [address] [facility] [address] [place] [address] Hoisting Engineer Pile Driving (Ambulatory) REGISTERED NURSE 2/8/22
--- OUTSIDE RECORDS SUMMARY | 2025-01-17 19:31 | XMS_ITS | Clinical Summary ---
Author Organization [facility] Address [address] [place] [address] Phone Care Team Providers Care Research Scholar Name Role Phone NIHARIKA MORA, WISAM HART [facility] [phone] Reason for Visit and Chief Complaint NO SHOW Problems Includes: Problems addressed during this encounter and other active Problems All Visits Onset Date Resolved Date Provider Condition S tatus Persistent Insomnia 01/08/2015 WISAM REECE MD Active Last Documented On 5 3:41PM ; [facility] Heart Block 11/12/2014 WISAM RM MD A ctive Last Documented On 5 3:05PM ; [facility] Note: 40% Major Depression, Recurrent 12/21/2012 WISAM RM MD Active Last Documented On 3 2:42PM ; [facility] Generalized Anxiety Disorder 11/17/2012 WISAM RM MD Active Last Documented On 3 3:17PM ; [facility] Gerd 11/17/2012 WISAM RM MD Ac tive Last Documented On 3 3:18PM ; [facility] Hypertension Systemic 11/17/2012 WISAM EDWARD MD Active Last Documented On 3 3:18PM ; [facility] Hypokalemia 11/17/2012 WISAM RM MD A ctive Last Documented On 3 3:18PM ; [facility] Intervertebral Disc Degeneration 11/17/2012 MET RAYO RM MD Active Last Documented On 3 3:19PM ; [facility] Plan of Treatment No Plan of Treatment [...] 02/03/2016 8:07AM By Liz Rm MD ; [facility] Levothyroxine Sodium 50 MCG Tablet 10/09/2015 Provid er: Diagnosis: Take 1 tablet by mouth every day Last Documented On 5 2:42PM By YOAV MCCARTNEY LPN ; [facility] Lasix 20 MG OR TABS 01/08/2015 Provider: Diagnosis: Dr. Burleson -- Coat Joiner in [place] Last Documented On 01/08/2015 3:01PM By Liz Rm MD ; [facility] Potassium Chloride ER 20 MEQ OR TBCR 01/08/2015 Prov ider: Diagnosis: Last Documented On 01/08/2015 3:02PM By Liz Rm MD ; [facility] Aspirin 81 MG OR TABS 12/25/2012 Provider: Diagnosis: Last Documented On 3 1:11PM By GRACE ESPINO ; [facility] TH Vitamin B1 100 MG OR TABS 12/25/2012 Provider: Diagnosis: Last Documented On 3 1:10PM By GRACE ESPINO ; [facility] Carvedilol 25 MG OR TABS 12/25/2012 Provider: Diagnosis: Last Documented On 3 1:10PM By GRACE ESPINO ; [facility] Medications Administered Includes: Administered Medications from this [...] Last Documented On 03/05/2023 5:40PM ; [facility] Note: Imported from external source. Encounters Encounter Provider Location Date Check-In Time Check-Out Time Diagnosis NO SHOW WISAM RM MD [facility] 11/14/2014 1:30PM 11:59PM Insurance Includes: Active Insurance Policies No Insurance Coverage Recorded Guarantor Relationship Effective Dates Guarantor Ph one ROSALIE THOMASON Self [id number] Clinical Notes Includes: Clinical Notes from this encounter No Clinical Notes Recorded
--- OUTSIDE RECORDS SUMMARY | 2025-01-17 19:31 | XMS_ITS | Clinical Summary ---
Author Organization [facility] Address [address] [place] [address] Phone Care Team Providers Care Oil Burner Journeyman Name Role Phone Unavailable Unavailable Unavailable Reason for Visit and Chief Complaint [Patient Encounter] Problems Includes: Problems addressed during this encounter and other active Problems All Visits Onset Date Resolved Date Provider Condition S tatus Persistent Insomnia 01/08/2015 Activ e Last Documented On 3 5:47PM ; [facility] Heart Block 11/12/2014 Active Last Documented On 03/05/2023 5:47PM ; [facility] Note: 40% Major Depression, Recurrent 12/21/2012 Active Last Documented On 3 5:44PM ; [facility] Generalized Anxiety Disorder 11/17/2012 Active Last Documented On 3 5:43PM ; [facility] Gerd 11/17/2012 Active Last Documented On 3 5:43PM ; [facility] Hypertension Systemic 11/17/2012 Act jack Last Documented On 3 5:43PM ; [facility] Hypokalemia 11/17/2012 Active Last Documented On 3 5:43PM ; [facility] Intervertebral Disc Degeneration 11/17/2012 Active Last Documented On 3 5:43PM ; [facility] Plan of Treatment No Plan [...] On 03/05/2023 5:34PM By GRACE ESPINO ; [facility] Current Medications (continue as prescribed) Viibryd 20 [...] 03/05/2023 5:34PM By Liz Rm MD ; [facility] Levothyroxine Sodium 50 MCG OR TABS 10/09/2015 Provi jennifer: Diagnosis: Take 1 tablet by mouth every day Last Documented On 03/05/2023 5:34PM By YOAV MCCARTNEY LPN ; [facility] Lasix 20 MG OR TABS 01/08/2015 Provider: Diagnosis: Dr. Burleson -- Commercial Green Building Architect in [place] Last Documented On 03/05/2023 5:34PM By Liz Rm MD ; [facility] Potassium Chloride ER 20 MEQ OR TBCR 01/08/2015 Prov ider: Diagnosis: Last Documented On 03/05/2023 5:34PM By Liz Rm MD ; [facility] Aspirin 81 MG OR TABS 12/25/2012 Provider: Diagnosis: Last Documented On 03/05/2023 5:34PM By GRACE ESPINO ; [facility] TH Vitamin B1 100 MG OR TABS 12/25/2012 Provider: Diagnosis: Last Documented On 03/05/2023 5:34PM By GRACE ESPINO ; [facility] Carvedilol 25 MG OR TABS 12/25/2012 Provider: Diagnosis: Last Documented On 03/05/2023 5:34PM By GRACE ESPINO ; [facility] Medications Administered Includes: Administered Medications [...] 1.6 Last Documented: On 03/05/2023 6:08PM ; [facility] Results Includes: Results [...] Active Last Documented On 03/05/2023 5:40PM ; [facility] Note: Imported from external source. Encounters Encounter Provider Location Date Check-In Time Check-Out Time Diagnosis [Patient Encounter] 01/08/2015 12:00AM 11:59PM Clinical Notes Includes: Clinical Notes from this encounter No Clinical Notes Recorded
--- OUTSIDE RECORDS SUMMARY | 2025-01-17 19:31 | XMS_ITS ---
Author Organization [facility] Address [address] [place] [address] Phone Care Team Providers Care Lens Polisher Name Role Phone Unavailable Unavailable Unavailable Problems Includes: Active, inactive, and resolved Problems All Visits Onset Date Resolved Date Provider Condition S tatus Persistent Insomnia 01/08/2015 Activ e Last Documented On 3 5:47PM ; [facility] Heart Block 11/12/2014 Active Last Documented On 03/05/2023 5:47PM ; [facility] Note: 40% Major Depression, Recurrent 12/21/2012 Active Last Documented On 3 5:44PM ; [facility] Generalized Anxiety Disorder 11/17/2012 Active Last Documented On 3 5:43PM ; [facility] Gerd 11/17/2012 Active Last Documented On 3 5:43PM ; [facility] Hypertension Systemic 11/17/2012 Act jack Last Documented On 3 5:43PM ; [facility] Hypokalemia 11/17/2012 Active Last Documented On 3 5:43PM ; [facility] Intervertebral Disc Degeneration 11/17/2012 Active Last Documented On 3 5:43PM ; [facility] Plan of Treatment No Plan of [...] 03/05/2023 5:34PM By YOAV MCCARTNEY LPN ; [facility] Lasix 20 MG OR TABS 01/08/2015 Provider: Diagnosis: Dr. Burleson -- Yard Jockey in [place] Last Documented On 03/05/2023 5:34PM By Liz Rm MD ; [facility] Potassium Chloride ER 20 MEQ OR TBCR 01/08/2015 Prov ider: Diagnosis: Last Documented On 03/05/2023 5:34PM By Liz Rm MD ; [facility] Aspirin 81 MG OR TABS 12/25/2012 Provider: Diagnosis: Last Documented On 03/05/2023 5:34PM By GRACE ESPINO ; [facility] TH Vitamin B1 100 MG OR TABS 12/25/2012 Provider: Diagnosis: Last Documented On 03/05/2023 5:34PM By GRACE ESPINO ; [facility] Carvedilol 25 MG OR TABS 12/25/2012 Provider: Diagnosis: Last Documented On 03/05/2023 5:34PM By GRAEC ESPINO ; [facility] Past Medications on file Viibryd 20 MG OR TABS 10/09/2015 - 02/03/2016 Provider: WISAM REECE MD Diagnosis: Major depressive disorder, recurrent, unspecified food - 1 tablet every morning with food Last Documented On 03/05/2023 5:34PM By Liz Rm MD ; [facility] Silenor 3 MG OR TABS 01/08/2015 - 01/24/2015 Provider: WISAM RM MD Diagnosis: PERSISTENT INSOM KENNETH given 16 tablets samples Last Documented On 03/05/2023 5:34PM By Liz Rm MD ; [facility] Viibryd 20 MG OR TABS 01/08/2015 - 10/09/2015 Provider: WISAM REECE MD Diagnosis: MAJOR DEPRESSION DISORDER/RECURRENT ---given samples for 7 months Last Documented On 03/05/2023 5:34PM By Liz Rm MD ; [facility] Viibryd 20 MG OR TABS 04/29/2014 - 01/08/2015 Provider: WISAM REECE MD Diagnosis: MAJOR DEPRESSION DISORDER/RECURRENT ---given samples for 7 months Last Documented On 03/05/2023 5:34PM By Liz Rm MD ; [facility] Viibryd 20 MG OR TABS 07/07/2013 - 04/29/2014 Provider: WISAM REECE MD Diagnosis: MAJOR DEPRESSION DISORDER/RECURRENT ---given samples for 4 months Last Documented On 03/05/2023 5:34PM By Liz Rm MD ; [facility] Indapamide 2.5 MG OR TABS 12/25/2012 - 01/08/2015 Prov ider: Diagnosis: Last Documented On 03/05/2023 5:34PM By GRACE ESPINO ; [facility] Viibryd 20 MG OR TABS 12/25/2012 - 06/20/2013 Provider: WISAM REECE MD Diagnosis: MAJOR DEPRESSION DISORDER/RECURRENT 1 in the morning with Food---given samples Last Documented On 03/05/2023 5:34PM By Liz Rm MD ; [facility] Viibryd 20 MG OR TABS 11/17/2012 - 12/25/2012 Provider : Diagnosis: 1 in the morning Last Documented On 03/05/2023 5:34PM By GRACE ESPINO ; [facility] Medications Administered Includes: Administered Medications in patient's [...] Active Last Documented On 03/05/2023 5:40PM ; [facility] Note: Imported from external source. Clinical Notes Includes: Signed Clinical Notes starting from 11/26/2022 No Clinical Notes Recorded
--- OUTSIDE RECORDS SUMMARY | 2025-01-17 19:31 | XMS_ITS | Encounter Summary ---
Author Organization [facility] Address [address] [place] [address] Care Team Providers Care Grit Blaster Name Role Phone Roscoe Maharaj MD Primary Care Provider Isrrael Wiggins MD Unavailable [phone] Sergo Márquez MD Unavailable [phone] Sally Srivastava MD Primary Care Provider [phone] Nelson Alva DO Primary Care Provider + Pricilla Dao MD Primary Care Provider [phone] Emerald King RN Unavailable [phone] Encounter Details Date Type Department Care Team (Late st Contact Info) Description 08/30/2016 Abstract [facility] AT [address] [address] Brenda Adler MA Social History Tobacco Use Types Packs/Day Years Used Date Smoking Tobacco: Never Smokeless Tobacco: Never Alcohol Use Standard Drinks/Week Comments No 0 (1 standard drink = 0.6 oz pur e alcohol) Comments Unknown Sex and Gender Information Value Date Recorded Sex Assigned at Female 10/25/2024 10:07 AM MARINE EQUIPMENT RESEARCH ENGINEER Legal Sex Female 2:31 AM CDT Gender Identity Female 01/05/2022 11:28 AM MARINE EQUIPMENT RESEARCH ENGINEER Sexual Orientation Straight 01/05/2022 11 :28 AM MARINE EQUIPMENT RESEARCH ENGINEER Occupation Industry Job Start Date Job End Date Not on file Not on file Not on file Not on file documented as of this encounter Progress Notes * EF Franco-MARVA - 11/12/2016 1:02 PM CST PG pt send letter continue current meds NE EQUIPMENT RESEARCH ENGINEER documented in this encounter Plan of Treatment Upcoming Encounters Date Type Department Care Team (Latest Contact Info) Description 5 2:[address] [place] [address] Oleksandr Vera, DO [address] [place] [address] [place] [address] 5 10:27 AM CDT Hospital Encounter [facility] [place] [address] Oleksandr Vera, DO [address] [place] [address] [place] [address] [phone] 10:27 AM CDT - 5 1:[address] [place] [address] Oleksandr Vera, DO [address] [place] [address] [place] [address] [phone] ROBOTIC XI ASSISTED LAPAROSCOPIC HIATAL HERNIA REPAIR WITH TOUPET FUNDOPLICATION, POSSIBLE MESH, POSSIBLE OPEN, WITH ESOPHAGOGASTRODUODENOSCOPY 5 1:00 PM CDT Office Visit Elian Amezquita- [facility] [address] [place], [place] [address] Carol Tinsley FNP [address] [facility] [address] [place], [place] [address] Scheduled Procedures Name Priority Associated Diagnoses Date/Ti [...] Final Result * LIPID PANEL (05/16/2017) Pathologist [facility] CHOLESTEROL 142 HDL 41 TRIGLYCERIDES 145 NON HDL CHOLESTEROL 101 LDL (CALCULATED) 72 05/16/2017 [facility] Abstract LABORATORY Final Result * CBC (OUTSIDE LAB) (12/15/2016) [facility] WBC 4.7 HGB 12.7 HCT 36.3 PLT 227 12/15/2016 us Doc [facility] Abstract LAB-OUTSIDE/ABSTRACTED Edite d Result - Final * LIPID PANEL (11/11/2016) [facility] CHOLESTEROL 185 HDL 50 TRIGLYCERIDES 304 NON HDL CHOLESTEROL 135 LDL (CALCULATED) 74 11/11/2016 us Doc [facility] Abstract LABORATORY Edited Resul t - Final * THYROID STIM HORMONE, TSH (11/11/2016) Pathologist [facility] TSH 5.01 11/11/2016 us Doc [facility] Abstract LABORATORY Final Result * COMPREHENSIVE METABOLIC PANEL (11/11/2016) [facility] SODIUM S/P/B 143 POTASSIUM S/P/B 3.9 CO2 [...] Result * CBC (OUTSIDE LAB) (07/07/2016) Pathologist [facility] WBC 13.2 HGB 13.0 HCT 40 PLT 387 07/07/2016 us Doc [facility] Abstract LAB-OUTSIDE/ABSTRACTED Edite d Result - Final documented in this encounter Visit Diagnoses Not on filedocumented in this encounter Additional Health Concerns Infection Onset Date Last Indicated Resolved Time COVID-19 Rule Out 09/22/2020 09/15/2020 09/22/2020 11:29 AM MARINE EQUIPMENT RESEARCH ENGINEER COVID-19 Rule Out 09/23/2020 09/23/2020 11/22/2020 12:33 AM MARINE EQUIPMENT RESEARCH ENGINEER COVID-19 Rule Out 06/01/2022 06/01/2022 06/02/2022 2:07 PM CDT COVID-19 Rule Out 12/28/2022 12/28/2022 12/29/2022 1:28 PM MARINE EQUIPMENT RESEARCH ENGINEER COVID-19 Rule Out 02/16/2023 02/16/2023 02/16/2023 11:21 AM CDT COVID-19 Rule Out 02/16/2023 02/16/2023 02/17/2023 1:03 PM CDT COVID-19 Rule Out 09/13/2023 09/13/2023 09/13/2023 1:56 PM MARINE EQUIPMENT RESEARCH ENGINEER COVID-19 Rule Out 09/13/2023 09/13/2023 09/14/2023 3:52 PM MARINE EQUIPMENT RESEARCH ENGINEER documented as of this encounter Care Teams Grit Blaster Relationship Specialty Start Date End Date Roscoe Maharaj MD PCP - General FAMILY PRACTICE 04/14/16 09/06/17 Sally Srivastava MD [facility] Internal Medicine [address] [place] [address] PCP - General INTERNAL MEDICINE 11/04/18 01/04/19 Nelson Alva DO [address] [place] [address] PCP - General FAMILY PRACTICE 02/05/19 01/03/25 Pricilla Dao MD [address] [place] [address] PCP - General FAMILY PRACTICE 01/05/19 02/04/19 Isrrael Burleson MD [address] [place] [address] Thompson Retail Sales Manager CARDIOVASCULAR DISEASE 04/07/16 Sergo Márquez MD [address] [place] [address] Catherine Retail Sales Manager CARDIOVASCULAR DISEASE 11/24/16 11/25/16 Emerald King, RN [address] [facility] [address] [place] [address] [phone] General Neurologist (Ambulatory) REGISTERED NURSE 12/15/21 documented as of this encounter
--- OUTSIDE RECORDS SUMMARY | 2025-01-17 19:31 | XMS_ITS | Clinical Summary ---
Author Organization [facility] Address [address] [place] [address] Phone Care Team Providers Care Meat Counter Clerk Name Role Phone Unavailable Unavailable Unavailable Reason for Visit and Chief Complaint [Patient Encounter] Problems Includes: Problems addressed during this encounter and other active Problems All Visits Onset Date Resolved Date Provider Condition S tatus Persistent Insomnia 01/08/2015 Activ e Last Documented On 3 5:47PM ; [facility] Heart Block 11/12/2014 Active Last Documented On 03/05/2023 5:47PM ; [facility] Note: 40% Major Depression, Recurrent 12/21/2012 Active Last Documented On 3 5:44PM ; [facility] Generalized Anxiety Disorder 11/17/2012 Active Last Documented On 3 5:43PM ; [facility] Gerd 11/17/2012 Active Last Documented On 3 5:43PM ; [facility] Hypertension Systemic 11/17/2012 Act jack Last Documented On 3 5:43PM ; [facility] Hypokalemia 11/17/2012 Active Last Documented On 3 5:43PM ; [facility] Intervertebral Disc Degeneration 11/17/2012 Active Last Documented On 3 5:43PM ; [facility] Plan of Treatment No Plan of Treatment [...] By Liz Rm MD ; [facility] Levothyroxine Sodium 50 MCG OR TABS 10/09/2015 Provi jennifer: Diagnosis: Take 1 tablet by mouth every day Last Documented On 03/05/2023 5:34PM By YOAV MCCARTNEY LPN ; [facility] Lasix 20 MG OR TABS 01/08/2015 Provider: Diagnosis: Dr. Burleson -- Side Door Worker in [place] Last Documented On 03/05/2023 5:34PM By Liz Rm MD ; [facility] Potassium Chloride ER 20 MEQ OR TBCR 01/08/2015 Prov ider: Diagnosis: Last Documented On 03/05/2023 5:34PM By Liz Rm MD ; [facility] Aspirin 81 MG OR TABS 12/25/2012 Provider: Diagnosis: Last Documented On 03/05/2023 5:34PM By GRACE ESPINO ; [facility] TH Vitamin B1 100 MG OR TABS 12/25/2012 Provider: Diagnosis: Last Documented On 03/05/2023 5:34PM By GRACE ESPINO ; [facility] Carvedilol 25 MG OR TABS 12/25/2012 Provider: Diagnosis: Last Documented On 03/05/2023 5:34PM By GRACE ESPINO ; [facility] Medications Administered Includes: Administered Medications from this encounter No Administered Medications Recorded Vital Signs Includes: Vital Signs from this encounter Vital Name 10/09/2015 02:47P Blood Pressure Sitting (mmHg) 130/84 BP Cuff Size Regular Pulse Rate-Sitting (bpm) 80 Pulse Rhythm Regular Height (in) 62.5 Weight (lb) 144 Body Mass Index (kg/m2) 25.9 Body Surface Area (m2) 1.7 Last Documented: On 03/05/2023 6:08PM ; [facility] Results Includes: Results discussed during this [...] Active Last Documented On 03/05/2023 5:40PM ; [facility] Note: Imported from external source. Encounters Encounter Provider Location Date Check-In Time Check-Out Time Diagnosis [Patient Encounter] 10/09/2015 12:00AM 11:59PM Clinical Notes Includes: Clinical Notes from this encounter No Clinical Notes Recorded
--- OUTSIDE RECORDS SUMMARY | 2025-01-17 19:31 | XMS_ITS | CONTINUITY OF CARE DOCUMENT ---
Author Name rocco valiente Address Unknown Organization [facility] Address [address] [facility] [address] [place] [address] Phone [phone] Care Team Providers Care Nut Grader Name Role Phone Demetrius MORA, Matilde Unavailable [phone] DALLIN MORA, RUDY Unavailable INSURANCE PROVIDERS Payer name Policy type / Coverage type [place] red green party ID [place] MEDICAID (2) Medicaid [id number]
--- OUTSIDE RECORDS SUMMARY | 2025-01-17 19:31 | XMS_ITS | Clinical Summary ---
Author Organization [facility] Address [address] [place] [address] Care Team Providers Care Transfer Driver Name Role Phone Nelson Alva Primary Care Provide r Sebastián Patterson MD Unavailable [phone] Allergies Active Allergy Reactions Criticality Noted Date [...] her about that. She could try using hdoj-zjv-kuoddzh hydrocortisone cream twice a day as needed for this. She understands. At this point she will follow up with me as needed. 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 Essential hypertension, benign 05/30/2017 Pure hypercholesterolemia 05/30/2017 Encounters Date Type Department Care Team Description 01/08/2025 11:00 AM MARKETING OPERATIONS INTERN Office Visit [facility] Otolaryngology [address] [place] [address] Maci Carreon, NITA Chronic pansinusitis (Primary Dx); Pressure sensation in both ears; Nasal congestion; Acute cough 12/18/2024 Telephone [facility] Patient Access [address] [place] [address] Nelson Alva DO from Last 3 Months [...] on file Legal Sex Female 4:50 PM MARKETING OPERATIONS INTERN Gender Identity Not on file Sexual Orientation Not on file Occupation Industry Job Start Date Job End Date retired Not on file Not on file Not on file Obstetrics History Last Filed Vital Signs Vital Sign Reading Time Taken Comments Blood Pressure 155/72 08/23/2022 1:55 PM CDT Pulse 99 08/23/2022 1:55 PM CDT Temperature 36.2 C (97.2 F) 01/08/2025 10:41 AM MARKETING OPERATIONS INTERN Respiratory Rate 20 06/15/2024 10:05 AM CDT Oxygen Saturation 93% 08/23/2022 1:55 PM CDT Inhaled Oxygen Concentration - - Weight 61.2 kg (135 lb) 01/08/2025 10:41 AM MARKETING OPERATIONS INTERN Height 157.5 cm (5' 2 ) 01/08/2025 10:41 AM MARKETING OPERATIONS INTERN Body Mass Index 24.69 01/08/2025 10:41 AM MARKETING OPERATIONS INTERN Plan of Treatment Health Maintenance Due Date [...] history exists Medical Devices Implanted Type Area Investigation Division Captain Device Identifier Shelf Expiration Date Model / Serial / Lot Stent Stent [employer] Insurance [facility] [place] [address] HEALTHCARE Care Teams Transfer Driver Relationship Specialty Start Date End Date Nelson Alva DO PCP - General Family Medicine 04/26/19 Sebastián Patterson MD [place] [address] Consulting Physician Otolaryngology 08/23/22
--- OUTSIDE RECORDS SUMMARY | 2025-01-17 19:31 | XMS_ITS | Encounter Summary ---
Author Organization [facility] Address [address] [place] [address] Care Team Providers Care Senior Lead Software Engineer Name Role Phone Isrrael Burleson MD Unavailable [phone] Nelson Alva DO Primary Care Provider + Emerald King RN Unavailable [phone] Encounter Details Date Type Department Care Team (Late st Contact Info) Description 11/17/2021 Abstract [facility] [address] Brenda Alder MA Social History Tobacco Use Types Packs/Day [...] Sex Assigned at Female 10/25/2024 10:07 AM SALES PLANNER Legal Sex Female 2:31 AM CDT Gender Identity Female 01/05/2022 11:28 AM SALES PLANNER Sexual Orientation Straight 01/05/2022 11 :28 AM SALES PLANNER Occupation Industry Job Start Date Job End Date Not on file Not on file Not on file Not on file documented as of this encounter Functional Status * RETIRED Are you deaf or do you have serious difficulty hearing Answer Date of Assessment Author Status No 11/06/2018 1:30 PM SALES PLANNER Activ e * RETIRED Are you blind or do you have serious difficulty seeing, even when wearing glasses? Answer Date of Assessment Author Status No 11/06/2018 1:30 PM SALES PLANNER Activ e * Do you have serious difficulty walking or climbing stairs? Answer Date of Assessment Author Status No 11/06/2018 1:30 PM SALES PLANNER Amina Martel R N Active * Do you have difficulty dressing or bathing? Answer Date of Assessment Author Status No 11/06/2018 1:30 PM SALES PLANNER Amina Martel R N Active * Because of a physical, mental, or emotional condition, do you have difficulty doing errands alone such as visiting a doctor's office or shopping? Answer Date of Assessment Author Status No 11/06/2018 1:30 PM SALES PLANNER Amina Martel R N Active documented as of this encounter Mental Status * Because of a physical, mental, or emotional condition, do you have serious difficulty concentrating, remembering, or making decisions? Answer Entry Date Author Status No 11/06/2018 1:30 PM SALES PLANNER Amina Martel R N Active documented in this encounter Plan of Treatment Upcoming Encounters Date Type Department Care Team (Latest Contact Info) Description 5 2:[address] [facility] [place] [address] Oleksandr Vera, DO [address] [place] [phone] 5 10:27 AM CDT Hospital Encounter [facility] [place] [address] Oleksandr Vera, DO [address] [place] [address] 5 10:27 AM CDT - 5 1:30 PM CDT Surgery [place] [address] Oleksandr Vera, DO [address] [place] [address] ROBOTIC XI ASSISTED LAPAROSCOPIC HIATAL HERNIA REPAIR WITH TOUPET FUNDOPLICATION, POSSIBLE MESH, POSSIBLE OPEN, WITH ESOPHAGOGASTRODUODENOSCOPY 5 1:00 PM CDT Office Visit Sera Amezquita- [place] [facility], [address] [place] [address] Tino Tinsleya Angela, SPLUNK DEVELOPER 3 [facility] [address] [place], [place] [phone] Scheduled Procedures Name Priority Associated Diagnoses Date/Ti ct ROBOTIC XI HERNIA HIATAL HIATAL HERNIA K44.9 [...] Rule Out 12/28/2022 12/28/2022 12/29/2022 1:28 PM SALES PLANNER COVID-19 Rule Out 02/16/2023 02/16/2023 02/16/2023 11:21 AM CDT COVID-19 Rule Out 02/16/2023 02/16/2023 02/17/2023 1:03 PM CDT COVID-19 Rule Out 09/13/2023 09/13/2023 09/13/2023 1:56 PM SALES PLANNER COVID-19 Rule Out 09/13/2023 09/13/2023 09/14/2023 3:52 PM SALES PLANNER Assessment Noted Time PHQ-9 Depression Total Score: 0 06/05/20 21 8:02 AM CDT documented as of this encounter Care Teams Senior Lead Software Engineer Relationship Specialty Start Date End Date Nelson Alva DO [address] [place] [address] PCP - General FAMILY PRACTICE 02/05/19 01/03/25 Isrrael Burleson MD [facility]. [address] [address] [place] Infectious Disease Technician CARDIOVASCULAR DISEASE 04/07/16 Emerald King, RN [address] [facility] [address] [place] [address] Specimen Boss (Ambulatory) REGISTERED NURSE 12/15/21 documented as of this encounter
--- OUTSIDE RECORDS SUMMARY | 2025-01-17 19:31 | XMS_ITS | Continuity of Care Document ---
Author Organization [facility] Address [address] [place] [address] Phone Care Team Providers Care Supervisor Beehive Kiln Name Role Phone [place] Maryuri Unavailable Unavailable Advance Directives Directive Yes / No Effective Date File Name No Information Encounters Encounter Description Practice Location Reason(s) For Visit Diagnoses Date Provider Providers Copied on Encounter [facility], [address], [place], [place], [id number], [place] tel:[phone] [facility] Internal Medicine No Information Marybel Wahl. [address] [place], [place], [id number], [place]. tel:[phone] Family History Family Member Type Diagnosis Age [...]
--- OUTSIDE RECORDS SUMMARY | 2025-01-17 19:31 | XMS_ITS | Encounter Summary ---
Author Organization [facility] Address [address] [place] [address] Care Team Providers Care Regional Economist Name Role Phone Unavailable Primary Care Provider Unavailabl e Encounter Details Date Type Department Care Team (Late st Contact Info) Description 06/21/2001 Outpatient Historical [facility] [address] [facility] [address] [address] Yury Smith Social History Tobacco Use Types Packs/Day Years Used Date Smoking Tobacco: Never Assessed Comments Unknown Sex and Gender Information Value Date Recorded Sex Assigned at Not on file Legal Sex Female 3:36 AM PSYCHODRAMATIST Gender Identity Not on file Sexual Orientation Not on file documented as of this encounter Plan of Treatment Not on file documented as of this encounter Visit Diagnoses Not on filedocumented in this encounter
--- OUTSIDE RECORDS SUMMARY | 2025-01-17 19:31 | XMS_ITS | Encounter Summary ---
Author Organization [facility] Address [address] [place] [address] Care Team Providers Care Cd Mixer Name Role Phone Unavailable Primary Care Provider Unavailabl e Encounter Details Date Type Department Care Team (Late st Contact Info) Description 10/04/2001 Outpatient Historical [facility] [address] [facility] [address] [address] Yury Smith Social History Tobacco Use Types Packs/Day Years Used Date Smoking Tobacco: Never Assessed Comments Unknown Sex and Gender Information Value Date Recorded Sex Assigned at Not on file Legal Sex Female 3:36 AM ANATOMIC PATHOLOGIST Gender Identity Not on file Sexual Orientation Not on file documented as of this encounter Plan of Treatment Not on file documented as of this encounter Visit Diagnoses Not on filedocumented in this encounter
--- OUTSIDE RECORDS SUMMARY | 2025-01-17 19:31 | XMS_ITS | Encounter Summary ---
Author Organization [facility] Care Team Providers Care Director Of Physiotherapy Services Name Role Phone Roscoe Maharaj MD Primary Care Provider [phone] Nelson Alva DO Primary Care Provide r Sebastián Patterson MD Unavailable [phone] Encounter Details Date Type Department Care Team (Latest Contact Info) Description 08/07/2018 Orders Only [facility] ProviderGuillermo MD [address] [place], [place] [phone] Social History Tobacco Use Types Packs/Day Years Used Date Smoking Tobacco: Never Smokeless Tobacco: Never Alcohol Use Standard Drinks/Week Comments No 0 (1 standard drink = 0.6 oz pur e alcohol) Comments Unknown Sex and Gender Information Value Date Recorded Sex Assigned at Not on file 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
--- OUTSIDE RECORDS SUMMARY | 2025-01-17 19:31 | XMS_ITS | Clinical Summary ---
Author Organization [facility] Address [address] [place] [address] Phone Care Team Providers Care Edge Polisher Name Role Phone Unavailable Unavailable Unavailable Reason for Visit and Chief Complaint [Patient Encounter] Problems Includes: Problems addressed during this encounter and other active Problems All Visits Onset Date Resolved Date Provider Condition S tatus Persistent Insomnia 01/08/2015 Activ e Last Documented On 3 5:47PM ; [facility] Heart Block 11/12/2014 Active Last Documented On 03/05/2023 5:47PM ; [facility] Note: 40% Major Depression, Recurrent 12/21/2012 Active Last Documented On 3 5:44PM ; [facility] Generalized Anxiety Disorder 11/17/2012 Active Last Documented On 3 5:43PM ; [facility] Gerd 11/17/2012 Active Last Documented On 3 5:43PM ; [facility] Hypertension Systemic 11/17/2012 Act jack Last Documented On 3 5:43PM ; [facility] Hypokalemia 11/17/2012 Active Last Documented On 3 5:43PM ; [facility] Intervertebral Disc Degeneration 11/17/2012 Active Last Documented On 3 5:43PM ; [facility] Plan of Treatment No Plan of [...] 03/05/2023 5:34PM By Liz Rm MD ; [facility] Levothyroxine Sodium 50 MCG OR TABS 10/09/2015 Provi jennifer: Diagnosis: Take 1 tablet by mouth every day Last Documented On 03/05/2023 5:34PM By YOAV MCCARTNEY LPN ; [facility] Lasix 20 MG OR TABS 01/08/2015 Provider: Diagnosis: Dr. Burleson -- Epic Interface Analyst in [place] Last Documented On 03/05/2023 5:34PM By Liz Rm MD ; [facility] Potassium Chloride ER 20 MEQ OR TBCR 01/08/2015 Prov ider: Diagnosis: Last Documented On 03/05/2023 5:34PM By Liz Rm MD ; [facility] Aspirin 81 MG OR TABS 12/25/2012 Provider: Diagnosis: Last Documented On 03/05/2023 5:34PM By GRACE ESPINO ; [facility] TH Vitamin B1 100 MG OR TABS 12/25/2012 Provider: Diagnosis: Last Documented On 03/05/2023 5:34PM By GRACE ESPINO ; [facility] Carvedilol 25 MG OR TABS 12/25/2012 Provider: Diagnosis: Last Documented On 03/05/2023 5:34PM By GRACE ESPINO ; [facility] Medications Administered Includes: Administered Medications from this encounter No Administered Medications Recorded Vital Signs Includes: Vital Signs from this encounter Vital Name 06/20/2013 01:24P Blood Pressure Sitting (mmHg) 126/62 BP Cuff Size Regular Pulse Rate-Sitting (bpm) 66 Height (in) 62.5 Weight (lb) 133 Body Mass Index (kg/m2) 23.9 Body Surface Area (m2) 1.6 Last Documented: On 03/05/2023 6:08PM ; [facility] Results Includes: Results discussed during this [...] Active Last Documented On 03/05/2023 5:40PM ; [facility] Note: Imported from external source. Encounters Encounter Provider Location Date Check-In Time Check-Out Time Diagnosis [Patient Encounter] 06/20/2013 12:00AM 11:59PM Clinical Notes Includes: Clinical Notes from this encounter No Clinical Notes Recorded
--- OUTSIDE RECORDS SUMMARY | 2025-01-17 19:31 | XMS_ITS ---
Care Plan - [facility] Created on: January 17, 2025 ROSALIE THOMASON : 1950 Sex: Female Author Organization [facility] Address [address] [place] [address] Phone Care Team Providers Care Water Treatment Operator Name Role Phone Unavailable Unavailable Unavailable
--- OUTSIDE RECORDS SUMMARY | 2025-01-17 19:31 | XMS_ITS | Encounter Summary ---
Author Organization [facility] Address [address] [place] [address] Care Team Providers Care Glass Forming Engineer Name Role Phone Unavailable Primary Care Provider Unavailabl e Encounter Details Date Type Department Care Team (Late st Contact Info) Description 12/05/2001 Outpatient Historical [facility] Women[facility] Health Care [facility] Brian 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
--- OUTSIDE RECORDS SUMMARY | 2025-01-17 19:31 | XMS_ITS | Encounter Summary ---
Author Organization [facility] Address [address] [place] [address] Care Team Providers Care Fire Sprinkler Installer Name Role Phone Isrrael Burleson MD Unavailable [phone] Sally Srivastava MD Primary Care Provider [phone] Nelson Alva DO Primary Care Provider + Pricilla Dao MD Primary Care Provider [phone] Emerald King RN Unavailable [phone] Encounter Details Date Type Department Care Team (Late st Contact Info) Description 11/23/2018 Prep for Procedure [facility] at [facility], [facility] [address] [place] [address] Sergo Márquez MD [facility]. [facility] [address] [place] [address] Social History Tobacco Use Types Packs/Day Years Used Date Smoking Tobacco: Never Smokeless Tobacco: Never Alcohol Use Standard Drinks/Week Comments No 0 (1 standard drink = 0.6 oz pur e alcohol) Comments No Sex and Gender Information Value Date Recorded Sex Assigned at Female 10/25/2024 10:07 AM CREATIVE PERFUMER Legal Sex Female 2:31 AM CDT Gender Identity Female 01/05/2022 11:28 AM CREATIVE PERFUMER Sexual Orientation Straight 01/05/2022 11 :28 AM CREATIVE PERFUMER Occupation Industry Job Start Date Job End Date Not on file Not on file Not on file Not on file documented as of this encounter Functional Status * RETIRED Are you deaf or do you have serious difficulty hearing Answer Date of Assessment Author Status No 11/06/2018 1:30 PM CREATIVE PERFUMER Activ e * RETIRED Are you blind or do you have serious difficulty seeing, even when wearing glasses? Answer Date of Assessment Author Status No 11/06/2018 1:30 PM CREATIVE PERFUMER Activ e * Do you have serious difficulty walking or climbing stairs? Answer Date of Assessment Author Status No 11/06/2018 1:30 PM CREATIVE PERFUMER Amina Martel R N Active * Do you have difficulty dressing or bathing? Answer Date of Assessment Author Status No 11/06/2018 1:30 PM CREATIVE PERFUMER Amina Martel R N Active * Because [...] PM CDT Appointment [facility] [place] [address] Oleksandr Vera, [address] [place] [address] 5 10:27 AM CDT Hospital Encounter [facility] [place] [address] Oleksandr Vera, DO [address] [place] [address] 5 10:27 AM CDT - 5 1:30 PM CDT [place] [address] Oleksandr Vera, [address] [facility] [address] [place] [address] ROBOTIC XI ASSISTED LAPAROSCOPIC HIATAL HERNIA REPAIR WITH TOUPET FUNDOPLICATION, POSSIBLE MESH, POSSIBLE OPEN, WITH ESOPHAGOGASTRODUODENOSCOPY 1:00 PM CDT Office Visit [facility] [address] [place] [address] Carol Tinsley FNP 3 [facility] [address] [place] [address] Scheduled Procedures Name Priority Associated Diagnoses Date/Ti nc ROBOTIC XI HERNIA HIATAL HIATAL HERNIA K44.9 01/28/2025 10:27 AM CDT documented as of this encounter Visit Diagnoses Not on filedocumented in this encounter Additional Health Concerns Infection Onset Date Last Indicated Resolved Time COVID-19 Rule Out 09/22/2020 09/15/2020 09/22/2020 11:29 AM CREATIVE PERFUMER COVID-19 Rule Out 09/23/2020 09/23/2020 11/22/2020 12:33 AM CREATIVE PERFUMER COVID-19 Rule Out 06/01/2022 06/01/2022 06/02/2022 2:07 PM CDT COVID-19 Rule Out 12/28/2022 12/28/2022 12/29/2022 1:28 PM CREATIVE PERFUMER COVID-19 Rule Out 02/16/2023 02/16/2023 02/16/2023 11:21 AM CDT COVID-19 Rule Out 02/16/2023 02/16/2023 02/17/2023 1:03 PM CDT COVID-19 Rule Out 09/13/2023 09/13/2023 09/13/2023 1:56 PM CREATIVE PERFUMER COVID-19 Rule Out 09/13/2023 09/13/2023 09/14/2023 3:52 PM CREATIVE PERFUMER documented as of this encounter Care Teams Fire Sprinkler Installer Relationship Specialty Start Date End Date Sally Srivastava MD [facility] Internal Medicine [address] [place] [phone] PCP - General INTERNAL MEDICINE 11/04/18 01/04/19 Nelson Alva DO [address] [place] [address] PCP - General FAMILY PRACTICE 02/05/19 01/03/25 Pricilla Dao MD [address] [place] [address] PCP - General FAMILY PRACTICE 01/05/19 02/04/19 Isrrael Burleson MD [facility]. [facility] [address] [place] [address] Mchenry Principal Ios Developer CARDIOVASCULAR DISEASE 04/07/16 Emerald King, RN [address] [facility] [address] [place] [address] Leaf Stamper (Ambulatory) REGISTERED NURSE 12/15/21 documented as of this encounter
--- OUTSIDE RECORDS SUMMARY | 2025-01-17 19:31 | XMS_ITS | Encounter Summary ---
Author Organization [facility] Address [address] [place] [address] Care Team Providers Care Magistrate Name Role Phone Isrrael Burleson MD Unavailable [phone] Sally Srivastava MD Primary Care Provider [phone] Nelson Alva DO Primary Care Provider + Pricilla Dao MD Primary Care Provider [phone] Emerald King RN Unavailable [phone] Encounter Details Date Type Department Care Team (Late st Contact Info) Description 12/04/2018 Abstract [facility] at [address] [address] Brenda Adler MA Social History Tobacco Use Types Packs/Day Years Used Date Smoking Tobacco: Never Smokeless Tobacco: Never Alcohol Use Standard Drinks/Week Comments No 0 (1 standard drink = 0.6 oz pur e alcohol) Comments No Sex and Gender Information Value Date Recorded Sex Assigned at Female 10/25/2024 10:07 AM STRAIGHTENER GUN PARTS Legal Sex Female 2:31 AM CDT Gender Identity Female 01/05/2022 11:28 AM STRAIGHTENER GUN PARTS Sexual Orientation Straight 01/05/2022 11 :28 AM STRAIGHTENER GUN PARTS Occupation Industry Job Start Date Job End Date Not on file Not on file Not on file Not on file documented as of this encounter Functional Status * RETIRED Are you deaf or do you have serious difficulty hearing Answer Date of Assessment Author Status No 11/06/2018 1:30 PM STRAIGHTENER GUN PARTS Activ e * RETIRED Are you blind or do you have serious difficulty seeing, even when wearing glasses? Answer Date of Assessment Author Status No 11/06/2018 1:30 PM STRAIGHTENER GUN PARTS Activ e * Do you have serious difficulty walking or climbing stairs? Answer Date of Assessment Author Status No 11/06/2018 1:30 PM STRAIGHTENER GUN PARTS Amina Martel R N Active * Do you have difficulty dressing or bathing? Answer Date of Assessment Author Status No 11/06/2018 1:30 PM STRAIGHTENER GUN PARTS Amina Martel R N Active * Because of a physical, mental, or emotional condition, do you have difficulty doing errands alone such as visiting a doctor's office or shopping? Answer Date of Assessment Author Status No 11/06/2018 1:30 PM STRAIGHTENER GUN PARTS Amina Martel R N Active documented as of this encounter Mental Status * Because of a physical, mental, or emotional condition, do you have serious difficulty concentrating, remembering, or making decisions? Answer Entry Date Author Status No 11/06/2018 1:30 PM STRAIGHTENER GUN PARTS Amina Martel R N Active documented in this encounter Plan of Treatment Upcoming Encounters Date Type Department Care Team (Latest Contact Info) Description 5 2:[address] [place] [address] Oleksandr Vera, DO [address] [place] [address] 5 10:27 AM CDT Hospital Encounter [facility] Day [facility] [place] [address] Oleksandr Vera, DO [address] [place] [address] 5 10:27 AM CDT - 5 1:[address] [place] [address] Oleksandr Vera, DO [address] [place] [phone] ROBOTIC XI ASSISTED LAPAROSCOPIC HIATAL HERNIA REPAIR WITH TOUPET FUNDOPLICATION, POSSIBLE MESH, POSSIBLE OPEN, WITH ESOPHAGOGASTRODUODENOSCOPY 5 1:00 PM CDT Office Visit [facility] [place] [facility], [address] [place] [address] Carol Tinsley, MARGIE 3 [facility] [address] [place] [address] Scheduled Procedures Name Priority Associated Diagnoses Date/Ti [...] LABORATORY Final Result * CREATININE (12/29/2018) Pathologist [facility] CREATININE S/P/B 0.84 0.5 - 1.0 EGFR NON-AFR. AMER. 71 <=90 EGFR AFR. AMER. 83 <=90 12/29/2018 us Doc [facility] Abstract LABORATORY Final Result * BUN (OUTSIDE LAB) (12/29/2018) Pathologist [facility] BUN 9 12/29/2018 us Doc [facility] Abstract LAB-OUTSIDE/ABSTRACTED Edite d Result - Final * HEMATOCRIT (12/01/2018) Pathologist [facility] HCT 33.8 12/01/2018 us Doc [facility] Abstract LABORATORY Final Result * (ABNORMAL) CREATININE (12/01/2018) Pathologist [facility] CREATININE S/P/B 1.04(A) 0.5 - 1.0 EGFR NON-AFR. AMER. 64 <=90 EGFR AFR. AMER. 55 <=90 12/01/2018 us Doc [facility] Abstract LABORATORY Final Result * BUN (OUTSIDE LAB) (12/01/2018) Pathologist [facility] BUN 18 12/01/2018 us Doc [facility] Abstract LAB-OUTSIDE/ABSTRACTED Final Result documented in this encounter Visit Diagnoses Not on filedocumented in this encounter Additional Health Concerns Infection Onset Date Last Indicated Resolved Time COVID-19 Rule Out 09/22/2020 09/15/2020 09/22/2020 11:29 AM STRAIGHTENER GUN PARTS COVID-19 Rule Out 09/23/2020 09/23/2020 11/22/2020 12:33 AM STRAIGHTENER GUN PARTS COVID-19 Rule Out 06/01/2022 06/01/2022 06/02/2022 2:07 PM CDT COVID-19 Rule Out 12/28/2022 12/28/2022 12/29/2022 1:28 PM STRAIGHTENER GUN PARTS COVID-19 Rule Out 02/16/2023 02/16/2023 02/16/2023 11:21 AM CDT COVID-19 Rule Out 02/16/2023 02/16/2023 02/17/2023 1:03 PM CDT COVID-19 Rule Out 09/13/2023 09/13/2023 09/13/2023 1:56 PM STRAIGHTENER GUN PARTS COVID-19 Rule Out 09/13/2023 09/13/2023 09/14/2023 3:52 PM STRAIGHTENER GUN PARTS documented as of this encounter Care Teams Magistrate Relationship Specialty Start Date End Date Sally Srivastava MD [facility] Internal Medicine [address] [phone] PCP - General INTERNAL MEDICINE 11/04/18 01/04/19 Nelson Alva DO [address] [place] [address] PCP - General FAMILY PRACTICE 02/05/19 01/03/25 Pricilla Dao MD [address] [place] [address] PCP - General FAMILY PRACTICE 01/05/19 02/04/19 Isrrael Burleson MD [facility]. [facility] [address] [place] [address] [place] [facility] Biomed Technician CARDIOVASCULAR DISEASE 04/07/16 Emerald King, RN [address] [facility] [address] [place] [address] Plant Puller (Ambulatory) REGISTERED NURSE 12/15/21 documented as of this encounter
--- OUTSIDE RECORDS SUMMARY | 2025-01-17 19:31 | XMS_ITS | Clinical Summary ---
Author Organization [facility] Address [address] [place] [address] Phone Care Team Providers Care Writer Producer Name Role Phone Unavailable Unavailable Unavailable Reason for Visit and Chief Complaint [Patient Encounter] Problems Includes: Problems addressed during this encounter and other active Problems All Visits Onset Date Resolved Date Provider Condition S tatus Persistent Insomnia 01/08/2015 Activ e Last Documented On 3 5:47PM ; [facility] Heart Block 11/12/2014 Active Last Documented On 03/05/2023 5:47PM ; [facility] Note: 40% Major Depression, Recurrent 12/21/2012 Active Last Documented On 3 5:44PM ; [facility] Generalized Anxiety Disorder 11/17/2012 Active Last Documented On 3 5:43PM ; [facility] Gerd 11/17/2012 Active Last Documented On 3 5:43PM ; [facility] Hypertension Systemic 11/17/2012 Act jack Last Documented On 3 5:43PM ; [facility] Hypokalemia 11/17/2012 Active Last Documented On 3 5:43PM ; [facility] Intervertebral Disc Degeneration 11/17/2012 Active Last Documented On 3 5:43PM ; [facility] Plan of Treatment No Plan of [...] 5:34PM By Liz Rm MD ; [facility] Levothyroxine Sodium 50 MCG OR TABS 10/09/2015 Provi jennifer: Diagnosis: Take 1 tablet by mouth every day Last Documented On 03/05/2023 5:34PM By YOAV MCCARTNEY LPN ; [facility] Lasix 20 MG OR TABS 01/08/2015 Provider: Diagnosis: Dr. Burleson -- Die Engraver in [place] Last Documented On 03/05/2023 5:34PM By Liz Rm MD ; [facility] Potassium Chloride ER 20 MEQ OR TBCR 01/08/2015 Prov ider: Diagnosis: Last Documented On 03/05/2023 5:34PM By Liz Rm MD ; [facility] Aspirin 81 MG OR TABS 12/25/2012 Provider: Diagnosis: Last Documented On 03/05/2023 5:34PM By GRACE ESPINO ; [facility] TH Vitamin B1 100 MG OR TABS 12/25/2012 Provider: Diagnosis: Last Documented On 03/05/2023 5:34PM By GRACE ESPINO ; [facility] Carvedilol 25 MG OR TABS 12/25/2012 Provider: Diagnosis: Last Documented On 03/05/2023 5:34PM By GRACE ESPINO ; [facility] Medications Administered Includes: Administered Medications from this encounter No Administered Medications Recorded Vital Signs Includes: Vital Signs from this encounter Vital Name 04/29/2014 03:45P Blood Pressure Sitting (mmHg) 108/62 BP Cuff Size Regular Pulse Rate-Sitting (bpm) 64 Height (in) 62.5 Weight (lb) 135 Body Mass Index (kg/m2) 24.3 Body Surface Area (m2) 1.6 Last Documented: On 03/05/2023 6:08PM ; [facility] Results Includes: Results discussed during this [...] Last Documented On 03/05/2023 5:40PM ; [facility] Note: Imported from external source. Encounters Encounter Provider Location Date Check-In Time Check-Out Time Diagnosis [Patient Encounter] 04/29/2014 12:00AM 11:59PM Clinical Notes Includes: Clinical Notes from this encounter No Clinical Notes Recorded
--- OUTSIDE RECORDS SUMMARY | 2025-01-17 19:31 | XMS_ITS | Clinical Summary ---
Author Organization [facility] Address [address] [place] [address] Phone Care Team Providers Care Home Health Lpn Name Role Phone NIHARIKA MORA, WISAM Lujan [phone] Reason for Visit and Chief Complaint The Chief Complaint is: follow up for depression Problems Includes: Problems addressed during this encounter and other active Problems Current Visit Onset Date Resolved Date Provider Conditio n Status Major Depression, Recurrent 12/21/2012 WISAM RM MD Active Last Documented On 3 2:42PM ; [facility] Generalized Anxiety Disorder 11/17/2012 WISAM RM MD Active Last Documented On 3 3:17PM ; [facility] Past Visits Onset Date Resolved Date Provider Condition Status Persistent Insomnia 01/08/2015 WISAM REECE MD Active Last Documented On 5 3:41PM ; [facility] Heart Block 11/12/2014 WISAM RM MD A ctive Last Documented On 5 3:05PM ; [facility] Note: 40% Gerd 11/17/2012 WISAM RM MD Ac tive Last Documented On 3 3:18PM ; [facility] Hypertension Systemic 11/17/2012 WISAM EDWARD MD Active Last Documented On 3 3:18PM ; [facility] Hypokalemia 11/17/2012 WISAM RM MD A ctive Last Documented On 3 3:18PM ; [facility] Intervertebral Disc Degeneration 11/17/2012 MET RAYO RM MD Active Last Documented On 3 3:19PM ; [facility] Plan of Treatment - MAJOR DEPRESSION, RECURRENT - Last Documented On 07/07/2013 9:09PM ; [facility] Viibryd 20 MG TABS, 1 tablet every morning with food, 120 days, 0 refills, ---given samples for 4 months - Last Documented On 07/07/2013 9:09PM ; [facility] ? OTHERFollow-up 4 mos - Last Documented On 07/07/2013 9:09PM ; [facility] Education and Decision Aids were provided during visit for: Patient education about medi cation --- I educated patient on medication(s) and diagnosis Last Documented On 3 9:09PM ; [facility] Discussed calming techniques such as breathing exercises/meditation and other relaxation techniques Last Documented On 3 1:10PM ; [facility] Assessments Includes: Assessments from this encounter Findings - Major depression, recurrent - Last Documented On 07/07/2013 9:09PM ; [facility] - Generalized anxiety disorder - Last Documented On 07/07/2013 9:09PM ; [facility] Instructions Includes: Instructions from this encounter Education and Decision Aids were provided during visit for: Patient education about medi cation --- I educated patient on medication(s) and diagnosis Last Documented On 3 9:09PM ; [facility] Discussed calming techniques such as breathing exercises/meditation and other relaxation techniques Last Documented On 3 1:10PM ; [facility] Medical Equipment - Implanted Devices Includes: [...] 02/03/2016 8:07AM By Liz Rm MD ; [facility] Levothyroxine Sodium 50 MCG Tablet 10/09/2015 Provid er: Diagnosis: Take 1 tablet by mouth every day Last Documented On 5 2:42PM By YOAV MCCARTNEY LPN ; [facility] Lasix 20 MG OR TABS 01/08/2015 Provider: Diagnosis: Dr. Burleson -- Cook Dessert in [place] Last Documented On 01/08/2015 3:01PM By Liz Rm MD ; [facility] Potassium Chloride ER 20 MEQ OR TBCR 01/08/2015 Prov ider: Diagnosis: Last Documented On 01/08/2015 3:02PM By Liz Rm MD ; [facility] Aspirin 81 MG OR TABS 12/25/2012 Provider: Diagnosis: Last Documented On 3 1:11PM By GRACE ESPINO ; [facility] TH Vitamin B1 100 MG OR TABS 12/25/2012 Provider: Diagnosis: Last Documented On 3 1:10PM By GRACE ESPINO ; [facility] Carvedilol 25 MG OR TABS 12/25/2012 Provider: Diagnosis: Last Documented On 3 1:10PM By GRACE ESPINO ; [facility] Past Medications on file Silenor 3 MG OR TABS 01/08/2015 - 01/24/2015 Provider: WISAM RM MD Diagnosis: PERSISTENT INSOM KENNETH given 16 tablets samples Last Documented On 01/08/2015 3:48PM By Liz Rm MD ; [facility] Medications Administered Includes: Administered Medications from this encounter No Administered Medications Recorded Vital Signs Includes: Vital Signs from this encounter Vital Name 06/20/2013 01:24P Blood Pressure Sitting R 126/62 BP Cuff Size Regular Pulse Rate-Sitting (bpm) 66 Height (in) 62.5 Weight (lb) 133 Body Mass Index (kg/m2) 23.9 Body Surface Area (m2) 1.6 Last Documented: On 06/20/2013 1:24PM ; [facility] Results Includes: Results discussed during this [...] her life. She wants to move to [place] where her sister lives and like to stay in that small town. Pt wanted to continue seeing me for now and is willing to travel from [place] to [place] to see me until she [...] Pt verbalized understanding. Her temporary address in [place] will be [address] [place] [address]. Sleep - good Interest - fair Guilt/Worthlessness [...] daughters. ~She was born and raised in [place]. ~She was closer to her mother, but both parents are now . ~No history of physical or sexual abuse. ~She currently lives with her . ~She has her GED. 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 ~No past or pending legal history. ~Gnosticist background, Shinto 10/09/2015 Last Documented On 3 1:09PM ; [facility] Not using alcohol 11/17/2012 Last Documented On 3 1:09PM ; [facility] Not using drugs (Illicit) 11/17/2012 Last Documented On 3 1:09PM ; [facility] Smoking status : Never smoked 11/17/2012 Last Documented On 3 1:09PM ; [facility] Procedures and Surgical History Includes: Procedures [...] about Last Documented On 3 1:10PM ; [facility] Clinical summary provided to patient Last Documented On 3 9:09PM ; [facility] Surgical History Last Updated History of Prior Surgery: ~FUNMILAYO ~Neck eugenio chau ~Cholecystectomy 2001 ~ 01/08/2015 Last Documented On 3 1:09PM ; [facility] Medical History Includes: Medical History addressed during this encounter Description Last Updated Primary Care Provider: Dr. Hendrix ~Dr. Morejon-Photographic Engineer 01/08/2015 Last Documented On 3 1:09PM ; [facility] ~Hypertension ~GERD ~Hypokalemia ~Cervic al disc disease 12/25/2012 Last Documented On 3 1:09PM ; [facility] Family History Includes: Family History addressed during this encounter Description Last Updated Sister committed suicide ~Father is an a lcoholic 01/08/2015 Last Documented On 3 1:09PM ; [facility] S Review of Systems [...] Last Documented On 03/05/2023 5:40PM ; [facility] Note: Imported from external source. Encounters Encounter Provider Location Date Check-In Time Check-Out Time Diagnosis GENERAL OFFICE VISIT WISAM RM MD [facility] 06/20/20 13 1:13PM 2:03PM Generalized Anxiety Disorder,Major Depression, Recurrent Insurance Includes: Active Insurance Policies No Insurance Coverage Recorded Guarantor Relationship Effective Dates Guarantor Ph one ROSALIE THOMASON Ryan [id number] Clinical Notes Includes: Clinical Notes from this encounter No Clinical Notes Recorded
[2025-01-17 19:32] LABS: Amphetamine Screen Urine Negative (Negative); Barbiturate Screen Urine Negative (Negative); Benzodiazepines Screen Urine Negative (Negative); Cannabinoid Screen Urine Negative (Negative); Cocaine Screen Urine Negative (Negative); Methadone Screen Urine Negative (Negative); Opiate Screen Urine Negative (Negative); Phencyclidine Screen Urine Negative (Negative)
--- OUTSIDE RECORDS SUMMARY | 2025-01-17 19:32 | XMS_ITS | Clinical Summary ---
Author Organization [facility] Address [address] [place] [address] Phone Care Team Providers Care Operations Officer Name Role Phone NIHARIKA MORA, WISAM Lujan [phone] Reason for Visit and Chief Complaint The Chief Complaint is: follow up for depression Problems Includes: Problems addressed during this encounter and other active Problems Current Visit Onset Date Resolved Date Provider Conditio n Status Major Depression, Recurrent 12/21/2012 WISAM RM MD Active Last Documented On 3 2:42PM ; [facility] Generalized Anxiety Disorder 11/17/2012 WISAM RM MD Active Last Documented On 3 3:17PM ; [facility] Past Visits Onset Date Resolved Date Provider Condition Status Persistent Insomnia 01/08/2015 WISAM REECE MD Active Last Documented On 5 3:41PM ; [facility] Heart Block 11/12/2014 WISAM RM MD A ctive Last Documented On 5 3:05PM ; [facility] Note: 40% Gerd 11/17/2012 WISAM RM MD Ac tive Last Documented On 3 3:18PM ; [facility] Hypertension Systemic 11/17/2012 WISAM EDWARD MD Active Last Documented On 3 3:18PM ; [facility] Hypokalemia 11/17/2012 WISAM RM MD A ctive Last Documented On 3 3:18PM ; [facility] Intervertebral Disc Degeneration 11/17/2012 MET RAYO RM MD Active Last Documented On 3 3:19PM ; [facility] Plan of Treatment Education and Decision Aids were provided during visit for: Patient education about medi cation --- I educated patient on medication(s) and diagnosis. I reviewed the risks, benefits and side effects of patient's medications Last Documented On 4 12:07AM ; [facility] Discussed calming techniques such as breathing exercises/meditation and other relaxation techniques Last Documented On 4 3:32PM ; [facility] Assessments Includes: Assessments from this encounter Findings - Major depression, recurrent - Last Documented On 05/01/2014 12:10AM ; [facility] - Generalized anxiety disorder - Last Documented On 05/01/2014 12:10AM ; [facility] Instructions Includes: Instructions from this encounter Education and Decision Aids were provided during visit for: Patient education about medi cation --- I educated patient on medication(s) and diagnosis. I reviewed the risks, benefits and side effects of patient's medications Last Documented On 4 12:07AM ; [facility] Discussed calming techniques such as breathing exercises/meditation and other relaxation techniques Last Documented On 4 3:32PM ; [facility] Medical Equipment - Implanted Devices Includes: Current Devices No Medical Equipment Recorded Medications Includes: Medications discussed during this encounter and other current Medications New / Renewed during this visit WISAM RM MD on 04/29/2014 Viibryd 20 MG OR TABS Provider: MATI RM MD 120 day supply: 120, 0 refills Diagnosis: MAJOR DEPRESSION DISORDER/RECURRENT ---given samples for 7 months Pharmacy: [facility] ([facility] - [address] [facility], [id number] - Last Documented On 01/08/2015 3:48PM By Liz Rm MD ; [facility] Current Medications (continue as prescribed) Viibryd [...] 02/03/2016 8:07AM By Liz Rm MD ; [facility] Levothyroxine Sodium 50 MCG Tablet 10/09/2015 Provid er: Diagnosis: Take 1 tablet by mouth every day Last Documented On 5 2:42PM By YOAV MCCARTNEY LPN ; [facility] Lasix 20 MG OR TABS 01/08/2015 Provider: Diagnosis: Dr. Burleson -- Senior Statistician in [place] Last Documented On 01/08/2015 3:01PM By Liz Rm MD ; [facility] Potassium Chloride ER 20 MEQ OR TBCR 01/08/2015 Prov ider: Diagnosis: Last Documented On 01/08/2015 3:02PM By Liz Rm MD ; [facility] Aspirin 81 MG OR TABS 12/25/2012 Provider: Diagnosis: Last Documented On 3 1:11PM By GRACE ESPINO ; [facility] TH Vitamin B1 100 MG OR TABS 12/25/2012 Provider: Diagnosis: Last Documented On 3 1:10PM By GRACE ESPINO ; [facility] Carvedilol 25 MG OR TABS 12/25/2012 Provider: Diagnosis: Last Documented On 3 1:10PM By GRACE ESPINO ; [facility] Past Medications on file Silenor 3 MG OR TABS 01/08/2015 - 01/24/2015 Provider: WISAM RM MD Diagnosis: PERSISTENT INSOM KENNETH given 16 tablets samples Last Documented On 01/08/2015 3:48PM By Liz Rm MD ; [facility] Medications Administered Includes: Administered Medications from this encounter No Administered Medications Recorded Vital Signs Includes: Vital Signs from this encounter Vital Name 04/29/2014 03:45P Blood Pressure Sitting R 108/62 BP Cuff Size Regular Pulse Rate-Sitting (bpm) 64 Height (in) 62.5 Weight (lb) 135 Body Mass Index (kg/m2) 24.3 Body Surface Area (m2) 1.6 Last Documented: On 04/29/2014 3:45PM ; [facility] Results Includes: Results discussed during [...] is doing okay. Pt and sees a building dismantler for counseling. Viibryd seems to help.with mood. [...] patient Last Documented On 4 12:07AM ; [facility] Surgical History Last Updated History of Prior Surgery: ~FUNMILAYO ~Neck eugenio chau ~Cholecystectomy 2001 ~ 01/08/2015 Last Documented On 4 12:08AM ; [facility] Medical History Includes: Medical History addressed during this encounter Description Last Updated Primary Care Provider: ~Kamryn Morejon-Rehabilitation Inspector 04/29/2014 Last Documented On 4 12:10AM ; [facility] History of GERD 04/29/2014 Last Documented On 4 12:10AM ; [facility] History of hypertension 04/29/2014 Last Documented On 4 12:10AM ; [facility] History of hypokalemia 04/29/2014 Last Documented On 4 12:10AM ; [facility] History of intervertebral disc degenerat ion 04/29/2014 Last Documented On 4 12:10AM ; [facility] Family History Includes: Family [...] Active Last Documented On 03/05/2023 5:40PM ; [facility] Note: Imported from external source. Encounters Encounter Provider Location Date Check-In Time Check-Out Time Diagnosis GENERAL OFFICE VISIT WISAM RM MD [facility] 04/29/20 14 3:31PM 4:41PM Generalized Anxiety Disorder,Major Depression, Recurrent Insurance Includes: Active Insurance Policies No Insurance Coverage Recorded Guarantor Relationship Effective Dates Guarantor Ph one ROSALIE THOMASON Self [id number] Clinical Notes Includes: Clinical Notes from this encounter No Clinical Notes Recorded
--- OUTSIDE RECORDS SUMMARY | 2025-01-17 19:32 | XMS_ITS | Clinical Summary ---
Author Organization [facility] Address [address] [place] [address] Phone Care Team Providers Care Embossing Press Operator Apprentice Name Role Phone NIHARIKA MORA, WISAM Lujan [phone] Reason for Visit and Chief Complaint The Chief Complaint is: follow up for depression Problems Includes: Problems addressed during this encounter and other active Problems Current Visit Onset Date Resolved Date Provider Conditio n Status Persistent Insomnia 01/08/2015 WISAM REECE MD Active Last Documented On 5 3:41PM ; [facility] Heart Block 11/12/2014 WISAM RM MD A ctive Last Documented On 5 3:05PM ; [facility] Note: 40% Major Depression, Recurrent 12/21/2012 WISAM RM MD Active Last Documented On 3 2:42PM ; [facility] Generalized Anxiety Disorder 11/17/2012 WISAM RM MD Active Last Documented On 3 3:17PM ; [facility] Past Visits Onset Date Resolved Date Provider Condition Status Gerd 11/17/2012 WISAM RM MD Ac tive Last Documented On 3 3:18PM ; [facility] Hypertension Systemic 11/17/2012 WISMA EDWARD MD Active Last Documented On 3 3:18PM ; [facility] Hypokalemia 11/17/2012 WISAM RM MD A ctive Last Documented On 3 3:18PM ; [facility] Intervertebral Disc Degeneration 11/17/2012 MET RAYO RM MD Active Last Documented On 3 3:19PM ; [facility] Plan of Treatment Education and Decision Aids were provided during visit for: Patient education about medi cation --- I educated patient on medication(s) and diagnosis. I reviewed the risks, benefits and side effects of patient's medications Last Documented On 5 7:51AM ; [facility] Discussed calming techniques such as breathing exercises/meditation and other relaxation techniques Last Documented On 5 2:40PM ; [facility] Counseling for nutrition/camilo ght management provided Last Documented On 5 7:51AM ; [facility] Assessments Includes: Assessments from this encounter Findings - Major depression, recurrent - Last Documented On 01/09/2015 7:52AM ; [facility] Pers[facility] - Last Documented On 01/09/2015 7:52AM ; [facility] - Generalized anxiety disorder - Last Documented On 01/09/2015 7:52AM ; [facility] Instructions Includes: Instructions from this encounter Education and Decision Aids were provided during visit for: Patient education about medi cation --- I educated patient on medication(s) and diagnosis. I reviewed the risks, benefits and side effects of patient's medications Last Documented On 5 7:51AM ; [facility] Discussed calming techniques such as breathing exercises/meditation and other relaxation techniques Last Documented On 5 2:40PM ; [facility] Counseling for nutrition/camilo ght management provided Last Documented On 5 7:51AM ; [facility] Medical Equipment - Implanted Devices Includes: Current Devices No Medical Equipment Recorded Medications Includes: Medications discussed during this encounter and other current Medications Discontinued / Stopped on this date on 12/25/2012 Indapamide 2.5 MG OR TABS Provider: Diagnosis: Last Documented On 01/08/2015 3:00PM By Liz Rm MD ; [facility] New / Renewed during this visit WISAM RM MD on 01/08/2015 Viibryd 20 MG OR TABS Provider: MATI RM MD 120 day supply: 120 tablet, 0 refills Diagnosis: MAJOR DEPRESSION DISORDER/RECURRENT ---given samples for 7 months Pharmacy: [facility] ([facility] - [address] [facility], [id number] - Last Documented On 10/09/2015 3:17PM By Liz Rm MD ; [facility] Silenor 3 MG OR TABS Provider: WISAM RM MD 16 day supply: 16 tablet, 0 refills Diagnosis: PERSISTENT INSOMNIA given 16 tablets samples Pharmacy: [facility] [place] ([facility]) - [address] [facility], [id number] - Last Documented On 01/08/2015 3:48PM By Liz Rm MD ; [facility] Current Medications (continue as prescribed) Viibryd 20 [...] 02/03/2016 8:07AM By Liz Rm MD ; [facility] Levothyroxine Sodium 50 MCG Tablet 10/09/2015 Provid er: Diagnosis: Take 1 tablet by mouth every day Last Documented On 5 2:42PM By YOAV MCCARTNEY LPN ; [facility] Lasix 20 MG OR TABS 01/08/2015 Provider: Diagnosis: Dr. Burleson -- Medical Billing Clerk in [place] Last Documented On 01/08/2015 3:01PM By Liz Rm MD ; [facility] Potassium Chloride ER 20 MEQ OR TBCR 01/08/2015 Prov ider: Diagnosis: Last Documented On 01/08/2015 3:02PM By Liz Rm MD ; [facility] Aspirin 81 MG OR TABS 12/25/2012 Provider: Diagnosis: Last Documented On 3 1:11PM By GRACE ESPINO ; [facility] TH Vitamin B1 100 MG OR TABS 12/25/2012 Provider: Diagnosis: Last Documented On 3 1:10PM By GRACE ESPINO ; [facility] Carvedilol 25 MG OR TABS 12/25/2012 Provider: [...] 1.6 Last Documented: On 01/08/2015 3:00PM ; [facility] Results Includes: Results discussed [...] had some chest discomfort and went to [place] ER and was found to have low potassium. She also had Stress test which showed some ischemia and Cardiac Cath was done and showed 40 % blockade under Dr. Burleson potato bucker. She was given meds and did not [...] daughters. ~She was born and raised in [place]. ~She was closer to her mother, but both parents are now . ~Her sister committed suicide ~No history of physical or sexual abuse. ~She currently lives with her . ~She has her GED. 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 ~No past or pending legal history. ~[employer] background, [employer] 01/08/2015 Last Documented On 5 7:52AM ; [facility] Not using alcohol 11/17/2012 Last Documented On 5 2:39PM ; [facility] Not using drugs (Illicit) 11/17/2012 Last Documented On 5 2:39PM ; [facility] Smoking status : Never smoked 11/17/2012 Last Documented On 5 2:39PM ; [facility] Procedures and Surgical History Includes: Procedures from [...] about Last Documented On 5 2:40PM ; [facility] handouts given /educational brochures given with regards to medication. Pt was given samples and PI for Silenor Last Documented On 5 7:51AM ; [facility] Counseling on new medication : I discussed the risks, benefits and side effects of Silenor. Patient verbalized understanding and agreed to treatment Last Documented On 5 7:51AM ; [facility] Clinical summary provided to patient Last Documented On 5 7:51AM ; [facility] Surgical History Last Updated History of Prior Surgery: ~T AH ~Neck surgery ~Cholecystectomy 2001 ~Cardiac catherization-- Dr. Burleson in [place] ~ 01/08/2015 Last Documented On 5 7:52AM ; [facility] Medical History Includes: Medical History addressed during this encounter Description Last Updated History of intervertebral di sc degeneration ~[facility] 09/18/14 for low potassium ~[place] -- [address]201/08/2015 Last Documented On 5 7:52AM ; [facility] [place] ~Dr. Morejon-Database Security Administrator 01/08/2015 Last Documented On 5 7:52AM ; [facility] History of GERD 04/29/2014 Last Documented On 5 2:39PM ; [facility] History of hypertension 04/29/2014 Last Documented On 5 2:39PM ; [facility] History of hypokalemia 04/29/2014 Last Documented On 5 2:39PM ; [facility] Family History Includes: Family History addressed during this encounter Description Last Updated Paternal history of alcoholism -- father 01/08/2015 Last Documented On 5 7:52AM ; [facility] Father is an alcoholic 01/08/2015 Last Documented On 5 7:52AM ; [facility] Sororal history of depression -- sister 01/08/2015 Last Documented On 5 7:52AM ; [facility] Review of Systems Includes: Review of Systems [...] Active Last Documented On 03/05/2023 5:40PM ; [facility] Note: Imported from external source. Encounters Encounter Provider Location Date Check-In Time Check-Out Time Diagnosis GENERAL OFFICE VISIT WISAM RM MD [facility] 01/09/20 15 2:30PM 3:25PM Major Depression, Recurrent,Gen eralized Anxiety Disorder,Pers istent Insomnia Insurance Includes: Active Insurance Policies No Insurance Coverage Recorded Guarantor Relationship Effective Dates Guarantor Ph one ROSALIE THOMASON Self [id number] Clinical Notes Includes: Clinical Notes from this encounter No Clinical Notes Recorded
--- OUTSIDE RECORDS SUMMARY | 2025-01-17 19:32 | XMS_ITS | Clinical Summary ---
Author Organization [facility] Address [address] [place] [address] Phone Care Team Providers Care Vaccinator Name Role Phone Unavailable Unavailable Unavailable Reason for Visit and Chief Complaint [Patient Encounter] Problems Includes: Problems addressed during this encounter and other active Problems All Visits Onset Date Resolved Date Provider Condition S tatus Persistent Insomnia 01/08/2015 Activ e Last Documented On 3 5:47PM ; [facility] Heart Block 11/12/2014 Active Last Documented On 03/05/2023 5:47PM ; [facility] Note: 40% Major Depression, Recurrent 12/21/2012 Active Last Documented On 3 5:44PM ; [facility] Generalized Anxiety Disorder 11/17/2012 Active Last Documented On 3 5:43PM ; [facility] Gerd 11/17/2012 Active Last Documented On 3 5:43PM ; [facility] Hypertension Systemic 11/17/2012 Act jack Last Documented On 3 5:43PM ; [facility] Hypokalemia 11/17/2012 Active Last Documented On 3 5:43PM ; [facility] Intervertebral Disc Degeneration 11/17/2012 Active Last Documented On 3 5:43PM ; [facility] Plan of Treatment No [...] On 03/05/2023 5:34PM By GRAEC ESPINO ; [facility] Current Medications (continue as prescribed) Viibryd [...] 03/05/2023 5:34PM By Liz Rm MD ; [facility] Levothyroxine Sodium 50 MCG OR TABS 10/09/2015 Provi jennifer: Diagnosis: Take 1 tablet by mouth every day Last Documented On 03/05/2023 5:34PM By YOAV MCCARTNYE LPN ; [facility] Lasix 20 MG OR TABS 01/08/2015 Provider: Diagnosis: Dr. Burleson -- Media Coordinator in [place] Last Documented On 03/05/2023 5:34PM By Liz Rm MD ; [facility] Potassium Chloride ER 20 MEQ OR TBCR 01/08/2015 Prov ider: Diagnosis: Last Documented On 03/05/2023 5:34PM By Liz Rm MD ; [facility] Aspirin 81 MG OR TABS 12/25/2012 Provider: Diagnosis: Last Documented On 03/05/2023 5:34PM By GRACE ESPINO ; [facility] TH Vitamin B1 100 MG OR TABS 12/25/2012 Provider: Diagnosis: Last Documented On 03/05/2023 5:34PM By GRACE ESPINO ; [facility] Carvedilol 25 MG OR TABS 12/25/2012 Provider: Diagnosis: Last Documented On 03/05/2023 5:34PM By GRACE ESPINO ; [facility] Medications Administered Includes: Administered Medications from [...] 1.7 Last Documented: On 03/05/2023 6:08PM ; [facility] Results Includes: Results discussed during [...] Active Last Documented On 03/05/2023 5:40PM ; [facility] Note: Imported from external source. Encounters Encounter Provider Location Date Check-In Time Check-Out Time Diagnosis [Patient Encounter] 12/25/2012 12:00AM 11:59PM Clinical Notes Includes: Clinical Notes from this encounter No Clinical Notes Recorded
--- OUTSIDE RECORDS SUMMARY | 2025-01-17 19:32 | XMS_ITS | Encounter Summary ---
Author Organization [facility] Address [address] [place] [address] Care Team Providers Care Psychiatric Security Nurse Name Role Phone Isrrael Burleson MD Unavailable [phone] Nelson Alva DO Primary Care Provider + Emerald King RN Unavailable Reason for Visit * Reason Onset Date Comments Surgical Clearance 12/24/2024 Encounter Details Date Type Department Care Team (Late st Contact Info) Description 12/24[facility]20[facility] [address] [address] Isrrael Burleson MD [facility]. [address] [address] Surgical Clearance Social History Tobacco [...] Sex Assigned at Female 10/25/2024 10:07 AM SENIOR DATA WAREHOUSE ARCHITECT Legal Sex Female 2:31 AM CDT Gender Identity Female 01/05/2022 11:28 AM SENIOR DATA WAREHOUSE ARCHITECT Sexual Orientation Straight 01/05/2022 11 :28 AM SENIOR DATA WAREHOUSE ARCHITECT Occupation Industry Job Start Date Job End Date Not on file Not on file Not on file Not on file documented as of this encounter Functional Status * RETIRED Are you deaf or do you have serious difficulty hearing Answer Date of Assessment Author Status No 12/18/2021 4:43 PM SENIOR DATA WAREHOUSE ARCHITECT Activ e * RETIRED Are you blind or do you have serious difficulty seeing, even when wearing glasses? Answer Date of Assessment Author Status No 12/18/2021 4:43 PM SENIOR DATA WAREHOUSE ARCHITECT Activ e * Do you have serious [...] further attempts will be made. Zelda CORDON OR DATA WAREHOUSE ARCHITECT * MARGIE Brewer - 12/24/2024 10:08 PM CST Please confirm no new chest pain, pressure, SOB and can met 4 METs of activity. If doing well, she would be of acceptable risk holding ASA for 6-7 days prior. OR DATA WAREHOUSE ARCHITECT * Ivana Emmanuel - 12/24/2024 8:23 AM CST Received fax from [facility] requesting cardiac clearance prior to Robotic Assisted Lap Hiatal Hernia Repair w/ Toupet Fundoplication, poss mesh poss open w/ EGD on 01/28/25 at [facility] with Dr Oleksandr Vera Message to CHIP FRIER to advise Fax to [phone] OR DATA WAREHOUSE ARCHITECT documented in this encounter Plan of Treatment Upcoming Encounters Date Type Department Care Team (Latest Contact Info) Description 2:00 PM CDT Appointment [facility] [place] [address] Oleksandr Vera, DO [address] [place] [address] 10:27 AM CDT Hospital Encounter [facility] [address] Oleksandr Vera, DO [address] [place] [address] [place] [id number] 5 10:27 AM CDT - 1:30 PM CDT Surgery [facility] [place] [address] Oleksandr Vera, DO [address] [place] [address] [place] [address] ROBOTIC XI ASSISTED LAPAROSCOPIC HIATAL HERNIA REPAIR WITH TOUPET FUNDOPLICATION, POSSIBLE MESH, POSSIBLE OPEN, WITH ESOPHAGOGASTRODUODENOSCOPY 5 1:00 PM CDT Office Visit [facility] [place] [facility], [facility] [address] [place] [address] Carol Tinsley FNP 3 [facility] [address] [place], [place] [phone] Scheduled Procedures Name Priority Associated Diagnoses Date/Ti ut ROBOTIC XI HERNIA HIATAL HIATAL HERNIA K44.9 01/28/2025 10:27 AM CDT documented as of this encounter Goals Goal Patient Goal Type Associated Problems Recent Progress Patient-Stated? Author Reduce Sodium Intake Diet No change(2021 8:23 AM SENIOR DATA WAREHOUSE ARCHITECT) No Emerald King RN Establish Plan for Symptom Monitoring General On track( 12:06 PM SENIOR DATA WAREHOUSE ARCHITECT) No Emerald King RN Consistently take medications as Prescribed General On track( 8:23 AM SENIOR DATA WAREHOUSE ARCHITECT) No Emerald King, BRAVO Note: 12/24 on track with exception of iron tablet 01/01-still needs iron documented as of this encounter Visit Diagnoses Not on filedocumented in this encounter Additional Health Concerns Assessment Noted Time PHQ-9 Depression Total Score: 0 05/21/20 24 1:18 PM CDT documented as of this encounter Care Teams Psychiatric Security Nurse Relationship Specialty Start Date End Date Nelson Alva DO [address] [place] [id number] PCP - General FAMILY PRACTICE 02/05/19 01/03/25 Isrrael Burleson MD Three [facility]. [facility] [address] [place] [address] [place] Flaking Roll Operator CARDIOVASCULAR DISEASE 04/07/16 Emerald King, RN [address] [address] Cone Worker (Ambulatory) REGISTERED NURSE 12/15/21 documented as of this encounter
--- OUTSIDE RECORDS SUMMARY | 2025-01-17 19:32 | XMS_ITS | Encounter Summary ---
Author Organization [facility] Address [address] [place] [address] Care Team Providers Care Director Script Name Role Phone Irsrael Burleson MD Unavailable [phone] Nelson Alva DO Primary Care Provider + Emerald King RN Unavailable [phone] Encounter Details Date Type Department Care Team (Late st Contact Info) Description 03/11/2023 Prep for Procedure [facility], [facility] [address] [place], [place] [id number] Rodríguez Bob MD Three [facility]. [facility] [address] [place] [address] Social History Tobacco Use Types Packs/Day Years Used Date Smoking Tobacco: Never Passive Smoke Exposure: Never Smokeless Tobacco: Never Alcohol Use Standard Drinks/Week Comments No 0 (1 standard drink = 0.6 oz pur e alcohol) PHQ-2 Answer Date Recorded Patient Health Questionnaire-2 Score 0 12/28/2022 Comments No Sex and Gender Information Value Date Recorded Sex Assigned at Female 10/25/2024 10:07 AM CROP RANCH HAND Legal Sex Female 2:31 AM CDT Gender Identity Female 01/05/2022 11:28 AM CROP RANCH HAND Sexual Orientation Straight 01/05/2022 11 :28 AM CROP RANCH HAND Occupation Industry Job Start Date Job End [...] Assessment Author Status No 12/18/2021 4:43 PM CROP RANCH HAND Activ e * RETIRED Are you blind or do you have serious difficulty seeing, even when wearing glasses? Answer Date of Assessment Author Status No 12/18/2021 4:43 PM CROP RANCH HAND Activ e * Do you have serious [...] Info) Description 5 2:00 PM CDT Appointment [facility] [place] [address] Oleksandr Vera, DO [address] [place] [address] [phone] 5 10:27 AM CDT Hospital Encounter [facility] [place] [address] Oleksandr Vera, DO [address] [place] [address] [phone] 10:27 AM CDT - 1:30 PM CDT [facility] [place] [address] Oelksandr Vera, DO [address] [facility] [address] [place] [address] [id number] ROBOTIC XI ASSISTED LAPAROSCOPIC HIATAL HERNIA REPAIR WITH TOUPET FUNDOPLICATION, POSSIBLE MESH, POSSIBLE OPEN, WITH ESOPHAGOGASTRODUODENOSCOPY 5 1:00 PM CDT Office Visit [facility] [place] [address] [facility], [place] [address] [place], [place] [address] Carol Tinsley, PAINT CREW SUPERVISOR [address] [facility] [address] [place], [place] [address] Scheduled Procedures Name Priority Associated Diagnoses Date/Ti wi ROBOTIC XI HERNIA HIATAL HIATAL HERNIA K44.9 01/28/2025 10:27 AM CDT documented as of this encounter Goals Goal Patient Goal Type Associated Problems Recent Progress Patient-Stated? Author Reduce Sodium Intake Diet No change(2021 8:23 AM CROP RANCH HAND) No Emerald King RN Establish Plan for Symptom Monitoring General On track( 12:06 PM CROP RANCH HAND) No Emerald King RN Consistently take medications as Prescribed General On track( 8:23 AM CROP RANCH HAND) No Emerald King, BRAVO Note: 12/24 on track with exception of iron tablet 01/01-still needs iron documented as of this encounter Visit Diagnoses Not on filedocumented in this encounter Additional Health Concerns Infection Onset Date Last Indicated Resolved Time COVID-19 Rule Out 09/13/2023 09/13/2023 09/13/2023 1:56 PM CROP RANCH HAND COVID-19 Rule Out 09/13/2023 09/13/2023 09/14/2023 3:52 PM CROP RANCH HAND Assessment Noted Time PHQ-9 Depression Total Score: 0 12/28/19 23 4:16 PM CROP RANCH HAND documented as of this encounter Care Teams Director Script Relationship Specialty Start Date End Date Nelson Alva DO [address] [place] [address] PCP - General FAMILY PRACTICE 02/05/19 01/03/25 Isrrael Burleson MD [facility]. [address] [address] [place] Jumpbasting Lining Baster CARDIOVASCULAR DISEASE 04/07/16 Emerald King, RN [address] [facility] [address] [place] [address] Senior Medical Billing Specialist (Ambulatory) REGISTERED NURSE 12/15/21 documented as of this encounter
--- OUTSIDE RECORDS SUMMARY | 2025-01-17 19:32 | XMS_ITS ---
Author Organization [facility] Address [address] [place] [address] Phone Care Team Providers Care Locker Plant Attendant Name Role Phone NIHARIKA MORA, WISAM HART Unavailable [phone] Problems Includes: Active, inactive, and resolved Problems All Visits Onset Date Resolved Date Provider Condition S tatus Persistent Insomnia 01/08/2015 WISAM REECE MD Active Last Documented On 5 3:41PM ; [facility] Heart Block 11/12/2014 WISAM RM MD A ctive Last Documented On 5 3:05PM ; [facility] Note: 40% Major Depression, Recurrent 12/21/2012 WISAM RM MD Active Last Documented On 3 2:42PM ; [facility] Generalized Anxiety Disorder 11/17/2012 WISAM RM MD Active Last Documented On 3 3:17PM ; [facility] Gerd 11/17/2012 IWSAM RM MD Ac tive Last Documented On 3 3:18PM ; [facility] Hypertension Systemic 11/17/2012 WISAM EDWARD MD Active Last Documented On 3 3:18PM ; [facility] Hypokalemia 11/17/2012 WISAM RM MD A ctive Last Documented On 3 3:18PM ; [facility] Intervertebral Disc Degeneration 11/17/2012 MET RAYO RM MD Active Last Documented On 3 3:19PM ; [facility] Plan of Treatment Education and Decision Aids were provided during visit for: Patient education about medi cation --- I educated patient on medication(s) and diagnosis. I reviewed the risks, benefits and side effects of patient's medications Last Documented On 5 2:29PM ; [facility] Discussed calming techniques such as breathing exercises/meditation and other relaxation techniques Last Documented On 5 2:29PM ; [facility] Counseling for nutrition/camilo ght management provided Last Documented On 5 7:49PM ; [facility] Patient education about medi cation --- I educated patient on medication(s) and diagnosis. I reviewed the risks, benefits and side effects of patient's medications Last Documented On 5 7:51AM ; [facility] Discussed calming techniques such as breathing exercises/meditation and other relaxation techniques Last Documented On 5 2:40PM ; [facility] Counseling for nutrition/camilo ght management provided Last Documented On 5 7:51AM ; [facility] Patient education about medi cation --- I educated patient on medication(s) and diagnosis. I reviewed the risks, benefits and side effects of patient's medications Last Documented On 4 12:07AM ; [facility] Discussed calming techniques such as breathing exercises/meditation and other relaxation techniques Last Documented On 4 3:32PM ; [facility] Patient education about medi cation --- I educated patient on medication(s) and diagnosis Last Documented On 3 9:09PM ; [facility] Discussed calming techniques such as breathing exercises/meditation and other relaxation techniques Last Documented On 3 1:10PM ; [facility] Discussed calming techniques such as yoga meditation to help relieve some anxiety symptoms Last Documented On 3 1:49PM ; [facility] Discussed calming techniques such as breathing exercises and other relaxation techniques Last Documented On 3 1:49PM ; [facility] Assessments Includes: Assessments for all patient encounters Findings Encounter Date Generalized anxiety disorder GENERAL OFF ICE VISIT with WISAM RM MD 10/09/2015 Last Documented On 5 7:51PM ; [facility] Major depression, recurrent GENERAL OFFI CE VISIT with WISAM RM MD 10/09/2015 Last Documented On 5 7:51PM ; [facility] Persistent insomnia GENERAL OFFICE VISIT with ME MARCUS RM MD 10/09/2015 Last Documented On 5 7:51PM ; [facility] Generalized anxiety disorder GENERAL OFF ICE VISIT with WISAM RM MD 01/08/2015 Last Documented On 5 7:52AM ; [facility] Major depression, recurrent GENERAL OFFI CE VISIT with WISAM RM MD 01/08/2015 Last Documented On 5 7:52AM ; [facility] Persistent insomnia GENERAL OFFICE VISIT with ME MARCUS RM MD 01/08/2015 Last Documented On 5 7:52AM ; [facility] Generalized anxiety disorder GENERAL OFF ICE VISIT with WISAM RM MD 04/29/2014 Last Documented On 4 12:10AM ; [facility] Major depression, recurrent GENERAL OFFI CE VISIT with WISAM RM MD 04/29/2014 Last Documented On 4 12:10AM ; [facility] Generalized anxiety disorder GENERAL OFF ICE VISIT with WISAM RM MD 06/20/2013 Last Documented On 3 9:09PM ; [facility] Major depression, recurrent GENERAL OFFI CE VISIT with WISAM RM MD 06/20/2013 Last Documented On 3 9:09PM ; [facility] Generalized anxiety disorder GENERAL OFF ICE VISIT with WISAM RM MD 12/25/2012 Last Documented On 3 8:54PM ; [facility] Major depression, recurrent GENERAL OFFI CE VISIT with WISAM MR MD 12/25/2012 Last Documented On 3 8:54PM ; [facility] Instructions Includes: Instructions for all patient encounters Education and Decision Aids were provided during visit for: Patient education about medi cation --- I educated patient on medication(s) and diagnosis. I reviewed the risks, benefits and side effects of patient's medications Last Documented On 5 2:29PM ; [facility] Discussed calming techniques such as breathing exercises/meditation and other relaxation techniques Last Documented On 5 2:29PM ; [facility] Counseling for nutrition/camilo ght management provided Last Documented On 5 7:49PM ; [facility] Patient education about medi cation --- I educated patient on medication(s) and diagnosis. I reviewed the risks, benefits and side effects of patient's medications Last Documented On 5 7:51AM ; [facility] Discussed calming techniques such as breathing exercises/meditation and other relaxation techniques Last Documented On 5 2:40PM ; [facility] Counseling for nutrition/camilo ght management provided Last Documented On 5 7:51AM ; [facility] Patient education about medi cation --- I educated patient on medication(s) and diagnosis. I reviewed the risks, benefits and side effects of patient's medications Last Documented On 4 12:07AM ; [facility] Discussed calming techniques such as breathing exercises/meditation and other relaxation techniques Last Documented On 4 3:32PM ; [facility] Patient education about medi cation --- I educated patient on medication(s) and diagnosis Last Documented On 3 9:09PM ; [facility] Discussed calming techniques such as breathing exercises/meditation and other relaxation techniques Last Documented On 3 1:10PM ; [facility] Discussed calming techniques such as yoga meditation to help relieve some anxiety symptoms Last Documented On 3 1:49PM ; [facility] Discussed calming techniques such as breathing exercises and other relaxation techniques Last Documented On 3 1:49PM ; [facility] Medical Equipment - [...] TABS 01/08/2015 Provider: Diagnosis: Dr. Burleson -- Steward/Stewardess Chief Cargo Vessel in [place] Last Documented On 01/08/2015 3:01PM By Liz [...] [facility] Past Medications on file Viibryd 20 MG Tablet 10/09/2015 - 02/03/2016 Provider: WISAM RM MD Diagnosis: Major depressive disorder, recurrent, unspecified food - 1 tablet every morning with food Last Documented On 02/03/2016 8:07AM By Liz Rm MD ; [facility] Viibryd 20 MG OR TABS 01/08/2015 - 10/09/2015 Provider: WISAM REECE MD Diagnosis: MAJOR DEPRESSION DISORDER/RECURRENT ---given samples for 7 months Last Documented On 10/09/2015 3:17PM By Liz Rm MD ; [facility] Silenor 3 MG OR TABS 01/08/2015 - [...] 01/08/2015 3:48PM By Liz Rm MD ; [facility] Viibryd 20 MG OR TABS 07/07/2013 - 04/29/2014 Provider: WISAM REECE MD Diagnosis: MAJOR DEPRESSION DISORDER/RECURRENT ---given samples for 4 months Last Documented On 04/29/2014 4:39PM By Liz Rm MD ; [facility] Vi[facility]d 20 MG OR TABS 12/25/2012 - 06/20/2013 Provider: WISAM REECE MD Diagnosis: MAJOR DEPRESSION DISORDER/RECURRENT 1 in the morning with Food---given samples Last Documented On 07/07/2013 8:49PM By Liz Rm MD ; [facility] Indapamide 2.5 MG OR TABS 12/25/2012 - 01/08/2015 Prov ider: Diagnosis: Last Documented On 01/08/2015 3:00PM By Liz Rm MD ; [facility] Viib[facility]d 20 MG OR TABS 11/17/2012 - 12/25/2012 Provider : Diagnosis: 1 in the morning Last Documented On 12/25/2012 2:10PM By Liz Rm MD ; [facility] Medications Administered Includes: Administered Medications in patient's chart No Administered Medications Recorded Results Includes: Results from 01/18/2024 through 01/17/2025 No Results Recorded For Specified Dates History of Present Illness History of Present Illness not supported for this document type No History of Present Illness Recorded Social History Description Last Updated She was at 15.She haro s two daughters.She was born and raised in [place].She was closer to her mother, but both parents are now . Her sister committed suicide. 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 10/09/2015 Last Documented On 5 7:51PM ; [facility] Work history She is retired 10/09/2015 Last Documented On 5 7:51PM ; [facility] Marital history 10/09/2015 Last Documented On 5 7:51PM ; [facility] Not using alcohol 11/17/2012 Last Documented On 3 3:26PM ; [facility] Not using drugs (Illicit) 11/17/2012 Last Documented On 3 3:26PM ; [facility] Smoking status : Never smoked 11/17/2012 Last Documented On 3 3:26PM ; [facility] Procedures and Surgical History Surgical History Last Updated History of Prior Surgery: ~T AH ~Neck surgery ~Cholecystectomy 2001 ~Cardiac catherization-- Dr. Burleson in [place] ~ 01/08/2015 Last Documented On 5 7:52AM ; [facility] Medical History Includes: Medical History in patient's chart Description Last Updated History of A-V block 10/09/2015 Last Documented On 5 7:51PM ; [facility] History of hypothyroidism 10/09/2015 Last Documented On 5 7:51PM ; [facility] History of intervertebral di sc degeneration ~[facility] 09/18/14 for low potassium ~[place] -- 201210/09/2015 Last Documented On 5 7:51PM ; [facility] Primary Care Provider: Dr. Pierre Maharaj -- Yocasta ~Dr. Morejon-Envelope Sealer Operator 01/08/2015 Last Documented On 5 7:52AM ; [facility] History of GERD 04/29/2014 Last Documented On 4 12:10AM ; [facility] History of hypertension 04/29/2014 Last Documented On 4 12:10AM ; [facility] History of hypokalemia 04/29/2014 Last Documented On 4 12:10AM ; [facility] ~Hypertension ~GERD ~Hypokalemia ~Cervic al disc disease 12/25/2012 Last Documented On 3 8:54PM ; [facility] Family History Includes: Family History in patient's chart Description Last Updated Paternal history of alcoholism -- father 01/08/2015 Last Documented On 5 7:52AM ; [facility] Medical [facility] [place] history of depression -- sister 01/08/2015 Last Documented On 5 7:52AM ; [facility] Review of Systems Review of Systems not [...] Documented On 03/05/2023 5:40PM ; [facility]ICAL [facility] Note: Imported from external source. Insurance Includes: Active Insurance Policies No Insurance Coverage Recorded Guarantor Relationship Effective Dates Guarantor Ph one ROSALIE THOMASON [id number] Clinical Notes Includes: Signed Clinical Notes starting from 11/26/2022 No Clinical Notes Recorded
--- OUTSIDE RECORDS SUMMARY | 2025-01-17 19:32 | XMS_ITS ---
Care Plan - [facility] Medical [facility] Created on: January 17, 2025 ROSALIE THOMASON : 1950 Sex: Female Author Organization [facility] Medical [facility] Address [address] [place] [phone] Phone Care Team Providers Care Coffee Urn Attendant Name Role Phone NIHARIKA MORA, WISAM HART [facility] [phone]
--- OUTSIDE RECORDS SUMMARY | 2025-01-17 19:32 | XMS_ITS | Encounter Summary ---
Author Organization [facility] Address [address] [place] [address] Care Team Providers Care Industrial Photographer Name Role Phone Isrrael Burleson MD Unavailable [phone] Sally Srivastava MD Primary Care Provider [phone] Nelson Alva DO Primary Care Provider + Pricilla Dao MD Primary Care Provider [phone] Emerald King RN Unavailable [phone] Encounter Details Date Type Department Care Team (Late st Contact Info) Description 12/25/2018 Hospital Orders Only [facility], [facility] [address] [place] [address] Sergo Márquez MD [facility]. [facility] [address] [place] [address] Social History Tobacco Use Types Packs/Day Years Used Date Smoking Tobacco: Never Smokeless Tobacco: Never Alcohol Use Standard Drinks/Week Comments No 0 (1 standard drink = 0.6 oz pur e alcohol) Comments No Sex and Gender Information Value Date Recorded Sex Assigned at Female 10/25/2024 10:07 AM POLISHING MACHINE TENDER Legal Sex Female 2:31 AM CDT Gender Identity Female 01/05/2022 11:28 AM POLISHING MACHINE TENDER Sexual Orientation Straight 01/05/2022 11 :28 AM POLISHING MACHINE TENDER Occupation Industry Job Start Date Job End Date Not on file Not on file Not on file Not on file documented as of this encounter Functional Status * RETIRED Are you deaf or do you have serious difficulty hearing Answer Date of Assessment Author Status No 11/06/2018 1:30 PM POLISHING MACHINE TENDER Activ e * RETIRED Are you blind or do you have serious difficulty seeing, even when wearing glasses? Answer Date of Assessment Author Status No 11/06/2018 1:30 PM POLISHING MACHINE TENDER Activ e * Do you have serious difficulty walking or climbing stairs? Answer Date of Assessment Author Status No 11/06/2018 1:30 PM POLISHING MACHINE TENDER Amina Martel R N Active * Do you have difficulty dressing or bathing? Answer Date of Assessment Author Status No 11/06/2018 1:30 PM POLISHING MACHINE TENDER Amina Martel R N Active * Because [...] PM CDT Appointment [facility] [place] [address] Oleksandr Vera, [address] [place] [phone] 5 10:27 AM CDT Hospital Encounter [facility] [place] [address] Oleksandr Vera, DO [address] [place] [phone] 5 10:27 AM CDT - 5 1:30 PM CDT Surgery [facility] [address] Oleksandr Vera, [address] [facility] [address] [place] [address] ROBOTIC XI ASSISTED LAPAROSCOPIC HIATAL HERNIA REPAIR WITH TOUPET FUNDOPLICATION, POSSIBLE MESH, POSSIBLE OPEN, WITH ESOPHAGOGASTRODUODENOSCOPY 1:00 PM CDT Office Visit [facility] [place] [facility] [place] [address] [place] [address] Carol Tinsley FNP 3 [facility] [address] [place] [address] Scheduled Procedures Name Priority Associated Diagnoses Date/Ti ks ROBOTIC XI HERNIA HIATAL HIATAL HERNIA K44.9 01/28/2025 10:27 AM CDT documented as of this encounter Visit Diagnoses Not on filedocumented in this encounter Additional Health Concerns Infection Onset Date Last Indicated Resolved Time COVID-19 Rule Out 09/22/2020 09/15/2020 09/22/2020 11:29 AM POLISHING MACHINE TENDER COVID-19 Rule Out 09/23/2020 09/23/2020 11/22/2020 12:33 AM POLISHING MACHINE TENDER COVID-19 Rule Out 06/01/2022 06/01/2022 06/02/2022 2:07 PM CDT COVID-19 Rule Out 12/28/2022 12/28/2022 12/29/2022 1:28 PM POLISHING MACHINE TENDER COVID-19 Rule Out 02/16/2023 02/16/2023 02/16/2023 11:21 AM CDT COVID-19 Rule Out 02/16/2023 02/16/2023 02/17/2023 1:03 PM CDT COVID-19 Rule Out 09/13/2023 09/13/2023 09/13/2023 1:56 PM POLISHING MACHINE TENDER COVID-19 Rule Out 09/13/2023 09/13/2023 09/14/2023 3:52 PM POLISHING MACHINE TENDER documented as of this encounter Care Teams Industrial Photographer Relationship Specialty Start Date End Date Sally Srivastava MD [facility] Internal Medicine [address] [place] [phone] PCP - General INTERNAL MEDICINE 11/04/18 01/04/19 Nelson Alva DO [address] [place] [address] PCP - General FAMILY PRACTICE 02/05/19 01/03/25 Pricilla Dao MD [address] [place] [address] PCP - General FAMILY PRACTICE 01/05/19 02/04/19 Isrrael Burleson MD [facility]. [facility] [address] [place] [address] [place] Screw Machine Repairer CARDIOVASCULAR DISEASE 04/07/16 Emerald King, RN [address] [facility] [address] [place] [address] Tire Maintenance Technician (Ambulatory) REGISTERED NURSE 12/15/21 documented as of this encounter
[2025-01-17 19:53] LABS: Influenza A QL RT-PCR Negative (Negative); Influenza B QL RT-PCR Negative (Negative); RSV RNA, RT-PCR Negative (Negative); SARS-CoV-2 RNA PCR Negative (Negative)
[2025-01-17 20:26] LABS: Basophils Percent Auto 0.3 % (0.2-1.2); Eosinophils Percent Auto 0.4 % (0-4.4); Hematocrit 42.3 % (37.0-47.0); Hemoglobin 15.3 g/dL (12.0-15.0); Immature Granulocyte Absolute 0.06 K/mm3 (0.00-0.031); Immature Granulocyte Percent A 0.6 % (0-0.5); Lymphocytes Absolute Auto 1.74 K/mm3 (0.9-3.2); Lymphocytes Percent Auto 16.6 % (18.3-44.2); Mean Corpuscular HGB Conc 36.2 g/dl (32-36); Mean Corpuscular Hemoglobin 31.4 pg (26-34); Mean Corpuscular Volume 86.7 fl (80-100); Mean Platelet Volume 9.4 fl (7.4-10.4); Monocytes Absolute Auto 0.8 K/mm3 (0.1-0.6); Monocytes Percent Auto 7.8 % (2.6-8.5); Neutrophils Absolute Auto 7.8 K/mm3 (1.3-6.7); Neutrophils Percent Auto 74.3 % (45.5-73.1); Platelet Count Result 261 k/mm3 (150-375); Red Blood Count 4.88 M/mm3 (4.2-5.4); Red Cell Distribution Width 11.8 % (11.5-14.5); White Blood Count 10.5 K/mm3 (4.5-10.0)
[2025-01-17 20:36] LABS: Alanine Aminotransferase 32 U/L (6-35); Albumin Level 4.4 g/dL (3.5-5.1); Alkaline Phosphatase 73 U/L (38-126); Anion Gap 13 mmol/L (4-12); Aspartate Amino Transferase 28 U/L (14-36); Bilirubin,Total 0.7 mg/dL (0.2-1.3); Blood Urea Nitrogen 32 mg/dL (7-17); Carbon Dioxide 28 mmol/L (22-30); Chloride 98 mmol/L (98-107); Creatine Kinase 40 U/L (30-135); Estimated CRCL calculation 40 ml/min; Estimated Glomerular Filt Rate > 60; Glucose 147 mg/dL (65-110); Potassium 3.5 mmol/L (3.4-5.0); Prothrombin Time 13.5 Seconds (11.1-14.7); Sodium 139 mmol/L (137-145)
[2025-01-17 20:37] LABS: Partial Thromboplastin Time 24.2 Seconds (22.3-36.8)
[2025-01-17] MEDS: SODIUM CHLORIDE 0.9% IV 2,000 ML 999 ML IV CONT (20:59)
[2025-01-17 23:21] VITALS: BP 170/90; PULSE 96; RESP 16; O2SAT 96
[2025-01-17] MEDS: ONDANSETRON INJ 4 MG/2 ML VIAL IV PUSH (23:35)
--- NOTE | 2025-01-17 23:40 | PC.NURSE ---
Assumed care of patient from BRAVO Garcia @ 9553. No report known to be given. Pt approached nurses desk at this time asking about discharge. EDP stated dc paperwork has already been put in an asked if pt was able to keep water down for PO challenge. Pt stated pt had not received any water. Pt to receive zofran and water then dc if she is able to keep it down.
[2025-01-17 23:46] VITALS: BP 157/79; PULSE 100; RESP 17; O2SAT 95
== END 2025-01-17 23:55 | disposition home or self-care (01) ==
PROVIDERS: Physician Assistant; Emergency Provider Emergency Medicine; PCP Student in an Organized Health Care Education/Training Program
DX: N39.0 Urinary tract infection, site not specified (principal); R11.2 Nausea with vomiting, unspecified; Z20.822 Contact with and (suspected) exposure to COVID-19; I25.10 Atherosclerotic heart disease of native coronary artery without angina pectoris; I10 Essential (primary) hypertension; E78.5 Hyperlipidemia, unspecified; Z86.73 Personal history of transient ischemic attack (TIA), and cerebral infarction without residual deficits; K21.9 Gastro-esophageal reflux disease without esophagitis; K44.9 Diaphragmatic hernia without obstruction or gangrene; Z95.1 Presence of aortocoronary bypass graft; Z95.5 Presence of coronary angioplasty implant and graft; Z90.49 Acquired absence of other specified parts of digestive tract; Z90.710 Acquired absence of both cervix and uterus; Z79.02 Long term (current) use of antithrombotics/antiplatelets; Z79.82 Long term (current) use of aspirin; Z79.899 Other long term (current) drug therapy; R00.0 Tachycardia, unspecified
CPT/HCPCS: 36415; 70450; 71046; 80053; 80307; 81001; 82550; 84443; 85025; 85610; 85730; 87637; 93005; 96365; 96366; 96375; 99284; J0696; J2405; J7030

== ENCOUNTER 2025-08-15 15:04 | Outpatient (CLI) | payer OTHER, SELFPAY ==
--- NOTE | ~2025-08-15 | US_ITS ---
EXAMINATION: US pelvic limited DATE: 08/15/2025 15:57 INDICATION: Dysuria. TECHNIQUE: Multiple grayscale and Doppler ultrasound images of the pelvis were obtained. COMPARISON: CT abdomen and pelvis 10/19/2023 FINDINGS: The bladder is normal in morphology. The prevoid bladder volume is 128 mL. The postvoid bladder volume is 10 mL. IMPRESSION: 1. Normal bladder. Reviewed, dictated and finalized at location E. IMPRESSION: 1. Normal bladder.
== END 2025-08-15 15:05 | disposition home or self-care (01) ==
PROVIDERS: PCP Family Medicine; Visit Provider Nurse Practitioner
DX: R30.0 Dysuria (principal)
CPT/HCPCS: 76857

== ENCOUNTER 2025-08-30 17:24 | Observation (INO) | payer OTHER, SELFPAY ==
[2025-08-30] VITALS (9 sets, daily range): BP systolic 138–164; BP diastolic 63–81; PULSE 80–103; RESP 15–19; TEMP 36.7; O2SAT 98–100
--- NOTE | ~2025-08-30 | CT_ITS ---
EXAMINATION: CT cervical spine wo con COMPARISON: None HISTORY: hi, syncope TECHNIQUE: Axial images were obtained through the spine without IV contrast. Coronal, sagittal reconstruction images were obtained from the axial views. CT scan performed using dose optimization techniques including the following automated exposure control; adjustment of mA and/or kV; use of iterative reconstruction technique. Automatic exposure control was used to reduce radiation dose. Permanent radiation dose record is archived to PACS. FINDINGS: Anterior fixation is noted extending across C5, C6 and C7, the hardware is intact with fusion of the vertebrae at these levels and the disc spaces. Severe loss of disc space at C3-4 and C4-5 and C7-T1 with moderate to severe canal and foraminal stenosis, outpatient MRI is recommended Soft tissues unremarkable. Impression: No acute abnormality. Reviewed, dictated and finalized at location P. Impression: No acute abnormality.
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
--- NOTE | 2025-08-30 17:27 | ECG_ITS ---
Test Date: 2025-08-30 17:31:52 Measurements Intervals [place] Rate: 97 P: 53 MT: 146 QRS: -25 QRSD: 89 T: 30 QT: 359 QTc: 457 Interpretive Statements SINUS RHYTHM POSSIBLE LEFT ATRIAL ENLARGEMENT VOLTAGE CRITERIA FOR LVH DELAYED PRECORDIAL R/S TRANSITION NONSPECIFIC T-WAVE ABNORMALITY- ANT/INF LEADS BASELINE ARTIFACT- V3-V5 BORDERLINE ECG Compared to ECG 01/17/2025 20:03:43 HEART RATE HAS DECREASED Electronically Signed On 08-30-2025 21:02:26 CDT by Tommy Felder D.O.
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
[2025-08-30 18:34] LABS: Hematocrit 36.2 % (37.0-47.0); Hemoglobin 12.7 g/dL (12.0-15.0); Immature Granulocyte Percent A 0.3 % (0-0.5); Lymphocytes Absolute Auto 2.30 K/mm3 (0.9-3.2); Mean Corpuscular HGB Conc 35.1 g/dl (32-36); Mean Corpuscular Hemoglobin 30.8 pg (26-34); Mean Corpuscular Volume 87.9 fl (80-100); Nucleated Red Blood Cells Absolute Auto 0.000 K/mm3 (0.0-0.012); Nucleated Red Blood Cells Perc 0.0 % (0.0-0.2); Platelet Count Result 217 k/mm3 (150-375); Red Blood Count 4.12 M/mm3 (4.2-5.4); White Blood Count 6.6 K/mm3 (4.5-10.0)
[2025-08-30 18:44] LABS: Alanine Aminotransferase 15 U/L (6-35); Albumin Level 4.2 g/dL (3.5-5.1); Alkaline Phosphatase 52 U/L (38-126); Anion Gap 7 mmol/L (4-12); Aspartate Amino Transferase 23 U/L (14-36); Bilirubin,Total 0.6 mg/dL (0.2-1.3); Blood Urea Nitrogen 20 mg/dL (7-17); Calcium 10.7 mg/dL (8.4-10.2); Carbon Dioxide 32 mmol/L (22-30); Chloride 99 mmol/L (98-107); Estimated CRCL calculation 36 ml/min; Estimated Glomerular Filt Rate 58; Glucose 197 mg/dL (65-110); Magnesium 1.5 mg/dL (1.6-2.3); Potassium 3.0 mmol/L (3.4-5.0); Sodium 138 mmol/L (137-145); Total Protein 7.1 g/dL (6.3-8.2)
[2025-08-30 18:55] LABS: Troponin I < 0.012 ng/mL (0.000-0.034)
[2025-08-30] MEDS: POTASSIUM CHLORIDE 20 MEQ ER TABLET 40 MEQ PO (19:03)
[2025-08-30 19:06] LABS: Influenza A QL RT-PCR Negative (Negative); Influenza B QL RT-PCR Negative (Negative); RSV RNA, RT-PCR Negative (Negative); SARS-CoV-2 RNA PCR Negative (Negative)
[2025-08-30] MEDS: MAGNESIUM SULF 2 GM/WATER 50ML 2 GM/50 ML BAG IVPB ×2 (19:06→23:38)
[2025-08-30] MEDS: SODIUM CHLORIDE 0.9% IV 1,000 ML 999 ML IV CONT (19:06)
--- NOTE | 2025-08-30 19:10 | PC.NURSE ---
This RN received report from Kezia CORDON.
[2025-08-30 19:43] LABS: Add Urine Microscopic? YES; Appearance Urine Turbid (Clear); Glucose Urine UA Negative (Negative); Leukocyte Esterase Ur 2+ LEU/UL (Negative); Nitrate Urine Negative (Negative); Non Pathogenic Casts 0-2; Specific Grav Ur 1.030 (1.001-1.035)
[2025-08-30] MEDS: KCL 20 MEQ/SW 100 ML 100 ML 50 MEQ IVPB (20:07)
[2025-08-30] MEDS: cefTRIAXone 1 GM in SODIUM CHLORIDE 0.9% IV 50 ML 100 ML IVPB (20:19)
--- NOTE | 2025-08-30 20:51 | PC.NURSE ---
Pt called out and requesting the potassium to be at a slower rate. EDP notified and this RN placed rate at 35 mL/hour. Pt still calling out that it is burning. Rate changed to 25 mL/hour.
--- NOTE | 2025-08-30 21:16 | PC.NURSE ---
Pt called out and reported burning from potassium again. Provider notified. Pt potassium is on standby at this time. 36.8 mL were infused.
--- NOTE | 2025-08-30 22:30 | ECG_ITS ---
Test Date: 2025-08-30 22:48:31 Measurements Intervals [place] Rate: 85 P: 78 MI: 160 QRS: -16 QRSD: 104 T: 18 QT: 405 QTc: 483 Interpretive Statements SINUS RHYTHM POSSIBLE LEFT ATRIAL ENLARGEMENT CANNOT R/O SEPTAL INFARCT, AGE INDETERMINATE BORDERLINE T WAVE ABNORMALITY- INFERIOR LEADS ABNORMAL ECG Compared to ECG 08/30/2025 17:31:52 NO SIGNIFICANT CHANGE Electronically Signed On 08-31-2025 08:27:05 CDT by Tommy Felder D.O.
[2025-08-30 23:01] LABS: Troponin I < 0.012 ng/mL (0.000-0.034)
[2025-08-30] MEDS: POTASSIUM CHLORIDE 20 MEQ ER TABLET PO (23:36)
[2025-08-30] MEDS: SODIUM CHLORIDE 0.9% IV 1,000 ML 75 ML IV CONT (23:37)
[2025-08-31] VITALS (9 sets, daily range): BP systolic 134–175; BP diastolic 61–86; PULSE 59–93; RESP 16–20; TEMP 36.1–36.7; O2SAT 94–100; BMI 26.1
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
--- NOTE | 2025-08-31 03:00 | ADMGEN ---
This patient, Cassi Ramsey, was admitted to 3 [facility] Surg Room 320-01. Patient/family oriented to hospital policies and general routines including ID bracelet, bed and alarms, visiting hours, pain management, procedures, bathroom and other care routines, personal items, smoking policy, room service/diet, and visiting hours. Information on how to activate the Rapid Response Team has been discussed. Patient/Family are encouraged to report perceived risks to care and to ask questions if they do not understand what they are told or what they should do.
[2025-08-31 05:39] LABS: Hematocrit 30.4 % (37.0-47.0); Hemoglobin 10.4 g/dL (12.0-15.0); Mean Corpuscular HGB Conc 34.2 g/dl (32-36); Mean Corpuscular Hemoglobin 30.5 pg (26-34); Mean Corpuscular Volume 89.1 fl (80-100); Platelet Count Result 152 k/mm3 (150-375); Red Blood Count 3.41 M/mm3 (4.2-5.4); White Blood Count 4.4 K/mm3 (4.5-10.0)
[2025-08-31 06:01] LABS: Anion Gap 2 mmol/L (4-12); Blood Urea Nitrogen 16 mg/dL (7-17); Calcium 8.3 mg/dL (8.4-10.2); Carbon Dioxide 29 mmol/L (22-30); Chloride 106 mmol/L (98-107); Estimated CRCL calculation 43 ml/min; Estimated Glomerular Filt Rate > 60; Glucose 113 mg/dL (65-110); Magnesium 2.4 mg/dL (1.6-2.3); Potassium 3.7 mmol/L (3.4-5.0); Sodium 137 mmol/L (137-145)
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
[2025-08-31] MEDS: ENOXAPARIN 40 MG/0.4 ML SYRINGE SUB-Q (09:21)
[2025-08-31] MEDS: POTASSIUM CHLORIDE 20 MEQ ER TABLET PO (09:22)
[2025-08-31] MEDS: LOSARTAN POTASSIUM 50 MG TABLET PO (09:22)
[2025-08-31] MEDS: ASPIRIN 81 MG ENTERIC TABLET PO (09:22)
[2025-08-31] MEDS: LORATADINE 10 MG TABLET PO (09:24)
[2025-08-31] MEDS: FERROUS SULFATE 325 MG TABLET PO (09:24)
[2025-08-31] MEDS: SODIUM CHLORIDE 0.9% IV 1,000 ML 75 ML IV CONT (13:50)
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
== END 2025-08-31 17:00 | disposition home or self-care (01) ==
LOC: ANHED 19:16 → ANH3MEDSUR 08-31 00:09
PROVIDERS: Admitting Provider Internal Medicine; Emergency Provider Physician Assistant; PCP Family Medicine; Visit Provider Internal Medicine
DX: R55 Syncope and collapse (principal); E83.42 Hypomagnesemia; E87.6 Hypokalemia; R82.90 Unspecified abnormal findings in urine; E86.0 Dehydration; R11.2 Nausea with vomiting, unspecified; R19.7 Diarrhea, unspecified; K44.9 Diaphragmatic hernia without obstruction or gangrene; K42.9 Umbilical hernia without obstruction or gangrene; K21.9 Gastro-esophageal reflux disease without esophagitis; I10 Essential (primary) hypertension; E11.51 Type 2 diabetes mellitus with diabetic peripheral angiopathy without gangrene; I25.10 Atherosclerotic heart disease of native coronary artery without angina pectoris; E78.5 Hyperlipidemia, unspecified; V49.40XA Driver injured in collision with unspecified motor vehicles in traffic accident, initial encounter; Z20.822 Contact with and (suspected) exposure to COVID-19; Z95.1 Presence of aortocoronary bypass graft; Z79.84 Long term (current) use of oral hypoglycemic drugs; Z79.82 Long term (current) use of aspirin; Z86.73 Personal history of transient ischemic attack (TIA), and cerebral infarction without residual deficits; Z66 Do not resuscitate
CPT/HCPCS: 36415; 70450; 71046; 72125; 73090; 80048; 80053; 81001; 82948; 83605; 83735; 84484; 85025; 85027; 87077; 87086; 87147; 87186; 87637; 93005; 96361; 96365; 96366; 96367; 96368; 96372; 96375; 99285; A9270; G0378; J0696; J1650; J3475; J3480; J7030

== ENCOUNTER 2025-10-11 10:15 | Outpatient (CLI) | payer OTHER, SELFPAY ==
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
== END 2025-10-11 10:16 | disposition home or self-care (01) ==
PROVIDERS: PCP Family Medicine; Visit Provider Family Medicine
DX: J34.89 Other specified disorders of nose and nasal sinuses (principal); V89.2XXA Person injured in unspecified motor-vehicle accident, traffic, initial encounter
CPT/HCPCS: 70150